=== PATIENT | female | born 1975 | race Caucasian/White ===

== ENCOUNTER 2019-04-03 19:12 | Emergency (ER) | payer OTHER, SELFPAY ==
[2019-04-03 19:24] VITALS: BP 98/83; PULSE 91; RESP 18; TEMP 37; O2SAT 96; BMI 23.0
--- NOTE | 2019-04-03 19:40 | ED_ITS ---
Entered by Danitza Becerril, acting as scribe for Lindsey Zaman HPI - Abdominal Pain General: Chief Complaint: Abdominal Pain Stated Complaint: GALLBLADDER ISSUE Time Seen by Provider: 04/03/19 19:40 Source: patient Mode of arrival: ambulatory Limitations: no limitations History of Present Illness: HPI narrative: Ramya is very nice 43 yo f came to the er for abd pain. Pt states that this has been going on for awhile. Pt states that her abd pain is upper gastric and radiates to her back. Pt states that the pain is sharp. Pt states that she has had some nausea. She is had nausea but no vomiting. She denies any pain in the lower part of her abdomen it is only located in the epigastric and occasionally the right upper quadrant. She denies any chest pain, shortness of breath, diaphoresis or exertional component to her pain. MD elicited complaint: abdominal pain Pertinent past history: other (gallbladder) Pain Consistency: constant Location: Epigastric and RUQ Severity: mild Quality: stabbing Migration to: epigastric and other (back) Exacerbating factors: nothing Relieving factors: nothing Associated Symptoms: Reports nausea; Denies chills, coffee ground emesis, constipation, GI cramping, diarrhea, dysuria, fever(s), hematochezia, hematuria, hematemesis, melena, syncope and vomiting Review of Systems General: Reports: other (negative unless marked) Const: Denies: fever, chills, body aches, fatigue, malaise or diaphoresis Eyes: Denies: change in vision or blurry vision ENMT: Denies: throat pain, painful swallowing, hoarseness, ear pain, ear discharge, Change in hearing or nasal discharge Card: Denies: chest pain, palpitations, irregular heart rhythm, syncope, pre- syncope, shortness of breath on exertion or shortness of breath when lying down Resp: Denies: shortness of breath, productive cough, non-productive cough, wheezing, coughing up blood or chest congestion GI: Reports: abdominal pain and nausea; Denies: vomiting, vomiting blood, coffee grounds in vomit, diarrhea, constipation, cramping, blood in stool or black tarry stool : Denies: flank pain, painful urination, urinary frequency, urinary urgency, decreased urine ouput, urinary incontinence or blood in urine Musc: Denies: neck pain, back pain, extremity pain, extremity swelling, joint pain, joint swelling, joint warmth or joint stiffness Skin/Breast: Denies: rash, skin tenderness or yellow skin Neuro: Denies: headache, numbness in extremities, weakness in extremities, changes in sensation, lack of coordination, difficulty walking, dizziness, vertigo or confusion Endo: Denies: excessive thirst, tired all the time, cold intolerance, excessive sweating, flushing or hot flashes Abdirahman/Lymph: Denies: easy bruising, easy bleeding, petechiae or enlarged lymph nodes All/Imm: Denies: hives, throat swelling, tongue swelling, facial swelling or acute wheezing PFSH ED PFSH: Statuses (acute, chronic, etc) shown below reflect problem list status as previously entered and may not be historically accurate Social History Smoking and tobacco status: former smoker Physical Exam Const: COMMON NORMALS: no apparent distress, oriented x3, no limitations, healthy appearing and well nourished EXAM LIMITATIONS: no altered mental status GENERAL APPEARANCE: cooperative, well kempt and well developed ORIENTATION/CONSCIOUSNESS: Yes awake HENMT: COMMON NORMALS: normocephalic, head/scalp atraumatic, hearing grossly normal bilaterally, external ears normal, EAC's normal, external nose normal and moist oral mucous membranes HEAD & SCALP: normal to inspection, normocephalic and atraumatic FACE & SINUS: normal facial exam and face symmetric NOSE: external nose normal and nares normal EXTERNAL EAR: Yes external ears normal EXTERNAL AUDITORY CANAL: EAC's normal MOUTH: oral and palatal mucosa normal and tongue normal Eye: COMMON NORMALS: PERRL, EOMs intact bilaterally, conjunctivae normal and no scleral icterus GENERAL EYE: normal appearance of both eyes and normal light reflex CONJUNCTIVA: Yes conjunctivae normal SCLERA: sclerae normal CORNEA: Yes corneas normal PUPIL: Yes PERRL DIRECT OPHTHALMOSCOPY: Yes normal light reflex Neck/C-Spine: COMMON NORMALS: full ROM, no lymphadenopathy, supple, no meningeal signs and no JVD GENERAL: Yes normal visual inspection and Yes trachea midline CERVICAL SPINE: Yes cervical ROM normal Chest: COMMONS NORMALS: inspection of chest normal and palpation of chest normal Resp: COMMON NORMALS: normal respiratory effort, no retractions, no use of accessory muscles and clear to auscultation bilaterally EFFORT & INSPECTION: Yes able to speak in complete sentences AUSCULTATION: clear to auscultation bilaterally Cardio: COMMON NORMALS: no JVD, regular rate, regular rhythm, S1 normal heart sound, S2 normal heart sound, no gallops, no clicks, no murmurs and no rub JUGULAR VENOUS DISTENTION: no JVD RATE: regular rate RHYTHM: regular rhythm HEART SOUNDS: S1 normal and S2 normal GI: COMMON NORMALS: soft to palpation, no hepatosplenomegaly and no masses INSPECTION: Yes normal to inspection PALPATION: Yes soft, Yes tender Details: RUQ and other (Epigastric) and Yes no hepatosplenomegaly : COMMON NORMALS: Yes no CVA tenderness BLADDER/KIDNEY EXAM: Yes no CVA tenderness Back/Pelvis: COMMON NORMALS: no CVA tenderness, thoracic and lumbar spine normal to inspection, no thoracic nor lumbar tenderness and thoraco-lumbar ROM normal Extremity: COMMON NORMALS: normal to inspection, full ROM, normal capillary refill, no joint enlargement, no clubbing, cyanosis or edema and no calf tenderness Neuro: COMMON NORMALS: oriented x3, CN's II-XII intact bilaterally, moves all extremities, no focal motor deficits and no sensory deficits noted MENINGEAL SIGNS: Yes no meningeal signs Psych: COMMON NORMALS: mental status grossly normal, thought process normal, cooperative, affect normal, speech normal and activity/motor behavior normal APPEARANCE: Yes well kempt SPEECH: Yes normal speech THOUGHT PROCESS: normal thought process Skin: COMMON NORMALS: no rashes or lesions noted, skin turgor normal, no jaundice, no petechiae and no mottling GENERAL SKIN EXAM: no rashes or lesions noted and turgor normal Course Vital Signs: Vital signs: Vital Signs Temperature 98.6 F 04/03/19 19:24 Pulse Rate 74 04/03/19 21:32 Respiratory Rate 17 04/03/19 21:32 Blood Pressure 104/62 04/03/19 21:32 Pulse Oximetry 99 04/03/19 21:32 MDM - Abdominal Pain MDM Narrative: Medical decision making narrative: Patient comes in with abdominal pain in the epigastric area. It is better at this time. Her ultrasound is negative. We will go ahead and discharge her to follow-up with Dr. Velazquez for an outpatient HIDA scan. She does understand to return if her symptoms change or worsen. I will place her on medications for reflux in the meantime. I informed her that an EGD may also be necessary. Based upon the patient's history and exam I see no evidence of other life-threatening cause such as acute coronary syndrome, acute appendicitis, abdominal or aneurysm or small bowel obstruction. The patient does understand though she needs to return should her symptoms change or worsen. Differential Diagnosis: Differential diagnosis abdominal pain: Likely abdominal pain, acute appendicitis, calculus of kidney, constipation, diverticulitis, endometriosis, gastroenteritis, pancreatitis and small bowel obstruction Lab Data: Attestation: I reviewed the patient's lab results. Labs: Lab Results 04/03/19 04/03/19 04/03/19 Range/Units 19:40 19:40 19:57 WBC 7.1 (4.0-10.0) 10^3/ uL RBC 4.16 (4.1-5.3) 10^6/u L Hgb 13.1 (11.5-15.3) g/dL Hct 39.0 (37.0-47.0) % MCV 93.8 (81-99) fL MCH 31.5 (28.0-34.0) pg MCHC 33.6 (30.0-36.0) g/dL RDW 11.9 L (12.1-15.1) % Plt Count 257 (130-400) 10^3/c mm MPV 11.2 H (7.4-10.4) fL Neut % (Auto) 40.4 % Lymph % (Auto) 47.4 % [place] % (Auto) 7.6 % Eos % (Auto) 3.3 % Baso % (Auto) 1.0 % Neut # (Auto) 2.9 (1.8-7.7) 10^3/u L Lymph # (Auto) 3.4 (0.8-4.8) 10^3/u L [place] # (Auto) 0.5 (0.2-0.9) 10^3/u L Eos # (Auto) 0.2 (0.0-0.8) 10^3/u L Baso # (Auto) 0.1 (0.0-0.1) 10^3/u L Nucleated RBC % (a uto) 0 % Nucleated RBCs # 0.0 /100WBC Sodium (136-145) mmol/L Potassium (3.5-5.1) mmol/L Chloride (98-107) mmol/L Carbon Dioxide (22-29) mmol/L Anion Gap (5-19) BUN (6-20) mg/dL Creatinine (0.5-0.9) mg/dL GFR Calculation (90-130) mL/min Glucose (74-109) mg/dL Calcium (8.6-10.0) mg/Dl Total Bilirubin (0.15-1.2) mg/dL AST (0-32) U/L ALT (0-33) U/L Alkaline Phosphata se (35-105) IU/L Total Protein (6.6-8.7) g/dL Albumin (3.5-5.2) g/dL Globulin (1.3-4.6) g/dL Lipase (13-60) U/L HCG, Qual Negative (Negative) Urine Color Yellow (Yellow) Urine Appearance Clear (CLEAR) Urine pH 7 (5-7) Ur Specific Gravit y 1.010 (1.005-1.030) Urine Protein Neg (Negative) Urine Glucose (UA) Norm (Normal) Urine Ketones Negative (Negative) Urine Occult Blood Neg (Negative) Urine Nitrate Negative (Negative) Urine Bilirubin Neg (NEGATIVE) Urine Urobilinogen Norm (Negative) mg/dL Ur Leukocyte Layne ase Negative (Negative) Urine RBC Rare (0-2) /hpf Urine WBC Rare (0-5) /hpf Ur Squamous Epith Cells 0-4 H (0-5) Amorphous Sediment 1+ Urine Bacteria 1+ H (NONE) 04/03/19 Range/Units 19:57 WBC (4.0-10.0) 10^3/ uL RBC (4.1-5.3) 10^6/u L Hgb (11.5-15.3) g/dL Hct (37.0-47.0) % MCV (81-99) fL MCH (28.0-34.0) pg MCHC (30.0-36.0) g/dL RDW (12.1-15.1) % Plt Count (130-400) 10^3/c mm MPV (7.4-10.4) fL Neut % (Auto) % Lymph % (Auto) % [place] % (Auto) % Eos % (Auto) % Baso % (Auto) % Neut # (Auto) (1.8-7.7) 10^3/u L Lymph # (Auto) (0.8-4.8) 10^3/u L [place] # (Auto) (0.2-0.9) 10^3/u L Eos # (Auto) (0.0-0.8) 10^3/u L Baso # (Auto) (0.0-0.1) 10^3/u L Nucleated RBC % (a uto) % Nucleated RBCs # /100WBC Sodium 138 (136-145) mmol/L Potassium 3.7 (3.5-5.1) mmol/L Chloride 99 (98-107) mmol/L Carbon Dioxide 28 (22-29) mmol/L Anion Gap 14.7 (5-19) BUN 14 (6-20) mg/dL Creatinine 1.1 H (0.5-0.9) mg/dL GFR Calculation 54.5 L (90-130) mL/min Glucose 87 (74-109) mg/dL Calcium 9.6 (8.6-10.0) mg/Dl Total Bilirubin 0.6 (0.15-1.2) mg/dL AST 21 (0-32) U/L ALT 16 (0-33) U/L Alkaline Phosphata se 64 (35-105) IU/L Total Protein 8.2 (6.6-8.7) g/dL Albumin 5.0 (3.5-5.2) g/dL Globulin 3.2 (1.3-4.6) g/dL Lipase 56 (13-60) U/L HCG, Qual (Negative) Urine Color (Yellow) Urine Appearance (CLEAR) Urine pH (5-7) Ur Specific Gravit y (1.005-1.030) Urine Protein (Negative) Urine Glucose (UA) (Normal) Urine Ketones (Negative) Urine Occult Blood (Negative) Urine Nitrate (Negative) Urine Bilirubin (NEGATIVE) Urine Urobilinogen (Negative) mg/dL Ur Leukocyte Layne ase (Negative) Urine RBC (0-2) /hpf Urine WBC (0-5) /hpf Ur Squamous Epith Cells (0-5) Amorphous Sediment Urine Bacteria (NONE) Imaging Data ^: US: Radiologist's impression: [address] [place] [address] Ultrasound Report Signed Patient: Ramya Wilburn #: [id number] : 1975Acct#:[id number] Age/Sex: 43 / FADM Date: 04/03/19 Loc: ERRoom/Bed: Attending Dr: Ordering Provider/Ordering MD: Lindsey Zaman DO Date of Service: 04/03/19 Procedure(s): US abdomen complete* [id number] Accession Number(s): [id number] Report Number: [id number] PROCEDURE INFORMATION: Exam: US Abdomen Complete Exam date and time: 04/03/2019 7:42 PM Age: 43 years old Clinical indication: Abdominal pain; Epigastric; Additional info: Abd pain TECHNIQUE: Imaging protocol: Real-time ultrasound of the abdomen with image documentation. COMPARISON: No relevant prior studies available. FINDINGS: Real-time sonography of the right upper quadrant was performed. The pancreas is unremarkable. The liver is homogeneous in echotexture. There is no liver mass. There is no intrahepatic biliary dilatation. There is hepatopedal flow within the portal vein. The common bile duct measured 2 mm. No gallstones are seen within the gallbladder. There is no thickening of the gallbladder wall. There is no pericholecystic fluid. The patient was not tender over the gallbladder. The right kidney appeared normal. No free fluid is identified. The aorta is normal in caliber. US/US abdomen complete* [id number] IMPRESSION: Normal right upper quadrant ultrasound. Dictated By:Mikhail Mccurdy MD Signed By:Mikhail Mccurdy MDSigned Date/Time:04/03/192102 DD/ 01 Discharge Plan Discharge Patient Disposition: Home, Self-Care Clinical Impression: Abdominal pain Qualifiers: Abdominal location: epigastric Qualified Code(s): R10.13 - Epigastric pain Condition: Stable Prescriptions: New Protonix 40 mg tablet,delayed release (DR/EC) 40 mg PO DAILY 56 Days RF: 0 Zofran 4 mg tablet 4 mg PO DAILY PRN (Reason: nausea and vomiting) 5 Days Qty: 20 RF: 0 No Action levothyroxine 88 mcg Tablet 88 mcg PO DAILY RF: 0 topiramate 50 mg Capsule,Extended Release 24hr 50 mg PO DAILY RF: 0 Discharge Orders: Discharge Order (Routine); Ordered 04/03/19 Ordered By: Lindsey Zaman Referrals: Vikas Velazquez MD [Physician] - Yogesh Cornelius MD [Primary Care Provider] - Discharge Diet: Clear Liquid Discharge Activity: Increase activity as tolerated Patient Instructions: Cholecystitis (ED), Abdominal Pain (ED) Activity Restrictions/Additional Instructions: Please return to the ER immediately for any of the signs or symptoms listed on your discharge instruction sheets, worsening/changing of your symptoms, you are not getting better as quickly as expected, or for ANY other cause or concerns. Follow a clear liquid diet and advance it as tolerated. Return to the ER for worsening of your symptoms or for any other cause for concern. Discharge Date/Time: 04/03/19 21:38 Coding Level of Care Code ED Intake Rn for Chg Fwd Exam Problem Focused The documentation recorded by the Jone lizama Stephanie Lyn, accurately reflects the service I personally performed and the decisions made by Junie mora Eli N Apr 03, 2019 19:12
[2019-04-03 20:01] VITALS: RESP 20
[2019-04-03] MEDS: morphine 4 mg/mL SDV 1 mL IVP (20:01)
[2019-04-03] MEDS: ondansetron 2 mg/ML SDV 2 mL 4 MG IVP (20:02)
[2019-04-03 20:04] LABS: Basophils # 0.1 10^3/uL (0.0-0.1); Eosinophils # 0.2 10^3/uL (0.0-0.8); Eosinophils % 3.3 %; Hemoglobin 13.1 g/dL (11.5-15.3); Lymphocytes # 3.4 10^3/uL (0.8-4.8); Lymphocytes % 47.4 %; Mean Corpuscular HGB Conc 33.6 g/dL (30.0-36.0); Mean Corpuscular Hemoglobin 31.5 pg (28.0-34.0); Mean Corpuscular Volume 93.8 fL (81-99); Mean Platelet Volume 11.2 fL (7.4-10.4); Monocytes # 0.5 10^3/uL (0.2-0.9); Monocytes % 7.6 %; Neutrophils # 2.9 10^3/uL (1.8-7.7); Neutrophils % 40.4 %; Nucleated Red Blood Cells % 0 %; Platelet Count 257 10^3/cmm (130-400); Red Blood Count 4.16 10^6/uL (4.1-5.3); Red Cell Distribution Width 11.9 % (12.1-15.1); White Blood Count 7.1 10^3/uL (4.0-10.0)
[2019-04-03 20:22] LABS: HCG Qualitative Urine. Negative (Negative)
[2019-04-03 20:23] LABS: Bilirubin Urine Neg (NEGATIVE); Blood Urine Neg (Negative); Glucose Urine UA Norm (Normal); Ketones Urine Negative (Negative); Leukocyte Esterase Urine Negative (Negative); Nitrate Urine Negative (Negative); Protein Urine Neg (Negative); Urine Appearance Clear (CLEAR); Urine Color Yellow (Yellow); Urobilinogen Urine Norm (Negative); pH Urine 7 (5-7)
[2019-04-03 20:24] VITALS: BP 104/66; O2SAT 96
[2019-04-03 20:27] LABS: Add Urine Culture? No; Amorphous Sediment Urine 1+; Bacteria Urine 1+; RBC Urine RARE /hpf (0-2); Squamous Epithelial Cell Urine 0-4 (0-5); WBC Urine RARE /hpf (0-5)
[2019-04-03 20:29] LABS: Alanine Aminotransferase 16 U/L (0-33); Alkaline Phosphatase 64 IU/L (35-105); Anion Gap 14.7 (5-19); Aspartate Amino Transferase 21 U/L (0-32); Blood Urea Nitrogen 14 mg/dL (6-20); Calcium 9.6 mg/Dl (8.6-10.0); Carbon Dioxide 28 mmol/L (22-29); Chloride 99 mmol/L (98-107); Globulin 3.2 g/dL (1.3-4.6); Glomerular Filtration Rate 54.5 mL/min (90-130); Glucose 87 mg/dL (74-109); Lipase 56 U/L (13-60); Potassium 3.7 mmol/L (3.5-5.1); Sodium 138 mmol/L (136-145); Total Bilirubin 0.6 mg/dL (0.15-1.2); Total Protein 8.2 g/dL (6.6-8.7)
[2019-04-03 21:32] VITALS: BP 104/62; PULSE 74; RESP 17; O2SAT 99
== END 2019-04-03 21:38 | disposition home or self-care (01) ==
PROVIDERS: Emergency Provider Emergency Medicine; Family Provider Family Medicine; PCP Family Medicine
DX: R10.13 Epigastric pain (principal); Z87.891 Personal history of nicotine dependence
CPT/HCPCS: 76700; 80053; 81001; 81025; 83690; 85025; 96374; 99282; A9270; J2270; J2405

== ENCOUNTER 2019-04-14 08:41 | Day surgery (SDC) | payer OTHER, SELFPAY ==
[2019-04-13 15:35] VITALS: BMI 23.6
--- NOTE | 2019-04-14 09:15 | ANES.PREANES ---
Pre-Anesthetic Assessment Pre-Anesthetic Assessment: Height/Weight: Height 1.6 m Weight 60.328 kg Preop Diagnosis: abdominal pain Proposed Procedure: Operation Date: 04/14/19 10:00 Proposed Procedures p EGD 44093 R49.0(Not Applicable) - Vikas Velazquez MD Familial anesthetic complications: No trouble Was Beta Ceci taken within 24 hours: N/A Last intake: NPO > 8 hrs Social: Social History: No alcohol and No tobacco Exam: Pre-Anes Outpt Exam: alert, oriented x 3, clear to auscultation bilaterally and regular rate & rhythm Airway: Cervical ROM: WNL MP: 1 Additional comments: crowns Pulmonary: Pulmonary: None reported CV/HEM: CV/HEM: None reported : : None reported Hepatic: Hepatic: None reported Metabolic: Metabolic: Thyroid Musc/skel: Musc/skel: None reported Neuropsych: Neuropsych: Anxiety and None reported Anesthetic Plan: ASA status: II Anesthesia: MAC Risk of > 500 ml blood loss (7ml/kg in children): No PFSH Anesthesia PFSH: Social History Smoking and tobacco status: former smoker Quit status (tobacco): has quit using tobacco Second hand smoke exposure: No Alcohol intake: never Desire information about substance/drug rehabilitation?: No Adopted: No Caregiver/support person: Yes Lives independently: Yes Household members: spouse and family Housing: House Marital status: Number of children: 3 Highest education level completed: High School Graduate service: No Current occupational status: employed 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
[2019-04-14 09:49] LABS: OR HCG Qualitative Urine Negative (Negative)
--- NOTE | 2019-04-14 10:15 | P.HPUD_ITS ---
H&P update H&P Update: DATE OF SURGERY/PROCEDURE: 04/14/19 DATE H&P PERFORMED: H&P UPDATE INFORMATION: H&P completed within last 30 days and No changes to prior documentation PREOP DIAGNOSIS: Nausea and heartburn associ ated with epigastric pain PLANNED PROCEDURE: Operation Date: 04/14/19 10:00 Proposed Procedures p EGD 96694 R49.0(Not Applicable) - Vikas Velazquez MD Full H&P Perinent History: Family History: Family History (Updated 04/07/19 @ 13:39 by Lula Hutchins RN) Denies family history of Anesthesia complication Bleeding disorder Social History: Social History Smoking and tobacco status: former smoker Quit status (tobacco): has quit using tobacco Second hand smoke exposure: No Alcohol intake: never Desire information about substance/drug rehabilitation?: No Adopted: No Caregiver/support person: Yes Lives independently: Yes Household members: spouse and family Housing: House Marital status: Number of children: 3 Highest education level completed: High School Graduate service: No Current occupational status: employed 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
[2019-04-14 10:55] VITALS: BP 97/61; PULSE 71; RESP 16; TEMP 36.9; O2SAT 99
[2019-04-14 11:03] VITALS: BP 100/71; PULSE 74; RESP 18; O2SAT 100
== END 2019-04-14 11:20 | disposition home or self-care (01) ==
PROVIDERS: Family Provider Family Medicine; PCP Family Medicine; Visit Provider Surgery
PROC: 0DJ08ZZ Inspection of Upper Intestinal Tract, Via Natural or Artificial Opening Endoscopic (ICD-10-PCS; CPT 43235; principal; 2019-04-14 10:00)
DX: R11.0 Nausea (principal); R12 Heartburn; K82.9 Disease of gallbladder, unspecified; Z87.891 Personal history of nicotine dependence; K21.9 Gastro-esophageal reflux disease without esophagitis; R49.0 Dysphonia
CPT/HCPCS: 12345; 43235; 84703; 96365; J2704; J7030

== ENCOUNTER 2019-04-21 07:20 | Outpatient (CLI) | payer OTHER, SELFPAY ==
--- NOTE | 2019-04-21 07:30 | NM_ITS ---
WS: [id number] NUCLEAR MEDICINE HIDA SCAN WITH GALLBLADDER EJECTION FRACTION HISTORY: ABDOMINAL PAIN COMPARISON: Gallbladder ultrasound 04/03/2019 TECHNIQUE: The patient was intravenously injected with 8.3 mCi of TC99m Mebrofenin. Immediate imaging over the right upper quadrant was followed by 5 minute image and additional images for a total of 60 minutes. Normal uptake of radiotracer throughout the liver. Activity identified in the gallbladder at 10 minutes and well distended by 60 minutes. Activity in the proximal small bowel was seen by 30 minutes. Good washout of the radiotracer from the liver by 60 minutes. The patient then drank 8 ounces of Ensure Plus. Ejection fraction at 60 minutes was 86%. Normal GB ej ection fraction is 35-75%. Post fatty meal symptoms: Mild nausea. NM/NM hepatobiliary w phar* [id number] IMPRESSION: 1. Normal HIDA scan. 2. Normal gallbladder ejection fraction.
== END 2019-04-21 07:21 | disposition home or self-care (01) ==
PROVIDERS: Family Provider Family Medicine; PCP Family Medicine; Visit Provider Surgery
DX: R10.9 Unspecified abdominal pain (principal)
CPT/HCPCS: 78227; A9537

== ENCOUNTER 2019-06-24 11:05 | Outpatient (CLI) | payer BC, OTHER, SELFPAY ==
--- NOTE | 2019-06-24 11:13 | MM_ITS ---
WS: [id number] LEFT DIGITAL MAMMOGRAPHY WITH CAD CLINICAL INFORMATION: LEFT BREAST CALCS/ 6 MO F/U HISTORY: Six-month follow-up calcifications. Breast lump. COMPARISON: 01/18/2019 and 11/18/2018 TECHNIQUE: 6 views of the left breast were obtained. FINDINGS: The left breast is composed of heterogeneous fibroglandular density tissue, which can limit the detec tion of small underlying mass lesions. Biopsy marker upper outer left breast. Multiple punctate calci fications deep to the biopsy marker similar in appearance to November 18, 2018. Palpable marker upper outer left breast with a slightly spiculated 1.3 x 0.6 cm asymmetric density de ep to the palpable marker. Ultrasound is pending. ULTRASOUND BREAST LEFT TECHNIQUE: Ultrasound left breast focused area of concern. CLINICAL INFORMATION: LEFT BREAST CALCS/ 6 MO F/U COMPARISON: Ultrasound August 06, 2018 FINDINGS: Irregular hypoechoic lesion at the 2:00 position 3 cm from the nipple measuring approximately 1.3 x 1 .2 x 0.9 cm with irregular borders. This lesion is taller than wide and suspicious. Recommend further evaluation with ultrasound-guided biopsy. Left axilla is evaluated and demonstrates an abnormal appearing enlarged lymph node measuring 1.9 x 1 .4 x 0.8 cm with loss of the normal fatty hilum. Recommend ultrasound-guided biopsy of this lesion al sawyer. MM/[place] [id number] IMPRESSION: BI-RADS: 5-Highly Suggestive of Malignancy FOLLOW UP: US Guided Biopsy Recommended
--- NOTE | 2019-06-24 11:31 | US_ITS ---
WS: [id number] LEFT DIGITAL MAMMOGRAPHY WITH CAD CLINICAL INFORMATION: LEFT BREAST CALCS/ 6 MO F/U HISTORY: Six-month follow-up calcifications. Breast lump. COMPARISON: 01/18/2019 and 11/18/2018 TECHNIQUE: 6 views of the left breast were obtained. FINDINGS: The left breast is composed of heterogeneous fibroglandular density tissue, which can limit the detec tion of small underlying mass lesions. Biopsy marker upper outer left breast. Multiple punctate calci fications deep to the biopsy marker similar in appearance to November 18, 2018. Palpable marker upper outer left breast with a slightly spiculated 1.3 x 0.6 cm asymmetric density de ep to the palpable marker. Ultrasound is pending. ULTRASOUND BREAST LEFT TECHNIQUE: Ultrasound left breast focused area of concern. CLINICAL INFORMATION: LEFT BREAST CALCS/ 6 MO F/U COMPARISON: Ultrasound August 06, 2018 FINDINGS: Irregular hypoechoic lesion at the 2:00 position 3 cm from the nipple measuring approximately 1.3 x 1 .2 x 0.9 cm with irregular borders. This lesion is taller than wide and suspicious. Recommend further evaluation with ultrasound-guided biopsy. Left axilla is evaluated and demonstrates an abnormal appearing enlarged lymph node measuring 1.9 x 1 .4 x 0.8 cm with loss of the normal fatty hilum. Recommend ultrasound-guided biopsy of this lesion al sawyer. US/US breast LT limited* [id number] IMPRESSION: BI-RADS: 5-Highly Suggestive of Malignancy FOLLOW UP: US Guided Biopsy Recommended
== END 2019-06-24 11:06 | disposition home or self-care (01) ==
LOC: RADSHAW 11:05
PROVIDERS: Family Provider Family Medicine; PCP Family Medicine; Visit Provider Family Medicine
DX: N64.89 Other specified disorders of breast (principal)
CPT/HCPCS: 76642; 77065

== ENCOUNTER 2019-07-12 12:12 | Outpatient (CLI) | payer BC, OTHER, SELFPAY ==
--- NOTE | 2019-07-12 | US_ITS ---
WS: [id number] ULTRASOUND-GUIDED LEFT BREAST BIOPSY LEFT axillary lymph node biopsy HISTORY: MASS OF LEFT BREAST ON MAMMOGRAM, abnormal lymph nodes by ultrasound. COMPARISON: 08/06/2018 and 06/24/2019 Procedure, risks and complications are explained to the patient. Medications are reviewed. Consent is obtained. The mass in the LEFT breast is localized with ultrasound. Skin is cleansed with ChloraPrep and anesth etized with 1% buffered lidocaine. Small dermatome is made. Under sterile conditions mass is biopsied with a 14-gauge Achieve needle. Multiple core biopsies are performed. Material placed in formalin an d sent to pathology for review. No complications encountered. Breast tissue marker (Qwiqq ultrasound enhanced ribbon): Single. LEFT axillary lymph node biopsy. There are several adjacent lymph nodes in the LEFT axilla which are abnormal in appearance. These lym ph nodes are very deep against the chest wall. Core biopsy has been performed. Only 2 core biopsies w ere performed with an 18-gauge needle as the lymph node became less apparent after the initial biopsy . Material was placed in formalin. Biopsy clip is inserted into the lymph node. This clip may be just external to the lymph node. Difficult to actually see the clip after expulsion from the guiding jacque ce. Patient left the radiology suite with no complications. [place] [facility] [place] [facility] with any concerns. 1. Uncomplicated core needle biopsy LEFT breast mass 2:00. US/ biopsy lymph node [id number] IMPRESSION: PATHOLOGY: Moderately differentiated invasive ductal carcinoma. RECOMMENDATION: Surgical and oncological follow-up. 2. Uncomplicated core needle biopsy LEFT axillary lymph node. PATHOLOGY: Positive for metastatic ductal carcinoma. RECOMMENDATION: Oncologic and surgical follow-up.
--- NOTE | 2019-07-12 12:19 | US_ITS ---
WS: [id number] ULTRASOUND-GUIDED LEFT BREAST BIOPSY LEFT axillary lymph node biopsy HISTORY: MASS OF LEFT BREAST ON MAMMOGRAM, abnormal lymph nodes by ultrasound. COMPARISON: 08/06/2018 and 06/24/2019 Procedure, risks and complications are explained to the patient. Medications are reviewed. Consent is obtained. The mass in the LEFT breast is localized with ultrasound. Skin is cleansed with ChloraPrep and anesth etized with 1% buffered lidocaine. Small dermatome is made. Under sterile conditions mass is biopsied with a 14-gauge Achieve needle. Multiple core biopsies are performed. Material placed in formalin an d sent to pathology for review. No complications encountered. Breast tissue marker (Number 100 ultrasound enhanced ribbon): Single. LEFT axillary lymph node biopsy. There are several adjacent lymph nodes in the LEFT axilla which are abnormal in appearance. These lym ph nodes are very deep against the chest wall. Core biopsy has been performed. Only 2 core biopsies w ere performed with an 18-gauge needle as the lymph node became less apparent after the initial biopsy . Material was placed in formalin. Biopsy clip is inserted into the lymph node. This clip may be just external to the lymph node. Difficult to actually see the clip after expulsion from the guiding jacque ce. Patient left the radiology suite with no complications. Patient is instructed to return to [facility] or [facility] with any concerns. 1. Uncomplicated core needle biopsy LEFT breast mass 2:00. US/[place] [id number] IMPRESSION: PATHOLOGY: Moderately differentiated invasive ductal carcinoma. RECOMMENDATION: Surgical and oncological follow-up. 2. Uncomplicated core needle biopsy LEFT axillary lymph node. PATHOLOGY: Positive for metastatic ductal carcinoma. RECOMMENDATION: Oncologic and surgical follow-up.
[2019-07-22 10:41] LABS: Miscellaneous Test See Scanned Lab Rpt
== END 2019-07-12 12:13 | disposition home or self-care (01) ==
LOC: RAD 12:14
PROVIDERS: Family Provider Family Medicine; PCP Family Medicine; Visit Provider Family Medicine
DX: N63.21 Unspecified lump in the left breast, upper outer quadrant (principal); C50.412 Malignant neoplasm of upper-outer quadrant of left female breast; C96.9 Malignant neoplasm of lymphoid, hematopoietic and related tissue, unspecified
CPT/HCPCS: 19082; 19083; 38505; 76942; 88305; 88361; 88374

== ENCOUNTER 2019-07-23 14:01 | Outpatient (CLI) | payer BC, OTHER, SELFPAY ==
--- NOTE | 2019-07-25 08:27 | ONC CON_ITS ---
Dr. Beverly New Patient Note Patient: Ramya Wilburn Unit #: [id number]: 1975 Dicatated By: Zia Beverly M.D.Date of Visit: July 23, 2019 Onc MED New Patient/Consult Referring Physician: Dr. Yogesh Cornelius M.D. Chief Complaint: Breast cancer. History of Present Illness: This is a 43-year-old woman with grade 2 invasive ductal carcinoma of the left breast, ER/HI positive and HER-2/bambi negative. By clinical evaluation her disease is stage at least IA (T1c, pN1a, M0). She had originally presented a year ago with bloody discharge from the left nipple. An ultrasound of the left breast on 08/06/2018 was BI-RADS Category 1. A few ductal structures were noted in the subareolar region, but there was no evidence for cystic or solid soft tissue abnormality. She apparently then had an abnormal mammogram done elsewhere and further evaluation with a diagnostic bilateral mammogram on 11/18/2018 showed multiple calcifications scattered throughout the left breast. The most concerning were in the upper outer quadrant. The breasts were noted to be extremely dense. A stereotactic biopsy of left breast calcifications on 01/18/2019 showed fibrocystic changes with no malignancy or significant atypia identified. She then had a repeat diagnostic mammogram and left breast ultrasound on 06/24/2019. The mammogram showed a slightly spiculated asymmetric density measuring 1.3 x 0.6 cm in the upper outer quadrant. Multiple punctate calcifications deep to the biopsy marker were noted to have a similar appearance compared to the study from November 2018. Ultrasound showed an irregular hypoechoic lesion at the 2 o'clock position measuring 1.3 x 1.2 x 0.9 cm. It was BI-RADS 5, highly suggestive of malignancy. Ultrasound also showed an abnormal appearing enlarged lymph node in the left axilla measuring 1.9 x 1.4 x 0.8 cm. On 07/12/2019 she underwent ultrasound-guided biopsy of the left breast mass and the left axillary lymph node. Pathology on the breast mass showed moderately differentiated invasive ductal carcinoma, nuclear grade 2. The maximum tumor size is 1.0 cm. The left axillary lymph node biopsy was positive for metastatic ductal carcinoma with tumor size measuring 3.5 mm. The breast prognostic profile showed ER positive at 90% and HI positive at 90%. HER-2/bambi was 2+ by IHC, but negative by FISH with amplification ratio 1.4 and 2.8 HER-2 copies/cell. The KI-67 was elevated at 30%. She complains that she is been feeling exhausted she has had some decrease in her activity. She is still working full-time, though. She says she does not have much appetite. Her weight fluctuates up and down. She has not had fever, night sweats, or hot flashes. She is still having regular menstrual periods. She is 2/para 3, having delivered one set of twins. Her history includes 14 years of oral contraceptive use. She has some GERD symptoms, and she has migraine headaches. She also has a history of anxiety/depression, and she complains that her nerves are shot. Past Medical History: Her medical history includes anxiety, depression, history of thyroid nodule/hyperthyroidism, migraine headeaches, and surgical hypothyroidism. Past Surgical History: She underwent stereotactic needle biopsy of the left breast in January of 2019, and she underwent ultrasound-guided biopsy of left breast mass and left axillary lymph node on 07/12/2019. Her other surgical/procedural history includes FNA biopsy of thyroid nodule in 2014, total thyroidectomy in 2014, tubal ligation in 2013, and a section. Medications: clonazePAM 1 Tablet (of 0.5 mg) Oral b.i.d., FLUoxetine HCl 1 Tablet (of 60 mg) Oral daily, Ibuprofen 1 Tablet (of 800 mg) Oral t.i.d. PRN, Levothyroxine Sodium 1 Tablet (of 88 mcg) Oral daily, Multivitamin Adult 1 Tablet Oral daily, Rizatriptan Benzoate 1 Tablet (of 10 mg) Oral q 2 hours PRN, Topiramate 1 Tablet (of 50 mg) Oral daily Allergies: No Known Allergies. Social History: Ms. 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 She smoked a little bit over a period of 2 years. She quit in 2007. She has had social alcohol use. Family History: Father has diabetes and coronary artery disease and is still living at age 73. Mother is in good health age 68. Two brothers and a fraternal twin sister are in good health. Review Of Symptoms: Constitutional - She has generally been exhausted. Her energy level has continued to decrease. 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 Her appetite is unchanged and weight is stable. No fever, chills, hot flashes, or night sweats. ECOG score is 0, Eyes - No change in vision, ENMT - No hearing loss or tinnitus. No sinus congestion/drainage. No mouth sores. No sore throat or difficulty swallowing, Hematologic/Lymphatic - She bruises easily, Respiratory - No shortness of breath. No cough. No pleuritic pain or hemoptysis, Cardiovascular - No angina pain. No palpitations, Gastrointestinal - No nausea or vomiting. No heartburn or acid reflux. No diarrhea or constipation. No blood in the stool or black stools, Genitourinary (F) - No dysuria or hematuria. No urinary frequency. No urgency or incontinence, Musculoskeletal - No joint or bone pain, Integumentary - No skin complications, Neurologic - She has migraine headaches. No dizziness. No numbness/paresthesias or other focal neurologic symptoms, Psychiatric - She has anxiety/depression and she complains that her nerves are shot. No insomnia. Vital Signs: Performed on July 23, 2019 14:29: 2, 24.45, 1.65 sq.m, 63.00 in, 100 %, 76 /min, 18 /min, 119/82 mm(hg), 98.8 F, and 138.0 lbs (HIGH). Physical Examination: Constitutional - She appears to be in good general health, Eyes - Sclerae nonicteric. Conjunctivae clear, ENMT - No lesions noted in the oral cavity, Neck - No mass or thyromegaly, Hematologic/Lymphatic - No cervicalor clavicular adenopathy, Respiratory - Lungs are clear with good air movement bilaterally, Cardiovascular - Heart rhythm is regular. There is no murmur, gallop, or rub noted, Breasts - Both breasts are diffusely nodular in consistency. There is no suspicious mass in the right breast. There is a fairly large area of firmness in the lateral aspect of the left breast. I am not able to delineate a discrete mass. There is a palpable nodule in the left axilla. There is no axillary adenopathy, Abdomen - Soft and non-tender. Liver and spleen are not enlarged. There is no abdominal mass or ascites noted and there is no inguinal adenopathy, Back/Spine - No spine or CVA tenderness noted, Extremities - No edema. Pedal pulses are palpable bilaterally, Integumentary - No rashes. No suspicious skin lesions noted, Neurologic - No focal neurologic deficits noted. Impression: 1. Patient with grade 2 infiltrating ductal carcinoma of the left breast, by clinical evaluation stage at least 1A (T1c, pN1a, M0), ER/HI positive and HER-2/bambi negative. 2. She underwent ultrasound-guided biopsies of left breast mass and left axillary lymph node on 07/12/2019. Her other medical illnesses include: 3. GERD. 4. Migraine headaches. 5. Anxiety/depression. 6. She has a history of thyroid nodules/hyperthyroidism for which she underwent total thyroidectomy in 2014. Plan: I reviewed the mammogram findings and the pathology results. She has a grade 2 infiltrating ductal carcinoma of the left breast which is ER/HI positive and HER-2/bambi negative. There is biopsy proven involvement in the left axillary lymph node. She is premenopausal. I will want to review all of this with Dr. Schmitt and with the radiation oncologist, but my initial inclination is to proceed with neoadjuvant chemotherapy with Adriamycin/cyclophosphamide followed by paclitaxel, and then reassess for breast conservation management versus mastectomy. She would also then be eligible for adjuvant hormonal therapy. Although she is stage IA by the new staging classification, she is at significant risk for recurrence, and I also would like to get a baseline PET/CT to make sure there is no evidence of metastatic disease. I did address all of her questions. Signed By: Zia Beverly M.D. <<Signature on File>>
== END 2019-07-23 14:02 | disposition home or self-care (01) ==
PROVIDERS: PCP Family Medicine; Referring Provider Family Medicine; Visit Provider Internal Medicine Medical Oncology
DX: C50.412 Malignant neoplasm of upper-outer quadrant of left female breast (principal); Z17.0 Estrogen receptor positive status [ER+]; C77.3 Secondary and unspecified malignant neoplasm of axilla and upper limb lymph nodes; F41.8 Other specified anxiety disorders; E05.90 Thyrotoxicosis, unspecified without thyrotoxic crisis or storm; G43.909 Migraine, unspecified, not intractable, without status migrainosus; E03.9 Hypothyroidism, unspecified; K21.9 Gastro-esophageal reflux disease without esophagitis; Z79.899 Other long term (current) drug therapy
CPT/HCPCS: 99205

== ENCOUNTER 2019-07-28 10:02 | Outpatient (CLI) | payer BC, OTHER, SELFPAY ==
--- NOTE | 2019-07-28 14:31 | N.ONRAD NP_ITS ---
Radiation Oncology New Patient Visit Patient: Ramya Wilburn MR#: [id number] : 1975> Age: 43> Sex: Female> Dictated by: Dr. Alvino Castillo Date of Service: 07/28/2019 Referring Physician(s) : Dr. Yogesh Cornelius Diagnosis: C50.412 - malignant neoplasm of upper-outer quadrant of left female breast, Diagnosed 07/23/2019 (active), ST IIA(T1 N1 M0) ER+ NC+ [id number]- G2 IDC Radiotherapy to date: Summary > No prior radiation therapy. Chief Complaint / History of Present Illness: Stage II (T1b N1 M0) ER positive NC positive HER-2 negative grade 2 infiltrating ductal carcinoma of the upper outer quadrant of the left breast. She underwent confirmatory biopsy of the primary and involved lymph node here on July 12, 2019. She will likely receive neoadjuvant chemotherapy followed by breast conservation surgery. We were asked to see her regarding the role of adjuvant breast radiation therapy following breast conserving surgery. Ms. Ramya Wilburn is a 43-year-old woman who initially had bilateral nipple discharge including some blood a year ago. She was evaluated in [place] at which time follow-up was recommended. In January 2019 she underwent biopsy of the left breast which revealed fibrocystic change with no malignancy or atypia. She underwent follow-up 6-month mammography of the left breast on June 24, 2019 this revealed a palpable marker in the upper outer left breast with a slightly spiculated 1.3 x 0.6 cm asymmetric density deep to the palpable marker. Follow-up ultrasonography revealed an irregular hypoechoic lesion at the 2 o'clock position 3 cm from the nipple measuring 1.3 x 1.2 x 0.9 cm with irregular borders left axilla demonstrated an abnormal appearing enlarged lymph node measuring 1.9 x 1.4 x 0.8 cm with loss of the normal fatty hilum. Findings were highly suspicious and biopsy was recommended. Follow-up ultrasonography and biopsy on July 12, 2019 was performed this revealed a 1 cm breast tumor revealing grade 2 moderately differentiated invasive ductal carcinoma ER positive at 90% NC positive at 90% HER-2/bambi was negative by IHC and FISH. Ki-67 was elevated at 30%. Axillary lymph node was positive for metastatic ductal carcinoma measuring 3.5 mm in size. Following biopsy she did note some bruising in her left breast with a new post-biopsy assymptomatic mass noted. Current Medications: ClonazePAM, fLUoxetine HCl, ibuprofen, levothyroxine Sodium, multivitamin Adult, rizatriptan Benzoate, topiramate. Allergies: No Known Allergies Medical History: - Anxiety, - depression, - history of thyroid nodule/hyperthyroidism, - migraine headeaches, - surgical hypothyroidism. No history of collagen vascular disease. No previous radiation therapy. Surgical History: Caesarean section, fNA biopsy of thyroid nodule on 08/26/2014, stereotactic needle biopsy of the left breast on 01/18/2019, total thyroidectomy in 10/2014, tubal ligation in 2013 and ultrasound-guided biopsy of left breast mass and left axillary lymph node on 07/14/2019. Family History: Father is alive. Mother is alive. Maternal Aunt is having experienced uterine cancer. Father has diabetes and coronary artery disease and is still living at age 73. Mother is in good health age 68. Two brothers and a fraternal twin sister are in good health. Social History: Last screened on 07/23/2019 - Yes - but has quit for 12 years. Smoked for 2 years. Last screened on 07/23/2019 - Never drank. Patient indicated access to the following support systems: lives with spouse, significant other, family, or friends, lives in own house, supportive family/friends willing to assist with needs, and adequate transportation available for expected visits. Patient indicated the following nutritional habits: regular meals. Patient indicated participation in the following forms of activity: regular exercise. 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 She has been over the last year. She has 5-year-old twin boys and a 10-year-old daughter at home. She is a non-smoker and social drinker. Current Complaints / Review of Systems: Constitutional - Complains of fatigue intermittently. Denies fever and night sweats. Integumentary - Denies rash. Breasts - Denies pain. Cardiovascular - Denies chest pain, orthopnea and palpitations. Respiratory - Denies cough and dyspnea. Gastrointestinal - Complains of nausea every now and then, which she says is normal for her. Denies change in bowel habits has had issues with constipation in the past and heartburn / dyspepsia. Genitourinary (F) - Denies dysuria and hematuria. Musculoskeletal - Denies bone pain and joint pain. Neurologic - Complains of headaches , which she states she takes medications for migraines and insomnia. Psychiatric - Complains of depression and anxiety. Hematologic/Lymphatic - Denies easy bruising.. Vital Signs: Performed on 07/28/2019 10:16 AM Weight - 138 lbs, Temperature - 97.2 f, Pulse - 68, Respiration - 16, O2 Sat - 99 %, Pain - 0 and BP - 116/ 81 mm(hg). Physical Exam: Pleasant woman in no acute distress. H EENT examination revealed good dentition. Lymph nodes revealed no palpable adenopathy in the supraclavicular or axillary regions. Arms had full range of motion with no arm edema. Breast revealed fullness or vague mass in the lateral aspect of the left breast. Ecchymosis seen in the lateral aspect of the left breast. No other skin findings noted. Lungs clear to auscultation. Heart regular without murmur gallop. Neurologic examination revealed no deficits. Performance Status: Pathology: Primary, c50.412 - malignant neoplasm of upper-outer quadrant of left female breast, Diagnosed 07/23/2019 (active) STII(T1 N1 M0) ER+ NC+ [id number] IDC Lab: Not yet available. Imaging: See HPI Impression: Stage IIa (T1 N1 M0) grade 2 ER positive NC positive HER-2/bambi negative infiltrating ductal carcinoma of the left breast. She is a satisfactory candidate for breast preservation. She will now proceed with central line placement with Port-A-Cath scheduled for July 28. She will then undergo neoadjuvant chemotherapy with Adriamycin and Cytoxan followed by Taxol. Following this she would be a candidate for breast preservation with lumpectomy with clear margin and sentinel lymph node sampling. Following this she would then undergo adjuvant breast radiation therapy Depending on the chadd involvement we would also include axillary apex and supraclavicular hernandez in her treatment as well . And a thorough discussion regarding the role of adjuvant breast radiation therapy in her treatment. I also discussed acute and chronic toxicities. plan: Signed by: 07/28/2019 2:29:19 PM <<Signature on File>> Time spent with patient: 60 min CPT Code: CPT Code:
== END 2019-07-28 10:03 | disposition home or self-care (01) ==
LOC: ONCMED 10:03
PROVIDERS: PCP Family Medicine; Visit Provider Radiology Radiation Oncology
DX: C50.412 Malignant neoplasm of upper-outer quadrant of left female breast (principal); Z17.0 Estrogen receptor positive status [ER+]; C77.3 Secondary and unspecified malignant neoplasm of axilla and upper limb lymph nodes; F41.8 Other specified anxiety disorders; E05.90 Thyrotoxicosis, unspecified without thyrotoxic crisis or storm; E03.9 Hypothyroidism, unspecified; G43.909 Migraine, unspecified, not intractable, without status migrainosus; Z79.899 Other long term (current) drug therapy
CPT/HCPCS: 99204

== ENCOUNTER 2019-07-29 11:20 | Day surgery (SDC) | payer BC, OTHER, SELFPAY ==
[2019-07-28 09:54] VITALS: BMI 23.9
--- NOTE | 2019-07-29 | SCC_ITS ---
Procedure Done: Port-A-Cath placement into the right subclavian vein with intraoperative fluoroscopy interpretation. 1.7 seconds of fluoroscopic guidance, for a cumulative dose of 0.20 mGy, was provided to Dr. Schmitt by the radiology department. C-arm images of the chest were saved for the patient's permanent record. DEBBIE
--- NOTE | 2019-07-29 11:49 | W.PM.OPSUD ---
Surgery/Procedure H&P Update DATE OF PROCEDURE: July 29, 2019 DATE H&P PERFORMED: 06/23/19 H&P UPDATE INFORMATION: No changes to prior documentation PREOP DIAGNOSIS: Biliary colic PLANNED PROCEDURE: Operation Date: 07/29/19 12:25 Proposed Procedures p Portacath Placement(Not Applicable) - Cornel Schmitt MD
[2019-07-29 11:56] VITALS: BP 114/78; PULSE 76; RESP 18; TEMP 36.3; O2SAT 100
--- NOTE | 2019-07-29 11:58 | P.ANESASSM_ITS ---
Pre-Anesthetic Assessment Pre-Anesthetic Assessment: Height/Weight: Height 1.6 m Weight 61.235 kg Preop Diagnosis: Biliary colic Proposed Procedure: Operation Date: 07/29/19 12:25 Proposed Procedures p Portacath Placement(Not Applicable) - Cornel Schmitt MD Social: Social History: Tobacco (quit) and No alcohol Exam: Pre-Anes Outpt Exam: alert, oriented x 3, clear to auscultation bilaterally and regular rate & rhythm Airway: Submandibular: WNL Cervical ROM: WNL MP: 1 Dentition: Other (teeth ok) History/ROS: No significant history except as noted Pulmonary: Pulmonary: None reported CV/HEM: CV/HEM: None reported : : None reported Hepatic: Hepatic: None reported GI: GI: GERD (occ) Metabolic: Metabolic: Thyroid Musc/skel: Comments: left breast ca Neuropsych: Neuropsych: Anxiety and Depression Anesthetic Plan: ASA status: 3 Anesthesia: Anesthesia Evaluation and MAC Risk of > 500 ml blood loss (7ml/kg in children): No PFSH Anesthesia PFSH: Medical History Anxiety reaction Biliary colic Hoarseness of voice Thyroid disease Surgical History History of esophagogastroduodenoscopy (EGD) (~04/2019) History of thyroidectomy (~10/2014) Family History Denies family history of Anesthesia complication Bleeding disorder Social History Smoking and tobacco status: former smoker Quit status (tobacco): has quit using tobacco Second hand smoke exposure: No Alcohol intake: never Desire information about substance/drug rehabilitation?: No Adopted: No Caregiver/support person: Yes Lives independently: Yes Household members: spouse and family Housing: House Marital status: Number of children: 3 Highest education level completed: High School Graduate service: No Current occupational status: employed 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
[2019-07-29] MEDS: sodium chloride 0.9% 1,000 ML 30 ML IV (12:04)
[2019-07-29 12:05] LABS: OR HCG Qualitative Urine Negative (Negative)
--- NOTE | 2019-07-29 12:27 | SC_ITS ---
WS: [id number] C-ARM RADIOGRAPHS CHEST; 2 IMAGES HISTORY: port a cath COMPARISON: None available. Intraoperative imaging during Port-A-Cath placement. SC/C-arm [place] CVA [id number] IMPRESSION: Intraoperative imaging during Port-A-Cath placement.
[2019-07-29] MEDS: heparin,porcine 1,000 unit/mL INJ 1 mL 2000 UNIT INJECTION (12:37)
--- NOTE | 2019-07-29 12:41 | PM.OP ---
Operative Report Date of procedure: July 29, 2019 Pre-op Diagnosis: Left breast cancer. Post-op diagnosis: same Procedure Done: Port-A-Cath placement into the right subclavian vein with intraoperative fluoroscopy interpretation. Pathology: none sent Surgeon: Cornel Schmitt Anesthesia: MAC Estimated blood loss (mL): 10 Complications: None. Condition: stable Disposition: same day Procedure: The patient was brought to the Operating Room and was placed in a supine position on the operating room table. A monitored anesthetic was induced. The shoulders were extended by means of a posterior shoulder roll. The anterior surface of the chest and neck were prepped and draped in a sterile fashion. 1% lidocaine was used to anesthetize a small area underneath the right clavicle. The subclavian vein was accessed on the first pass with a needle and syringe as evidenced by the return of dark nonpulsatile blood. The J-wire was passed down the needle and the needle was removed. The C-arm was positioned and showed the wire extending down the vena cava. A site just inferiorly on the chest wall was anesthetized using a combination of 1% lidocaine and 0.5% bupivacaine with 1:200,000 parts of epinephrine. A transverse incision was made and an inferior pocket was created in the subcutaneous layer using cautery in preparation for port placement. The Port-A-Cath tubing was passed from the incision through the subcutaneous layer to the exit point of the J-wire. The tubing was attached to the port and was cut to an appropriate length. The introducer and sheath were passed over the J-wire, and the introducer and J-wire were removed. The Port-A-Cath tubing was passed down the sheath, which was torn away. The C-arm was positioned and showed good placement of the Port-A-Cath tubing tip in the superior vena cava. The port aspirated easily and flushed well with hep flush solution. The port was sewn in place with some interrupted sutures of 3-0 PDS. The transverse incision was closed at the dermis using a single inverted suture of 3-0 Vicryl and the skin was approximated using a running subcuticular suture of 4-0 Vicryl. The small incision under the clavicle at the previous insertion site of the J wire was closed using a single inverted suture of 4-0 Vicryl. Benzoin and Steri-Strips were placed over the incisions and a sterile bandage followed. The patient was taken to the recovery area in stable condition postoperatively. INTRAOPERATIVE FLUOROSCOPY FINDINGS: Intraoperative fluoroscopic images of a Port-A-Cath placement were reviewed. An initial image reveals a J-wire entering the right subclavian vein and extending down the vena cava. Subsequent images reveal a Port-A-Cath on that side of the chest with its tubing tip in good location in the superior vena cava. No obvious pneumothorax is identified.
[2019-07-29 12:48] VITALS: BP 105/69; PULSE 81; RESP 16; TEMP 36.3; O2SAT 100
[2019-07-29 13:03] VITALS: BP 105/69; PULSE 70; RESP 16; O2SAT 99
== END 2019-07-29 13:09 | disposition home or self-care (01) ==
PROVIDERS: PCP Family Medicine; Visit Provider Surgery
PROC: (CPT 36561; principal; 2019-07-29 12:25)
DX: C50.912 Malignant neoplasm of unspecified site of left female breast (principal); Z87.891 Personal history of nicotine dependence; K80.50 Calculus of bile duct without cholangitis or cholecystitis without obstruction
CPT/HCPCS: 36561; 12345; 76000; 77001; 81025; 84703; C1788; J0690; J1644; J2001; J2704; J3010; J3490; J7030

== ENCOUNTER 2019-08-18 10:57 | Outpatient (CLI) | payer BC, OTHER, SELFPAY ==
--- NOTE | 2019-08-18 11:12 | USCV_ITS ---
Ramya Wilburn Age: 43 Gender: F : 1975 Exam Date: 08/18/2019 11:39 Ordering Phys: Zia Beverly MD Technologist: Lety Palm [place] [facility] [place]: Chemo treatment BP: / HR: 72 Rhythm: Sinus Technical Quality: Adequate MEASUREMENTS (Male / Female) Normal Values 2D ECHO LV Diastolic Diameter PLAX 3.8 cm 4.2 - 5.9 / 3.9 - 5.3 cm LV Systolic Diameter PLAX 2.4 cm LV Chamber Size 3.6 cm IVS Diastolic Thickness 1.0 cm 0.6 - 1.0 / 0.6 - 0.9 cm IVS Systolic Thickness 1.2 cm LVPW Diastolic Thickness 1.2 cm 0.6 - 1.0 / 0.6 - 0.9 cm LVPW Systolic Thickness 1.3 cm RV Chamber Size 2.5 cm LVOT Diameter 2.0 cm LV Ejection Fraction 2D Teich 65.3 % LV Ejection Fraction MOD 2C 61.6 % LV Ejection Fraction 2C AL 62.3 % LA Diameter 3.0 cm LA Width 2.4 cm LA Height 2.9 cm RA Width 2.8 cm RA Height 2.9 cm Aorta at Sinotubular Diameter 2.9 cm M-MODE LV Diastolic Diameter MM 3.7 cm 4.2 - 5.9 / 3.9 - 5.3 cm LV Systolic Diameter MM 2.0 cm LV Ejection Fraction MM Teich 77.1 % IVS Diastolic Thickness MM 0.9 cm 0.6 - 1.0 / 0.6 - 0.9 cm IVS Systolic Thickness MM 1.1 cm LVPW Diastolic Thickness MM 0.9 cm 0.6 - 1.0 / 0.6 - 0.9 cm LVPW Systolic Thickness MM 1.2 cm RV Diastolic Diameter MM 1.5 cm Aortic Annulus Diameter 2.6 cm LA Ao Ratio MM 1.2 MV E Point Septal Separation 0.4 cm FINDINGS Left Ventricle The examination is two-dimensional only. No M-mode or Doppler exam. Normal left ventricular size, systolic function and wall thickness, with no regional wall motion abnormalities. Left ventricular ejection fraction is estimated at 65 %. Right Ventricle Normal right ventricular size and systolic function. Right Atrium The right atrium is normal in size. Left Atrium The left atrium is normal in size. Mitral Valve Structurally normal mitral valve. Aortic Valve Structurally normal trileaflet aortic valve. Tricuspid Valve Tricuspid valve not well visualized. Pulmonic Valve Pulmonic valve not well visualized. Pericardium Normal pericardium without effusion. Aorta Normal ascending aorta dimension. CONCLUSIONS The examination is two-dimensional only. No M-mode or Doppler exam. Normal left ventricular size, systolic function and wall thickness, with no regional wall motion abnormalities. Left ventricular ejection fraction is estimated at 65 %. There are no prior echocardiogram studies to compare. Dr. Leland Mehta MD (Electronically Signed) Final Date: 18 August 2019 16:23 S
[2019-08-18 12:06] LABS: Basophils # 0.1 10^3/uL (0.0-0.1); Basophils % 1.5 %; Eosinophils # 0.2 10^3/uL (0.0-0.8); Eosinophils % 3.7 %; Hematocrit 38.6 % (37.0-47.0); Hemoglobin 12.7 g/dL (11.5-15.3); Lymphocytes # 2.5 10^3/uL (0.8-4.8); Lymphocytes % 40.6 %; Mean Corpuscular HGB Conc 32.9 g/dL (30.0-36.0); Mean Corpuscular Hemoglobin 32.1 pg (28.0-34.0); Mean Corpuscular Volume 97.5 fL (81-99); Mean Platelet Volume 11.5 fL (7.4-10.4); Monocytes # 0.6 10^3/uL (0.2-0.9); Monocytes % 9.1 %; Neutrophils # 2.7 10^3/uL (1.8-7.7); Neutrophils % 44.3 %; Nucleated Red Blood Cells % 0 %; Platelet Count 221 10^3/cmm (130-400); Red Blood Count 3.96 10^6/uL (4.1-5.3); Red Cell Distribution Width 12.1 % (12.1-15.1); White Blood Count 6.2 10^3/uL (4.0-10.0)
[2019-08-18 12:49] LABS: Alanine Aminotransferase 17 U/L (0-33); Albumin Level 4.7 g/dL (3.5-5.2); Alkaline Phosphatase 73 IU/L (35-105); Anion Gap 15.9 (5-19); Aspartate Amino Transferase 22 U/L (0-32); Blood Urea Nitrogen 14 mg/dL (6-20); Calcium 9.2 mg/dL (8.5-10.5); Carbon Dioxide 26 mmol/L (22-29); Chloride 103 mmol/L (98-107); Globulin 2.4 g/dL (1.3-4.6); Glomerular Filtration Rate 68.7 mL/min (90-130); Glucose 65 mg/dL (65-115); Osmolality Calculated 286 mOsm/kg (285-295); Potassium 3.9 mmol/L (3.5-5.1); Sodium 141 mmol/L (136-145); Total Bilirubin 0.3 mg/dL (0.15-1.2); Total Protein 7.1 g/dL (6.6-8.7)
== END 2019-08-18 10:58 | disposition home or self-care (01) ==
LOC: RAD 11:03
PROVIDERS: PCP Family Medicine; Visit Provider Internal Medicine Medical Oncology
DX: Z51.11 Encounter for antineoplastic chemotherapy (principal)
CPT/HCPCS: 80053; 85025; 93308

== ENCOUNTER 2019-08-19 12:36 | Outpatient (CLI) | payer BC, OTHER, SELFPAY ==
[2019-08-19] MEDS: sodium chloride 0.9% 250 ML 999 ML IV (13:00)
[2019-08-19] MEDS: pegfilgrastim 6 mg/0.6 mL Kit (onpro) SUBCUT (15:45)
[2019-08-26 08:44] LABS: Basophils # 0.1 10^3/uL (0.0-0.1); Basophils % 2.8 %; Eosinophils # 0.2 10^3/uL (0.0-0.8); Eosinophils % 12.7 %; Hematocrit 34.3 % (37.0-47.0); Hemoglobin 11.2 g/dL (11.5-15.3); Lymphocytes # 0.9 10^3/uL (0.8-4.8); Lymphocytes % 51.9 %; Mean Corpuscular HGB Conc 32.7 g/dL (30.0-36.0); Mean Corpuscular Hemoglobin 31.9 pg (28.0-34.0); Mean Corpuscular Volume 97.7 fL (81-99); Mean Platelet Volume 11.3 fL (7.4-10.4); Monocytes # 0.1 10^3/uL (0.2-0.9); Monocytes % 7.2 %; Neutrophils % 22.1 %; Nucleated Red Blood Cells % 0 %; Platelet Count 148 10^3/cmm (130-400); Red Blood Count 3.51 10^6/uL (4.1-5.3); Red Cell Distribution Width 11.7 % (12.1-15.1); White Blood Count 1.8 10^3/uL (4.0-10.0)
[2019-08-26 09:40] LABS: Slide Review Slide Review Perform
[2019-08-26 09:41] LABS: Neutrophils # 0.4 10^3/uL (1.8-7.7)
== END 2019-08-19 12:37 | disposition home or self-care (01) ==
LOC: ONCMED 12:38
PROVIDERS: PCP Family Medicine; Visit Provider Internal Medicine Medical Oncology
DX: Z51.12 Encounter for antineoplastic immunotherapy (principal); Z51.11 Encounter for antineoplastic chemotherapy; C50.412 Malignant neoplasm of upper-outer quadrant of left female breast; Z17.0 Estrogen receptor positive status [ER+]; F41.9 Anxiety disorder, unspecified; F32.9 Major depressive disorder, single episode, unspecified; G43.909 Migraine, unspecified, not intractable, without status migrainosus; E03.9 Hypothyroidism, unspecified
CPT/HCPCS: 96367; 96372; 96413; 96417; J1100; J1200; J1453; J2469; J2505; J7040; J7050; J9000; J9070

== ENCOUNTER 2019-08-26 09:22 | Outpatient (CLI) | payer BC, OTHER, SELFPAY ==
--- NOTE | 2019-08-30 14:14 | ONC FU_ITS ---
[facility] Patient Note Patient: Ramya Wilburn Unit #: [id number]: [id number] Dictated By: Beth DossDate of Visit: Aug 26, 2019 Onc MED Follow-Up/Prog Note Chief Complaint: Breast cancer. History of Present Illness: Ms Wilburn is a 43-year-old woman with grade 2 invasive ductal carcinoma of the left breast, ER/IL positive and HER-2/bambi negative. By clinical evaluation her disease is stage at least IA (T1c, pN1a, M0). She had originally presented a year ago with bloody discharge from the left nipple. An ultrasound of the left breast on 08/06/2018 was BI-RADS Category 1. A few ductal structures were noted in the subareolar region, but there was no evidence for cystic or solid soft tissue abnormality. She apparently then had an abnormal mammogram done elsewhere and further evaluation with a diagnostic bilateral mammogram on 11/18/2018 showed multiple calcifications scattered throughout the left breast. The most concerning were in the upper outer quadrant. The breasts were noted to be extremely dense. A stereotactic biopsy of left breast calcifications on 01/18/2019 showed fibrocystic changes with no malignancy or significant atypia identified. She then had a repeat diagnostic mammogram and left breast ultrasound on 06/24/2019. The mammogram showed a slightly spiculated asymmetric density measuring 1.3 x 0.6 cm in the upper outer quadrant. Multiple punctate calcifications deep to the biopsy marker were noted to have a similar appearance compared to the study from November 2018. Ultrasound showed an irregular hypoechoic lesion at the 2 o'clock position measuring 1.3 x 1.2 x 0.9 cm. It was BI-RADS 5, highly suggestive of malignancy. Ultrasound also showed an abnormal appearing enlarged lymph node in the left axilla measuring 1.9 x 1.4 x 0.8 cm. On 07/12/2019 she underwent ultrasound-guided biopsy of the left breast mass and the left axillary lymph node. Pathology on the breast mass showed moderately differentiated invasive ductal carcinoma, nuclear grade 2. The maximum tumor size is 1.0 cm. The left axillary lymph node biopsy was positive for metastatic ductal carcinoma with tumor size measuring 3.5 mm. The breast prognostic profile showed ER positive at 90% and IL positive at 90%. HER-2/bambi was 2+ by IHC, but negative by FISH with amplification ratio 1.4 and 2.8 HER-2 copies/cell. The KI-67 was elevated at 30%. She is still having regular menstrual periods. She is 2/para 3, having delivered one set of twins. Her history includes 14 years of oral contraceptive use. She has grade 2 infiltrating ductal carcinoma of the left breast which is ER IL positive and HER-2 negative. There is biopsy-proven involvement in the left axillary node. She is premenopausal. She is advised to undergo neoadjuvant chemotherapy with Adriamycin Cytoxan followed by paclitaxel then reassess for breast conservation management versus mastectomy. She would then be eligible for adjuvant hormonal therapy. CT was denied insurance. It was requested as she is stage I a bit by new staging classification she was felt to be at significant risk for recurrence. She had an MRI of the breast on 07/26/2019. It reported that the breast tissue was extremely dense and the BI-RADS was 4. Ms. Wilburn began her first cycle of mitomycin Cytoxan on August 19, 2019. She is here today for day 8 follow-up. She has had intermittent nausea. She states it responds well to the antiemetic she has at home. However she has had a headache and constipation after treatment last week. This could possibly do the Aloxi. She states she is still just extremely tired. She states she is sleeping good for her and she is eating okay. She has had quite a bit of bone pain/discomfort with the Neulasta. Taking the Claritin as she states she normally does for seasonal allergies anyway. She still having pain despite the Claritin. She has had no fever or chills. She denies any alopecia but has had some shedding. She states her's scalp is somewhat tender as well. She denies any mouth sores, sore throat or difficulty swallowing. She denies any increase in shortness of breath orthopnea. She is had no chest pain or palpitations. She has had intermittent diarrhea and constipation but states that is well controlled currently. She denies any urinary symptoms. She denies any lower extremity edema. She denies any hematuria. 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 Her ECOG is 1. Past Medical History: Anxiety Depression History of thyroid nodule/hyperthyroidism Migraine headeaches Surgical hypothyroidism Past Surgical History: Caesarean section Right Subclavian venous access device-Dr Schmitt in 2019 Ultrasound-guided biopsy of left breast mass and left axillary lymph node in 2019 Stereotactic needle biopsy of the left breast in 2018 Total thyroidectomy in 2014 FNA biopsy of thyroid nodule in 2014 Tubal ligation in 2013 Allergies: No Known Allergies. Medications: clonazePAM 1 Tablet (of 0.5 mg) Oral b.i.d. PRN FLUoxetine HCl 1 Tablet (of 60 mg) Oral daily Ibuprofen 1 Tablet (of 800 mg) Oral t.i.d. PRN Levothyroxine Sodium 1 Tablet (of 125 mcg) Oral daily Multivitamin Adult 1 Tablet Oral daily Rizatriptan Benzoate 1 Tablet (of 10 mg) Oral q 2 hours PRN Topiramate 1 Tablet (of 50 mg) Oral daily Family History: Ms. Wilburn's mother is alive. Ms. Wilburn's father is alive. Ms. Wilburn has 1 maternal aunt who is : uterine cancer. Father has diabetes and coronary artery disease and is still living at age 73. Mother is in good health age 68. Two brothers and a fraternal twin sister are in good health. Social History: Ms. 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 Ms. Wilburn quit smoking 12 years ago but had smoked for 2 years. She has no history of drinking. Ms. Wilburn reports the following support systems: lives with spouse, significant other, family, or friends, lives in own house, supportive family/friends willing to assist with needs, and adequate transportation available for expected visits. Her diet consists of regular meals. She indicates her activity level as: regular exercise. She smoked a little bit over a period of 2 years. She quit in 2007. She has had social alcohol use. Review Of Symptoms: Constitutional Denies fevers, chills, night sweats, or weight loss. She is having fatigue. She is still working full-time as much as possible. Allergic/Immunologic No reactions. Eyes Denies significant visual changes. No diplopia. No amaurosis. ENMT Denies changes in hearing, sore throat, mouth sores, difficulty or changes in swallowing ability, and/or sinus drainage. Hematologic/Lymphatic Denies easy bruising or bleeding. The patient denies any tender or palpable lymph nodes. Breasts no new concerns. Respiratory Denies dyspnea on exertion, chest pain, cough or hemoptysis. Denies orthopnea. Cardiovascular Denies anginal chest pain, palpitations or orthopnea. Gastrointestinal Denies nausea, vomiting, diarrhea, GI bleeding, or constipation. Denies change in bowel habits and/or stool color, no heartburn or early satiety. Genitourinary (F) No hematuria, hesitancy, incontinence, vaginal bleeding, discharge or other problems with urination. Musculoskeletal Denies joint swelling or redness. No decreased range of motion. She has had bone pain related to the Neulasta. Claritin is not controlling that. Integumentary Denies chronic rashes, inflammation, ulcerations or skin changes. Neurologic Denies headache, blurred vision, and no areas of focal weakness or numbness. Normal gait. No sensory problems. Psychiatric Denies insomnia, depression, ro or mood swings. Vital Signs: Performed on Aug 26, 2019 09:32 Height - 63.00 in Weight - 140.2 lbs (HIGH) BSA - 1.66 sq.m BMI - 24.84 Temperature - 97.6 F (LOW) Pulse - 89 /min Respiration - 19 /min BP - 114/8 mm(hg) O2 Sat - 98 % Pain - 5,1 - No physically strenuous activity, but ambulatory and able to carry out light or sedentary work (e.g. office work, light house work). (ECOG) Physical Examination: Chest RIGHT subclavian venous access device insertion site has healed well. It is unremarkable. Constitutional Alert, oriented, no acute distress. Skin pink, warm and dry. Obviously feels tired. Head Normocephalic; atraumatic. Eyes Conjunctivae and sclerae are clear and without icterus. Pupils are reactive and equal. Neck Supple without masses or thyromegaly. No jugular venous distension. Hematologic/Lymphatic No petechiae or purpura. No tender or palpable lymph nodes in the cervical or supraclavicular areas. Respiratory Lungs are clear to auscultation without rhonchi or wheezing. Cardiovascular Regular rate and rhythm of heart without murmurs,clicks, gallops or rubs. Abdomen Non-tender, non-distended, no masses or ascites. Good bowel sounds noted in all quads. No guarding or rebound tenderness. No pulsatile masses. Back/Spine Non-tender to palpation. Extremities No visible deformities, no cyanosis, clubbing or edema. Musculoskeletal No tenderness or swelling, normal range of motion without obvious weakness. Integumentary No rashes or lesions. Neurologic No sensory or motor deficits, normal cerebellar function, normal gait. Psychiatric Alert and oriented times three. Coherent speech. Verbalizes understanding of our discussions today. Laboratory:Test performed on Aug 26, 2019 08:25 WBC 1.8 10 3/uL RBC 3.51 10 6/uL HGB 11.2 g/dL HCT 34.3 % MCV 97.7 fL MCH 31.9 pg MCHC 32.7 g/dL RDW 11.7 % Platelet Count 148 10 3/cmm MPV 11.3 fL Neutrophils 0.4 10 3/uL Lymphocytes 0.9 10 3/uL Monocytes 0.1 10 3/uL Eosinophils 0.2 10 3/uL Basophils 0.1 10 3/uL Neutrophil % 22.1 % Lymphocyte % 51.9 % Monocyte % 7.2 % Eosinophil % 12.7 % Basophils % 2.8 % NRBC % 0 % CBC Slide Review Slide Review Perform SLIDE REVIEW AGREES WITH AUTOMATED RESULTS ST Test performed on Aug 18, 2019 11:55 Sodium 141 mmol/L Potassium 3.9 mmol/L Chloride 103 mmol/L CO2 26 mmol/L Anion Gap 15.9 BUN 14 mg/dL Creatinine 0.9 mg/dL Cr Clearance (Est) 80.4700 mL/min eGFR 68.7 mL/min Glucose 65 mg/dL Calcium 9.2 mg/dL Protein, Total 7.1 g/dL Albumin 4.7 g/dL Globulin 2.4 g/dL Bilirubin, Total 0.3 mg/dL ALT (SGPT) 17 U/L AST (SGOT) 22 U/L Alkaline Phosphatase 73 IU/L Impression: 1. Patient with grade 2 infiltrating ductal carcinoma of the left breast, by clinical evaluation stage at least 1A (T1c, pN1a, M0), ER/IL positive and HER-2/bambi negative. 2. She underwent ultrasound-guided biopsies of left breast mass and left axillary lymph node on 07/12/2019. Her other medical illnesses include: 3. GERD. 4. Migraine headaches. 5. Anxiety/depression. 6. She has a history of thyroid nodules/hyperthyroidism for which she underwent total thyroidectomy in 2015. Dr Beverly reviewed the mammogram findings and the pathology results with Ms Wilburn. She has a grade 2 infiltrating ductal carcinoma of the left breast which is ER/IL positive and HER-2/bambi negative. There is biopsy proven involvement in the left axillary lymph node. She is premenopausal. She has been recommended to pursue neoadjuvant chemotherapy with Adriamycin/cyclophosphamide followed by paclitaxel, and then reassess for breast conservation management versus mastectomy. She would also then be eligible for adjuvant hormonal therapy. Although she is stage IA by the new staging classification, she is at significant risk for recurrence. A PET/CT was requested to assess for metastatic disease, but was denied by her insurance. Ms Wilburn had a Port-A-Cath placement into the right subclavian vein per Dr. Schmitt on July 29, 2019.She began her first cycle of Adriamycin/Cytoxan on 08/19/2019. She is receiving growth factor support with Neulasta. Plan: 1. Proceed with cycle 1/4 Adriamycin/Cytoxan. This is day 8. 2. We will ask for a prior physician for Emend due to having to change the Aloxi to Zofran due to headaches and constipation. She did have nausea after her first cycle of Adriamycin Cytoxan. She did get some relief with her antiemetics at home but still had quite a bit of nausea to the point where she did not eat in just laid in bed for a few days . 3. Labs from August 26, 2019 were reviewed in detail discussed with Ms. Wilburn and a copy was given to her. WBC 1.8, hemoglobin 11.2, platelets 1 40,000, ANC is 400. 4. She was informed that she is neutropenic with an ANC on day 8 of 400. She has had Neulasta support. We will give her broad-spectrum antibiotic coverage with Levaquin 1 daily. 5. She was instructed to call us if she has fever or chills. The fever cough we discussed was 100.4; anything 100.4 or greater she needs to call us and report. She was instructed to go and start the Levaquin now. 6. Neutropenic precautions were discussed in detail and a copy of our neutropenic instructions she was given to her. 7. For her pain management we will have her try hydrocodone/APAP 5/325 1 or 2 every 4 hours as needed pain. A prescription for #60 with no refills was given to her. She was instructed to let us know if this is not controlling her pain. 8. We will plan to see her back in 1 week with CBC CMP. She will be due for cycle 2 of 4 Adriamycin Cytoxan at that time. She will continue to be supported with Neulasta. We discussed changing her Aloxi to Zofran and possibly adding Emend if the prior authorization is obtained by that point. 9. Ms. Wilburn was advised that she is having expected side effects from the chemotherapy and overall I feel she is doing relatively well. 10. We did discuss her working with her neutrophil count being down. She is currently having to wear a mask continuously and sits behind a plastic barrier at our office. She states that her employers have restricted her to her own area and will not allow her to be around patients or other staff at this time due to the COVID concerns. Of advised her to make sure and stay away from people that are sick or appear to be sick and to make sure and wash her hands and use hand bag adjuster frequently. She is aware that she is neutropenic and is more susceptible to infection at this time. 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 11. We discussed activity and diet. At this point there is no restrictions we have encouraged her to try to increase her activity but not to the point where it wears her out. 12. Ms. Wilburn was instructed to contact us in the interim should questions or problems arise. She was again instructed on how to reach a provider over the weekend if she has questions or problems. 13. Her baseline echocardiogram from August 18, [address] Mehta. Left ventricular size is normal, systolic function and wall thickness are normal. There were no regional wall motion maladies. The LVEF is estimated at 65%. Signed By: Beth Doss-TRACY, AOTHANIAP Zia Beverly MD <<Signature on File>>
== END 2019-08-26 09:23 | disposition home or self-care (01) ==
LOC: ONCMED 09:27
PROVIDERS: PCP Family Medicine; Visit Provider Nurse Practitioner
DX: C50.412 Malignant neoplasm of upper-outer quadrant of left female breast (principal); Z17.0 Estrogen receptor positive status [ER+]; D70.1 Agranulocytosis secondary to cancer chemotherapy; F41.9 Anxiety disorder, unspecified; F32.9 Major depressive disorder, single episode, unspecified; G43.909 Migraine, unspecified, not intractable, without status migrainosus; Z79.899 Other long term (current) drug therapy
CPT/HCPCS: 36591; 85025; 99214

== ENCOUNTER 2019-09-09 06:45 | Outpatient (RCR) | payer BC, OTHER, SELFPAY ==
[2019-09-02 10:26] LABS: Hematocrit 38.2 % (37.0-47.0); Hemoglobin 12.8 g/dL (11.5-15.3); Mean Corpuscular HGB Conc 33.5 g/dL (30.0-36.0); Mean Corpuscular Hemoglobin 32.8 pg (28.0-34.0); Mean Corpuscular Volume 97.9 fL (81-99); Mean Platelet Volume 10.9 fL (7.4-10.4); Nucleated Red Blood Cells % 0 %; Platelet Count 274 10^3/cmm (130-400); Red Cell Distribution Width 12.8 % (12.1-15.1)
[2019-09-02 10:33] LABS: Alanine Aminotransferase 53 U/L (0-33); Albumin Level 4.5 g/dL (3.5-5.2); Alkaline Phosphatase 105 IU/L (35-105); Anion Gap 15.1 (5-19); Aspartate Amino Transferase 32 U/L (0-32); Blood Urea Nitrogen 11 mg/dL (6-20); Calcium 8.9 mg/dL (8.5-10.5); Carbon Dioxide 26 mmol/L (22-29); Chloride 103 mmol/L (98-107); Globulin 3.2 g/dL (1.3-4.6); Glomerular Filtration Rate 68.7 mL/min (90-130); Glucose 79 mg/dL (65-115); Osmolality Calculated 285 mOsm/kg (285-295); Potassium 4.1 mmol/L (3.5-5.1); Sodium 140 mmol/L (136-145); Total Bilirubin 0.2 mg/dL (0.15-1.2); Total Protein 7.7 g/dL (6.6-8.7)
[2019-09-02 10:48] LABS: Slide Review Slide Review Perform
[2019-09-02 10:54] LABS: Absolute Eosinophils 0.1 10^3/cmm (0.0-0.7); Absolute Segmented Neutrophil 5.6 10/cmm (1.6-7.1); Eosinophils 1 %; Lymphocytes 23 %; Lymphocytes Absolute 7.3 10^3/cmm (1.2-3.4); Segmented Neutrophils 40 %; Total Cells Counted 100 (0-100)
[2019-09-02 10:56] LABS: Absolute Neutrophil 5.6 10^3/cmm (1.4-6.5); Giant Platelets Trace; Platelet Estimate Normal (Normal); Poikilocytosis 1+
[2019-09-02] MEDS: sodium chloride 0.9% 250 ML 75 ML IV (11:35)
[2019-09-02] MEDS: pegfilgrastim 6 mg/0.6 mL Kit (onpro) SUBCUT (12:00)
--- NOTE | 2019-09-05 20:50 | ONC FU_ITS ---
[facility] Patient Note Patient: Ramya Wilburn Unit #: [id number]: 1975 Dictated By: Beth DossDate of Visit: Sep 02, 2019 Onc MED Follow-Up/Prog Note Chief Complaint: Breast cancer. History of Present Illness: Ms Wilburn is a 43-year-old woman with grade 2 invasive ductal carcinoma of the left breast, ER/UT positive and HER-2/bambi negative. By clinical evaluation her disease is stage at least IA (T1c, pN1a, M0). She had originally presented a year ago with bloody discharge from the left nipple. An ultrasound of the left breast on 08/06/2018 was BI-RADS Category 1. A few ductal structures were noted in the subareolar region, but there was no evidence for cystic or solid soft tissue abnormality. She apparently then had an abnormal mammogram done elsewhere and further evaluation with a diagnostic bilateral mammogram on 11/18/2018 showed multiple calcifications scattered throughout the left breast. The most concerning were in the upper outer quadrant. The breasts were noted to be extremely dense. A stereotactic biopsy of left breast calcifications on 01/18/2019 showed fibrocystic changes with no malignancy or significant atypia identified. She then had a repeat diagnostic mammogram and left breast ultrasound on 06/24/2019. The mammogram showed a slightly spiculated asymmetric density measuring 1.3 x 0.6 cm in the upper outer quadrant. Multiple punctate calcifications deep to the biopsy marker were noted to have a similar appearance compared to the study from November 2018. Ultrasound showed an irregular hypoechoic lesion at the 2 o'clock position measuring 1.3 x 1.2 x 0.9 cm. It was BI-RADS 5, highly suggestive of malignancy. Ultrasound also showed an abnormal appearing enlarged lymph node in the left axilla measuring 1.9 x 1.4 x 0.8 cm. On 07/12/2019 she underwent ultrasound-guided biopsy of the left breast mass and the left axillary lymph node. Pathology on the breast mass showed moderately differentiated invasive ductal carcinoma, nuclear grade 2. The maximum tumor size is 1.0 cm. The left axillary lymph node biopsy was positive for metastatic ductal carcinoma with tumor size measuring 3.5 mm. The breast prognostic profile showed ER positive at 90% and UT positive at 90%. HER-2/bambi was 2+ by IHC, but negative by FISH with amplification ratio 1.4 and 2.8 HER-2 copies/cell. The KI-67 was elevated at 30%. She is still having regular menstrual periods. She is 2/para 3, having delivered one set of twins. Her history includes 14 years of oral contraceptive use. She has grade 2 infiltrating ductal carcinoma of the left breast which is ER UT positive and HER-2 negative. There is biopsy-proven involvement in the left axillary node. She is premenopausal. She is advised to undergo neoadjuvant chemotherapy with Adriamycin Cytoxan followed by paclitaxel then reassess for breast conservation management versus mastectomy. She would then be eligible for adjuvant hormonal therapy. PEt/CT was denied insurance. It was requested as she is stage IA by new staging classification she was felt to be at significant risk for recurrence. She had an MRI of the breast on 07/26/2019. It reported that the breast tissue was extremely dense and the BI-RADS was 4. Ms. Wilburn began her first cycle of mitomycin Cytoxan on August 19, 2019. She is here today for follow-up. She is due for cycle 2 adriamycin/Cytoxan. She states overall she feels much better this week. She states she feels like she is back to normal. She denies any fever or chills. She denies any mouth sores or sore throat or difficulty swallowing. She states she is eating good. Her energy is good. Her headaches have pretty well subsided. She is had no nausea or vomiting. Her bone pain has resolved as well. She states her bowels have been normal. She is had no UTI type symptoms. She is eating good. She remains active and is working full-time. Her ECOG is 0. Past Medical History: Anxiety Depression History of thyroid nodule/hyperthyroidism Migraine headeaches Surgical hypothyroidism Past Surgical History: Caesarean section Right Subclavian venous access device-Dr Schmitt in 2019 Ultrasound-guided biopsy of left breast mass and left axillary lymph node in 2019 Stereotactic needle biopsy of the left breast in 2019 Total thyroidectomy in 2014 FNA biopsy of thyroid nodule in 2014 Tubal ligation in 2013 Allergies: No Known Allergies. Medications: clonazePAM 1 Tablet (of 0.5 mg) Oral b.i.d. PRN FLUoxetine HCl 1 Tablet (of 60 mg) Oral daily Ibuprofen 1 Tablet (of 800 mg) Oral t.i.d. PRN Levothyroxine Sodium 1 Tablet (of 125 mcg) Oral daily Multivitamin Adult 1 Tablet Oral daily Rizatriptan Benzoate 1 Tablet (of 10 mg) Oral q 2 hours PRN Topiramate 1 Tablet (of 50 mg) Oral daily Family History: Ms. Wilburn's mother is alive. Ms. Wilburn's father is alive. Ms. Wilburn has 1 maternal aunt who is : uterine cancer. Father has diabetes and coronary artery disease and is still living at age 73. Mother is in good health age 68. Two brothers and a fraternal twin sister are in good health. 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 Ms. Wilburn quit smoking 12 years ago but had smoked for 2 years. She has no history of drinking. Ms. Wilburn reports the following support systems: lives with spouse, significant other, family, or friends, lives in own house, supportive family/friends willing to assist with needs, and adequate transportation available for expected visits. Her diet consists of regular meals. She indicates her activity level as: regular exercise. Review Of Symptoms: Constitutional Denies fevers, chills, night sweats, or weight loss. She states her fatigue is better this week. She is still working full-time as much as possible. Allergic/Immunologic No reactions. Eyes Denies significant visual changes. No diplopia. No amaurosis. ENMT Denies changes in hearing, sore throat, mouth sores, difficulty or changes in swallowing ability, and/or sinus drainage. Hematologic/Lymphatic Denies easy bruising or bleeding. The patient denies any tender or palpable lymph nodes. Breasts no new concerns. Respiratory Denies dyspnea on exertion, chest pain, cough or hemoptysis. Denies orthopnea. Cardiovascular Denies anginal chest pain, palpitations or orthopnea. Gastrointestinal Denies nausea, vomiting, diarrhea, GI bleeding, or constipation. Denies change in bowel habits and/or stool color, no heartburn or early satiety. Genitourinary (F) No hematuria, hesitancy, incontinence, vaginal bleeding, discharge or other problems with urination. Musculoskeletal Denies joint swelling or redness. No decreased range of motion. Bone pain from Neulasta has resolved. Integumentary Denies chronic rashes, inflammation, ulcerations or skin changes. Neurologic Denies headache, blurred vision, and no areas of focal weakness or numbness. Normal gait. No sensory problems. Psychiatric Denies insomnia, depression, ro or mood swings. Vital Signs: Performed on Sep 02, 2019 14:15 Height - 63.00 in Temperature - 97.6 F (LOW) Pulse - 88 /min Respiration - 18 /min BP - 108/70 mm(hg) O2 Sat - 99 % Pain - 0 Fatigue - 0 Performed on Sep 02, 2019 11:04 Height - 63.00 in Weight - 141.8 lbs (HIGH) BSA - 1.67 sq.m BMI - 25.12 Temperature - 97.7 F (LOW) Pulse - 80 /min Respiration - 16 /min BP - 125/80 mm(hg) O2 Sat - 100 % Pain - 0,0 - Fully active, able to carry on all predisease activities without restrictions. (ECOG) Physical Examination: Constitutional Alert, oriented, no acute distress. Skin pink, warm and dry. She feels much better than last visit. She is very jovial. Head Normocephalic; atraumatic. Eyes Conjunctivae and sclerae are clear and without icterus. Pupils are reactive and equal. Neck Supple without masses or thyromegaly. No jugular venous distension. Hematologic/Lymphatic No petechiae or purpura. No tender or palpable lymph nodes in the cervical or supraclavicular areas. Respiratory Lungs are clear to auscultation without rhonchi or wheezing. Cardiovascular Regular rate and rhythm of heart without murmurs,clicks, gallops or rubs. Chest RIGHT subclavian venous access device insertion site has healed well. It is unremarkable. Abdomen Non-tender, non-distended, no masses or ascites. Good bowel sounds noted in all quads. No guarding or rebound tenderness. No pulsatile masses. Back/Spine Non-tender to palpation. Extremities No visible deformities, no cyanosis, clubbing or edema. Musculoskeletal No tenderness or swelling, normal range of motion without obvious weakness. Integumentary No rashes or lesions. Neurologic No sensory or motor deficits, normal cerebellar function, normal gait. Psychiatric Alert and oriented times three. Coherent speech. Verbalizes understanding of our discussions today. Laboratory:Test performed on Sep 02, 2019 09:12 Sodium 140 mmol/L Potassium 4.1 mmol/L Chloride 103 mmol/L CO2 26 mmol/L Anion Gap 15.1 BUN 11 mg/dL Creatinine 0.9 mg/dL Cr Clearance (Est) 80.4700 mL/min eGFR 68.7 mL/min Glucose 79 mg/dL Calcium 8.9 mg/dL Protein, Total 7.7 g/dL Albumin 4.5 g/dL Globulin 3.2 g/dL Bilirubin, Total 0.2 mg/dL ALT (SGPT) 53 U/L AST (SGOT) 32 U/L Alkaline Phosphatase 105 IU/L WBC 14.0 10 3/uL Manual Bands % 0.0 % RBC 3.90 10 6/uL HGB 12.8 g/dL Manual Lymphs % 23 % Atypical Lymphs % 29.0 % HCT 38.2 % Manual Monos % 7.0 % MCV 97.9 fL MCH 32.8 pg MCHC 33.5 g/dL RDW 12.8 % Platelet Count 274 10 3/cmm MPV 10.9 fL NRBC % 0 % CBC Slide Review Slide Review Perform Poikilocytosis 1+ Manual Bands Abs 0.0 10 3/cmm Manual Neutrophils Abs 5.6 10 3/cmm Manual Lymphocytes Abs 7.3 10 3/cmm Manual Monocytes Abs 1.0 10 3/cmm Manual Eosinophils Abs 0.1 10 3/cmm Test performed on Aug 26, 2019 08:25 Neutrophils 0.4 10 3/uL Lymphocytes 0.9 10 3/uL Monocytes 0.1 10 3/uL Eosinophils 0.2 10 3/uL Basophils 0.1 10 3/uL Neutrophil % 22.1 % Lymphocyte % 51.9 % Monocyte % 7.2 % Eosinophil % 12.7 % Basophils % 2.8 % Impression: 1. Patient with grade 2 infiltrating ductal carcinoma of the left breast, by clinical evaluation stage at least 1A (T1c, pN1a, M0), ER/UT positive and HER-2/bambi negative. 2. She underwent ultrasound-guided biopsies of left breast mass and left axillary lymph node on 07/12/2019. Her other medical illnesses include: 3. GERD. 4. Migraine headaches. 5. Anxiety/depression. 6. She has a history of thyroid nodules/hyperthyroidism for which she underwent total thyroidectomy in 2014. Dr Beverly reviewed the mammogram findings and the pathology results with Ms Wilburn. She has a grade 2 infiltrating ductal carcinoma of the left breast which is ER/UT positive and HER-2/bambi negative. There is biopsy proven involvement in the left axillary lymph node. She is premenopausal. She has been recommended to pursue neoadjuvant chemotherapy with Adriamycin/cyclophosphamide followed by paclitaxel, and then reassess for breast conservation management versus mastectomy. She would also then be eligible for adjuvant hormonal therapy. Although she is stage IA by the new staging classification, she is at significant risk for recurrence. A PET/CT was requested to assess for metastatic disease, but was denied by her insurance. Ms Wilburn had a Port-A-Cath placement into the right subclavian vein per Dr. Schmitt on July 29, 2019. She began her first cycle of Adriamycin/Cytoxan on 08/19/2019. She is receiving growth factor support with Neulasta. She has experienced expected side effects, with the exception of headaches but overall is tolerating treatment well. I suspect the headaches are caused from the Aloxi. We will try changing to Zofran today to see if this resolves the migraine type headaches she had after cycle 1. Plan: 1. Proceed with cycle 2/4 Adriamycin/Cytoxan. This is day 1. 2. I did request to change her Aloxi to Zofran 8 mg because she had significant headaches and constipation with cycle 1. She does have a history of migraines. She does have Emend as part of her anti-medic regimen. If she has any problems we will can add olanzapine. She has been advised to take her antiemetics at home if she has any nausea. 3. Labs from September 02, 2019 were reviewed in detail discussed with Ms. Wilburn and a copy was given to her. WBC 14.0, hemoglobin 12.8, platelets 274,000, ANC is 5600. Her creatinine is normal at 0.9 LFTs are slightly elevated ALT is 53 and AST was 32. Alk phos is normal at 105. It is possible this could be medication related. We will check her next week with her CBC. She has no signs of jaundice or any abdominal pain or discomfort. 4. She will continue Neulasta support given that her ANC on day of cycle 1 was 400. She did not have febrile neutropenic but was given prophylactic antibiotics as well. I did encourage her to go ahead and refill this and have them on hand as she will likely again while on Adriamycin Cytoxan. 5. She was again instructed to call us if she has fever or chills. She was cautioned that she will most likely have chemo induced neutropenia after this cycle too. The fever cough we discussed was 100.4; anything 100.4 or greater she needs to call us and report. 6. For her pain management we may continuye hydrocodone/APAP 5/325 1 or 2 every 4 hours as needed pain. 7. We will plan to see her back in 2 weeks with CBC CMP. She will be due for cycle 3 of 4 Adriamycin Cytoxan at that time. She will continue to be supported with Neulasta. She will have interim CBC CMP and port flush next week. 8. Ms. Wilburn was instructed to contact us in interim should questions or problems arise. 9. Her baseline echocardiogram from August 18, [address] Mehta. Left ventricular size is normal, systolic function and wall thickness are normal. There were no regional wall motion abnormalities. The LVEF is estimated at 65%. Signed By: Beth Doss-, AOCNP Zia Beverly MD <<Signature on File>>
[2019-09-09 09:19] LABS: Basophils # 0.1 10^3/uL (0.0-0.1); Basophils % 5.6 %; Eosinophils % 1.2 %; Hematocrit 33.8 % (37.0-47.0); Hemoglobin 10.9 g/dL (11.5-15.3); Lymphocytes # 0.8 10^3/uL (0.8-4.8); Lymphocytes % 49.1 %; Mean Corpuscular HGB Conc 32.2 g/dL (30.0-36.0); Mean Corpuscular Hemoglobin 31.4 pg (28.0-34.0); Mean Corpuscular Volume 97.4 fL (81-99); Mean Platelet Volume 10.7 fL (7.4-10.4); Monocytes # 0.2 10^3/uL (0.2-0.9); Neutrophils % 29.9 %; Nucleated Red Blood Cells % 0 %; Platelet Count 174 10^3/cmm (130-400); Red Blood Count 3.47 10^6/uL (4.1-5.3); Red Cell Distribution Width 12.4 % (12.1-15.1); White Blood Count 1.6 10^3/uL (4.0-10.0)
[2019-09-09 09:28] LABS: Alanine Aminotransferase 30 U/L (0-33); Albumin Level 4.3 g/dL (3.5-5.2); Alkaline Phosphatase 120 IU/L (35-105); Anion Gap 15.2 (5-19); Aspartate Amino Transferase 24 U/L (0-32); Blood Urea Nitrogen 16 mg/dL (6-20); Calcium 8.5 mg/dL (8.5-10.5); Carbon Dioxide 25 mmol/L (22-29); Chloride 101 mmol/L (98-107); Globulin 2.8 g/dL (1.3-4.6); Glomerular Filtration Rate 109.6 mL/min (90-130); Glucose 91 mg/dL (65-115); Osmolality Calculated 280 mOsm/kg (285-295); Potassium 4.2 mmol/L (3.5-5.1); Sodium 137 mmol/L (136-145); Total Bilirubin 0.4 mg/dL (0.15-1.2); Total Protein 7.1 g/dL (6.6-8.7)
[2019-09-09 09:51] LABS: Neutrophils # 0.5 10^3/uL (1.8-7.7)
[2019-09-09 09:52] LABS: Slide Review Slide Review Perform
== END 2019-09-14 23:59 | disposition home or self-care (01) ==
LOC: ONCMED 06:45
PROVIDERS: PCP Family Medicine; Visit Provider Nurse Practitioner
DX: Z51.11 Encounter for antineoplastic chemotherapy (principal); C50.412 Malignant neoplasm of upper-outer quadrant of left female breast; Z17.0 Estrogen receptor positive status [ER+]; D70.1 Agranulocytosis secondary to cancer chemotherapy; T45.1X5A Adverse effect of antineoplastic and immunosuppressive drugs, initial encounter; F41.9 Anxiety disorder, unspecified; F32.9 Major depressive disorder, single episode, unspecified; G43.909 Migraine, unspecified, not intractable, without status migrainosus; E89.0 Postprocedural hypothyroidism
CPT/HCPCS: 36591; 80053; 85007; 85025; 96367; 96372; 96413; 96417; 99214; J1100; J1200; J1453; J2405; J2505; J7040; J7050; J9000; J9070

== ENCOUNTER 2019-10-14 06:02 | Outpatient (RCR) | payer BC, OTHER, SELFPAY ==
[2019-09-16 09:45] LABS: Hematocrit 34.5 % (37.0-47.0); Hemoglobin 11.2 g/dL (11.5-15.3); Mean Corpuscular HGB Conc 32.5 g/dL (30.0-36.0); Mean Corpuscular Hemoglobin 32.2 pg (28.0-34.0); Mean Corpuscular Volume 99.1 fL (81-99); Mean Platelet Volume 11.1 fL (7.4-10.4); Nucleated Red Blood Cells % 0 %; Platelet Count 211 10^3/cmm (130-400); Red Blood Count 3.48 10^6/uL (4.1-5.3); Red Cell Distribution Width 13.6 % (12.1-15.1)
[2019-09-16 10:24] LABS: Alanine Aminotransferase 26 U/L (0-33); Albumin Level 4.5 g/dL (3.5-5.2); Alkaline Phosphatase 93 IU/L (35-105); Anion Gap 14.1 (5-19); Aspartate Amino Transferase 25 U/L (0-32); Blood Urea Nitrogen 15 mg/dL (6-20); Calcium 8.7 mg/dL (8.5-10.5); Carbon Dioxide 23 mmol/L (22-29); Chloride 103 mmol/L (98-107); Globulin 2.4 g/dL (1.3-4.6); Glomerular Filtration Rate 91.8 mL/min (90-130); Glucose 84 mg/dL (65-115); Osmolality Calculated 277 mOsm/kg (285-295); Potassium 4.1 mmol/L (3.5-5.1); Sodium 136 mmol/L (136-145); Total Bilirubin 0.2 mg/dL (0.15-1.2); Total Protein 6.9 g/dL (6.6-8.7)
[2019-09-16 10:29] LABS: Slide Review Slide Review Perform
[2019-09-16 10:48] LABS: Absolute Segmented Neutrophil 6.8 10/cmm (1.6-7.1); Band Neutrophils Absolute 2.9 10^3/cmm (0.0-1.2); Lymphocytes 21 %; Monocytes Absolute 0.9 10^3/cmm (0.1-0.6); Segmented Neutrophils 40 %; Total Cells Counted 100 (0-100)
[2019-09-16 10:49] LABS: Absolute Neutrophil 9.7 10^3/cmm (1.4-6.5); Platelet Estimate Normal (Normal)
[2019-09-16] MEDS: sodium chloride 0.9% 250 ML 999 ML IV (11:50)
--- NOTE | 2019-09-18 14:19 | ONC FU_ITS ---
Dr. Beverly Patient Follow-Up Note Patient: Ramya Wilburn Unit #: [id number]: [id number] Dicatated By: Zia Beverly M.D.Date of Visit:Sep 16, 2019 Onc Med Follow-up/Prog Note Chief Complaint: Breast cancer. History of Present Illness: This is a 43 year-old woman with grade 2 invasive ductal carcinoma of the left breast, ER/LA positive and HER-2/bambi negative. By clinical evaluation her disease was stage at least IA (T1c, pN1a, M0) at initial diagnosis. She had originally presented a year ago with bloody discharge from the left nipple. An ultrasound of the left breast on 08/06/2018 was BI-RADS Category 1. A few ductal structures were noted in the subareolar region, but there was no evidence for cystic or solid soft tissue abnormality. She apparently then had an abnormal mammogram done elsewhere and further evaluation with a diagnostic bilateral mammogram on 11/18/2018 showed multiple calcifications scattered throughout the left breast. The most concerning were in the upper outer quadrant. The breasts were noted to be extremely dense. A stereotactic biopsy of left breast calcifications on 01/18/2019 showed fibrocystic changes with no malignancy or significant atypia identified. She then had a repeat diagnostic mammogram and left breast ultrasound on 06/24/2019. The mammogram showed a slightly spiculated asymmetric density measuring 1.3 x 0.6 cm in the upper outer quadrant. Multiple punctate calcifications deep to the biopsy marker were noted to have a similar appearance compared to the study from November 2018. Ultrasound showed an irregular hypoechoic lesion at the 2 o'clock position measuring 1.3 x 1.2 x 0.9 cm. It was BI-RADS 5, highly suggestive of malignancy. Ultrasound also showed an abnormal appearing enlarged lymph node in the left axilla measuring 1.9 x 1.4 x 0.8 cm. On 07/12/2019 she underwent ultrasound-guided biopsy of the left breast mass and the left axillary lymph node. Pathology on the breast mass showed moderately differentiated invasive ductal carcinoma, nuclear grade 2. The maximum tumor size is 1.0 cm. The left axillary lymph node biopsy was positive for metastatic ductal carcinoma with tumor size measuring 3.5 mm. The breast prognostic profile showed ER positive at 90% and LA positive at 90%. HER-2/bambi was 2+ by IHC, but negative by FISH with amplification ratio 1.4 and 2.8 HER-2 copies/cell. The KI-67 was elevated at 30%. I had seen her initially on 07/23/2019. With clinically evident axillary lymph node involvement, she was advised to undergo neoadjuvant chemotherapy with Adriamycin/cyclophosphamide followed by paclitaxel. Her other medical illnesses include GERD, migraine headaches, and anxiety/depression. She also has a history of thyroid nodules with hyperthyroidism, for which she underwent total thyroidectomy in 2014. She has only minimal prior smoking history, and she quit smoking in 2007. INTERIM HISTORY: She began cycle 1 of Adriamycin/cyclophosphamide on 08/19/2019. She was given first cycle prophylaxis with Neulasta. She tolerated the treatment well, and she continued with cycle 2 on 09/02/2019. She is seen for a follow-up visit. She has been feeling pretty good generally. She does complain that she is tired, but she still has normal activity. ECOG score is 0. Appetite is variable. She has not had fever or night sweats. She says she is always freezing. She has had a little burning in her throat, but she has not had mouth sores. She does not complain of shortness of breath or cough. She has intermittently had pain in her left chest wall area. She otherwise has not had chest pain. She has had some nausea, but no vomiting. She has been having a lot of acid reflux. She was having constipation, that has improved. Bladder function has been okay. She has had some joint pain with the Neulasta, but it has been managed adequately with naproxen. She does not complain of headache, and she has no focal neurologic symptoms. Medications: clonazePAM 1 Tablet (of 0.5 mg) Oral b.i.d. PRN, FLUoxetine HCl 1 Tablet (of 80 mg) Oral daily, Ibuprofen 1 Tablet (of 800 mg) Oral t.i.d. PRN, Levothyroxine Sodium 1 Tablet (of 125 mcg) Oral daily, Multivitamin Adult 1 Tablet Oral daily, Rizatriptan Benzoate 1 Tablet (of 10 mg) Oral q 2 hours PRN, Topiramate 1 Tablet (of 50 mg) Oral daily Allergies: No Known Allergies. Review of Systems: Constitutional - She has been feeling tired, but she has normal activity. Appetite is variable. She has not had fever, night sweats, or hot flashes. She says she is always freezing. ECOG score is 0, ENMT - No sinus congestion/drainage. No mouth sores. She has had a little burning in her throat. No difficulty swallowing, Hematologic/Lymphatic - No abnormal bruising or bleeding, Respiratory - No shortness of breath. No cough. No pleuritic pain or hemoptysis, Cardiovascular - No angina pain. No palpitations, Gastrointestinal - She has had some nausea, but no vomiting. No heartburn or acid reflux. No diarrhea or constipation. No blood in the stool or black stools, Genitourinary (F) - No dysuria or hematuria. No urinary frequency. No urgency or incontinence, Musculoskeletal - She has had joint pain with the Neulasta, but is being managed with naproxen, Integumentary - No skin rash, Neurologic - No headache or dizziness. No numbness or tingling. No other focal neurologic symptoms, Psychiatric - Her anxiety/depression is adequately managed. No insomnia. Vital Signs: Performed on Sep 16, 2019 11:16 Height - 63.00 in Weight - 143.4 lbs (HIGH) BSA - 1.68 sq.m BMI - 25.40 Temperature - 98.3 F (LOW) Pulse - 84 /min Respiration - 18 /min BP - 109/73 mm(hg) O2 Sat - 99 % Pain - 0 Physical Examination: Constitutional - She looks good generally, Eyes - Sclerae nonicteric. Conjunctivae clear, ENMT - No lesions noted in the oral cavity, Hematologic/Lymphatic - No cervical or clavicular adenopathy, Respiratory - Lungs are clear with good air movement bilaterally, Cardiovascular - Heart rhythm is regular. There is no murmur, gallop, or rub noted, Breasts - There are no lesions noted in the left chest wall. There is no axillary adenopathy, Abdomen - Soft and non-tender. Liver and spleen are not enlarged. There is no abdominal mass or ascites noted and there is no inguinal adenopathy, Extremities - No edema, Neurologic - No focal neurologic deficits noted. Lab/Imaging: Test performed on Sep 16, 2019 09:15 Sodium 136 mmol/L Potassium 4.1 mmol/L Chloride 103 mmol/L CO2 23 mmol/L Anion Gap 14.1 BUN 15 mg/dL Creatinine 0.7 mg/dL Cr Clearance (Est) 103.4600 mL/min eGFR 91.8 mL/min Glucose 84 mg/dL Calcium 8.7 mg/dL Protein, Total 6.9 g/dL Albumin 4.5 g/dL Globulin 2.4 g/dL Bilirubin, Total 0.2 mg/dL ALT (SGPT) 26 U/L AST (SGOT) 25 U/L Alkaline Phosphatase 93 IU/L WBC 17.0 10 3/uL Manual Bands % 17.0 % RBC 3.48 10 6/uL HGB 11.2 g/dL Manual Lymphs % 21 % HCT 34.5 % Manual Monos % 5.0 % MCV 99.1 fL MCH 32.2 pg MCHC 32.5 g/dL Metamyelocytes % 14.0 % RDW 13.6 % Myelocytes % 3.0 % Platelet Count 211 10 3/cmm MPV 11.1 fL NRBC % 0 % CBC Slide Review Slide Review Perform Manual Bands Abs 2.9 10 3/cmm Manual Neutrophils Abs 9.7 10 3/cmm Manual Monocytes Abs 0.9 10 3/cmm Impression: 1. Patient with grade 2 infiltrating ductal carcinoma of the left breast, by clinical evaluation stage at least 1A (T1c, pN1a, M0), ER/LA positive and HER-2/bambi negative. 2. She underwent ultrasound-guided biopsies of left breast mass and left axillary lymph node on 07/12/2019. Her other medical illnesses include: 3. GERD. 4. Migraine headaches. 5. Anxiety/depression. 6. She has a history of thyroid nodules/hyperthyroidism for which she underwent total thyroidectomy in 2014. With clinically evident axillary lymph node involvement, she was advised to undergo neoadjuvant chemotherapy with Adriamycin/cyclophosphamide followed by paclitaxel. She has now completed 2 cycles of Adriamycin/cyclophosphamide. She was given Neulasta prophylaxis with both cycles. She has had denise granulocyte counts of 400 and 500, with no associated fever. Other side effects have been limited to fatigue, mild nausea, and some joint pain with the Neulasta. Overall, she has been tolerating the treatment well. Plan: She will proceed with cycle 3 of Adriamycin/cyclophosphamide. Dosages will remain the same, but I will try omitting the Neulasta with this cycle. She will be given a prescription for pantoprazole for the acid reflux. She returns in 2 weeks. Signed By: Zia Beverly M.D. <<Signature on File>>
[2019-09-23 10:05] LABS: Basophils # 0.1 10^3/uL (0.0-0.1); Basophils % 3.9 %; Hematocrit 29.7 % (37.0-47.0); Lymphocytes # 0.8 10^3/uL (0.8-4.8); Mean Corpuscular HGB Conc 33.7 g/dL (30.0-36.0); Mean Corpuscular Hemoglobin 32.4 pg (28.0-34.0); Mean Corpuscular Volume 96.1 fL (81-99); Mean Platelet Volume 10.7 fL (7.4-10.4); Monocytes # 0.1 10^3/uL (0.2-0.9); Monocytes % 4.4 %; Neutrophils # 1.03 10^3/uL (1.8-7.7); Neutrophils % 50.2 %; Nucleated Red Blood Cells % 0 %; Platelet Count 212 10^3/cmm (130-400); Red Blood Count 3.09 10^6/uL (4.1-5.3); Red Cell Distribution Width 13.1 % (12.1-15.1); White Blood Count 2.1 10^3/uL (4.0-10.0)
[2019-09-23 10:57] LABS: Slide Review Slide Review Perform
[2019-09-30 09:29] LABS: Basophils # 0.1 10^3/uL (0.0-0.1); Basophils % 2.9 %; Eosinophils % 1.7 %; Hematocrit 30.4 % (37.0-47.0); Hemoglobin 10.1 g/dL (11.5-15.3); Lymphocytes # 0.8 10^3/uL (0.8-4.8); Lymphocytes % 45.7 %; Mean Corpuscular HGB Conc 33.2 g/dL (30.0-36.0); Mean Corpuscular Hemoglobin 32.8 pg (28.0-34.0); Mean Corpuscular Volume 98.7 fL (81-99); Mean Platelet Volume 9.9 fL (7.4-10.4); Monocytes # 0.4 10^3/uL (0.2-0.9); Monocytes % 21.4 %; Neutrophils % 28.3 %; Nucleated Red Blood Cells % 0 %; Platelet Count 201 10^3/cmm (130-400); Red Blood Count 3.08 10^6/uL (4.1-5.3); White Blood Count 1.7 10^3/uL (4.0-10.0)
[2019-09-30 09:52] LABS: Neutrophils # 0.49 10^3/uL (1.8-7.7)
[2019-09-30 11:09] LABS: Alanine Aminotransferase 16 U/L (0-33); Albumin Level 4.1 g/dL (3.5-5.2); Alkaline Phosphatase 64 IU/L (35-105); Anion Gap 12.4 (5-19); Aspartate Amino Transferase 15 U/L (0-32); Blood Urea Nitrogen 8 mg/dL (6-20); Calcium 7.9 mg/dL (8.5-10.5); Carbon Dioxide 24 mmol/L (22-29); Chloride 104 mmol/L (98-107); Globulin 2.6 g/dL (1.3-4.6); Glomerular Filtration Rate 109.6 mL/min (90-130); Glucose 94 mg/dL (65-115); Osmolality Calculated 278 mOsm/kg (285-295); Potassium 4.4 mmol/L (3.5-5.1); Sodium 136 mmol/L (136-145); Total Bilirubin 0.2 mg/dL (0.15-1.2); Total Protein 6.7 g/dL (6.6-8.7)
[2019-09-30] MEDS: sodium chloride 0.9% 250 ML 30 ML IV (11:30)
[2019-09-30] MEDS: pegfilgrastim 6 mg/0.6 mL Kit (onpro) SUBCUT (14:30)
--- NOTE | 2019-10-04 12:54 | ONC FU_ITS ---
[facility] Patient Note Patient: Ramya Wilburn Unit #: [id number]: 1975 Dictated By: Beth DossDate of Visit: Sep 30, 2019 Onc MED Follow-Up/Prog Note Chief Complaint: Breast cancer. History of Present Illness: Ms Wilburn is a 43 year-old woman with grade 2 invasive ductal carcinoma of the left breast, ER/TN positive and HER-2/bambi negative. By clinical evaluation her disease was stage at least IA (T1c, pN1a, M0) at initial diagnosis. She had originally presented a year ago with bloody discharge from the left nipple. An ultrasound of the left breast on 08/06/2018 was BI-RADS Category 1. A few ductal structures were noted in the subareolar region, but there was no evidence for cystic or solid soft tissue abnormality. She apparently then had an abnormal mammogram done elsewhere and further evaluation with a diagnostic bilateral mammogram on 11/18/2018 showed multiple calcifications scattered throughout the left breast. The most concerning were in the upper outer quadrant. The breasts were noted to be extremely dense. A stereotactic biopsy of left breast calcifications on 01/18/2019 showed fibrocystic changes with no malignancy or significant atypia identified. She then had a repeat diagnostic mammogram and left breast ultrasound on 06/24/2019. The mammogram showed a slightly spiculated asymmetric density measuring 1.3 x 0.6 cm in the upper outer quadrant. Multiple punctate calcifications deep to the biopsy marker were noted to have a similar appearance compared to the study from November 2018. Ultrasound showed an irregular hypoechoic lesion at the 2 o'clock position measuring 1.3 x 1.2 x 0.9 cm. It was BI-RADS 5, highly suggestive of malignancy. Ultrasound also showed an abnormal appearing enlarged lymph node in the left axilla measuring 1.9 x 1.4 x 0.8 cm. On 07/12/2019 she underwent ultrasound-guided biopsy of the left breast mass and the left axillary lymph node. Pathology on the breast mass showed moderately differentiated invasive ductal carcinoma, nuclear grade 2. The maximum tumor size is 1.0 cm. The left axillary lymph node biopsy was positive for metastatic ductal carcinoma with tumor size measuring 3.5 mm. The breast prognostic profile showed ER positive at 90% and TN positive at 90%. HER-2/bambi was 2+ by IHC, but negative by FISH with amplification ratio 1.4 and 2.8 HER-2 copies/cell. The KI-67 was elevated at 30%. Dr Beverly had seen her initially on 07/23/2019. With clinically evident axillary lymph node involvement, she was advised to undergo neoadjuvant chemotherapy with Adriamycin/cyclophosphamide followed by paclitaxel. Her other medical illnesses include GERD, migraine headaches, and anxiety/depression. She also has a history of thyroid nodules with hyperthyroidism, for which she underwent total thyroidectomy in 2014. She has only minimal prior smoking history, and she quit smoking in 2007. INTERIM HISTORY: She began cycle 1 of Adriamycin/cyclophosphamide on 08/19/2019. She was given first cycle prophylaxis with Neulasta. She tolerated the treatment well, and she continued with cycle 2 on 09/02/2019. The Neulasta was held for cycle 3 due to bone pain and a white count of 17,000. Ms. Wilburn is here today for follow-up. She states overall she is doing well. She continues to work full-time. She states her energy is better and her appetite is good. She denies any fever or chills. She states she is actually felt good this week. She is had no nausea or vomiting. She denies any further headaches. She denies any diarrhea or constipation. Her bone pain was better without the Neulasta, however she is neutropenic today. We did discuss her labs in detail and neutropenic precautions. We will proceed with cycle 4 Adriamycin as she is curative angle and support her with Neulasta this cycle. She does have antibiotics on hand and will start those tonight for prophylaxis. She has no new concerns today. Her ECOG is 0. Past Medical History: Anxiety Depression History of thyroid nodule/hyperthyroidism Migraine headeaches Surgical hypothyroidism Past Surgical History: Caesarean section Right Subclavian venous access device-Dr Schmitt in 2019 Ultrasound-guided biopsy of left breast mass and left axillary lymph node in 2019 Stereotactic needle biopsy of the left breast in 2019 Total thyroidectomy in 2015 FNA biopsy of thyroid nodule in 2015 Tubal ligation in 2013 Allergies: No Known Allergies. Medications: clonazePAM 1 Tablet (of 0.5 mg) Oral b.i.d. PRN FLUoxetine HCl 1 Tablet (of 80 mg) Oral daily Ibuprofen 1 Tablet (of 800 mg) Oral t.i.d. PRN Levothyroxine Sodium 1 Tablet (of 125 mcg) Oral daily Multivitamin Adult 1 Tablet Oral daily Rizatriptan Benzoate 1 Tablet (of 10 mg) Oral q 2 hours PRN Topiramate 1 Tablet (of 50 mg) Oral daily Family History: Ms. Wilburn's mother is alive. Ms. Wilburn's father is alive. Ms. Wilburn has 1 maternal aunt who is : uterine cancer. Father has diabetes and coronary artery disease and is still living at age 73. Mother is in good health age 68. Two brothers and a fraternal twin sister are in good health. 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 Ms. Wilburn quit smoking 12 years ago but had smoked for 2 years. She has no history of drinking. Ms. Wilburn reports the following support systems: lives with spouse, significant other, family, or friends, lives in own house, supportive family/friends willing to assist with needs, and adequate transportation available for expected visits. Her diet consists of regular meals. She indicates her activity level as: regular exercise. Review Of Symptoms: Constitutional Denies fevers, chills, night sweats, or weight loss. She states she feels good. She is still working full-time as much as possible. Allergic/Immunologic No reactions. Eyes Denies significant visual changes. No diplopia. No amaurosis. ENMT Denies changes in hearing, sore throat, mouth sores, difficulty or changes in swallowing ability, and/or sinus drainage. Hematologic/Lymphatic Denies easy bruising or bleeding. The patient denies any tender or palpable lymph nodes. Breasts no new concerns. Respiratory Denies dyspnea on exertion, chest pain, cough or hemoptysis. Denies orthopnea. Cardiovascular Denies anginal chest pain, palpitations or orthopnea. Gastrointestinal Denies nausea, vomiting, diarrhea, GI bleeding, or constipation. Denies change in bowel habits and/or stool color, no heartburn or early satiety. Genitourinary (F) No hematuria, hesitancy, incontinence, vaginal bleeding, discharge or other problems with urination. Musculoskeletal Denies joint swelling or redness. No decreased range of motion. Bone pain from Neulasta has resolved. Integumentary Denies chronic rashes, inflammation, ulcerations or skin changes. Neurologic Denies headache, blurred vision, and no areas of focal weakness or numbness. Normal gait. No sensory problems. Psychiatric Denies insomnia, depression, ro or mood swings. Vital Signs: Performed on Sep 30, 2019 11:11 Height - 63.00 in Weight - 145.2 lbs (HIGH) BSA - 1.69 sq.m BMI - 25.72 Temperature - 97.9 F (LOW) Pulse - 83 /min Respiration - 17 /min BP - 113/70 mm(hg) O2 Sat - 100 % Pain - 0,0 - Fully active, able to carry on all predisease activities without restrictions. (ECOG) Physical Examination: Constitutional Alert, oriented, no acute distress. Skin pink, warm and dry. She is very jovial. Alopecia. Head Normocephalic; atraumatic. Eyes Conjunctivae and sclerae are clear and without icterus. Pupils are reactive and equal. Neck Supple without masses or thyromegaly. No jugular venous distension. Hematologic/Lymphatic No petechiae or purpura. No tender or palpable lymph nodes in the cervical or supraclavicular areas. Respiratory Lungs are clear to auscultation without rhonchi or wheezing. Cardiovascular Regular rate and rhythm of heart without murmurs,clicks, gallops or rubs. Chest RIGHT subclavian venous access device insertion site has healed well. It is unremarkable. Abdomen Non-tender, non-distended, no masses or ascites. Good bowel sounds noted in all quads. No guarding or rebound tenderness. No pulsatile masses. Back/Spine Non-tender to palpation. Extremities No visible deformities, no cyanosis, clubbing or edema. Musculoskeletal No tenderness or swelling, normal range of motion without obvious weakness. Integumentary No rashes or lesions. Neurologic No sensory or motor deficits, normal cerebellar function, normal gait. Psychiatric Alert and oriented times three. Coherent speech. Verbalizes understanding of our discussions today. Laboratory:Test performed on Sep 30, 2019 09:10 Sodium 136 mmol/L Potassium 4.4 mmol/L Chloride 104 mmol/L CO2 24 mmol/L Anion Gap 12.4 BUN 8 mg/dL Creatinine 0.6 mg/dL Cr Clearance (Est) 120.7000 mL/min eGFR 109.6 mL/min Glucose 94 mg/dL Calcium 7.9 mg/dL Protein, Total 6.7 g/dL Albumin 4.1 g/dL Globulin 2.6 g/dL Bilirubin, Total 0.2 mg/dL ALT (SGPT) 16 U/L AST (SGOT) 15 U/L Alkaline Phosphatase 64 IU/L WBC 1.7 10 3/uL RBC 3.08 10 6/uL HGB 10.1 g/dL HCT 30.4 % MCV 98.7 fL MCH 32.8 pg MCHC 33.2 g/dL RDW 15.0 % Platelet Count 201 10 3/cmm MPV 9.9 fL Neutrophils 0.49 10 3/uL Lymphocytes 0.8 10 3/uL Monocytes 0.4 10 3/uL Eosinophils 0.0 10 3/uL Basophils 0.1 10 3/uL Neutrophil % 28.3 % Lymphocyte % 45.7 % Monocyte % 21.4 % Eosinophil % 1.7 % Basophils % 2.9 % NRBC % 0 % Test performed on Sep 23, 2019 09:50 CBC Slide Review Slide Review Perform SLIDE REVIEW AGREES WITH AUTOMATED RESULTS ST Test performed on Sep 16, 2019 09:15 Manual Bands % 17.0 % Manual Lymphs % 21 % Manual Monos % 5.0 % Metamyelocytes % 14.0 % Myelocytes % 3.0 % Manual Bands Abs 2.9 10 3/cmm Manual Neutrophils Abs 9.7 10 3/cmm Manual Monocytes Abs 0.9 10 3/cmm Test performed on Sep 02, 2019 09:12 Atypical Lymphs % 29.0 % Poikilocytosis 1+ Manual Lymphocytes Abs 7.3 10 3/cmm Manual Eosinophils Abs 0.1 10 3/cmm Impression: 1. Patient with grade 2 infiltrating ductal carcinoma of the left breast, by clinical evaluation stage at least 1A (T1c, pN1a, M0), ER/TN positive and HER-2/bambi negative. 2. She underwent ultrasound-guided biopsies of left breast mass and left axillary lymph node on 07/12/2019. Her other medical illnesses include: 3. GERD. 4. Migraine headaches. 5. Anxiety/depression. 6. She has a history of thyroid nodules/hyperthyroidism for which she underwent total thyroidectomy in 2014. With clinically evident axillary lymph node involvement, she was advised to undergo neoadjuvant chemotherapy with Adriamycin/cyclophosphamide followed by paclitaxel. She has now completed 2 cycles of Adriamycin/cyclophosphamide. She was given Neulasta prophylaxis with both cycles. She has had denise granulocyte counts of 400 and 500, with no associated fever. Other side effects have been limited to fatigue, mild nausea, and some joint pain with the Neulasta. Overall, she has been tolerating the treatment well. Her Neulasta was omitted with cycle 3 due to a WBC of 17,000 and bone pain. Her ANC is 400 today. She will proceed with cycle 4 adriamycin/Cytoxan and resume Neulast support. Plan: 1. Proceed with cycle 4/4 Adriamycin/Cytoxan. 2. I did change her Aloxi to Zofran 8 mg because she had significant headaches and constipation with cycle 1. She does have a history of migraines. She does have Emend as part of her anti-medic regimen. If she has any problems we will can add olanzapine. She has been advised to take her antiemetics at home if she has any nausea. 3. Labs from September 30, 2019 were reviewed in detail discussed with Ms. Wilburn and a copy was given to her. WBC 1.7, hemoglobin 10.1, platelets 201,000, ANC is 490. Her creatinine is normal at 0.6 LFTs are normal. 4. She will continue Neulasta support given that her ANC on day 1 of cycle 4 is 490. She did not have febrile neutropenic but was given prophylactic antibiotics as well. I did encourage her to go ahead and start the antibiotic as a precaution. 5. She was again instructed to call us if she has fever or chills. The fever cut off we discussed was 100.4; anything 100.4 or greater she needs to call us and report. 6. For her pain management we may continuye hydrocodone/APAP 5/325 1 or 2 every 4 hours as needed pain. 7. We will plan to see her back in 2 weeks with CBC CMP. She will be due for cycle 1 of 12 of paxlitaxel at that time. She was reminded of the need for steroid premed and instructions reivewed. 8. Ms. Wilburn was instructed to contact us in interim should questions or problems arise. 9. Her baseline echocardiogram from August 18, [address] Mehta. Left ventricular size is normal, systolic function and wall thickness are normal. There were no regional wall motion abnormalities. The LVEF is estimated at 65%. Signed By: Beth Doss-, [facility] Zia Beverly MD <<Signature on File>>
[2019-10-07 09:40] LABS: Basophils % 2.6 %; Eosinophils # 0.1 10^3/uL (0.0-0.8); Eosinophils % 4.3 %; Hematocrit 26.7 % (37.0-47.0); Hemoglobin 9.1 g/dL (11.5-15.3); Lymphocytes # 0.7 10^3/uL (0.8-4.8); Lymphocytes % 62.6 %; Mean Corpuscular HGB Conc 34.1 g/dL (30.0-36.0); Mean Corpuscular Hemoglobin 32.9 pg (28.0-34.0); Mean Corpuscular Volume 96.4 fL (81-99); Mean Platelet Volume 10.1 fL (7.4-10.4); Monocytes # 0.2 10^3/uL (0.2-0.9); Monocytes % 13.9 %; Neutrophils % 14.9 %; Nucleated Red Blood Cells % 0 %; Platelet Count 176 10^3/cmm (130-400); Red Blood Count 2.77 10^6/uL (4.1-5.3); Red Cell Distribution Width 14.6 % (12.1-15.1); White Blood Count 1.2 10^3/uL (4.0-10.0)
[2019-10-07 10:22] LABS: Neutrophils # 0.17 10^3/uL (1.8-7.7); Slide Review Slide Review Perform
[2019-10-14 10:01] LABS: Basophils # 0.1 10^3/uL (0.0-0.1); Hemoglobin 11.4 g/dL (11.5-15.3); Lymphocytes # 0.6 10^3/uL (0.8-4.8); Lymphocytes % 6.4 %; Mean Corpuscular HGB Conc 33.5 g/dL (30.0-36.0); Mean Corpuscular Hemoglobin 33.4 pg (28.0-34.0); Mean Corpuscular Volume 99.7 fL (81-99); Mean Platelet Volume 10.3 fL (7.4-10.4); Monocytes # 0.1 10^3/uL (0.2-0.9); Neutrophils # 6.31 10^3/uL (1.8-7.7); Nucleated Red Blood Cells % 0 %; Platelet Count 242 10^3/cmm (130-400); Red Blood Count 3.41 10^6/uL (4.1-5.3); Red Cell Distribution Width 16.5 % (12.1-15.1); White Blood Count 9.2 10^3/uL (4.0-10.0)
[2019-10-14 10:20] LABS: Alanine Aminotransferase 27 U/L (0-33); Albumin Level 4.8 g/dL (3.5-5.2); Alkaline Phosphatase 86 IU/L (35-105); Anion Gap 16.2 (5-19); Aspartate Amino Transferase 26 U/L (0-32); Blood Urea Nitrogen 15 mg/dL (6-20); Calcium 8.8 mg/dL (8.5-10.5); Carbon Dioxide 21 mmol/L (22-29); Chloride 102 mmol/L (98-107); Globulin 3.1 g/dL (1.3-4.6); Glomerular Filtration Rate 91.8 mL/min (90-130); Glucose 137 mg/dL (65-115); Osmolality Calculated 278 mOsm/kg (285-295); Potassium 4.2 mmol/L (3.5-5.1); Sodium 135 mmol/L (136-145); Total Bilirubin 0.2 mg/dL (0.15-1.2); Total Protein 7.9 g/dL (6.6-8.7)
[2019-10-14 10:44] LABS: Slide Review Slide Review Perform
[2019-10-14] MEDS: sodium chloride 0.9% 250 ML 75 ML IV (12:35)
[2019-10-14] MEDS: acetaminophen 325 mg Tablet 650 MG PO (12:35)
--- NOTE | 2019-10-19 00:01 | ONC FU_ITS ---
[facility] Patient Note Patient: Ramya Wilburn Unit #: [id number]: [id number] Dictated By: Beth DossDate of Visit: Oct 14, 2019 Onc MED Follow-Up/Prog Note Chief Complaint: Breast cancer. History of Present Illness: Ms Wilburn is a 43 year-old woman with grade 2 invasive ductal carcinoma of the left breast, ER/DE positive and HER-2/bambi negative. By clinical evaluation her disease was stage at least IA (T1c, pN1a, M0) at initial diagnosis. She had originally presented a year ago with bloody discharge from the left nipple. An ultrasound of the left breast on 08/06/2018 was BI-RADS Category 1. A few ductal structures were noted in the subareolar region, but there was no evidence for cystic or solid soft tissue abnormality. She apparently then had an abnormal mammogram done elsewhere and further evaluation with a diagnostic bilateral mammogram on 11/18/2018 showed multiple calcifications scattered throughout the left breast. The most concerning were in the upper outer quadrant. The breasts were noted to be extremely dense. A stereotactic biopsy of left breast calcifications on 01/18/2019 showed fibrocystic changes with no malignancy or significant atypia identified. She then had a repeat diagnostic mammogram and left breast ultrasound on 06/24/2019. The mammogram showed a slightly spiculated asymmetric density measuring 1.3 x 0.6 cm in the upper outer quadrant. Multiple punctate calcifications deep to the biopsy marker were noted to have a similar appearance compared to the study from November 2018. Ultrasound showed an irregular hypoechoic lesion at the 2 o'clock position measuring 1.3 x 1.2 x 0.9 cm. It was BI-RADS 5, highly suggestive of malignancy. Ultrasound also showed an abnormal appearing enlarged lymph node in the left axilla measuring 1.9 x 1.4 x 0.8 cm. On 07/12/2019 she underwent ultrasound-guided biopsy of the left breast mass and the left axillary lymph node. Pathology on the breast mass showed moderately differentiated invasive ductal carcinoma, nuclear grade 2. The maximum tumor size is 1.0 cm. The left axillary lymph node biopsy was positive for metastatic ductal carcinoma with tumor size measuring 3.5 mm. The breast prognostic profile showed ER positive at 90% and DE positive at 90%. HER-2/bambi was 2+ by IHC, but negative by FISH with amplification ratio 1.4 and 2.8 HER-2 copies/cell. The KI-67 was elevated at 30%. Dr Beverly had seen her initially on 07/23/2019. With clinically evident axillary lymph node involvement, she was advised to undergo neoadjuvant chemotherapy with Adriamycin/cyclophosphamide followed by paclitaxel. Her other medical illnesses include GERD, migraine headaches, and anxiety/depression. She also has a history of thyroid nodules with hyperthyroidism, for which she underwent total thyroidectomy in 2014. She has only minimal prior smoking history, and she quit smoking in 2007. INTERIM HISTORY: She began cycle 1 of Adriamycin/cyclophosphamide on 08/19/2019. She was given first cycle prophylaxis with Neulasta. She tolerated the treatment well, and she continued with cycle 2 on 09/02/2019. The Neulasta was held for cycle 3 due to bone pain and a white count of 17,000. She completed 4 cycles of adriamycin/Cytoxan on 09/30/2019. Ms. Wilburn is here today for follow-up. She is scheduled to begin her first week of 12 weeks of paclitaxel. She states overall she is doing well. She continues to work full-time. She states her energy is better and her appetite is good. She denies any fever or chills. She is had no nausea or vomiting. She denies any further headaches. She denies any diarrhea or constipation. She denies any pain. Her only concern today is dry skin and itching. She states her skin seemed to be cloth drier after her last cycle of chemotherapy. She has tried multiple lotions without good results. She denies any rash or skin lesions. Her ECOG is 0. Past Medical History: Anxiety Depression History of thyroid nodule/hyperthyroidism Migraine headeaches Surgical hypothyroidism Past Surgical History: Caesarean section Right Subclavian venous access device-Dr Schmitt in 2019 Ultrasound-guided biopsy of left breast mass and left axillary lymph node in 2019 Stereotactic needle biopsy of the left breast in 2019 Total thyroidectomy in 2014 FNA biopsy of thyroid nodule in 2014 Tubal ligation in 2013 Allergies: No Known Allergies. Medications: clonazePAM 1 Tablet (of 0.5 mg) Oral b.i.d. PRN FLUoxetine HCl 1 Tablet (of 80 mg) Oral daily Ibuprofen 1 Tablet (of 800 mg) Oral t.i.d. PRN Levothyroxine Sodium 1 Tablet (of 125 mcg) Oral daily Multivitamin Adult 1 Tablet Oral daily Rizatriptan Benzoate 1 Tablet (of 10 mg) Oral q 2 hours PRN Topiramate 1 Tablet (of 50 mg) Oral daily Family History: Ms. Wilburn's mother is alive. Ms. Wilburn's father is alive. Ms. Wilburn has 1 maternal aunt who is : uterine cancer. Father has diabetes and coronary artery disease and is still living at age 73. Mother is in good health age 68. Two brothers and a fraternal twin sister are in good health. Social History: Ms. 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 Ms. Wilburn quit smoking 12 years ago but had smoked for 2 years. She has no history of drinking. Ms. Wilburn reports the following support systems: lives with spouse, significant other, family, or friends, lives in own house, supportive family/friends willing to assist with needs, and adequate transportation available for expected visits. Her diet consists of regular meals. She indicates her activity level as: regular exercise. Review Of Symptoms: Constitutional Denies fevers, chills, night sweats, or weight loss. She states she feels good. She is still working full-time as much as possible. Allergic/Immunologic No reactions. Eyes Denies significant visual changes. No diplopia. No amaurosis. ENMT Denies changes in hearing, sore throat, mouth sores, difficulty or changes in swallowing ability, and/or sinus drainage. Hematologic/Lymphatic Denies easy bruising or bleeding. The patient denies any tender or palpable lymph nodes. Breasts no new concerns. Respiratory Denies dyspnea on exertion, chest pain, cough or hemoptysis. Denies orthopnea. Cardiovascular Denies anginal chest pain, palpitations or orthopnea. Gastrointestinal Denies nausea, vomiting, diarrhea, GI bleeding, or constipation. Denies change in bowel habits and/or stool color, no heartburn or early satiety. Genitourinary (F) No hematuria, hesitancy, incontinence, vaginal bleeding, discharge or other problems with urination. Musculoskeletal Denies joint swelling or redness. No decreased range of motion. Bone pain from Neulasta has resolved. Integumentary Denies chronic rashes, inflammation, ulcerations or skin changes. Skin dryness and itching-no rash or lesions. Neurologic Denies headache, blurred vision, and no areas of focal weakness or numbness. Normal gait. No sensory problems. Psychiatric Denies insomnia, depression, ro or mood swings. Vital Signs: Performed on Oct 14, 2019 11:55 Height - 63.00 in Weight - 141.6 lbs (LOW) BSA - 1.67 sq.m BMI - 25.08 Temperature - 96.5 F (LOW) Pulse - 86 /min Respiration - 19 /min BP - 110/64 mm(hg) O2 Sat - 92 % (LOW) Pain - 0,0 - Fully active, able to carry on all predisease activities without restrictions. (ECOG) Physical Examination: Constitutional Alert, oriented, no acute distress. Skin pink, warm and dry. She is very jovial. Alopecia. Head Normocephalic; atraumatic. Eyes Conjunctivae and sclerae are clear and without icterus. Pupils are reactive and equal. Neck Supple without masses or thyromegaly. No jugular venous distension. Hematologic/Lymphatic No petechiae or purpura. No tender or palpable lymph nodes in the cervical or supraclavicular areas. Respiratory Lungs are clear to auscultation without rhonchi or wheezing. Cardiovascular Regular rate and rhythm of heart without murmurs,clicks, gallops or rubs. Chest RIGHT subclavian venous access device insertion site has healed well. It is unremarkable. Abdomen Non-tender, non-distended, no masses or ascites. Good bowel sounds noted in all quads. No guarding or rebound tenderness. No pulsatile masses. Back/Spine Non-tender to palpation. Extremities No visible deformities, no cyanosis, clubbing or edema. Musculoskeletal No tenderness or swelling, normal range of motion without obvious weakness. Integumentary No rashes or lesions. Neurologic No sensory or motor deficits, normal cerebellar function, normal gait. Psychiatric Alert and oriented times three. Coherent speech. Verbalizes understanding of our discussions today. Laboratory:Test performed on Oct 14, 2019 09:20 Sodium 135 mmol/L Potassium 4.2 mmol/L Chloride 102 mmol/L CO2 21 mmol/L Anion Gap 16.2 BUN 15 mg/dL Creatinine 0.7 mg/dL Cr Clearance (Est) 103.4600 mL/min eGFR 91.8 mL/min Glucose 137 mg/dL Calcium 8.8 mg/dL Protein, Total 7.9 g/dL Albumin 4.8 g/dL Globulin 3.1 g/dL Bilirubin, Total 0.2 mg/dL ALT (SGPT) 27 U/L AST (SGOT) 26 U/L Alkaline Phosphatase 86 IU/L WBC 9.2 10 3/uL RBC 3.41 10 6/uL HGB 11.4 g/dL HCT 34.0 % MCV 99.7 fL MCH 33.4 pg MCHC 33.5 g/dL RDW 16.5 % Platelet Count 242 10 3/cmm MPV 10.3 fL Neutrophils 6.31 10 3/uL Lymphocytes 0.6 10 3/uL Monocytes 0.1 10 3/uL Eosinophils 0.0 10 3/uL Basophils 0.1 10 3/uL Neutrophil % 69.0 % Lymphocyte % 6.4 % Monocyte % 1.0 % Eosinophil % 0.0 % Basophils % 1.0 % NRBC % 0 % CBC Slide Review Slide Review Perform Test performed on Sep 16, 2019 09:15 Manual Bands % 17.0 % Manual Lymphs % 21 % Manual Monos % 5.0 % Metamyelocytes % 14.0 % Myelocytes % 3.0 % Manual Bands Abs 2.9 10 3/cmm Manual Neutrophils Abs 9.7 10 3/cmm Manual Monocytes Abs 0.9 10 3/cmm Test performed on Sep 02, 2019 09:12 Atypical Lymphs % 29.0 % Poikilocytosis 1+ Manual Lymphocytes Abs 7.3 10 3/cmm Manual Eosinophils Abs 0.1 10 3/cmm Impression: 1. Patient with grade 2 infiltrating ductal carcinoma of the left breast, by clinical evaluation stage at least 1A (T1c, pN1a, M0), ER/DE positive and HER-2/bambi negative. 2. She underwent ultrasound-guided biopsies of left breast mass and left axillary lymph node on 07/12/2019. Her other medical illnesses include: 3. GERD. 4. Migraine headaches. 5. Anxiety/depression. 6. She has a history of thyroid nodules/hyperthyroidism for which she underwent total thyroidectomy in 2014. With clinically evident axillary lymph node involvement, she was advised to undergo neoadjuvant chemotherapy with Adriamycin/cyclophosphamide followed by paclitaxel. She has now completed 2 cycles of Adriamycin/cyclophosphamide. She was given Neulasta prophylaxis with both cycles. She has had denise granulocyte counts of 400 and 500, with no associated fever. Other side effects have been limited to fatigue, mild nausea, and some joint pain with the Neulasta. Overall, she has been tolerating the treatment well. Her Neulasta was omitted with cycle 3 due to a WBC of 17,000 and bone pain. Her ANC on day 1 of cycle 4 was 400. Neulasta support was resumed. She will proceed with the paclitaxel plan of her treatment plan. She has completed 4 cycles of dose dense adriamycin/Cytoxan on 09/30/2019. She did require Neulasta support for chemotherapy induced neutropenia. Her blood counts have recovered well. Plan: 1. Proceed with week1/12 paclitaxel. Steroid compliance confirmed. 2. I did change her Aloxi to Zofran 8 mg because she had significant headaches and constipation with cycle 1. She does have a history of migraines. She does have Emend as part of her anti-medic regimen. If she has any problems we will can add olanzapine. She has been advised to take her antiemetics at home if she has any nausea. 3. Labs from October 14, 2019 were reviewed in detail discussed with Ms. Wilburn and a copy was given to her. WBC 9.2, hemoglobin 11.4, platelets 242,000, ANC is 6300. Her creatinine is normal at 0.7 LFTs are normal. Random glucose 137-nonfasting and she took steroid premeds this am. 4. I have requested a PA for Neupogen for her weekly paclitaxel given that her ANC on day 1 of cycle 4 adriamycin/Cytoxan was 490. She did not have febrile neutropenic but was given prophylactic antibiotics as well. Her blood counts have recovered well currently, but she has had significant bone marrow suppression with her last chemo regimen. 5. She was again instructed to call us if she has fever or chills. The fever cut off we discussed was 100.4; anything 100.4 or greater she needs to call us and report. 6. For her pain management we may continue hydrocodone/APAP 5/325 1 or 2 every 4 hours as needed pain. 7. We will plan to see her back in 1 week with CBC CMP. She will be due for cycle 2 of 12 of paxlitaxel at that time. She was reminded of the need for steroid premed and instructions reviewed. 8. Ms. Wilburn was instructed to contact us in interim should questions or problems arise. 9. Her baseline echocardiogram from August 18, [address] Mehta. Left ventricular size is normal, systolic function and wall thickness are normal. There were no regional wall motion abnormalities. The LVEF is estimated at 65%. 10. We discussed using thick emollient lotions, creamy baby oil and even adding oral Fish Oil supplements for the dry skin. She was encouraged to call before her followup in 1 week if the dryness is not improving. She is currently taking daily antihistamine for seasonal allergies. She was advised that she may try switching to another daily antihistamine to see if any improvement on itching Signed By: Beth Doss-, AOCNP Zia Beverly MD <<Signature on File>>
== END 2019-10-15 23:59 | disposition home or self-care (01) ==
LOC: ONCMED 06:02
PROVIDERS: Internal Medicine Medical Oncology; PCP Family Medicine; Visit Provider Nurse Practitioner
DX: Z51.11 Encounter for antineoplastic chemotherapy (principal); C50.412 Malignant neoplasm of upper-outer quadrant of left female breast; C77.3 Secondary and unspecified malignant neoplasm of axilla and upper limb lymph nodes; D70.1 Agranulocytosis secondary to cancer chemotherapy; T45.1X5A Adverse effect of antineoplastic and immunosuppressive drugs, initial encounter; Z17.0 Estrogen receptor positive status [ER+]; K21.9 Gastro-esophageal reflux disease without esophagitis; F41.8 Other specified anxiety disorders; E89.0 Postprocedural hypothyroidism; Z79.899 Other long term (current) drug therapy
CPT/HCPCS: 36591; 80053; 85007; 85025; 96367; 96372; 96375; 96413; 96417; 99214; J1100; J1200; J1453; J2405; J2505; J3490; J7040; J7050; J9000; J9070; J9267

== ENCOUNTER 2019-11-15 05:34 | Outpatient (RCR) | payer BC, OTHER, SELFPAY ==
[2019-10-21 09:33] LABS: Basophils % 0.6 %; Hematocrit 33.1 % (37.0-47.0); Hemoglobin 11.1 g/dL (11.5-15.3); Lymphocytes # 0.4 10^3/uL (0.8-4.8); Lymphocytes % 11.7 %; Mean Corpuscular HGB Conc 33.5 g/dL (30.0-36.0); Mean Corpuscular Hemoglobin 32.5 pg (28.0-34.0); Mean Corpuscular Volume 96.8 fL (81-99); Mean Platelet Volume 10.2 fL (7.4-10.4); Monocytes % 0.9 %; Neutrophils # 2.89 10^3/uL (1.8-7.7); Neutrophils % 84.7 %; Nucleated Red Blood Cells % 0 %; Platelet Count 296 10^3/cmm (130-400); Red Blood Count 3.42 10^6/uL (4.1-5.3); Red Cell Distribution Width 15.7 % (12.1-15.1); White Blood Count 3.4 10^3/uL (4.0-10.0)
[2019-10-21 09:51] LABS: Alanine Aminotransferase 30 U/L (0-33); Albumin Level 4.9 g/dL (3.5-5.2); Alkaline Phosphatase 79 IU/L (35-105); Aspartate Amino Transferase 28 U/L (0-32); Blood Urea Nitrogen 12 mg/dL (6-20); Calcium 9.1 mg/dL (8.5-10.5); Carbon Dioxide 23 mmol/L (22-29); Chloride 103 mmol/L (98-107); Globulin 2.4 g/dL (1.3-4.6); Glomerular Filtration Rate 91.8 mL/min (90-130); Glucose 141 mg/dL (65-115); Osmolality Calculated 278 mOsm/kg (285-295); Sodium 135 mmol/L (136-145); Total Bilirubin 0.4 mg/dL (0.15-1.2); Total Protein 7.3 g/dL (6.6-8.7)
[2019-10-21] MEDS: acetaminophen 325 mg Tablet 650 MG PO (11:55)
[2019-10-21] MEDS: sodium chloride 0.9% 250 ML IV (11:56)
--- NOTE | 2019-10-21 16:25 | ONC FU_ITS ---
[facility] Patient Note Patient: Ramya Wilburn Unit #: [id number]: 1975 Dictated By: Beth DossDate of Visit: Oct 21, 2019 Onc MED Follow-Up/Prog Note Chief Complaint: Breast cancer. History of Present Illness: Ms Wilburn is a 43 year-old woman with grade 2 invasive ductal carcinoma of the left breast, ER/CT positive and HER-2/bambi negative. By clinical evaluation her disease was stage at least IA (T1c, pN1a, M0) at initial diagnosis. She had originally presented a year ago with bloody discharge from the left nipple. An ultrasound of the left breast on 08/06/2018 was BI-RADS Category 1. A few ductal structures were noted in the subareolar region, but there was no evidence for cystic or solid soft tissue abnormality. She apparently then had an abnormal mammogram done elsewhere and further evaluation with a diagnostic bilateral mammogram on 11/18/2018 showed multiple calcifications scattered throughout the left breast. The most concerning were in the upper outer quadrant. The breasts were noted to be extremely dense. A stereotactic biopsy of left breast calcifications on 01/18/2019 showed fibrocystic changes with no malignancy or significant atypia identified. She then had a repeat diagnostic mammogram and left breast ultrasound on 06/24/2019. The mammogram showed a slightly spiculated asymmetric density measuring 1.3 x 0.6 cm in the upper outer quadrant. Multiple punctate calcifications deep to the biopsy marker were noted to have a similar appearance compared to the study from November 2018. Ultrasound showed an irregular hypoechoic lesion at the 2 o'clock position measuring 1.3 x 1.2 x 0.9 cm. It was BI-RADS 5, highly suggestive of malignancy. Ultrasound also showed an abnormal appearing enlarged lymph node in the left axilla measuring 1.9 x 1.4 x 0.8 cm. On 07/12/2019 she underwent ultrasound-guided biopsy of the left breast mass and the left axillary lymph node. Pathology on the breast mass showed moderately differentiated invasive ductal carcinoma, nuclear grade 2. The maximum tumor size is 1.0 cm. The left axillary lymph node biopsy was positive for metastatic ductal carcinoma with tumor size measuring 3.5 mm. The breast prognostic profile showed ER positive at 90% and CT positive at 90%. HER-2/bambi was 2+ by IHC, but negative by FISH with amplification ratio 1.4 and 2.8 HER-2 copies/cell. The KI-67 was elevated at 30%. Dr Beverly had seen her initially on 07/23/2019. With clinically evident axillary lymph node involvement, she was advised to undergo neoadjuvant chemotherapy with Adriamycin/cyclophosphamide followed by paclitaxel. Her other medical illnesses include GERD, migraine headaches, and anxiety/depression. She also has a history of thyroid nodules with hyperthyroidism, for which she underwent total thyroidectomy in 2014. She has only minimal prior smoking history, and she quit smoking in 2007. INTERIM HISTORY: She began cycle 1 of Adriamycin/cyclophosphamide on 08/19/2019. She was given first cycle prophylaxis with Neulasta. She tolerated the treatment well, and she continued with cycle 2 on 09/02/2019. The Neulasta was held for cycle 3 due to bone pain and a white count of 17,000. She completed 4 cycles of adriamycin/Cytoxan on 09/30/2019. Ms. Wilburn is here today for follow-up. She began her first week of 12 weeks of paclitaxel on 10/14/2019. She has tolerated it well thus far. She states overall she is doing well. She continues to work full-time. She states her energy is better and her appetite is good. She denies any fever or chills. She is had no nausea or vomiting. She denies any further headaches. She denies any diarrhea or constipation. She denies any pain. Her dry skin and itching from last week has resolved. She denies any rash or skin lesions. She denies any neuropathy symptoms. She states she has had a really good week. Her ECOG is 0. Past Medical History: Anxiety Depression History of thyroid nodule/hyperthyroidism Migraine headeaches Surgical hypothyroidism Past Surgical History: Caesarean section Right Subclavian venous access device-Dr Schmitt in 2019 Ultrasound-guided biopsy of left breast mass and left axillary lymph node in 2019 Stereotactic needle biopsy of the left breast in 2019 Total thyroidectomy in 2014 FNA biopsy of thyroid nodule in 2014 Tubal ligation in 2013 Allergies: No Known Allergies. Medications: clonazePAM 1 Tablet (of 0.5 mg) Oral b.i.d. PRN FLUoxetine HCl 1 Tablet (of 80 mg) Oral daily Ibuprofen 1 Tablet (of 800 mg) Oral t.i.d. PRN Levothyroxine Sodium 1 Tablet (of 125 mcg) Oral daily Multivitamin Adult 1 Tablet Oral daily Rizatriptan Benzoate 1 Tablet (of 10 mg) Oral q 2 hours PRN Topiramate 1 Tablet (of 50 mg) Oral daily Family History: Ms. Wilburn's mother is alive. Ms. Wilburn's father is alive. Ms. Wilburn has 1 maternal aunt who is : uterine cancer. Father has diabetes and coronary artery disease and is still living at age 73. Mother is in good health age 68. Two brothers and a fraternal twin sister are in good health. 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 Ms. Wilburn quit smoking 12 years ago but had smoked for 2 years. She has no history of drinking. Ms. Wilburn reports the following support systems: lives with spouse, significant other, family, or friends, lives in own house, supportive family/friends willing to assist with needs, and adequate transportation available for expected visits. Her diet consists of regular meals. She indicates her activity level as: regular exercise. Review Of Symptoms: Constitutional Denies fevers, chills, night sweats, or weight loss. She states she feels good. She is still working full-time as much as possible. Allergic/Immunologic No reactions. Eyes Denies significant visual changes. No diplopia. No amaurosis. ENMT Denies changes in hearing, sore throat, mouth sores, difficulty or changes in swallowing ability, and/or sinus drainage. Hematologic/Lymphatic Denies easy bruising or bleeding. The patient denies any tender or palpable lymph nodes. Breasts no new concerns. Respiratory Denies dyspnea on exertion, chest pain, cough or hemoptysis. Denies orthopnea. Cardiovascular Denies anginal chest pain, palpitations or orthopnea. Gastrointestinal Denies nausea, vomiting, diarrhea, GI bleeding, or constipation. Denies change in bowel habits and/or stool color, no heartburn or early satiety. Genitourinary (F) No hematuria, hesitancy, incontinence, vaginal bleeding, discharge or other problems with urination. Musculoskeletal Denies joint swelling or redness. No decreased range of motion. Bone pain from Neulasta has resolved. Integumentary Denies chronic rashes, inflammation, ulcerations or skin changes. Skin dryness and itching-no rash or lesions. Neurologic Denies headache, blurred vision, and no areas of focal weakness or numbness. Normal gait. No sensory problems. Psychiatric Denies insomnia, depression, ro or mood swings. Vital Signs: Performed on Oct 21, 2019 11:19 Height - 63.00 in Weight - 141.2 lbs (LOW) BSA - 1.67 sq.m BMI - 25.01 Temperature - 97.4 F (LOW) Pulse - 69 /min Respiration - 17 /min BP - 101/69 mm(hg) O2 Sat - 98 % Pain - 0,0 - Fully active, able to carry on all predisease activities without restrictions. (ECOG) Physical Examination: Constitutional Alert, oriented, no acute distress. Skin pink, warm and dry. She is very jovial. Alopecia. Head Normocephalic; atraumatic. Eyes Conjunctivae and sclerae are clear and without icterus. Pupils are reactive and equal. Neck Supple without masses or thyromegaly. No jugular venous distension. Hematologic/Lymphatic No petechiae or purpura. Respiratory Lungs are clear to auscultation without rhonchi or wheezing. Cardiovascular Regular rate and rhythm of heart without murmurs,clicks, gallops or rubs. Abdomen Non-tender, non-distended, no masses or ascites. Back/Spine Non-tender to palpation. Extremities No visible deformities, no cyanosis, clubbing or edema. Musculoskeletal No tenderness or swelling, normal range of motion without obvious weakness. Integumentary No rashes or lesions. Neurologic No sensory or motor deficits, normal cerebellar function, normal gait. Psychiatric Alert and oriented times three. Coherent speech. Verbalizes understanding of our discussions today. Laboratory:Test performed on Oct 21, 2019 09:15 Sodium 135 mmol/L Potassium 4.0 mmol/L Chloride 103 mmol/L CO2 23 mmol/L Anion Gap 13.0 BUN 12 mg/dL Creatinine 0.7 mg/dL Cr Clearance (Est) 106.1600 mL/min eGFR 91.8 mL/min Glucose 141 mg/dL Calcium 9.1 mg/dL Protein, Total 7.3 g/dL Albumin 4.9 g/dL Globulin 2.4 g/dL Bilirubin, Total 0.4 mg/dL ALT (SGPT) 30 U/L AST (SGOT) 28 U/L Alkaline Phosphatase 79 IU/L WBC 3.4 10 3/uL RBC 3.42 10 6/uL HGB 11.1 g/dL HCT 33.1 % MCV 96.8 fL MCH 32.5 pg MCHC 33.5 g/dL RDW 15.7 % Platelet Count 296 10 3/cmm MPV 10.2 fL Neutrophils 2.89 10 3/uL Lymphocytes 0.4 10 3/uL Monocytes 0.0 10 3/uL Eosinophils 0.0 10 3/uL Basophils 0.0 10 3/uL Neutrophil % 84.7 % Lymphocyte % 11.7 % Monocyte % 0.9 % Eosinophil % 0.0 % Basophils % 0.6 % NRBC % 0 % Impression: 1. Patient with grade 2 infiltrating ductal carcinoma of the left breast, by clinical evaluation stage at least 1A (T1c, pN1a, M0), ER/CT positive and HER-2/bambi negative. 2. She underwent ultrasound-guided biopsies of left breast mass and left axillary lymph node on 07/12/2019. Her other medical illnesses include: 3. GERD. 4. Migraine headaches. 5. Anxiety/depression. 6. She has a history of thyroid nodules/hyperthyroidism for which she underwent total thyroidectomy in 2014. With clinically evident axillary lymph node involvement, she was advised to undergo neoadjuvant chemotherapy with Adriamycin/cyclophosphamide followed by paclitaxel. She has now completed 2 cycles of Adriamycin/cyclophosphamide. She was given Neulasta prophylaxis with both cycles. She has had denise granulocyte counts of 400 and 500, with no associated fever. Other side effects have been limited to fatigue, mild nausea, and some joint pain with the Neulasta. Overall, she has been tolerating the treatment well. Her Neulasta was omitted with cycle 3 due to a WBC of 17,000 and bone pain. Her ANC on day 1 of cycle 4 was 400. Neulasta support was resumed. She will proceed with the paclitaxel plan of her treatment plan. She has completed 4 cycles of dose dense adriamycin/Cytoxan on 09/30/2019. She did require Neulasta support for chemotherapy induced neutropenia. Her blood counts have recovered well. She began weekly paclitaxel on 10/14/2019. Plan: 1. Proceed with week2/12 paclitaxel. Steroid compliance confirmed. 2. I did change her Aloxi to Zofran 8 mg because she had significant headaches and constipation with cycle 1 A/C. She does have a history of migraines. She does have Emend as part of her anti-medic regimen. If she has any problems we will can add olanzapine. She has been advised to take her antiemetics at home if she has any nausea. 3. Labs from 10/21/2019 were reviewed in detail discussed with Ms. Wilburn and a copy was given to her. WBC 3.4, hemoglobin 11.1, platelets 296,000, ANC is 2900. Her creatinine is normal at 0.7 LFTs are normal. Random glucose 141-nonfasting and she took steroid premeds this am. 4. I have requested a PA for Neupogen for her weekly paclitaxel given that her ANC on day 1 of cycle 4 adriamycin/Cytoxan was 490. She did not have febrile neutropenic but was given prophylactic antibiotics as well. Her blood counts have recovered well currently, but she has had significant bone marrow suppression with her last chemo regimen. 5. She has had recurrent vaginal yeast infections symptoms and started on Diflucan 200 mg daily today after being off 100 mg Diflucan for only a few days. If this is not resolving her symptoms, we may need to consider bacterial vaginosis treatment. 6. For her pain management she may continue hydrocodone/APAP 5/325 1 or 2 every 4 hours as needed pain. 7. We will plan to see her back in 1 week with CBC CMP. She will be due for cycle 3 of 12 of paxlitaxel at that time. She was reminded of the need for steroid premed and instructions reviewed. 8. Ms. Wilburn was instructed to contact us in interim should questions or problems arise. 9. Her baseline echocardiogram from August 18, [address] Mehta. Left ventricular size is normal, systolic function and wall thickness are normal. There were no regional wall motion abnormalities. The LVEF is estimated at 65%. 10. She reports she has talked to Dr. Cornelius about prophylactic hysterectomy. He is making referral for her to Dr. Godinez. It is anticipated that given her ER positive status that she will need tamoxifen when she is done with her chemotherapy. She would need to be on the tamixoifen for minimum of 5 years. Tamoxifen does carry an increased risk for uterine malignancies. Signed By: Beth Doss-, AOCNP Zia Beverly MD <<Signature on File>>
[2019-10-28 09:38] LABS: Basophils % 0.4 %; Hematocrit 33.9 % (37.0-47.0); Hemoglobin 11.7 g/dL (11.5-15.3); Lymphocytes # 0.4 10^3/uL (0.8-4.8); Lymphocytes % 14.8 %; Mean Corpuscular HGB Conc 34.5 g/dL (30.0-36.0); Mean Corpuscular Hemoglobin 33.7 pg (28.0-34.0); Mean Corpuscular Volume 97.7 fL (81-99); Monocytes % 1.1 %; Neutrophils # 2.28 10^3/uL (1.8-7.7); Neutrophils % 82.3 %; Nucleated Red Blood Cells % 0 %; Platelet Count 300 10^3/cmm (130-400); Red Blood Count 3.47 10^6/uL (4.1-5.3); Red Cell Distribution Width 15.8 % (12.1-15.1); White Blood Count 2.8 10^3/uL (4.0-10.0)
[2019-10-28 10:00] LABS: Alanine Aminotransferase 31 U/L (0-33); Albumin Level 4.8 g/dL (3.5-5.2); Alkaline Phosphatase 73 IU/L (35-105); Aspartate Amino Transferase 31 U/L (0-32); Blood Urea Nitrogen 18 mg/dL (6-20); Calcium 9.1 mg/dL (8.5-10.5); Carbon Dioxide 21 mmol/L (22-29); Chloride 102 mmol/L (98-107); Globulin 3.1 g/dL (1.3-4.6); Glomerular Filtration Rate 91.8 mL/min (90-130); Glucose 167 mg/dL (65-115); Osmolality Calculated 280 mOsm/kg (285-295); Sodium 135 mmol/L (136-145); Total Bilirubin 0.5 mg/dL (0.15-1.2); Total Protein 7.9 g/dL (6.6-8.7)
[2019-10-28] MEDS: sodium chloride 0.9% 250 ML 75 ML IV (11:58)
[2019-10-28] MEDS: acetaminophen 325 mg Tablet 650 MG PO (11:58)
--- NOTE | 2019-10-31 13:33 | ONC FU_ITS ---
Dr. Beverly Patient Follow-Up Note Patient: Ramya Wilburn Unit #: [id number]: 1975 Dicatated By: Zia Beverly M.D.Date of Visit:Oct 28, 2019 Onc Med Follow-up/Prog Note Chief Complaint: Breast cancer. History of Present Illness: This is a 43 year-old woman with grade 2 invasive ductal carcinoma of the left breast, ER/KS positive and HER-2/bambi negative. By clinical evaluation her disease was stage at least IA (T1c, pN1a, M0) at initial diagnosis. She had originally presented a year ago with bloody discharge from the left nipple. An ultrasound of the left breast on 08/06/2018 was BI-RADS Category 1. A few ductal structures were noted in the subareolar region, but there was no evidence for cystic or solid soft tissue abnormality. She apparently then had an abnormal mammogram done elsewhere and further evaluation with a diagnostic bilateral mammogram on 11/18/2018 showed multiple calcifications scattered throughout the left breast. The most concerning were in the upper outer quadrant. The breasts were noted to be extremely dense. A stereotactic biopsy of left breast calcifications on 01/18/2019 showed fibrocystic changes with no malignancy or significant atypia identified. She then had a repeat diagnostic mammogram and left breast ultrasound on 06/24/2019. The mammogram showed a slightly spiculated asymmetric density measuring 1.3 x 0.6 cm in the upper outer quadrant. Multiple punctate calcifications deep to the biopsy marker were noted to have a similar appearance compared to the study from November 2018. Ultrasound showed an irregular hypoechoic lesion at the 2 o'clock position measuring 1.3 x 1.2 x 0.9 cm. It was BI-RADS 5, highly suggestive of malignancy. Ultrasound also showed an abnormal appearing enlarged lymph node in the left axilla measuring 1.9 x 1.4 x 0.8 cm. On 07/12/2019 she underwent ultrasound-guided biopsy of the left breast mass and the left axillary lymph node. Pathology on the breast mass showed moderately differentiated invasive ductal carcinoma, nuclear grade 2. The maximum tumor size is 1.0 cm. The left axillary lymph node biopsy was positive for metastatic ductal carcinoma with tumor size measuring 3.5 mm. The breast prognostic profile showed ER positive at 90% and KS positive at 90%. HER-2/bambi was 2+ by IHC, but negative by FISH with amplification ratio 1.4 and 2.8 HER-2 copies/cell. The KI-67 was elevated at 30%. I had seen her initially on 07/23/2019. With clinically evident axillary lymph node involvement, she was advised to undergo neoadjuvant chemotherapy with Adriamycin/cyclophosphamide followed by paclitaxel. Her other medical illnesses include GERD, migraine headaches, and anxiety/depression. She also has a history of thyroid nodules with hyperthyroidism, for which she underwent total thyroidectomy in 2014. She has only minimal prior smoking history, and she quit smoking in 2007. INTERIM HISTORY: She began cycle 1 of Adriamycin/cyclophosphamide on 08/19/2019. She was given first cycle prophylaxis with Neulasta. She tolerated the treatment well, and she continued with cycle 2 on 09/02/2019, with cycle 3 on 09/16/2019, and with cycle 4 on 09/30/2019. She then began her 1st of 12 planned cycles of weekly paclitaxel on 10/14/2019. She is seen for a follow-up visit. She has now completed 2 weekly infusions of paclitaxel. Thus far she has tolerated it well. She is having some tiredness and some general body aches. She is still working, and she has normal activity. ECOG score is 0. She has had some decrease in her appetite, she complains that everything tastes bland. She has not had fever. She is having hot flashes and sweating at night. She has had some mouth sores, but she has managed adequately with Magic Mouthwash. She has no shortness of breath, cough, or chest pain. She has just a little bit of nausea. She says her bowels are wishy-washy. She has no complaints. Her most significant pain is in her legs. She also sometimes has pain in her lower back. She has had just occasional headache. She has no numbness/tingling or other neuropathy symptoms. Medications: clonazePAM 1 Tablet (of 0.5 mg) Oral b.i.d. PRN, FLUoxetine HCl 1 Tablet (of 80 mg) Oral daily, Ibuprofen 1 Tablet (of 800 mg) Oral t.i.d. PRN, Levothyroxine Sodium 1 Tablet (of 125 mcg) Oral daily, Multivitamin Adult 1 Tablet Oral daily, Pantoprazole Sodium 1 Tablet (of 40 mg) Tablet, enteric coated Oral daily, Rizatriptan Benzoate 1 Tablet (of 10 mg) Oral q 2 hours PRN, Topiramate 1 Tablet (of 50 mg) Oral daily Allergies: No Known Allergies. Review of Systems: Constitutional - She does complain of tiredness, but she is still working, and she has normal activity. Appetite has declined somewhat. She says that everything tastes bland. She has not had fever. She has been having hot flashes/sweating at night. ECOG score is 0, ENMT - No sinus congestion/drainage. She has had mouth sores, but she is managing it with Magic Mouthwash. No sore throat or difficulty swallowing, Hematologic/Lymphatic - No abnormal bruising or bleeding, Respiratory - No shortness of breath. No cough. No pleuritic pain or hemoptysis, Cardiovascular - No angina pain. No palpitations, Gastrointestinal - She has just a little bit of nausea. Her acid reflux is adequately managed with medication. Her bowels are somewhat wishy-washy. No blood in the stool or black stools, Genitourinary (F) - No dysuria or hematuria. No urinary frequency. No urgency or incontinence, Musculoskeletal - She has generalized body aches, but not severe. The most significant pain is in her legs. She also sometimes has pain in her lower back, Integumentary - No skin rash, Neurologic - She has just occasional headache. No dizziness. No numbness or tingling. No other focal neurologic symptoms, Psychiatric - She has anxiety/depression, adequately managed. No insomnia. Vital Signs: Performed on Oct 28, 2019 11:22 Height - 63.00 in Weight - 139.4 lbs (LOW) BSA - 1.66 sq.m BMI - 24.69 Temperature - 97.9 F (LOW) Pulse - 84 /min Respiration - 18 /min BP - 109/67 mm(hg) O2 Sat - 99 % Pain - 0 Physical Examination: Constitutional - She looks good generally, Eyes - Sclerae nonicteric. Conjunctivae clear, ENMT - No lesions noted in the oral cavity, Hematologic/Lymphatic - No cervical or clavicular adenopathy, Respiratory - Lungs are clear with good air movement bilaterally, Cardiovascular - Heart rhythm is regular. There is no murmur, gallop, or rub noted, Abdomen - Soft. Liver and spleen are not enlarged. There is no abdominal mass or ascites noted and there is no inguinal adenopathy, Extremities - No edema, Neurologic - No focal neurologic deficits noted. Lab/Imaging: Test performed on Oct 28, 2019 09:17 Sodium 135 mmol/L Potassium 4.0 mmol/L Chloride 102 mmol/L CO2 21 mmol/L Anion Gap 16.0 BUN 18 mg/dL Creatinine 0.7 mg/dL Cr Clearance (Est) 106.1600 mL/min eGFR 91.8 mL/min Glucose 167 mg/dL Calcium 9.1 mg/dL Protein, Total 7.9 g/dL Albumin 4.8 g/dL Globulin 3.1 g/dL Bilirubin, Total 0.5 mg/dL ALT (SGPT) 31 U/L AST (SGOT) 31 U/L Alkaline Phosphatase 73 IU/L WBC 2.8 10 3/uL RBC 3.47 10 6/uL HGB 11.7 g/dL HCT 33.9 % MCV 97.7 fL MCH 33.7 pg MCHC 34.5 g/dL RDW 15.8 % Platelet Count 300 10 3/cmm MPV 10.0 fL Neutrophils 2.28 10 3/uL Lymphocytes 0.4 10 3/uL Monocytes 0.0 10 3/uL Eosinophils 0.0 10 3/uL Basophils 0.0 10 3/uL Neutrophil % 82.3 % Lymphocyte % 14.8 % Monocyte % 1.1 % Eosinophil % 0.0 % Basophils % 0.4 % NRBC % 0 % Impression: 1. Patient with grade 2 infiltrating ductal carcinoma of the left breast, by clinical evaluation stage at least 1A (T1c, pN1a, M0), ER/KS positive and HER-2/bambi negative. 2. She underwent ultrasound-guided biopsies of left breast mass and left axillary lymph node on 07/12/2019. Her other medical illnesses include: 3. GERD. 4. Migraine headaches. 5. Anxiety/depression. 6. She has a history of thyroid nodules/hyperthyroidism for which she underwent total thyroidectomy in 2014. With clinically evident axillary lymph node involvement, she was advised to undergo neoadjuvant chemotherapy with Adriamycin/cyclophosphamide followed by paclitaxel. She has now completed 2 cycles of Adriamycin/cyclophosphamide. She was given Neulasta prophylaxis with both cycles. She has had denise granulocyte counts of 400 and 500, with no associated fever. Other side effects were limited to fatigue, mild nausea, and some joint pain with the Neulasta. Overall, she tolerated the treatment well. She continued with cycle 2 of Adriamycin/cyclophosphamide on 09/02/2019, with cycle 3 on 09/16/2019, and with cycle 4 on 09/30/2019. On 10/14/2019 she began her 1st of 12 planned weekly cycles of paclitaxel. She also tolerated it with acceptable toxicity, and she received her week 2 paclitaxel infusion on 10/21/2019. She continues to have some fatigue, and she also has had some decrease in her appetite. She has had some general body aches with the paclitaxel, and there has now been a significant decline in her granulocyte count. However, thus far she is experienced no neuropathy symptoms, and overall she continues to tolerate treatment well. Plan: She will proceed with her 3rd weekly cycle of paclitaxel. It will be given at full dosage. However, with the decline in her granulocyte count, I will recheck her CBC on Friday, and if it continues to decrease, she will be treated with G-CSF. She will have a follow-up visit in 1 week. Signed By: Zia Beverly M.D. <<Signature on File>>
[2019-11-01 10:04] LABS: Basophils % 0.5 %; Eosinophils # 0.1 10^3/uL (0.0-0.8); Eosinophils % 2.3 %; Hematocrit 31.6 % (37.0-47.0); Hemoglobin 10.7 g/dL (11.5-15.3); Lymphocytes # 0.9 10^3/uL (0.8-4.8); Lymphocytes % 38.7 %; Mean Corpuscular HGB Conc 33.9 g/dL (30.0-36.0); Mean Corpuscular Volume 100.3 fL (81-99); Mean Platelet Volume 10.5 fL (7.4-10.4); Monocytes # 0.2 10^3/uL (0.2-0.9); Neutrophils # 1.09 10^3/uL (1.8-7.7); Nucleated Red Blood Cells % 0 %; Platelet Count 245 10^3/cmm (130-400); Red Blood Count 3.15 10^6/uL (4.1-5.3); Red Cell Distribution Width 15.4 % (12.1-15.1); White Blood Count 2.2 10^3/uL (4.0-10.0)
[2019-11-02] MEDS: sodium chloride 0.9% 1,000 ML 999 ML IV (09:16)
[2019-11-04 09:37] LABS: Basophils % 0.3 %; Eosinophils % 0.1 %; Hematocrit 34.3 % (37.0-47.0); Hemoglobin 11.5 g/dL (11.5-15.3); Lymphocytes # 0.9 10^3/uL (0.8-4.8); Lymphocytes % 6.6 %; Mean Corpuscular HGB Conc 33.5 g/dL (30.0-36.0); Mean Corpuscular Hemoglobin 33.6 pg (28.0-34.0); Mean Corpuscular Volume 100.3 fL (81-99); Mean Platelet Volume 10.5 fL (7.4-10.4); Monocytes # 0.7 10^3/uL (0.2-0.9); Neutrophils # 10.52 10^3/uL (1.8-7.7); Neutrophils % 73.9 %; Nucleated Red Blood Cells % 0.2 %; Platelet Count 271 10^3/cmm (130-400); Red Blood Count 3.42 10^6/uL (4.1-5.3); Red Cell Distribution Width 15.6 % (12.1-15.1); White Blood Count 14.2 10^3/uL (4.0-10.0)
[2019-11-04 09:51] LABS: Alanine Aminotransferase 27 U/L (0-33); Albumin Level 4.7 g/dL (3.5-5.2); Alkaline Phosphatase 85 IU/L (35-105); Anion Gap 15.1 (5-19); Aspartate Amino Transferase 21 U/L (0-32); Blood Urea Nitrogen 13 mg/dL (6-20); Carbon Dioxide 23 mmol/L (22-29); Chloride 102 mmol/L (98-107); Globulin 2.9 g/dL (1.3-4.6); Glomerular Filtration Rate 91.8 mL/min (90-130); Glucose 160 mg/dL (65-115); Osmolality Calculated 282 mOsm/kg (285-295); Potassium 4.1 mmol/L (3.5-5.1); Sodium 136 mmol/L (136-145); Total Bilirubin 0.2 mg/dL (0.15-1.2); Total Protein 7.6 g/dL (6.6-8.7)
[2019-11-04 10:18] LABS: Slide Review Slide Review Perform
[2019-11-04] MEDS: acetaminophen 325 mg Tablet 650 MG PO (11:55)
[2019-11-04] MEDS: sodium chloride 0.9% 250 ML 75 ML IV (13:05)
--- NOTE | 2019-11-04 20:21 | ONC FU_ITS ---
Dr. Beverly Patient Follow-Up Note Patient: Ramya Wilburn Unit #: [id number]: 1975 Dicatated By: Zia Beverly M.D.Date of Visit:Nov 04, 2019 Onc Med Follow-up/Prog Note Chief Complaint: Breast cancer. History of Present Illness: This is a 43 year-old woman with grade 2 invasive ductal carcinoma of the left breast, ER/MD positive and HER-2/bambi negative. By clinical evaluation her disease was stage at least IA (T1c, pN1a, M0) at initial diagnosis. She had originally presented a year ago with bloody discharge from the left nipple. An ultrasound of the left breast on 08/06/2018 was BI-RADS Category 1. A few ductal structures were noted in the subareolar region, but there was no evidence for cystic or solid soft tissue abnormality. She apparently then had an abnormal mammogram done elsewhere and further evaluation with a diagnostic bilateral mammogram on 11/18/2018 showed multiple calcifications scattered throughout the left breast. The most concerning were in the upper outer quadrant. The breasts were noted to be extremely dense. A stereotactic biopsy of left breast calcifications on 01/18/2019 showed fibrocystic changes with no malignancy or significant atypia identified. She then had a repeat diagnostic mammogram and left breast ultrasound on 06/24/2019. The mammogram showed a slightly spiculated asymmetric density measuring 1.3 x 0.6 cm in the upper outer quadrant. Multiple punctate calcifications deep to the biopsy marker were noted to have a similar appearance compared to the study from November 2018. Ultrasound showed an irregular hypoechoic lesion at the 2 o'clock position measuring 1.3 x 1.2 x 0.9 cm. It was BI-RADS 5, highly suggestive of malignancy. Ultrasound also showed an abnormal appearing enlarged lymph node in the left axilla measuring 1.9 x 1.4 x 0.8 cm. On 07/12/2019 she underwent ultrasound-guided biopsy of the left breast mass and the left axillary lymph node. Pathology on the breast mass showed moderately differentiated invasive ductal carcinoma, nuclear grade 2. The maximum tumor size is 1.0 cm. The left axillary lymph node biopsy was positive for metastatic ductal carcinoma with tumor size measuring 3.5 mm. The breast prognostic profile showed ER positive at 90% and MD positive at 90%. HER-2/bambi was 2+ by IHC, but negative by FISH with amplification ratio 1.4 and 2.8 HER-2 copies/cell. The KI-67 was elevated at 30%. I had seen her initially on 07/23/2019. With clinically evident axillary lymph node involvement, she was advised to undergo neoadjuvant chemotherapy with Adriamycin/cyclophosphamide followed by paclitaxel. Her other medical illnesses include GERD, migraine headaches, and anxiety/depression. She also has a history of thyroid nodules with hyperthyroidism, for which she underwent total thyroidectomy in 2014. She has only minimal prior smoking history, and she quit smoking in 2007. INTERIM HISTORY: She began cycle 1 of Adriamycin/cyclophosphamide on 08/19/2019. She was given first cycle prophylaxis with Neulasta. She tolerated the treatment well, and she continued with cycle 2 on 09/02/2019, with cycle 3 on 09/16/2019, and with cycle 4 on 09/30/2019. She then began her 1st of 12 planned cycles of weekly paclitaxel on 10/14/2019. She is seen for a follow-up visit. She has now completed 3 weekly infusions of paclitaxel. At that point she had become moderately neutropenic, and she was given scheduled G-CSF on Friday and Friday of this week. She says the third treatment has kicked her butt. She says she felt too tired to get out of bed. The fatigue was worse following the G-CSF injections, I also caused some pain in her lower back and upper legs. She did feel better after IV hydration, and she has still been going to work every day. Her appetite is still okay. She does not have fever. She does have some hot flashes and sweating at night. She has had no mouth sores. She has no shortness of breath, cough, or chest pain. She has had only mild nausea. She has a little bit of acid reflux. She is having constipation, and she is now starting senna. Bladder function has been okay. She had headache for 2 days, but that is better now. She had one episode of pretty significant dizziness. Her fingertips felt weird to touch, but that resolved. She is a little more shaky. Medications: clonazePAM 1 Tablet (of 0.5 mg) Oral b.i.d. PRN, FLUoxetine HCl 1 Tablet (of 80 mg) Oral daily, Ibuprofen 1 Tablet (of 800 mg) Oral t.i.d. PRN, Levothyroxine Sodium 1 Tablet (of 125 mcg) Oral daily, Multivitamin Adult 1 Tablet Oral daily, Pantoprazole Sodium 1 Tablet (of 40 mg) Tablet, enteric coated Oral daily, Rizatriptan Benzoate 1 Tablet (of 10 mg) Oral q 2 hours PRN, Topiramate 1 Tablet (of 50 mg) Oral daily Allergies: No Known Allergies. Review of Systems: Constitutional - She is significantly more fatigued. She says the last treatment kicked her butt. She is still working, though. Appetite is okay. She has not had fever. She has having hot flashes/sweating at night. ECOG score is 1, ENMT - No sinus congestion/drainage. No mouth sores. No sore throat or difficulty swallowing, Hematologic/Lymphatic - No abnormal bruising or bleeding, Respiratory - No shortness of breath. No cough. No pleuritic pain or hemoptysis, Cardiovascular - No angina pain. No palpitations, Gastrointestinal - She has had only mild nausea and mild acid reflux. She has constipation. No blood in the stool or black stools, Genitourinary (F) - No dysuria or hematuria. No urinary frequency. No urgency or incontinence, Musculoskeletal - She has been having pain in her lower back and upper legs, Integumentary - No skin rash, Neurologic - She had headache for 2 days, now resolved. She had 1 episode of significant dizziness. Her fingertips felt weird to touch, but that also resolved. She has felt a little more shaky, Psychiatric - No anxiety or depression. No insomnia. Vital Signs: Performed on Nov 04, 2019 11:10 Height - 63.00 in Weight - 143.0 lbs (HIGH) BSA - 1.68 sq.m BMI - 25.33 Temperature - 97.3 F (LOW) Pulse - 81 /min Respiration - 17 /min BP - 122/74 mm(hg) O2 Sat - 98 % Pain - 0 Fatigue - 7 Physical Examination: Constitutional - She still looks good generally, Eyes - Sclerae nonicteric. Conjunctivae clear, ENMT - No lesions noted in the oral cavity, Hematologic/Lymphatic - No cervical, clavicular, or axillary adenopathy, Respiratory - Lungs are clear with good air movement bilaterally, Cardiovascular - Heart rhythm is regular. There is no murmur, gallop, or rub noted, Abdomen - Soft. Liver and spleen are not enlarged. There is no abdominal mass or ascites noted and there is no inguinal adenopathy, Extremities - No edema, Neurologic - No focal neurologic deficits noted. Lab/Imaging: Test performed on Nov 04, 2019 09:19 Sodium 136 mmol/L Potassium 4.1 mmol/L Chloride 102 mmol/L CO2 23 mmol/L Anion Gap 15.1 BUN 13 mg/dL Creatinine 0.7 mg/dL Cr Clearance (Est) 106.1600 mL/min eGFR 91.8 mL/min Glucose 160 mg/dL Calcium 9.0 mg/dL Protein, Total 7.6 g/dL Albumin 4.7 g/dL Globulin 2.9 g/dL Bilirubin, Total 0.2 mg/dL ALT (SGPT) 27 U/L AST (SGOT) 21 U/L Alkaline Phosphatase 85 IU/L WBC 14.2 10 3/uL RBC 3.42 10 6/uL HGB 11.5 g/dL HCT 34.3 % MCV 100.3 fL MCH 33.6 pg MCHC 33.5 g/dL RDW 15.6 % Platelet Count 271 10 3/cmm MPV 10.5 fL Neutrophils 10.52 10 3/uL Lymphocytes 0.9 10 3/uL Monocytes 0.7 10 3/uL Eosinophils 0.0 10 3/uL Basophils 0.0 10 3/uL Neutrophil % 73.9 % Lymphocyte % 6.6 % Monocyte % 5.0 % Eosinophil % 0.1 % Basophils % 0.3 % NRBC % 0.2 % CBC Slide Review Slide Review Perform SLIDE REVIEW AGREES WITH AUTOMATED RESULTS ST Impression: 1. Patient with grade 2 infiltrating ductal carcinoma of the left breast, by clinical evaluation stage at least 1A (T1c, pN1a, M0), ER/MD positive and HER-2/bambi negative. 2. She underwent ultrasound-guided biopsies of left breast mass and left axillary lymph node on 07/12/2019. Her other medical illnesses include: 3. GERD. 4. Migraine headaches. 5. Anxiety/depression. 6. She has a history of thyroid nodules/hyperthyroidism for which she underwent total thyroidectomy in 2014. With clinically evident axillary lymph node involvement, she was advised to undergo neoadjuvant chemotherapy with Adriamycin/cyclophosphamide followed by paclitaxel. She has now completed 2 cycles of Adriamycin/cyclophosphamide. She was given Neulasta prophylaxis with both cycles. She has had denise granulocyte counts of 400 and 500, with no associated fever. Other side effects were limited to fatigue, mild nausea, and some joint pain with the Neulasta. Overall, she tolerated the treatment well. She continued with cycle 2 of Adriamycin/cyclophosphamide on 09/02/2019, with cycle 3 on 09/16/2019, and with cycle 4 on 09/30/2019. On 10/14/2019 she began her 1st of 12 planned weekly cycles of paclitaxel. She tolerated the first 2 paclitaxel infusions with pretty minimal toxicity. With the 3rd infusion she was given planned G-CSF for 2 days due to moderate neutropenia. With that cycle she experienced pretty severe fatigue and she also had some musculoskeletal pain and mild neuropathy symptoms. I think the symptoms were more related to the G-CSF then to the paclitaxel, but that is difficult to know for sure. Her white blood cell count now is mildly elevated. Plan: She will proceed with her 4th weekly infusion of paclitaxel. It will be given at full dosage. I will try and avoid giving further G-CSF, but if it becomes necessary I will just limited it to a single injection. She will be given the option to return for additional IV hydration as needed. I will see her again in 1 week. Signed By: Zia Beverly M.D. <<Signature on File>>
[2019-11-08] MEDS: sodium chloride 0.9% 1,000 ML 999 ML IV (09:28)
[2019-11-08 09:39] LABS: Basophils % 1.2 %; Eosinophils # 0.1 10^3/uL (0.0-0.8); Eosinophils % 2.7 %; Hematocrit 31.3 % (37.0-47.0); Hemoglobin 10.3 g/dL (11.5-15.3); Lymphocytes % 30.4 %; Mean Corpuscular HGB Conc 32.9 g/dL (30.0-36.0); Mean Corpuscular Hemoglobin 33.2 pg (28.0-34.0); Mean Platelet Volume 10.4 fL (7.4-10.4); Monocytes # 0.2 10^3/uL (0.2-0.9); Monocytes % 7.2 %; Neutrophils % 53.7 %; Nucleated Red Blood Cells % 0 %; Platelet Count 193 10^3/cmm (130-400); Red Cell Distribution Width 14.6 % (12.1-15.1); White Blood Count 3.4 10^3/uL (4.0-10.0)
[2019-11-08 09:59] LABS: Alanine Aminotransferase 38 U/L (0-33); Albumin Level 4.1 g/dL (3.5-5.2); Alkaline Phosphatase 72 IU/L (35-105); Anion Gap 12.7 (5-19); Aspartate Amino Transferase 18 U/L (0-32); Blood Urea Nitrogen 15 mg/dL (6-20); Calcium 7.9 mg/dL (8.5-10.5); Carbon Dioxide 23 mmol/L (22-29); Chloride 108 mmol/L (98-107); Globulin 2.5 g/dL (1.3-4.6); Glomerular Filtration Rate 91.8 mL/min (90-130); Glucose 126 mg/dL (65-115); Osmolality Calculated 288 mOsm/kg (285-295); Potassium 3.7 mmol/L (3.5-5.1); Sodium 140 mmol/L (136-145); Total Bilirubin 0.5 mg/dL (0.15-1.2); Total Protein 6.6 g/dL (6.6-8.7)
[2019-11-11 09:42] LABS: Hematocrit 32.7 % (37.0-47.0); Hemoglobin 10.8 g/dL (11.5-15.3); Mean Corpuscular Hemoglobin 34.1 pg (28.0-34.0); Mean Corpuscular Volume 103.2 fL (81-99); Mean Platelet Volume 10.6 fL (7.4-10.4); Platelet Count 231 10^3/cmm (130-400); Red Blood Count 3.17 10^6/uL (4.1-5.3); Red Cell Distribution Width 14.5 % (12.1-15.1); White Blood Count 8.3 10^3/uL (4.0-10.0)
[2019-11-11 10:01] LABS: Alanine Aminotransferase 75 U/L (0-33); Albumin Level 4.6 g/dL (3.5-5.2); Alkaline Phosphatase 88 IU/L (35-105); Anion Gap 14.2 (5-19); Aspartate Amino Transferase 54 U/L (0-32); Blood Urea Nitrogen 17 mg/dL (6-20); Calcium 8.5 mg/dL (8.5-10.5); Carbon Dioxide 23 mmol/L (22-29); Chloride 104 mmol/L (98-107); Globulin 2.6 g/dL (1.3-4.6); Glomerular Filtration Rate 109.6 mL/min (90-130); Glucose 153 mg/dL (65-115); Osmolality Calculated 283 mOsm/kg (285-295); Potassium 4.2 mmol/L (3.5-5.1); Sodium 137 mmol/L (136-145); Total Bilirubin 0.2 mg/dL (0.15-1.2); Total Protein 7.2 g/dL (6.6-8.7)
[2019-11-11 10:18] LABS: Slide Review Slide Review Perform
[2019-11-11 10:22] LABS: Absolute Neutrophil 6.9 10^3/cmm (1.4-6.5); Absolute Segmented Neutrophil 6.6 10/cmm (1.6-7.1); Anisocytosis 2+; Band Neutrophils Absolute 0.3 10^3/cmm (0.0-1.2); Lymphocytes 11 %; Macrocytosis 1+; Monocytes Absolute 0.2 10^3/cmm (0.1-0.6); Platelet Estimate Normal (Normal); Segmented Neutrophils 79 %; Total Cells Counted 100 (0-100)
[2019-11-11] MEDS: sodium chloride 0.9% 250 ML 75 ML IV (11:20)
[2019-11-11] MEDS: acetaminophen 325 mg Tablet 650 MG PO (11:25)
--- NOTE | 2019-11-14 14:59 | ONC FU_ITS ---
[facility] Patient Note Patient: Ramya Wilburn Unit #: [id number]: [id number] Dictated By: Beth DossDate of Visit: Nov 11, 2019 Onc MED Follow-Up/Prog Note Chief Complaint: Breast cancer. History of Present Illness: Ms Patel is a 43 year-old woman with grade 2 invasive ductal carcinoma of the left breast, ER/ID positive and HER-2/bambi negative. By clinical evaluation her disease was stage at least IA (T1c, pN1a, M0) at initial diagnosis. She had originally presented a year ago with bloody discharge from the left nipple. An ultrasound of the left breast on 08/06/2018 was BI-RADS Category 1. A few ductal structures were noted in the subareolar region, but there was no evidence for cystic or solid soft tissue abnormality. She apparently then had an abnormal mammogram done elsewhere and further evaluation with a diagnostic bilateral mammogram on 11/18/2018 showed multiple calcifications scattered throughout the left breast. The most concerning were in the upper outer quadrant. The breasts were noted to be extremely dense. A stereotactic biopsy of left breast calcifications on 01/18/2019 showed fibrocystic changes with no malignancy or significant atypia identified. She then had a repeat diagnostic mammogram and left breast ultrasound on 06/24/2019. The mammogram showed a slightly spiculated asymmetric density measuring 1.3 x 0.6 cm in the upper outer quadrant. Multiple punctate calcifications deep to the biopsy marker were noted to have a similar appearance compared to the study from November 2018. Ultrasound showed an irregular hypoechoic lesion at the 2 o'clock position measuring 1.3 x 1.2 x 0.9 cm. It was BI-RADS 5, highly suggestive of malignancy. Ultrasound also showed an abnormal appearing enlarged lymph node in the left axilla measuring 1.9 x 1.4 x 0.8 cm. On 07/12/2019 she underwent ultrasound-guided biopsy of the left breast mass and the left axillary lymph node. Pathology on the breast mass showed moderately differentiated invasive ductal carcinoma, nuclear grade 2. The maximum tumor size is 1.0 cm. The left axillary lymph node biopsy was positive for metastatic ductal carcinoma with tumor size measuring 3.5 mm. The breast prognostic profile showed ER positive at 90% and ID positive at 90%. HER-2/bambi was 2+ by IHC, but negative by FISH with amplification ratio 1.4 and 2.8 HER-2 copies/cell. The KI-67 was elevated at 30%. Dr Beverly had seen her initially on 07/23/2019. With clinically evident axillary lymph node involvement, she was advised to undergo neoadjuvant chemotherapy with Adriamycin/cyclophosphamide followed by paclitaxel. Her other medical illnesses include GERD, migraine headaches, and anxiety/depression. She also has a history of thyroid nodules with hyperthyroidism, for which she underwent total thyroidectomy in 2014. She has only minimal prior smoking history, and she quit smoking in 2007. INTERIM HISTORY: She began cycle 1 of Adriamycin/cyclophosphamide on 08/19/2019. She was given first cycle prophylaxis with Neulasta. She tolerated the treatment well, and she continued with cycle 2 on 09/02/2019, with cycle 3 on 09/16/2019, and with cycle 4 on 09/30/2019. She then began her 1st of 12 planned cycles of weekly paclitaxel on 10/14/2019. Ms Patel is here today for followup. She has now completed 4 weekly infusions of paclitaxel. She was seen last week by Dr. Beverly and she was having moderate neutropenia and fatigue. She states that the third treatment really kicked my butt . She states that she was extremely tired and had difficulty getting out of bed. She was given growth factors prior to her fourth cycle due to the neutropenia and she did have some bone pain was bad. She did come in for IV hydration and felt better after that. Her bowels have been responding well to the senna. She denies any further headache. She denies any pain. She states that she feels pretty good overall. She is still working every day. She has 2 5-year-old twin boys and her daughter and they return to school at this point. She was concerned about any additional precautions she needed to take since they have returned to school. We discussed just general precautions with handwashing monitoring symptoms and she may wear a mask while she is out. She is required to wear one at work. Her ECOG is 0. She states that her numbness and tingling have improved but she notices it more so when she gets cold than any other time. Past Medical History: Anxiety Depression History of thyroid nodule/hyperthyroidism Migraine headeaches Surgical hypothyroidism Past Surgical History: Caesarean section Right Subclavian venous access device-Dr Schmitt in 2019 Ultrasound-guided biopsy of left breast mass and left axillary lymph node in 2019 Stereotactic needle biopsy of the left breast in 2018 Total thyroidectomy in 2014 FNA biopsy of thyroid nodule in 2014 Tubal ligation in 2013 Allergies: No Known Allergies. Medications: clonazePAM 1 Tablet (of 0.5 mg) Oral b.i.d. PRN FLUoxetine HCl 1 Tablet (of 80 mg) Oral daily Ibuprofen 1 Tablet (of 800 mg) Oral t.i.d. PRN Levothyroxine Sodium 1 Tablet (of 125 mcg) Oral daily Multivitamin Adult 1 Tablet Oral daily Pantoprazole Sodium 1 Tablet (of 40 mg) Tablet, enteric coated Oral daily Rizatriptan Benzoate 1 Tablet (of 10 mg) Oral q 2 hours PRN Topiramate 1 Tablet (of 50 mg) Oral daily Family History: Ms. Wilburn's mother is alive. Ms. Wilburn's father is alive. Ms. Wilburn has 1 maternal aunt who is : uterine cancer. Father has diabetes and coronary artery disease and is still living at age 73. Mother is in good health age 68. Two brothers and a fraternal twin sister are in good health. 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 Ms. Wilburn quit smoking 12 years ago but had smoked for 2 years. She has no history of drinking. Ms. Wilburn reports the following support systems: lives with spouse, significant other, family, or friends, lives in own house, supportive family/friends willing to assist with needs, and adequate transportation available for expected visits. Her diet consists of regular meals. She indicates her activity level as: regular exercise. Review Of Symptoms: Constitutional Denies fevers, chills, night sweats, or weight loss. She states she feels good. She is having fatigue but thinks it is some better overall. Allergic/Immunologic No reactions. Eyes Denies significant visual changes. No diplopia. No amaurosis. ENMT Denies changes in hearing, sore throat, mouth sores, difficulty or changes in swallowing ability, and/or sinus drainage. Hematologic/Lymphatic Denies easy bruising or bleeding. The patient denies any tender or palpable lymph nodes. Breasts no new concerns. Respiratory Denies dyspnea on exertion, chest pain, cough or hemoptysis. Denies orthopnea. Cardiovascular Denies anginal chest pain, palpitations or orthopnea. Gastrointestinal Denies nausea, vomiting, diarrhea, GI bleeding, or constipation. Denies change in bowel habits and/or stool color, no heartburn or early satiety. Genitourinary (F) No hematuria, hesitancy, incontinence, vaginal bleeding, discharge or other problems with urination. Musculoskeletal Denies joint swelling or redness. No decreased range of motion. Bone pain from Neulasta has resolved. Integumentary Denies chronic rashes, inflammation, ulcerations or skin changes. Skin dryness and itching-no rash or lesions. Neurologic Denies headache, blurred vision, and no areas of focal weakness or numbness. Normal gait. No sensory problems. Psychiatric Denies insomnia, depression, ro or mood swings. Vital Signs: Performed on Nov 11, 2019 10:46 Height - 63.00 in Weight - 145.0 lbs (HIGH) BSA - 1.69 sq.m BMI - 25.69 Temperature - 97.1 F (LOW) Pulse - 104 /min (HIGH) Respiration - 18 /min BP - 110/77 mm(hg) O2 Sat - 99 % Pain - 0,0 - Fully active, able to carry on all predisease activities without restrictions. (ECOG) Physical Examination: Constitutional Alert, oriented, no acute distress. Skin pink, warm and dry. She is very jovial. Alopecia. Head Normocephalic; atraumatic. Eyes Conjunctivae and sclerae are clear and without icterus. Pupils are reactive and equal. Neck Supple without masses or thyromegaly. No jugular venous distension. Hematologic/Lymphatic No petechiae or purpura. Cardiovascular Regular rate and rhythm of heart without murmurs,clicks, gallops or rubs. Chest RIGHT subclavian venous access device insertion site has healed well. It is unremarkable. Abdomen Non-tender, non-distended, no masses or ascites. Back/Spine Non-tender to palpation. Extremities No visible deformities, no cyanosis, clubbing or edema. Musculoskeletal No tenderness or swelling, normal range of motion without obvious weakness. Integumentary No rashes or lesions. Neurologic No sensory or motor deficits, normal cerebellar function, normal gait. Psychiatric Alert and oriented times three. Coherent speech. Verbalizes understanding of our discussions today. Laboratory:Test performed on Nov 11, 2019 09:15 Sodium 137 mmol/L Potassium 4.2 mmol/L Chloride 104 mmol/L CO2 23 mmol/L Anion Gap 14.2 BUN 17 mg/dL Creatinine 0.6 mg/dL Cr Clearance (Est) 123.8500 mL/min eGFR 109.6 mL/min Glucose 153 mg/dL Calcium 8.5 mg/dL Protein, Total 7.2 g/dL Albumin 4.6 g/dL Globulin 2.6 g/dL Bilirubin, Total 0.2 mg/dL ALT (SGPT) 75 U/L AST (SGOT) 54 U/L Alkaline Phosphatase 88 IU/L WBC 8.3 10 3/uL Manual Bands % 4.0 % RBC 3.17 10 6/uL HGB 10.8 g/dL Manual Lymphs % 11 % HCT 32.7 % Manual Monos % 2.0 % MCV 103.2 fL MCH 34.1 pg MCHC 33.0 g/dL Metamyelocytes % 4.0 % RDW 14.5 % Platelet Count 231 10 3/cmm MPV 10.6 fL Anisocytosis 2+ CBC Slide Review Slide Review Perform Macrocytosis 1+ Manual Bands Abs 0.3 10 3/cmm Manual Neutrophils Abs 6.9 10 3/cmm Manual Monocytes Abs 0.2 10 3/cmm Impression: 1. Patient with grade 2 infiltrating ductal carcinoma of the left breast, by clinical evaluation stage at least 1A (T1c, pN1a, M0), ER/ID positive and HER-2/bambi negative. 2. She underwent ultrasound-guided biopsies of left breast mass and left axillary lymph node on 07/12/2019. Her other medical illnesses include: 3. GERD. 4. Migraine headaches. 5. Anxiety/depression. 6. She has a history of thyroid nodules/hyperthyroidism for which she underwent total thyroidectomy in 2014. With clinically evident axillary lymph node involvement, she was advised to undergo neoadjuvant chemotherapy with Adriamycin/cyclophosphamide followed by paclitaxel. She has now completed 2 cycles of Adriamycin/cyclophosphamide. She was given Neulasta prophylaxis with both cycles. She has had denise granulocyte counts of 400 and 500, with no associated fever. Other side effects were limited to fatigue, mild nausea, and some joint pain with the Neulasta. Overall, she tolerated the treatment well. She continued with cycle 2 of Adriamycin/cyclophosphamide on 09/02/2019, with cycle 3 on 09/16/2019, and with cycle 4 on 09/30/2019. On 10/14/2019 she began her 1st of 12 planned weekly cycles of paclitaxel. She tolerated the first 2 paclitaxel infusions with pretty minimal toxicity. With the 3rd infusion she was given planned G-CSF for 2 days due to moderate neutropenia. With that cycle she experienced pretty severe fatigue and she also had some musculoskeletal pain and mild neuropathy symptoms. The symptoms were felt to be more related to the G-CSF then to the paclitaxel, but that is difficult to know for sure. Her white blood cell count responded well to the growth factor. Plan: 1. Proceed with week 5 paclitaxel. We will dose reduce her by 20%. We actually discussed holding her treatment this week due to mildly elevated LFTs but she requested to pursue treatment so she like to finish on time if possible. 2. Steroid compliance confirmed her steroid dose has been decreased by 1 tablet each time per Dr. Beverly due to her shakiness. 3. Today's labs were reviewed in detail and discussed with Ms. Wilburn and a copy was given to her WBC 8.3 hemoglobin 10.8 platelets 231,000 ANC is 6900. There was 1000 when the growth factor was given. She received 2 doses. 4. We will have her return in 1 week with CBC CMP for consideration of week 6 paclitaxel. She is aware of her LFTs are elevated or more elevated than they are related we will be necessary to hold the week of therapy. She verbalized understanding. 5. We will plan to schedule her for hydration on Friday of next week as it did significantly different for her. 6. She is instructed to contact us in the interim should questions or problems arise. Signed By: Beth Doss-, [facility] CENTERLeann Beverly MD <<Signature on File>>
[2019-11-15] MEDS: sodium chloride 0.9% 1,000 ML 999 ML IV (09:11)
== END 2019-11-15 23:59 | disposition home or self-care (01) ==
LOC: ONCMED 05:34
PROVIDERS: Internal Medicine Medical Oncology; PCP Family Medicine; Visit Provider Nurse Practitioner
DX: Z51.11 Encounter for antineoplastic chemotherapy (principal); C50.412 Malignant neoplasm of upper-outer quadrant of left female breast; C77.3 Secondary and unspecified malignant neoplasm of axilla and upper limb lymph nodes; Z17.0 Estrogen receptor positive status [ER+]; R79.89 Other specified abnormal findings of blood chemistry; K59.00 Constipation, unspecified; B37.3 Candidiasis of vulva and vagina; R53.83 Other fatigue; D70.1 Agranulocytosis secondary to cancer chemotherapy; T45.1X5A Adverse effect of antineoplastic and immunosuppressive drugs, initial encounter; K21.9 Gastro-esophageal reflux disease without esophagitis; G43.709 Chronic migraine without aura, not intractable, without status migrainosus; F41.8 Other specified anxiety disorders; E89.0 Postprocedural hypothyroidism; Z79.899 Other long term (current) drug therapy; Z87.891 Personal history of nicotine dependence; Z79.52 Long term (current) use of systemic steroids
CPT/HCPCS: 80053; 85007; 85025; 96360; 96367; 96372; 96413; 99214; J1100; J1200; J1453; J2405; J3490; J7030; J7050; J9267; Q5101

== ENCOUNTER 2019-12-09 08:00 | Outpatient (RCR) | payer OTHER, BC, SELFPAY ==
[2019-11-18 09:47] LABS: Basophils % 0.7 %; Hematocrit 35.2 % (37.0-47.0); Lymphocytes # 0.7 10^3/uL (0.8-4.8); Lymphocytes % 15.4 %; Mean Corpuscular HGB Conc 34.1 g/dL (30.0-36.0); Mean Corpuscular Hemoglobin 34.4 pg (28.0-34.0); Mean Corpuscular Volume 100.9 fL (81-99); Mean Platelet Volume 10.2 fL (7.4-10.4); Monocytes # 0.1 10^3/uL (0.2-0.9); Monocytes % 1.4 %; Neutrophils # 3.38 10^3/uL (1.8-7.7); Neutrophils % 78.8 %; Nucleated Red Blood Cells % 0 %; Platelet Count 288 10^3/cmm (130-400); Red Blood Count 3.49 10^6/uL (4.1-5.3); Red Cell Distribution Width 13.8 % (12.1-15.1); White Blood Count 4.3 10^3/uL (4.0-10.0)
[2019-11-18 10:02] LABS: Alanine Aminotransferase 74 U/L (0-33); Albumin Level 4.8 g/dL (3.5-5.2); Alkaline Phosphatase 82 IU/L (35-105); Aspartate Amino Transferase 44 U/L (0-32); Blood Urea Nitrogen 12 mg/dL (6-20); Calcium 9.2 mg/dL (8.5-10.5); Carbon Dioxide 24 mmol/L (22-29); Chloride 102 mmol/L (98-107); Glomerular Filtration Rate 91.8 mL/min (90-130); Glucose 149 mg/dL (65-115); Osmolality Calculated 283 mOsm/kg (285-295); Sodium 137 mmol/L (136-145); Total Bilirubin 0.5 mg/dL (0.15-1.2); Total Protein 7.8 g/dL (6.6-8.7)
[2019-11-25 09:12] LABS: Basophils % 0.6 %; Hematocrit 36.4 % (37.0-47.0); Hemoglobin 12.2 g/dL (11.5-15.3); Lymphocytes # 0.5 10^3/uL (0.8-4.8); Lymphocytes % 14.2 %; Mean Corpuscular HGB Conc 33.5 g/dL (30.0-36.0); Mean Corpuscular Hemoglobin 34.2 pg (28.0-34.0); Mean Platelet Volume 10.4 fL (7.4-10.4); Monocytes # 0.1 10^3/uL (0.2-0.9); Monocytes % 1.6 %; Neutrophils # 2.59 10^3/uL (1.8-7.7); Nucleated Red Blood Cells % 0 %; Platelet Count 303 10^3/cmm (130-400); Red Blood Count 3.57 10^6/uL (4.1-5.3); Red Cell Distribution Width 12.6 % (12.1-15.1); White Blood Count 3.2 10^3/uL (4.0-10.0)
[2019-11-25 09:29] LABS: Alanine Aminotransferase 56 U/L (0-33); Albumin Level 4.6 g/dL (3.5-5.2); Alkaline Phosphatase 75 IU/L (35-105); Anion Gap 16.3 (5-19); Aspartate Amino Transferase 40 U/L (0-32); Blood Urea Nitrogen 17 mg/dL (6-20); Calcium 8.7 mg/dL (8.5-10.5); Carbon Dioxide 23 mmol/L (22-29); Chloride 103 mmol/L (98-107); Globulin 2.8 g/dL (1.3-4.6); Glomerular Filtration Rate 78.7 mL/min (90-130); Glucose 176 mg/dL (65-115); Osmolality Calculated 287 mOsm/kg (285-295); Potassium 4.3 mmol/L (3.5-5.1); Sodium 138 mmol/L (136-145); Total Bilirubin 0.7 mg/dL (0.15-1.2); Total Protein 7.4 g/dL (6.6-8.7)
[2019-11-25] MEDS: sodium chloride 0.9% 250 ML 75 ML IV (10:40)
[2019-11-25] MEDS: acetaminophen 325 mg Tablet 650 MG PO (10:43)
--- NOTE | 2019-11-28 11:59 | ONC FU_ITS ---
Dr. Beverly Patient Follow-Up Note Patient: Ramya Wilburn Unit #: [id number]: 1975 Dicatated By: Zia Beverly M.D.Date of Visit:Nov 25, 2019 Onc Med Follow-up/Prog Note Chief Complaint: Breast cancer. History of Present Illness: This is a 43 year-old woman with grade 2 invasive ductal carcinoma of the left breast, ER/NV positive and HER-2/bambi negative. By clinical evaluation her disease was stage at least IA (T1c, pN1a, M0) at initial diagnosis. She had originally presented a year ago with bloody discharge from the left nipple. An ultrasound of the left breast on 08/06/2018 was BI-RADS Category 1. A few ductal structures were noted in the subareolar region, but there was no evidence for cystic or solid soft tissue abnormality. She apparently then had an abnormal mammogram done elsewhere and further evaluation with a diagnostic bilateral mammogram on 11/18/2018 showed multiple calcifications scattered throughout the left breast. The most concerning were in the upper outer quadrant. The breasts were noted to be extremely dense. A stereotactic biopsy of left breast calcifications on 01/18/2019 showed fibrocystic changes with no malignancy or significant atypia identified. She then had a repeat diagnostic mammogram and left breast ultrasound on 06/24/2019. The mammogram showed a slightly spiculated asymmetric density measuring 1.3 x 0.6 cm in the upper outer quadrant. Multiple punctate calcifications deep to the biopsy marker were noted to have a similar appearance compared to the study from November 2018. Ultrasound showed an irregular hypoechoic lesion at the 2 o'clock position measuring 1.3 x 1.2 x 0.9 cm. It was BI-RADS 5, highly suggestive of malignancy. Ultrasound also showed an abnormal appearing enlarged lymph node in the left axilla measuring 1.9 x 1.4 x 0.8 cm. On 07/12/2019 she underwent ultrasound-guided biopsy of the left breast mass and the left axillary lymph node. Pathology on the breast mass showed moderately differentiated invasive ductal carcinoma, nuclear grade 2. The maximum tumor size is 1.0 cm. The left axillary lymph node biopsy was positive for metastatic ductal carcinoma with tumor size measuring 3.5 mm. The breast prognostic profile showed ER positive at 90% and NV positive at 90%. HER-2/bambi was 2+ by IHC, but negative by FISH with amplification ratio 1.4 and 2.8 HER-2 copies/cell. The KI-67 was elevated at 30%. I had seen her initially on 07/23/2019. With clinically evident axillary lymph node involvement, she was advised to undergo neoadjuvant chemotherapy with Adriamycin/cyclophosphamide followed by paclitaxel. Her other medical illnesses include GERD, migraine headaches, and anxiety/depression. She also has a history of thyroid nodules with hyperthyroidism, for which she underwent total thyroidectomy in 2014. She has only minimal prior smoking history, and she quit smoking in 2007. INTERIM HISTORY: She began cycle 1 of Adriamycin/cyclophosphamide on 08/19/2019. She was given first cycle prophylaxis with Neulasta. She tolerated the treatment well, and she continued with cycle 2 on 09/02/2019, with cycle 3 on 09/16/2019, and with cycle 4 on 09/30/2019. She then began her 1st of 12 planned cycles of weekly paclitaxel on 10/14/2019. She had severe fatigue with the paclitaxel and following her third weekly infusion she also became significantly neutropenic, requiring growth factor support with Neupogen. Beginning with her week 5 treatment, she was given a dose reduction, mainly because of the severe fatigue. Her week 6 treatment was deferred due to persistently elevated liver enzymes. She is seen for a scheduled visit. She is feeling pretty good with the treatment break last week. She is still tired, but she was not as severely wiped out with the reduced dosage of paclitaxel at week 5. She is still working. Her appetite is pretty good. She has not had fever. She does report having hot flashes and sweating all the time. She has had no mouth sores. She has no shortness of breath, cough, or chest pain. She is having some constipation. She has no other GI or complaints. She has some generalized body aches. She is taking hydrocodone/APAP, but just occasionally. She has headaches, but not bad. She sometimes is dizzy or lightheaded. She has some slight numbness/tingling in her fingertips. She has been super emotional lately. Medications: Claritin 1 Tablet (of 10 mg) Oral daily, clonazePAM 1 Tablet (of 0.5 mg) Oral b.i.d. PRN, FLUoxetine HCl 1 Tablet (of 80 mg) Oral daily, HYDROcodone-Acetaminophen 1 Tablet (of 5-325 mg) Oral q 4 hours PRN, Ibuprofen 1 Tablet (of 800 mg) Oral t.i.d. PRN, Levothyroxine Sodium 1 Tablet (of 125 mcg) Oral daily, Multivitamin Adult 1 Tablet Oral daily, Pantoprazole Sodium 1 Tablet (of 40 mg) Tablet, enteric coated Oral daily, Rizatriptan Benzoate 1 Tablet (of 10 mg) Oral q 2 hours PRN, Senna S 1 Tablet (of 8.6-50 mg) Oral daily PRN, Topiramate 1 Tablet (of 50 mg) Oral daily Allergies: No Known Allergies. Review of Systems: Constitutional - She still feels tired, but she is working. Her appetite is pretty good and her weight is stable. No fever. She is having persistent hot flashes and sweating. ECOG score is 1, ENMT - No sinus congestion/drainage. No mouth sores. No sore throat or difficulty swallowing, Hematologic/Lymphatic - No abnormal bruising or bleeding, Respiratory - No shortness of breath. No cough. No pleuritic pain or hemoptysis, Cardiovascular - No angina pain. No palpitations, Gastrointestinal - No nausea or vomiting. No heartburn or acid reflux. No diarrhea. She continues to have difficulty with constipation. She is taking Senna-S twice daily. No blood in the stool or black stools, Genitourinary (F) - No dysuria or hematuria. No urinary frequency. No urgency or incontinence, Musculoskeletal - She has generalized body aches. She occasionally takes hydrocodone-APAP 5-325 mg it, Integumentary - No skin complications, Neurologic - She's had a few headaches. She had some lightheadedness. She has some numbness and tingling in her fingertips. No other focal neurologic symptoms, Psychiatric - No anxiety. She feels more depressed and states she has been very emotional. No insomnia. Vital Signs: Performed on Nov 25, 2019 10:08 Height - 63.00 in Weight - 145.8 lbs (HIGH) BSA - 1.69 sq.m BMI - 25.83 Temperature - 97 F (LOW) Pulse - 86 /min Respiration - 17 /min BP - 123/73 mm(hg) O2 Sat - 98 % Pain - 0 Physical Examination: Constitutional - She looks pretty good generally, Eyes - Sclerae nonicteric. Conjunctivae clear, ENMT - No lesions noted in the oral cavity, Hematologic/Lymphatic - No cervical, clavicular, or axillary adenopathy, Respiratory - Lungs are clear with good air movement bilaterally, Cardiovascular - Heart rhythm is regular. There is no murmur, gallop, or rub noted, Abdomen - Soft. Liver and spleen are not enlarged. There is no abdominal mass or ascites noted and there is no inguinal adenopathy, Extremities - No edema, Neurologic - No focal neurologic deficits noted. Lab/Imaging: Test performed on Nov 25, 2019 08:30 Sodium 138 mmol/L Potassium 4.3 mmol/L Chloride 103 mmol/L CO2 23 mmol/L Anion Gap 16.3 BUN 17 mg/dL Creatinine 0.8 mg/dL Cr Clearance (Est) 92.8900 mL/min eGFR 78.7 mL/min Glucose 176 mg/dL Calcium 8.7 mg/dL Protein, Total 7.4 g/dL Albumin 4.6 g/dL Globulin 2.8 g/dL Bilirubin, Total 0.7 mg/dL ALT (SGPT) 56 U/L AST (SGOT) 40 U/L Alkaline Phosphatase 75 IU/L WBC 3.2 10 3/uL RBC 3.57 10 6/uL HGB 12.2 g/dL HCT 36.4 % MCV 102.0 fL MCH 34.2 pg MCHC 33.5 g/dL RDW 12.6 % Platelet Count 303 10 3/cmm MPV 10.4 fL Neutrophils 2.59 10 3/uL Lymphocytes 0.5 10 3/uL Monocytes 0.1 10 3/uL Eosinophils 0.0 10 3/uL Basophils 0.0 10 3/uL Neutrophil % 82.0 % Lymphocyte % 14.2 % Monocyte % 1.6 % Eosinophil % 0.0 % Basophils % 0.6 % NRBC % 0 % Impression: 1. Patient with grade 2 infiltrating ductal carcinoma of the left breast, by clinical evaluation stage at least 1A (T1c, pN1a, M0), ER/NV positive and HER-2/bambi negative. 2. She underwent ultrasound-guided biopsies of left breast mass and left axillary lymph node on 07/12/2019. Her other medical illnesses include: 3. GERD. 4. Migraine headaches. 5. Anxiety/depression. 6. She has a history of thyroid nodules/hyperthyroidism for which she underwent total thyroidectomy in 2014. With clinically evident axillary lymph node involvement, she was advised to undergo neoadjuvant chemotherapy with Adriamycin/cyclophosphamide followed by paclitaxel. She has now completed 2 cycles of Adriamycin/cyclophosphamide. She was given Neulasta prophylaxis with both cycles. She has had denise granulocyte counts of 400 and 500, with no associated fever. Other side effects were limited to fatigue, mild nausea, and some joint pain with the Neulasta. Overall, she tolerated the treatment well. She continued with cycle 2 of Adriamycin/cyclophosphamide on 09/02/2019, with cycle 3 on 09/16/2019, and with cycle 4 on 09/30/2019. On 10/14/2019 she began her 1st of 12 planned weekly cycles of paclitaxel. She tolerated the first 2 paclitaxel infusions with pretty minimal toxicity. With the 3rd infusion she was given planned G-CSF for 2 days due to moderate neutropenia. With the growth factor support, her neutrophil count remained adequate, but she continued to have severe fatigue with the paclitaxel. Beginning with her week 5 treatment, I did opt to give her a dose reduction. With that she did have less severe fatigue, but her week 6 treatment was deferred due to persistently elevated liver enzymes. At this point they are still mildly elevated, but they have come down. Plan: She will proceed now with her 6th weekly infusion of paclitaxel. It will be administered at the reduced dosage. I will recheck her blood count on Friday. She will be seen for a follow-up visit in 1 week. In the meantime, she is to increase her senna/docusate to 2 tablets twice daily. Signed By: Zia Beverly M.D. <<Signature on File>>
[2019-11-29 11:12] LABS: Basophils % 1.2 %; Eosinophils # 0.2 10^3/uL (0.0-0.8); Eosinophils % 5.9 %; Hematocrit 35.6 % (37.0-47.0); Lymphocytes # 1.5 10^3/uL (0.8-4.8); Lymphocytes % 43.2 %; Mean Corpuscular HGB Conc 33.7 g/dL (30.0-36.0); Mean Corpuscular Hemoglobin 33.7 pg (28.0-34.0); Mean Platelet Volume 10.5 fL (7.4-10.4); Monocytes # 0.3 10^3/uL (0.2-0.9); Monocytes % 9.1 %; Neutrophils # 1.36 10^3/uL (1.8-7.7); Nucleated Red Blood Cells % 0 %; Platelet Count 254 10^3/cmm (130-400); Red Blood Count 3.56 10^6/uL (4.1-5.3); Red Cell Distribution Width 11.9 % (12.1-15.1); White Blood Count 3.4 10^3/uL (4.0-10.0)
[2019-11-29 12:39] LABS: Alanine Aminotransferase 32 U/L (0-33); Albumin Level 4.5 g/dL (3.5-5.2); Alkaline Phosphatase 69 IU/L (35-105); Aspartate Amino Transferase 21 U/L (0-32); Globulin 2.6 g/dL (1.3-4.6); Total Bilirubin 0.4 mg/dL (0.15-1.2); Total Protein 7.1 g/dL (6.6-8.7)
[2019-12-02 10:07] LABS: Hematocrit 39.5 % (37.0-47.0); Hemoglobin 12.4 g/dL (11.5-15.3); Mean Corpuscular HGB Conc 31.4 g/dL (30.0-36.0); Mean Corpuscular Volume 108.2 fL (81-99); Mean Platelet Volume 10.7 fL (7.4-10.4); Platelet Count 227 10^3/cmm (130-400); Red Blood Count 3.65 10^6/uL (4.1-5.3); White Blood Count 8.9 10^3/uL (4.0-10.0)
[2019-12-02 10:23] LABS: Slide Review Slide Review Perform
[2019-12-02 10:26] LABS: Alanine Aminotransferase 53 U/L (0-33); Albumin Level 4.8 g/dL (3.5-5.2); Alkaline Phosphatase 85 IU/L (35-105); Anion Gap 15.2 (5-19); Aspartate Amino Transferase 38 U/L (0-32); Blood Urea Nitrogen 11 mg/dL (6-20); Calcium 8.9 mg/dL (8.5-10.5); Carbon Dioxide 22 mmol/L (22-29); Chloride 102 mmol/L (98-107); Globulin 2.8 g/dL (1.3-4.6); Glomerular Filtration Rate 91.8 mL/min (90-130); Glucose 145 mg/dL (65-115); Osmolality Calculated 282 mOsm/kg (285-295); Potassium 4.2 mmol/L (3.5-5.1); Sodium 135 mmol/L (136-145); Total Bilirubin 0.2 mg/dL (0.15-1.2); Total Protein 7.6 g/dL (6.6-8.7)
[2019-12-02 10:31] LABS: Absolute Neutrophil 7.3 10^3/cmm (1.4-6.5); Absolute Segmented Neutrophil 6.9 10/cmm (1.6-7.1); Band Neutrophils Absolute 0.4 10^3/cmm (0.0-1.2); Lymphocytes 11 %; Macrocytosis 2+; Monocytes Absolute 0.2 10^3/cmm (0.1-0.6); Platelet Estimate Normal (Normal); Segmented Neutrophils 78 %; Total Cells Counted 100 (0-100)
[2019-12-02] MEDS: acetaminophen 325 mg Tablet 650 MG PO (11:50)
[2019-12-02] MEDS: sodium chloride 0.9% 250 ML 300 ML IV (12:05)
--- NOTE | 2019-12-09 08:00 | US_ITS ---
WS: [id number] Gallbladder and right upper quadrant ultrasound, 12/09/2019 Clinical Data: ELEVATED LFT'S Comparison: None. Findings: The gallbladder shows no sludge or stone. The wall measures 0.2 cm with no pericholecystic fluid. The common bile duct is 0.4 cm and there are no intrahepatic ductal abnormalities. Liver shows no cysts or dilated intrahepatic ducts. There is a region of increased echogenicity harshil uring 0.84 x 1.04 x 1.29 cm which is probably a liver hemangioma. The pancreas is not obscured by overlying bowel gas and no cyst, pseudocyst, or evidence of pancreati tis is noted. Right kidney measures 9.8 cm and no cyst, masses or hydronephrosis can be seen. The aorta and inferior vena cava show no vascular abnormalities. US/US gall bladder [id number] Impression: Negative gallbladder and right upper quadrant ultrasound.
[2019-12-09 09:25] LABS: Basophils % 0.7 %; Hematocrit 35.9 % (37.0-47.0); Hemoglobin 12.2 g/dL (11.5-15.3); Lymphocytes # 0.6 10^3/uL (0.8-4.8); Lymphocytes % 13.9 %; Mean Corpuscular Hemoglobin 33.8 pg (28.0-34.0); Mean Corpuscular Volume 99.4 fL (81-99); Mean Platelet Volume 10.5 fL (7.4-10.4); Monocytes # 0.1 10^3/uL (0.2-0.9); Monocytes % 1.2 %; Neutrophils # 3.48 10^3/uL (1.8-7.7); Neutrophils % 80.5 %; Nucleated Red Blood Cells % 0 %; Platelet Count 218 10^3/cmm (130-400); Red Blood Count 3.61 10^6/uL (4.1-5.3); Red Cell Distribution Width 11.8 % (12.1-15.1); White Blood Count 4.3 10^3/uL (4.0-10.0)
[2019-12-09 09:49] LABS: Alanine Aminotransferase 54 U/L (0-33); Albumin Level 4.8 g/dL (3.5-5.2); Alkaline Phosphatase 73 IU/L (35-105); Anion Gap 16.1 (5-19); Aspartate Amino Transferase 37 U/L (0-32); Blood Urea Nitrogen 18 mg/dL (6-20); Calcium 9.3 mg/dL (8.5-10.5); Carbon Dioxide 23 mmol/L (22-29); Chloride 101 mmol/L (98-107); Globulin 2.9 g/dL (1.3-4.6); Glomerular Filtration Rate 109.6 mL/min (90-130); Glucose 141 mg/dL (65-115); Osmolality Calculated 286 mOsm/kg (285-295); Potassium 4.1 mmol/L (3.5-5.1); Sodium 136 mmol/L (136-145); Total Bilirubin 0.4 mg/dL (0.15-1.2); Total Protein 7.7 g/dL (6.6-8.7)
--- NOTE | 2019-12-09 09:51 | ONC FU_ITS ---
[facility] Patient Note Patient: Ramya Wilburn Unit #: [id number]: [id number] Dictated By: Beth DossDate of Visit: Dec 02, 2019 Onc MED Follow-Up/Prog Note Chief Complaint: Breast cancer. History of Present Illness: Ms Wilburn is a 43 year-old woman with grade 2 invasive ductal carcinoma of the left breast, ER/WA positive and HER-2/bambi negative. By clinical evaluation her disease was stage at least IA (T1c, pN1a, M0) at initial diagnosis. She had originally presented a year ago with bloody discharge from the left nipple. An ultrasound of the left breast on 08/06/2018 was BI-RADS Category 1. A few ductal structures were noted in the subareolar region, but there was no evidence for cystic or solid soft tissue abnormality. She apparently then had an abnormal mammogram done elsewhere and further evaluation with a diagnostic bilateral mammogram on 11/18/2018 showed multiple calcifications scattered throughout the left breast. The most concerning were in the upper outer quadrant. The breasts were noted to be extremely dense. A stereotactic biopsy of left breast calcifications on 01/18/2019 showed fibrocystic changes with no malignancy or significant atypia identified. She then had a repeat diagnostic mammogram and left breast ultrasound on 06/24/2019. The mammogram showed a slightly spiculated asymmetric density measuring 1.3 x 0.6 cm in the upper outer quadrant. Multiple punctate calcifications deep to the biopsy marker were noted to have a similar appearance compared to the study from November 2018. Ultrasound showed an irregular hypoechoic lesion at the 2 o'clock position measuring 1.3 x 1.2 x 0.9 cm. It was BI-RADS 5, highly suggestive of malignancy. Ultrasound also showed an abnormal appearing enlarged lymph node in the left axilla measuring 1.9 x 1.4 x 0.8 cm. On 07/12/2019 she underwent ultrasound-guided biopsy of the left breast mass and the left axillary lymph node. Pathology on the breast mass showed moderately differentiated invasive ductal carcinoma, nuclear grade 2. The maximum tumor size is 1.0 cm. The left axillary lymph node biopsy was positive for metastatic ductal carcinoma with tumor size measuring 3.5 mm. The breast prognostic profile showed ER positive at 90% and WA positive at 90%. HER-2/bambi was 2+ by IHC, but negative by FISH with amplification ratio 1.4 and 2.8 HER-2 copies/cell. The KI-67 was elevated at 30%. Dr Beverly had seen her initially on 07/23/2019. With clinically evident axillary lymph node involvement, she was advised to undergo neoadjuvant chemotherapy with Adriamycin/cyclophosphamide followed by paclitaxel. Her other medical illnesses include GERD, migraine headaches, and anxiety/depression. She also has a history of thyroid nodules with hyperthyroidism, for which she underwent total thyroidectomy in 2014. She has only minimal prior smoking history, and she quit smoking in 2007. INTERIM HISTORY: She began cycle 1 of Adriamycin/cyclophosphamide on 08/19/2019. She was given first cycle prophylaxis with Neulasta. She tolerated the treatment well, and she continued with cycle 2 on 09/02/2019, with cycle 3 on 09/16/2019, and with cycle 4 on 09/30/2019. She then began her 1st of 12 planned cycles of weekly paclitaxel on 10/14/2019. Ms Patel has now completed 5 weekly infusions of paclitaxel. She was seen on week [address] Beverly and she was having moderate neutropenia and fatigue. She states that the third treatment really kicked my butt . She states that she was extremely tired and had difficulty getting out of bed. She was given growth factors prior to her fourth cycle due to the neutropenia and she did have some bone pain was bad. She did come in for IV hydration and felt better after that. Ms Patel is here today for followup. She states she feels pretty good overall. She does have intermittent mild headaches but has not taken anything for it due to her elevated LFT's. She denies any other new pain. She denies vision changes or nausea/vomiting. Her energy is good but she does tire easily. 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 She states she stays busy. Her bowels are better overall. She denies any neuropathy symptoms. Her ECOG is 1. Past Medical History: Anxiety Depression History of thyroid nodule/hyperthyroidism Migraine headeaches Surgical hypothyroidism Past Surgical History: Caesarean section Right Subclavian venous access device-Dr Schmitt in 2019 Ultrasound-guided biopsy of left breast mass and left axillary lymph node in 2019 Stereotactic needle biopsy of the left breast in 2018 Total thyroidectomy in 2014 FNA biopsy of thyroid nodule in 2014 Tubal ligation in 2013 Allergies: No Known Allergies. Medications: Claritin 1 Tablet (of 10 mg) Oral daily clonazePAM 1 Tablet (of 0.5 mg) Oral b.i.d. PRN FLUoxetine HCl 1 Tablet (of 80 mg) Oral daily HYDROcodone-Acetaminophen 1 Tablet (of 5-325 mg) Oral q 4 hours PRN Ibuprofen 1 Tablet (of 800 mg) Oral t.i.d. PRN Levothyroxine Sodium 1 Tablet (of 125 mcg) Oral daily Multivitamin Adult 1 Tablet Oral daily Pantoprazole Sodium 1 Tablet (of 40 mg) Tablet, enteric coated Oral daily Rizatriptan Benzoate 1 Tablet (of 10 mg) Oral q 2 hours PRN Senna S 1 Tablet (of 8.6-50 mg) Oral daily PRN Topiramate 1 Tablet (of 50 mg) Oral daily Family History: Ms. Wilburn's mother is alive. Ms. Wilburn's father is alive. Ms. Wilburn has 1 maternal aunt who is : uterine cancer. Father has diabetes and coronary artery disease and is still living at age 73. Mother is in good health age 68. Two brothers and a fraternal twin sister are in good health. Social History: Ms. 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 Ms. Wilburn quit smoking 12 years ago but had smoked for 2 years. She has no history of drinking. Ms. Wilburn reports the following support systems: lives with spouse, significant other, family, or friends, lives in own house, supportive family/friends willing to assist with needs, and adequate transportation available for expected visits. Her diet consists of regular meals. She indicates her activity level as: regular exercise. Review Of Symptoms: Constitutional Denies fevers, chills, night sweats, or weight loss. She states she feels good. She is having mild headache but nothing too bad . Allergic/Immunologic No reactions. Eyes Denies significant visual changes. No diplopia. No amaurosis. ENMT Denies changes in hearing, sore throat, mouth sores, difficulty or changes in swallowing ability, and/or sinus drainage. Hematologic/Lymphatic Denies easy bruising or bleeding. The patient denies any tender or palpable lymph nodes. Breasts no new concerns. Respiratory Denies dyspnea on exertion, chest pain, cough or hemoptysis. Denies orthopnea. Cardiovascular Denies anginal chest pain, palpitations or orthopnea. Gastrointestinal Denies nausea, vomiting, diarrhea, GI bleeding, or constipation. Denies change in bowel habits and/or stool color, no heartburn or early satiety. Genitourinary (F) No hematuria, hesitancy, incontinence, vaginal bleeding, discharge or other problems with urination. Musculoskeletal Denies joint swelling or redness. No decreased range of motion. Bone pain from Neulasta has resolved. Integumentary Denies chronic rashes, inflammation, ulcerations or skin changes. Skin dryness and itching-no rash or lesions. Neurologic Denies headache, blurred vision, and no areas of focal weakness or numbness. Normal gait. No sensory problems. Psychiatric Denies insomnia, depression, ro or mood swings. Vital Signs: Performed on Dec 02, 2019 11:13 Height - 63.00 in Weight - 147.2 lbs (HIGH) BSA - 1.70 sq.m BMI - 26.08 Temperature - 98.1 F (LOW) Pulse - 81 /min Respiration - 18 /min BP - 110/77 mm(hg) O2 Sat - 98 % Pain - 0,1 - No physically strenuous activity, but ambulatory and able to carry out light or sedentary work (e.g. office work, light house work). (ECOG) Physical Examination: Constitutional Alert, oriented, no acute distress. Skin pink, warm and dry. She is very jovial. Alopecia. Head Normocephalic; atraumatic. Eyes Conjunctivae and sclerae are clear and without icterus. Pupils are reactive and equal. Neck Supple without masses or thyromegaly. No jugular venous distension. Hematologic/Lymphatic No petechiae or purpura. Respiratory Lungs are clear to auscultation without rhonchi or wheezing. Cardiovascular Regular rate and rhythm of heart without murmurs,clicks, gallops or rubs. Chest RIGHT subclavian venous access device insertion site has healed well. It is unremarkable. Abdomen Non-tender, non-distended, no masses or ascites. Back/Spine Non-tender to palpation. Extremities No visible deformities, no cyanosis, clubbing or edema. Musculoskeletal No tenderness or swelling, normal range of motion without obvious weakness. Integumentary No rashes or lesions. Neurologic No sensory or motor deficits, normal cerebellar function, normal gait. Psychiatric Alert and oriented times three. Coherent speech. Verbalizes understanding of our discussions today. Laboratory:Test performed on Dec 02, 2019 09:35 Sodium 135 mmol/L Potassium 4.2 mmol/L Chloride 102 mmol/L CO2 22 mmol/L Anion Gap 15.2 BUN 11 mg/dL Creatinine 0.7 mg/dL Cr Clearance (Est) 106.1600 mL/min eGFR 91.8 mL/min Glucose 145 mg/dL Osmolality - Calculated 282 mOsm/kg Calcium 8.9 mg/dL Protein, Total 7.6 g/dL Albumin 4.8 g/dL Globulin 2.8 g/dL Bilirubin, Total 0.2 mg/dL ALT (SGPT) 53 U/L AST (SGOT) 38 U/L Alkaline Phosphatase 85 IU/L WBC 8.9 10 3/uL Manual Bands % 4.0 % RBC 3.65 10 6/uL HGB 12.4 g/dL Manual Lymphs % 11 % HCT 39.5 % Manual Monos % 2.0 % MCV 108.2 fL MCH 34.0 pg MCHC 31.4 g/dL Metamyelocytes % 5.0 % RDW 12.0 % Platelet Count 227 10 3/cmm MPV 10.7 fL CBC Slide Review Slide Review Perform Macrocytosis 2+ Manual Bands Abs 0.4 10 3/cmm Manual Neutrophils Abs 7.3 10 3/cmm Manual Monocytes Abs 0.2 10 3/cmm Test performed on Nov 29, 2019 10:45 Bilirubin, Direct 0.20 mg/dL Test performed on Nov 11, 2019 09:15 Anisocytosis 2+ Test performed on Oct 07, 2019 09:27 Neutrophils 0.17 10 3/uL Lymphocytes 0.7 10 3/uL Monocytes 0.2 10 3/uL Eosinophils 0.1 10 3/uL Basophils 0.0 10 3/uL Neutrophil % 14.9 % Lymphocyte % 62.6 % Monocyte % 13.9 % Eosinophil % 4.3 % Basophils % 2.6 % NRBC % 0 % Test performed on Sep 16, 2019 09:15 Myelocytes % 3.0 % Test performed on Sep 02, 2019 09:12 Atypical Lymphs % 29.0 % Poikilocytosis 1+ Manual Lymphocytes Abs 7.3 10 3/cmm Manual Eosinophils Abs 0.1 10 3/cmm Impression: 1. Patient with grade 2 infiltrating ductal carcinoma of the left breast, by clinical evaluation stage at least 1A (T1c, pN1a, M0), ER/WA positive and HER-2/bambi negative. 2. She underwent ultrasound-guided biopsies of left breast mass and left axillary lymph node on 07/12/2019. Her other medical illnesses include: 3. GERD. 4. Migraine headaches. 5. Anxiety/depression. 6. She has a history of thyroid nodules/hyperthyroidism for which she underwent total thyroidectomy in 2014. With clinically evident axillary lymph node involvement, she was advised to undergo neoadjuvant chemotherapy with Adriamycin/cyclophosphamide followed by paclitaxel. She has now completed 2 cycles of Adriamycin/cyclophosphamide. She was given Neulasta prophylaxis with both cycles. She has had denise granulocyte counts of 400 and 500, with no associated fever. Other side effects were limited to fatigue, mild nausea, and some joint pain with the Neulasta. Overall, she tolerated the treatment well. She continued with cycle 2 of Adriamycin/cyclophosphamide on 09/02/2019, with cycle 3 on 09/16/2019, and with cycle 4 on 09/30/2019. On 10/14/2019 she began her 1st of 12 planned weekly cycles of paclitaxel. She tolerated the first 2 paclitaxel infusions with pretty minimal toxicity. With the 3rd infusion she was given planned G-CSF for 2 days due to moderate neutropenia. With that cycle she experienced pretty severe fatigue and she also had some musculoskeletal pain and mild neuropathy symptoms. The symptoms were felt to be more related to the G-CSF then to the paclitaxel, but that is difficult to know for sure. Her white blood cell count responded well to the growth factor. Plan: 1. Proceed with week 09/25 paclitaxel (1 week delayed due to persistently mildly elevated ALT/AST). We did dose reduce her by 20% with week 5. 2. Steroid compliance confirmed her steroid dose has been decreased by 1 tablet each time per Dr. Beverly due to her shakiness. 3. Today's labs were reviewed in detail and discussed with Ms. Wilburn and a copy was given to her WBC 8.9 hemoglobin 12.4 platelets 227,000 ANC is 7300. ALT 53 (0-33) and AST 38 (0-32). 4. We will have her return in 1 week with CBC CMP for consideration of week 8 paclitaxel. She is aware of her elevated LFTs and we will plan to set up her for an abominal/liver ultrasound for folllowup. 5. I did tell her she could do two doses of Tylenol for 2 days to see if she could break her headache symptoms. She may also try the hydrocodone but will need to watch how much she is taking due to the LFTs. She states the hydrocodone usually makes her sleepy and she does not take it often. 6. She is instructed to contact us in the interim should questions or problems arise. Signed By: Beth Doss-, CNP Zia Beverly MD <<Signature on File>>
[2019-12-09] MEDS: sodium chloride 0.9% 250 ML 75 ML IV (11:40)
[2019-12-09] MEDS: acetaminophen 325 mg Tablet 650 MG PO (11:42)
--- NOTE | 2019-12-18 22:08 | ONC FU_ITS ---
[facility] Patient Note Patient: Ramya Wilburn Unit #: [id number]: 1975 Dictated By: Beth DossDate of Visit: Dec 09, 2019 Onc MED Follow-Up/Prog Note Chief Complaint: Breast cancer. History of Present Illness: Ms Wilburn is a 43 year-old woman with grade 2 invasive ductal carcinoma of the left breast, ER/CT positive and HER-2/bambi negative. By clinical evaluation her disease was stage at least IA (T1c, pN1a, M0) at initial diagnosis. She had originally presented a year ago with bloody discharge from the left nipple. An ultrasound of the left breast on 08/06/2018 was BI-RADS Category 1. A few ductal structures were noted in the subareolar region, but there was no evidence for cystic or solid soft tissue abnormality. She apparently then had an abnormal mammogram done elsewhere and further evaluation with a diagnostic bilateral mammogram on 11/18/2018 showed multiple calcifications scattered throughout the left breast. The most concerning were in the upper outer quadrant. The breasts were noted to be extremely dense. A stereotactic biopsy of left breast calcifications on 01/18/2019 showed fibrocystic changes with no malignancy or significant atypia identified. She then had a repeat diagnostic mammogram and left breast ultrasound on 06/24/2019. The mammogram showed a slightly spiculated asymmetric density measuring 1.3 x 0.6 cm in the upper outer quadrant. Multiple punctate calcifications deep to the biopsy marker were noted to have a similar appearance compared to the study from November 2018. Ultrasound showed an irregular hypoechoic lesion at the 2 o'clock position measuring 1.3 x 1.2 x 0.9 cm. It was BI-RADS 5, highly suggestive of malignancy. Ultrasound also showed an abnormal appearing enlarged lymph node in the left axilla measuring 1.9 x 1.4 x 0.8 cm. On 07/12/2019 she underwent ultrasound-guided biopsy of the left breast mass and the left axillary lymph node. Pathology on the breast mass showed moderately differentiated invasive ductal carcinoma, nuclear grade 2. The maximum tumor size is 1.0 cm. The left axillary lymph node biopsy was positive for metastatic ductal carcinoma with tumor size measuring 3.5 mm. The breast prognostic profile showed ER positive at 90% and CT positive at 90%. HER-2/bambi was 2+ by IHC, but negative by FISH with amplification ratio 1.4 and 2.8 HER-2 copies/cell. The KI-67 was elevated at 30%. Dr Beverly had seen her initially on 07/23/2019. With clinically evident axillary lymph node involvement, she was advised to undergo neoadjuvant chemotherapy with Adriamycin/cyclophosphamide followed by paclitaxel. Her other medical illnesses include GERD, migraine headaches, and anxiety/depression. She also has a history of thyroid nodules with hyperthyroidism, for which she underwent total thyroidectomy in 2014. She has only minimal prior smoking history, and she quit smoking in 2007. INTERIM HISTORY: She began cycle 1 of Adriamycin/cyclophosphamide on 08/19/2019. She was given first cycle prophylaxis with Neulasta. She tolerated the treatment well, and she continued with cycle 2 on 09/02/2019, with cycle 3 on 09/16/2019, and with cycle 4 on 09/30/2019. She then began her 1st of 12 planned cycles of weekly paclitaxel on 10/14/2019. Ms Patel has now completed 5 weekly infusions of paclitaxel. She was seen on week [address] Beverly and she was having moderate neutropenia and fatigue. She states that the third treatment really kicked my butt . She states that she was extremely tired and had difficulty getting out of bed. She was given growth factors prior to her fourth cycle due to the neutropenia and she did have some bone pain was bad. She did come in for IV hydration and felt better after that. Ms Patel is here today for followup. She states she feels pretty good overall. She is still having intermittent mild headaches but has not taken anything for it due to her elevated LFT's. She states they are no worse than what they have been and are tolerable without pain medication. She denies any other new pain. She denies vision changes or nausea/vomiting. Her energy is good but she does tire easily. 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 She states she thinks it is stable at this point but did worse just a little after her treatment 3 weeks ago. She denies any fever, chills or signs of infection for at least the last 72 hours. She denies any COVID-19 symptoms. She denies any known exposure. She denies any personal COVID testing at this time. She states 1 of her kids friends family member tested positive and the kids have been playing with the child is not directly exposed to the family member. She is encouraged to monitor them and herself for symptoms and present for testing if any concerns. Her ECOG is 1. Past Medical History: Anxiety Depression History of thyroid nodule/hyperthyroidism Migraine headeaches Surgical hypothyroidism Past Surgical History: Caesarean section Right Subclavian venous access device-Dr Schmitt in 2019 Ultrasound-guided biopsy of left breast mass and left axillary lymph node in 2019 Stereotactic needle biopsy of the left breast in 2018 Total thyroidectomy in 2014 FNA biopsy of thyroid nodule in 2014 Tubal ligation in 2013 Allergies: No Known Allergies. Medications: Claritin 1 Tablet (of 10 mg) Oral daily clonazePAM 1 Tablet (of 0.5 mg) Oral b.i.d. PRN FLUoxetine HCl 1 Tablet (of 80 mg) Oral daily HYDROcodone-Acetaminophen 1 Tablet (of 5-325 mg) Oral q 4 hours PRN Ibuprofen 1 Tablet (of 800 mg) Oral t.i.d. PRN Levothyroxine Sodium 1 Tablet (of 125 mcg) Oral daily Multivitamin Adult 1 Tablet Oral daily Pantoprazole Sodium 1 Tablet (of 40 mg) Tablet, enteric coated Oral daily Rizatriptan Benzoate 1 Tablet (of 10 mg) Oral q 2 hours PRN Senna S 1 Tablet (of 8.6-50 mg) Oral daily PRN Topiramate 1 Tablet (of 50 mg) Oral daily Family History: Ms. Wilburn's mother is alive. Ms. Wilburn's father is alive. Ms. Wilburn has 1 maternal aunt who is : uterine cancer. Father has diabetes and coronary artery disease and is still living at age 73. Mother is in good health age 68. Two brothers and a fraternal twin sister are in good health. Social History: Ms. 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 Ms. Wilburn quit smoking 12 years ago but had smoked for 2 years. She has no history of drinking. Ms. Wilburn reports the following support systems: lives with spouse, significant other, family, or friends, lives in own house, supportive family/friends willing to assist with needs, and adequate transportation available for expected visits. Her diet consists of regular meals. She indicates her activity level as: regular exercise. Review Of Symptoms: Constitutional Denies fevers, chills, night sweats, or weight loss. She states she feels good. Allergic/Immunologic No reactions. Eyes Denies significant visual changes. No diplopia. No amaurosis. ENMT Denies changes in hearing, sore throat, mouth sores, difficulty or changes in swallowing ability, and/or sinus drainage. Hematologic/Lymphatic Denies easy bruising or bleeding. The patient denies any tender or palpable lymph nodes. Breasts no new concerns. Respiratory Denies dyspnea on exertion, chest pain, cough or hemoptysis. Denies orthopnea. Cardiovascular Denies anginal chest pain, palpitations or orthopnea. Gastrointestinal Denies nausea, vomiting, diarrhea, GI bleeding, or constipation. Denies change in bowel habits and/or stool color, no heartburn or early satiety. Genitourinary (F) No hematuria, hesitancy, incontinence, vaginal bleeding, discharge or other problems with urination. Musculoskeletal Denies joint swelling or redness. No decreased range of motion. B Integumentary Denies chronic rashes, inflammation, ulcerations or skin changes. Neurologic Denies headache, blurred vision, and no areas of focal weakness or numbness. Normal gait. No sensory problems. Psychiatric Denies insomnia, depression, ro or mood swings. Vital Signs: Performed on Dec 09, 2019 11:18 Height - 63.00 in Weight - 149.6 lbs (HIGH) BSA - 1.71 sq.m BMI - 26.50 Temperature - 97.1 F (LOW) Pulse - 82 /min Respiration - 18 /min BP - 131/81 mm(hg) O2 Sat - 100 % Pain - 0,0 - Fully active, able to carry on all predisease activities without restrictions. (ECOG) Physical Examination: Constitutional Alert, oriented, no acute distress. Skin pink, warm and dry. She is very jovial. Alopecia. Head Normocephalic; atraumatic. Eyes Conjunctivae and sclerae are clear and without icterus. Pupils are reactive and equal. Neck Supple without masses or thyromegaly. No jugular venous distension. Hematologic/Lymphatic No petechiae or purpura. Respiratory Lungs are clear to auscultation without rhonchi or wheezing. Cardiovascular Regular rate and rhythm of heart without murmurs,clicks, gallops or rubs. Chest RIGHT subclavian venous access device insertion site has healed well. It is unremarkable. Abdomen Non-tender, non-distended, no masses or ascites. Back/Spine Non-tender to palpation. Extremities No visible deformities, no cyanosis, clubbing or edema. Musculoskeletal No tenderness or swelling, normal range of motion without obvious weakness. Integumentary No rashes or lesions. Neurologic No sensory or motor deficits, normal cerebellar function, normal gait. Psychiatric Alert and oriented times three. Coherent speech. Verbalizes understanding of our discussions today. Laboratory:Test performed on Dec 02, 2019 09:35 Sodium 135 mmol/L Potassium 4.2 mmol/L Chloride 102 mmol/L CO2 22 mmol/L Anion Gap 15.2 BUN 11 mg/dL Creatinine 0.7 mg/dL Cr Clearance (Est) 106.1600 mL/min eGFR 91.8 mL/min Glucose 145 mg/dL Osmolality - Calculated 282 mOsm/kg Calcium 8.9 mg/dL Protein, Total 7.6 g/dL Albumin 4.8 g/dL Globulin 2.8 g/dL Bilirubin, Total 0.2 mg/dL ALT (SGPT) 53 U/L AST (SGOT) 38 U/L Alkaline Phosphatase 85 IU/L WBC 8.9 10 3/uL Manual Bands % 4.0 % RBC 3.65 10 6/uL HGB 12.4 g/dL Manual Lymphs % 11 % HCT 39.5 % Manual Monos % 2.0 % MCV 108.2 fL MCH 34.0 pg MCHC 31.4 g/dL Metamyelocytes % 5.0 % RDW 12.0 % Platelet Count 227 10 3/cmm MPV 10.7 fL CBC Slide Review Slide Review Perform Macrocytosis 2+ Manual Bands Abs 0.4 10 3/cmm Manual Neutrophils Abs 7.3 10 3/cmm Manual Monocytes Abs 0.2 10 3/cmm Test performed on Nov 29, 2019 10:59 Neutrophils 1.36 10 3/uL Lymphocytes 1.5 10 3/uL Monocytes 0.3 10 3/uL Eosinophils 0.2 10 3/uL Basophils 0.0 10 3/uL Neutrophil % 40.0 % Lymphocyte % 43.2 % Monocyte % 9.1 % Eosinophil % 5.9 % Basophils % 1.2 % NRBC % 0 % Test performed on Nov 29, 2019 10:45 Bilirubin, Direct 0.20 mg/dL Test performed on Nov 11, 2019 09:15 Anisocytosis 2+ Test performed on Sep 16, 2019 09:15 Myelocytes % 3.0 % Test performed on Sep 02, 2019 09:12 Atypical Lymphs % 29.0 % Poikilocytosis 1+ Manual Lymphocytes Abs 7.3 10 3/cmm Manual Eosinophils Abs 0.1 10 3/cmm Impression: 1. Patient with grade 2 infiltrating ductal carcinoma of the left breast, by clinical evaluation stage at least 1A (T1c, pN1a, M0), ER/CT positive and HER-2/bambi negative. 2. She underwent ultrasound-guided biopsies of left breast mass and left axillary lymph node on 07/12/2019. Her other medical illnesses include: 3. GERD. 4. Migraine headaches. 5. Anxiety/depression. 6. She has a history of thyroid nodules/hyperthyroidism for which she underwent total thyroidectomy in 2014. With clinically evident axillary lymph node involvement, she was advised to undergo neoadjuvant chemotherapy with Adriamycin/cyclophosphamide followed by paclitaxel. She has now completed 2 cycles of Adriamycin/cyclophosphamide. She was given Neulasta prophylaxis with both cycles. She has had denise granulocyte counts of 400 and 500, with no associated fever. Other side effects were limited to fatigue, mild nausea, and some joint pain with the Neulasta. Overall, she tolerated the treatment well. She continued with cycle 2 of Adriamycin/cyclophosphamide on 09/02/2019, with cycle 3 on 09/16/2019, and with cycle 4 on 09/30/2019. On 10/14/2019 she began her 1st of 12 planned weekly cycles of paclitaxel. She tolerated the first 2 paclitaxel infusions with pretty minimal toxicity. With the 3rd infusion she was given planned G-CSF for 2 days due to moderate neutropenia. With that cycle she experienced pretty severe fatigue and she also had some musculoskeletal pain and mild neuropathy symptoms. The symptoms were felt to be more related to the G-CSF then to the paclitaxel, but that is difficult to know for sure. Her white blood cell count responded well to the growth factor. Plan: 1. Proceed with week 8/12 paclitaxel (1 week delayed due to persistently mildly elevated ALT/AST). We did dose reduce her by 20% with week 5. 2. Steroid compliance confirmed her steroid dose has been decreased by 1 tablet each time per Dr. Beverly due to her shakiness. 3. Today's labs were reviewed in detail and discussed with Ms. Wilburn and a copy was given to her WBC 4.3 hemoglobin 12.2 platelets 218,000 ANC is 3500. ALT 54 (0-33) and AST 37 (0-32). 4. We will have her return in 1 week with CBC CMP for consideration of week 9 paclitaxel. She is aware of her abominal/liver ultrasound (for folllowup of elevatqed LFTs) from earlier today- it was reported as normal with a region of increased echogenicity measuring 0.84 x 1.04 x 1.29 cm which is probably a liver hemangioma . 5. Ms. Wilburn has had follow-up with Dr. Godinez in regards to discussion of removal of her ovaries due to ER CT positive breast cancer. Without removal of her ovaries, she will be considered premenopausal and therefore her hormonal therapy recommendation would be tamoxifen. The use of tamoxifen does would put her at higher risk for endometrial cancer. She is also requesting removal of the uterus along with the ovaries. 6. She is instructed to contact us in the interim should questions or problems arise. Signed By: Beth Doss-, [facility] Zia Beverly MD <<Signature on File>>
== END 2019-12-15 23:59 | disposition home or self-care (01) ==
LOC: ONCMED 08:00
PROVIDERS: Internal Medicine Medical Oncology; PCP Family Medicine; Visit Provider Nurse Practitioner
DX: C50.412 Malignant neoplasm of upper-outer quadrant of left female breast (principal); Z17.0 Estrogen receptor positive status [ER+]; D70.1 Agranulocytosis secondary to cancer chemotherapy; T45.1X5A Adverse effect of antineoplastic and immunosuppressive drugs, initial encounter; K21.9 Gastro-esophageal reflux disease without esophagitis; G43.909 Migraine, unspecified, not intractable, without status migrainosus; F41.9 Anxiety disorder, unspecified; F32.9 Major depressive disorder, single episode, unspecified; E89.0 Postprocedural hypothyroidism; Z86.39 Personal history of other endocrine, nutritional and metabolic disease
CPT/HCPCS: 36591; 76705; 80053; 80076; 85007; 85025; 96367; 96372; 96413; 99214; J1100; J1200; J1442; J1453; J2405; J3490; J7050; J9267

== ENCOUNTER 2020-01-13 05:20 | Outpatient (RCR) | payer OTHER, BC, SELFPAY ==
[2019-12-16 10:08] LABS: Basophils % 0.8 %; Hematocrit 37.8 % (37.0-47.0); Hemoglobin 12.6 g/dL (11.5-15.3); Lymphocytes # 0.6 10^3/uL (0.8-4.8); Lymphocytes % 15.4 %; Mean Corpuscular HGB Conc 33.3 g/dL (30.0-36.0); Mean Corpuscular Hemoglobin 33.3 pg (28.0-34.0); Mean Platelet Volume 10.5 fL (7.4-10.4); Monocytes # 0.1 10^3/uL (0.2-0.9); Monocytes % 1.6 %; Neutrophils # 2.95 10^3/uL (1.8-7.7); Nucleated Red Blood Cells % 0 %; Platelet Count 295 10^3/cmm (130-400); Red Blood Count 3.78 10^6/uL (4.1-5.3); Red Cell Distribution Width 11.9 % (12.1-15.1); White Blood Count 3.7 10^3/uL (4.0-10.0)
[2019-12-16 10:27] LABS: Alanine Aminotransferase 38 U/L (0-33); Albumin Level 4.7 g/dL (3.5-5.2); Alkaline Phosphatase 82 IU/L (35-105); Anion Gap 13.9 (5-19); Aspartate Amino Transferase 32 U/L (0-32); Blood Urea Nitrogen 14 mg/dL (6-20); Calcium 9.6 mg/dL (8.5-10.5); Carbon Dioxide 23 mmol/L (22-29); Chloride 102 mmol/L (98-107); Globulin 2.6 g/dL (1.3-4.6); Glomerular Filtration Rate 91.8 mL/min (90-130); Glucose 141 mg/dL (65-115); Osmolality Calculated 283 mOsm/kg (285-295); Potassium 3.9 mmol/L (3.5-5.1); Sodium 135 mmol/L (136-145); Total Bilirubin 0.4 mg/dL (0.15-1.2); Total Protein 7.3 g/dL (6.6-8.7)
[2019-12-16 10:55] LABS: Thyroid Stimulating Hormone 0.36 uIU/mL (0.27-4.20)
[2019-12-16] MEDS: sodium chloride 0.9% 250 ML 75 ML IV (11:45)
[2019-12-16] MEDS: acetaminophen 325 mg Tablet 650 MG PO (11:50)
--- NOTE | 2019-12-19 10:31 | ONC FU_ITS ---
Dr. Beverly Patient Follow-Up Note Patient: Ramya Wilburn Unit #: [id number]: [id number] Dicatated By: Zia Beverly M.D.Date of Visit:Dec 16, 2019 Onc Med Follow-up/Prog Note Chief Complaint: Breast cancer. History of Present Illness: This is a 43 year-old woman with grade 2 invasive ductal carcinoma of the left breast, ER/IN positive and HER-2/bambi negative. By clinical evaluation her disease was stage at least IA (T1c, pN1a, M0) at initial diagnosis. She had originally presented a year ago with bloody discharge from the left nipple. An ultrasound of the left breast on 08/06/2018 was BI-RADS Category 1. A few ductal structures were noted in the subareolar region, but there was no evidence for cystic or solid soft tissue abnormality. She apparently then had an abnormal mammogram done elsewhere and further evaluation with a diagnostic bilateral mammogram on 11/18/2018 showed multiple calcifications scattered throughout the left breast. The most concerning were in the upper outer quadrant. The breasts were noted to be extremely dense. A stereotactic biopsy of left breast calcifications on 01/18/2019 showed fibrocystic changes with no malignancy or significant atypia identified. She then had a repeat diagnostic mammogram and left breast ultrasound on 06/24/2019. The mammogram showed a slightly spiculated asymmetric density measuring 1.3 x 0.6 cm in the upper outer quadrant. Multiple punctate calcifications deep to the biopsy marker were noted to have a similar appearance compared to the study from November 2018. Ultrasound showed an irregular hypoechoic lesion at the 2 o'clock position measuring 1.3 x 1.2 x 0.9 cm. It was BI-RADS 5, highly suggestive of malignancy. Ultrasound also showed an abnormal appearing enlarged lymph node in the left axilla measuring 1.9 x 1.4 x 0.8 cm. On 07/12/2019 she underwent ultrasound-guided biopsy of the left breast mass and the left axillary lymph node. Pathology on the breast mass showed moderately differentiated invasive ductal carcinoma, nuclear grade 2. The maximum tumor size is 1.0 cm. The left axillary lymph node biopsy was positive for metastatic ductal carcinoma with tumor size measuring 3.5 mm. The breast prognostic profile showed ER positive at 90% and IN positive at 90%. HER-2/bambi was 2+ by IHC, but negative by FISH with amplification ratio 1.4 and 2.8 HER-2 copies/cell. The KI-67 was elevated at 30%. I had seen her initially on 07/23/2019. With clinically evident axillary lymph node involvement, she was advised to undergo neoadjuvant chemotherapy with Adriamycin/cyclophosphamide followed by paclitaxel. Her other medical illnesses include GERD, migraine headaches, and anxiety/depression. She also has a history of thyroid nodules with hyperthyroidism, for which she underwent total thyroidectomy in 2014. She has only minimal prior smoking history, and she quit smoking in 2007. INTERIM HISTORY: She began cycle 1 of Adriamycin/cyclophosphamide on 08/19/2019. She was given first cycle prophylaxis with Neulasta. She tolerated the treatment well, and she continued with cycle 2 on 09/02/2019, with cycle 3 on 09/16/2019, and with cycle 4 on 09/30/2019. She then began her 1st of 12 planned cycles of weekly paclitaxel on 10/14/2019. She had severe fatigue with the paclitaxel and following her third weekly infusion she also became significantly neutropenic, requiring growth factor support with Neupogen. Beginning with her week 5 treatment, she was given a dose reduction, mainly because of the severe fatigue. Her week 6 treatment was deferred due to persistently elevated liver enzymes. She was able to restart after 1-week delay and she is then been able to continue her treatment weekly with liver enzymes remaining just slightly elevated. She received her week 8 paclitaxel infusion on 12/09/2019. She is seen for a scheduled visit. She has been feeling good generally. Her energy, though, is just fair. She is still working and taking care of her children. ECOG score is 1. She has good appetite. She has not had fever. She does have hot flashes and sweating, especially in the evening. She has had no mouth sores. She has some cough, attributed to allergies. She has no shortness of breath or chest pain. She is not having nausea. She does have some acid reflux, which comes and goes. Bowel function is somewhat variable, but adequate. She has no complaints. She currently is not having any significant joint or bone pain. She has just a little bit of residual numbness/tingling in her legs. Medications: Claritin 1 Tablet (of 10 mg) Oral daily, clonazePAM 1 Tablet (of 0.5 mg) Oral b.i.d. PRN, FLUoxetine HCl 1 Tablet (of 80 mg) Oral daily, HYDROcodone-Acetaminophen 1 Tablet (of 5-325 mg) Oral q 4 hours PRN, Ibuprofen 1 Tablet (of 800 mg) Oral t.i.d. PRN, Levothyroxine Sodium 1 Tablet (of 125 mcg) Oral daily, Multivitamin Adult 1 Tablet Oral daily, Pantoprazole Sodium 1 Tablet (of 40 mg) Tablet, enteric coated Oral daily, Rizatriptan Benzoate 1 Tablet (of 10 mg) Oral q 2 hours PRN, Senna S 1 Tablet (of 8.6-50 mg) Oral daily PRN, Topiramate 1 Tablet (of 50 mg) Oral daily Allergies: No Known Allergies. Review of Systems: Constitutional - She generally feels good. Her energy is fair, she does feel more fatigued. She is still able to work full-time and take care of her children. Her appetite has improved and weight is stable. No fevers. She is having persistent hot flashes with sweating, this is mostly in the evenings. ECOG score is 1, ENMT - She has seasonal allergies. No mouth sores. No sore throat or difficulty swallowing, Hematologic/Lymphatic - No abnormal bruising or bleeding, Respiratory - No shortness of breath. She has a slight cough from sinus drainage. No pleuritic pain or hemoptysis, Cardiovascular - No angina pain. No palpitations, Gastrointestinal - No nausea or vomiting. No heartburn or acid reflux. No diarrhea. She is having some mild constipation. No blood in the stool or black stools, Genitourinary (F) - No dysuria or hematuria. No urinary frequency. No urgency or incontinence, Musculoskeletal - No joint or bone pain, Integumentary - No skin complications, Neurologic - No headache or dizziness. She has some numbness and tingling in her left leg, but it has improved. No other focal neurologic symptoms, Psychiatric - Her anxiety and depression are adequately managed with her current regimen. She does not sleep well. Vital Signs: Performed on Dec 16, 2019 11:13 Height - 63.00 in Weight - 150.0 lbs (HIGH) BSA - 1.71 sq.m BMI - 26.57 Temperature - 97.9 F (LOW) Pulse - 88 /min Respiration - 18 /min BP - 127/76 mm(hg) O2 Sat - 100 % Pain - 0 Physical Examination: Constitutional - She looks pretty good generally, Eyes - Sclerae nonicteric. Conjunctivae clear, ENMT - No lesions noted in the oral cavity, Hematologic/Lymphatic - No cervical, clavicular, or axillary adenopathy, Respiratory - Lungs are clear with good air movement bilaterally, Cardiovascular - Heart rhythm is regular. There is no murmur, gallop, or rub noted, Abdomen - Soft. Liver and spleen are not enlarged. There is no abdominal mass or ascites noted and there is no inguinal adenopathy, Extremities - No edema, Neurologic - No focal neurologic deficits noted. Lab/Imaging: Test performed on Dec 16, 2019 09:27 Sodium 135 mmol/L TSH 0.36 uIU/mL Potassium 3.9 mmol/L Chloride 102 mmol/L CO2 23 mmol/L Anion Gap 13.9 BUN 14 mg/dL Creatinine 0.7 mg/dL Cr Clearance (Est) 106.1600 mL/min eGFR 91.8 mL/min Glucose 141 mg/dL Osmolality - Calculated 283 mOsm/kg Calcium 9.6 mg/dL Protein, Total 7.3 g/dL Albumin 4.7 g/dL Globulin 2.6 g/dL Bilirubin, Total 0.4 mg/dL ALT (SGPT) 38 U/L AST (SGOT) 32 U/L Alkaline Phosphatase 82 IU/L WBC 3.7 10 3/uL RBC 3.78 10 6/uL HGB 12.6 g/dL HCT 37.8 % MCV 100.0 fL MCH 33.3 pg MCHC 33.3 g/dL RDW 11.9 % Platelet Count 295 10 3/cmm MPV 10.5 fL Neutrophils 2.95 10 3/uL Lymphocytes 0.6 10 3/uL Monocytes 0.1 10 3/uL Eosinophils 0.0 10 3/uL Basophils 0.0 10 3/uL Neutrophil % 80.0 % Lymphocyte % 15.4 % Monocyte % 1.6 % Eosinophil % 0.0 % Basophils % 0.8 % NRBC % 0 % Impression: 1. Patient with grade 2 infiltrating ductal carcinoma of the left breast, by clinical evaluation stage at least 1A (T1c, pN1a, M0), ER/IN positive and HER-2/bambi negative. 2. She underwent ultrasound-guided biopsies of left breast mass and left axillary lymph node on 07/12/2019. Her other medical illnesses include: 3. GERD. 4. Migraine headaches. 5. Anxiety/depression. 6. She has a history of thyroid nodules/hyperthyroidism for which she underwent total thyroidectomy in 2014. With clinically evident axillary lymph node involvement, she was advised to undergo neoadjuvant chemotherapy with Adriamycin/cyclophosphamide followed by paclitaxel. She has now completed 2 cycles of Adriamycin/cyclophosphamide. She was given Neulasta prophylaxis with both cycles. She has had denise granulocyte counts of 400 and 500, with no associated fever. Other side effects were limited to fatigue, mild nausea, and some joint pain with the Neulasta. Overall, she tolerated the treatment well. She continued with cycle 2 of Adriamycin/cyclophosphamide on 09/02/2019, with cycle 3 on 09/16/2019, and with cycle 4 on 09/30/2019. On 10/14/2019 she began her 1st of 12 planned weekly cycles of paclitaxel. She tolerated the first 2 paclitaxel infusions with pretty minimal toxicity. With the 3rd infusion she was given planned G-CSF for 2 days due to moderate neutropenia. With the growth factor support, her neutrophil count remained adequate, but she continued to have severe fatigue with the paclitaxel. Beginning with her week 5 treatment, I did opt to give her a dose reduction. With that she did have less severe fatigue, but her week 6 treatment was deferred due to persistently elevated liver enzymes. She was able to resume with her week 6 paclitaxel after just a 1 week delay. Since then her liver enzymes have remained just slightly elevated. She is still having fatigue, but her neuropathy symptoms appear to be improving. Her blood counts are moderately decreased, but adequate. Overall, she appears to be tolerating treatment pretty well at this point. Plan: She will proceed now with her 9th weekly infusion of paclitaxel. It will be administered at the same (reduced) dosage. As her neutrophil count is borderline low again, her blood count will be rechecked on Friday and she will be given Neupogen prophylactically as indicated. She will be scheduled for a follow-up visit in 1 week. Signed By: Zia Beverly M.D. <<Signature on File>>
[2019-12-20 11:57] LABS: Basophils % 0.6 %; Eosinophils # 0.1 10^3/uL (0.0-0.8); Eosinophils % 1.9 %; Hematocrit 35.5 % (37.0-47.0); Hemoglobin 12.1 g/dL (11.5-15.3); Lymphocytes # 1.3 10^3/uL (0.8-4.8); Lymphocytes % 40.3 %; Mean Corpuscular HGB Conc 34.1 g/dL (30.0-36.0); Mean Corpuscular Hemoglobin 33.5 pg (28.0-34.0); Mean Corpuscular Volume 98.3 fL (81-99); Mean Platelet Volume 10.9 fL (7.4-10.4); Monocytes # 0.2 10^3/uL (0.2-0.9); Monocytes % 5.3 %; Neutrophils # 1.63 10^3/uL (1.8-7.7); Nucleated Red Blood Cells % 0 %; Platelet Count 278 10^3/cmm (130-400); Red Blood Count 3.61 10^6/uL (4.1-5.3); Red Cell Distribution Width 11.9 % (12.1-15.1); White Blood Count 3.2 10^3/uL (4.0-10.0)
[2019-12-23 10:04] LABS: Basophils # 0.1 10^3/uL (0.0-0.1); Eosinophils % 0.2 %; Hematocrit 37.9 % (37.0-47.0); Hemoglobin 12.6 g/dL (11.5-15.3); Lymphocytes # 0.7 10^3/uL (0.8-4.8); Lymphocytes % 11.1 %; Mean Corpuscular HGB Conc 33.2 g/dL (30.0-36.0); Mean Corpuscular Hemoglobin 32.9 pg (28.0-34.0); Mean Platelet Volume 10.6 fL (7.4-10.4); Monocytes # 0.2 10^3/uL (0.2-0.9); Monocytes % 2.7 %; Neutrophils # 4.72 10^3/uL (1.8-7.7); Neutrophils % 75.8 %; Nucleated Red Blood Cells % 0 %; Platelet Count 281 10^3/cmm (130-400); Red Blood Count 3.83 10^6/uL (4.1-5.3); White Blood Count 6.2 10^3/uL (4.0-10.0)
[2019-12-23 10:23] LABS: Alanine Aminotransferase 46 U/L (0-33); Albumin Level 4.9 g/dL (3.5-5.2); Alkaline Phosphatase 97 IU/L (35-105); Anion Gap 17.2 (5-19); Aspartate Amino Transferase 27 U/L (0-32); Blood Urea Nitrogen 18 mg/dL (6-20); Calcium 9.3 mg/dL (8.5-10.5); Carbon Dioxide 23 mmol/L (22-29); Chloride 102 mmol/L (98-107); Globulin 2.6 g/dL (1.3-4.6); Glomerular Filtration Rate 91.8 mL/min (90-130); Glucose 149 mg/dL (65-115); Osmolality Calculated 291 mOsm/kg (285-295); Potassium 4.2 mmol/L (3.5-5.1); Sodium 138 mmol/L (136-145); Total Bilirubin 0.3 mg/dL (0.15-1.2); Total Protein 7.5 g/dL (6.6-8.7)
[2019-12-23 10:45] LABS: Slide Review Slide Review Perform
[2019-12-23] MEDS: sodium chloride 0.9% 250 ML 75 ML IV (11:57)
[2019-12-23] MEDS: acetaminophen 325 mg Tablet 650 MG PO (11:57)
[2019-12-27 10:54] LABS: Basophils % 0.8 %; Eosinophils # 0.1 10^3/uL (0.0-0.8); Eosinophils % 1.7 %; Hematocrit 37.2 % (37.0-47.0); Hemoglobin 12.7 g/dL (11.5-15.3); Lymphocytes # 1.3 10^3/uL (0.8-4.8); Lymphocytes % 28.1 %; Mean Corpuscular HGB Conc 34.1 g/dL (30.0-36.0); Mean Corpuscular Hemoglobin 33.2 pg (28.0-34.0); Mean Corpuscular Volume 97.4 fL (81-99); Mean Platelet Volume 10.8 fL (7.4-10.4); Monocytes # 0.4 10^3/uL (0.2-0.9); Neutrophils # 2.69 10^3/uL (1.8-7.7); Neutrophils % 56.8 %; Nucleated Red Blood Cells % 0 %; Platelet Count 265 10^3/cmm (130-400); Red Blood Count 3.82 10^6/uL (4.1-5.3); Red Cell Distribution Width 11.9 % (12.1-15.1); White Blood Count 4.7 10^3/uL (4.0-10.0)
[2019-12-30 10:01] LABS: Hematocrit 38.5 % (37.0-47.0); Hemoglobin 12.9 g/dL (11.5-15.3); Mean Corpuscular HGB Conc 33.5 g/dL (30.0-36.0); Mean Corpuscular Hemoglobin 32.7 pg (28.0-34.0); Mean Corpuscular Volume 97.7 fL (81-99); Mean Platelet Volume 10.7 fL (7.4-10.4); Platelet Count 306 10^3/cmm (130-400); Red Blood Count 3.94 10^6/uL (4.1-5.3); Red Cell Distribution Width 11.9 % (12.1-15.1); White Blood Count 7.7 10^3/uL (4.0-10.0)
[2019-12-30 10:05] LABS: Alanine Aminotransferase 88 U/L (0-33); Albumin Level 4.6 g/dL (3.5-5.2); Alkaline Phosphatase 101 IU/L (35-105); Anion Gap 17.2 (5-19); Aspartate Amino Transferase 64 U/L (0-32); Blood Urea Nitrogen 17 mg/dL (6-20); Calcium 9.6 mg/dL (8.5-10.5); Carbon Dioxide 24 mmol/L (22-29); Chloride 100 mmol/L (98-107); Globulin 2.9 g/dL (1.3-4.6); Glomerular Filtration Rate 78.3 mL/min (90-130); Glucose 158 mg/dL (65-115); Osmolality Calculated 289 mOsm/kg (285-295); Potassium 4.2 mmol/L (3.5-5.1); Sodium 137 mmol/L (136-145); Total Bilirubin 0.3 mg/dL (0.15-1.2); Total Protein 7.5 g/dL (6.6-8.7)
[2019-12-30 10:54] LABS: Slide Review Slide Review Perform
[2019-12-30 10:57] LABS: Absolute Segmented Neutrophil 3.9 10/cmm (1.6-7.1); Band Neutrophils Absolute 2.3 10^3/cmm (0.0-1.2); Eosinophils 1 %; Lymphocytes 14 %; Monocytes Absolute 0.2 10^3/cmm (0.1-0.6); Segmented Neutrophils 50 %; Total Cells Counted 100 (0-100)
[2019-12-30 10:58] LABS: Absolute Neutrophil 6.2 10^3/cmm (1.4-6.5); Anisocytosis 1+; Platelet Estimate Normal (Normal)
[2019-12-30] MEDS: acetaminophen 325 mg Tablet 650 MG PO (11:45)
[2019-12-30] MEDS: sodium chloride 0.9% 250 ML 75 ML IV (11:50)
--- NOTE | 2019-12-30 13:26 | ONC FU_ITS ---
[facility] Patient Note Patient: Ramya Wilburn Unit #: [id number]: 1975 Dictated By: Beth DossDate of Visit: Dec 23, 2019 Onc MED Follow-Up/Prog Note Chief Complaint: Breast cancer. History of Present Illness: Ms Wilburn is a 43 year-old woman with grade 2 invasive ductal carcinoma of the left breast, ER/MA positive and HER-2/bambi negative. By clinical evaluation her disease was stage at least IA (T1c, pN1a, M0) at initial diagnosis. She had originally presented a year ago with bloody discharge from the left nipple. An ultrasound of the left breast on 08/06/2018 was BI-RADS Category 1. A few ductal structures were noted in the subareolar region, but there was no evidence for cystic or solid soft tissue abnormality. She apparently then had an abnormal mammogram done elsewhere and further evaluation with a diagnostic bilateral mammogram on 11/18/2018 showed multiple calcifications scattered throughout the left breast. The most concerning were in the upper outer quadrant. The breasts were noted to be extremely dense. A stereotactic biopsy of left breast calcifications on 01/18/2019 showed fibrocystic changes with no malignancy or significant atypia identified. She then had a repeat diagnostic mammogram and left breast ultrasound on 06/24/2019. The mammogram showed a slightly spiculated asymmetric density measuring 1.3 x 0.6 cm in the upper outer quadrant. Multiple punctate calcifications deep to the biopsy marker were noted to have a similar appearance compared to the study from November 2018. Ultrasound showed an irregular hypoechoic lesion at the 2 o'clock position measuring 1.3 x 1.2 x 0.9 cm. It was BI-RADS 5, highly suggestive of malignancy. Ultrasound also showed an abnormal appearing enlarged lymph node in the left axilla measuring 1.9 x 1.4 x 0.8 cm. On 07/12/2019 she underwent ultrasound-guided biopsy of the left breast mass and the left axillary lymph node. Pathology on the breast mass showed moderately differentiated invasive ductal carcinoma, nuclear grade 2. The maximum tumor size is 1.0 cm. The left axillary lymph node biopsy was positive for metastatic ductal carcinoma with tumor size measuring 3.5 mm. The breast prognostic profile showed ER positive at 90% and MA positive at 90%. HER-2/bambi was 2+ by IHC, but negative by FISH with amplification ratio 1.4 and 2.8 HER-2 copies/cell. The KI-67 was elevated at 30%. Dr Beverly had seen her initially on 07/23/2019. With clinically evident axillary lymph node involvement, she was advised to undergo neoadjuvant chemotherapy with Adriamycin/cyclophosphamide followed by paclitaxel. Her other medical illnesses include GERD, migraine headaches, and anxiety/depression. She also has a history of thyroid nodules with hyperthyroidism, for which she underwent total thyroidectomy in 2014. She has only minimal prior smoking history, and she quit smoking in 2007. INTERIM HISTORY: She began cycle 1 of Adriamycin/cyclophosphamide on 08/19/2019. She was given first cycle prophylaxis with Neulasta. She tolerated the treatment well, and she continued with cycle 2 on 09/02/2019, with cycle 3 on 09/16/2019, and with cycle 4 on 09/30/2019. She then began her 1st of 12 planned cycles of weekly paclitaxel on 10/14/2019. She had severe fatigue with the paclitaxel and following her third weekly infusion she also became significantly neutropenic, requiring growth factor support with Neupogen. Beginning with her week 5 treatment, she was given a dose reduction, mainly because of the severe fatigue. Her week 6 treatment was deferred due to persistently elevated liver enzymes. She was able to restart after 1-week delay and she is then been able to continue her treatment weekly with liver enzymes remaining just slightly elevated. She received her week 9th paclitaxel infusion on 12/16/2019. Ms. Wilburn is here today for follow-up. She states overall she is doing good. She did have 1 dose of Neupogen on December 19 due to an ANC on December 20, 2019 of 1630. Her ANC today is 4700. She has no new concerns. She has had some intermittent headaches but states overall they have actually been better. She continues to have a little residual neuropathy but states it too is stable and certainly no worse. She is eating good. She remains active although she tires easily. She continues to work full-time. She denies any new diarrhea or constipation. She has had no new pain. Her energy is fair. She is able do all her ADLs without assistance. She denies mouth sores, sore throat or difficulty swallowing. She has had no fever or chills or any signs or symptoms of infection. She denies any known Covid exposure, symptoms or personal testing. Her ECOG is 0. Past Medical History: Anxiety Depression History of thyroid nodule/hyperthyroidism Migraine headeaches Surgical hypothyroidism Past Surgical History: Caesarean section Right Subclavian venous access device-Dr Schmitt in 2019 Ultrasound-guided biopsy of left breast mass and left axillary lymph node in 2019 Stereotactic needle biopsy of the left breast in 2018 Total thyroidectomy in 2014 FNA biopsy of thyroid nodule in 2014 Tubal ligation in 2013 Allergies: No Known Allergies. Medications: Claritin 1 Tablet (of 10 mg) Oral daily clonazePAM 1 Tablet (of 0.5 mg) Oral b.i.d. PRN FLUoxetine HCl 1 Tablet (of 80 mg) Oral daily HYDROcodone-Acetaminophen 1 Tablet (of 5-325 mg) Oral q 4 hours PRN Ibuprofen 1 Tablet (of 800 mg) Oral t.i.d. PRN Levothyroxine Sodium 1 Tablet (of 125 mcg) Oral daily Multivitamin Adult 1 Tablet Oral daily Pantoprazole Sodium 1 Tablet (of 40 mg) Tablet, enteric coated Oral daily Rizatriptan Benzoate 1 Tablet (of 10 mg) Oral q 2 hours PRN Senna S 1 Tablet (of 8.6-50 mg) Oral daily PRN Topiramate 1 Tablet (of 50 mg) Oral daily Family History: Ms. Wilburn's mother is alive. Ms. Wilburn's father is alive. Ms. Wilburn has 1 maternal aunt who is : uterine cancer. Father has diabetes and coronary artery disease and is still living at age 73. Mother is in good health age 68. Two brothers and a fraternal twin sister are in good health. 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 Ms. Wilburn quit smoking 12 years ago but had smoked for 2 years. She has no history of drinking. Ms. Wilburn reports the following support systems: lives with spouse, significant other, family, or friends, lives in own house, supportive family/friends willing to assist with needs, and adequate transportation available for expected visits. Her diet consists of regular meals. She indicates her activity level as: regular exercise. Review Of Symptoms: Constitutional Denies fevers, chills, night sweats, or weight loss. She states she feels good in general today. She has had intermittent headaches but not as bad as they have been. 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 Allergic/Immunologic No reactions. Eyes Denies significant visual changes. No diplopia. No amaurosis. ENMT Denies changes in hearing, sore throat, mouth sores, difficulty or changes in swallowing ability, and/or sinus drainage. Hematologic/Lymphatic Denies easy bruising or bleeding. The patient denies any tender or palpable lymph nodes. Breasts no new concerns. Respiratory Denies dyspnea on exertion, chest pain, cough or hemoptysis. Denies orthopnea. Cardiovascular Denies anginal chest pain, palpitations or orthopnea. Gastrointestinal Denies nausea, vomiting, diarrhea, GI bleeding, or constipation. Denies change in bowel habits and/or stool color, no heartburn or early satiety. Genitourinary (F) No hematuria, hesitancy, incontinence, vaginal bleeding, discharge or other problems with urination. Musculoskeletal Denies joint swelling or redness. No decreased range of motion. B Integumentary Denies chronic rashes, inflammation, ulcerations or skin changes. Neurologic Denies headache, blurred vision, and no areas of focal weakness or numbness. Normal gait. No sensory problems. 1 episode of off balance and ran into a wall at home . No syncope, no TIA symptoms. Psychiatric Denies insomnia, depression, ro or mood swings. Vital Signs: Performed on Dec 23, 2019 11:25 Height - 63.00 in Weight - 150.8 lbs (HIGH) BSA - 1.72 sq.m BMI - 26.71 Temperature - 98.1 F (LOW) Pulse - 95 /min Respiration - 24 /min BP - 122/76 mm(hg) O2 Sat - 99 % Pain - 0,0 - Fully active, able to carry on all predisease activities without restrictions. (ECOG) Physical Examination: Constitutional Alert, oriented, no acute distress. Skin pink, warm and dry. She is very jovial. Alopecia. Head Normocephalic; atraumatic. Eyes Conjunctivae and sclerae are clear and without icterus. Pupils are reactive and equal. Neck Supple without masses or thyromegaly. No jugular venous distension. Hematologic/Lymphatic No petechiae or purpura. Respiratory Lungs are clear to auscultation without rhonchi or wheezing. Cardiovascular Regular rate and rhythm of heart without murmurs,clicks, gallops or rubs. Chest RIGHT subclavian venous access device insertion site has healed well. It is unremarkable. Abdomen Non-tender, non-distended, no masses or ascites. Back/Spine Non-tender to palpation. Extremities No visible deformities, no cyanosis, clubbing or edema. Musculoskeletal No tenderness or swelling, normal range of motion without obvious weakness. Integumentary No rashes or lesions. Neurologic No sensory or motor deficits, normal cerebellar function, normal gait. Psychiatric Alert and oriented times three. Coherent speech. Verbalizes understanding of our discussions today. Laboratory:Test performed on Dec 30, 2019 09:27 Sodium 137 mmol/L Potassium 4.2 mmol/L Chloride 100 mmol/L CO2 24 mmol/L Anion Gap 17.2 BUN 17 mg/dL Creatinine 0.8 mg/dL Cr Clearance (Est) 91.9400 mL/min eGFR 78.3 mL/min Glucose 158 mg/dL Osmolality - Calculated 289 mOsm/kg Calcium 9.6 mg/dL Protein, Total 7.5 g/dL Albumin 4.6 g/dL Globulin 2.9 g/dL Bilirubin, Total 0.3 mg/dL ALT (SGPT) 88 U/L AST (SGOT) 64 U/L Alkaline Phosphatase 101 IU/L WBC 7.7 10 3/uL RBC 3.94 10 6/uL HGB 12.9 g/dL HCT 38.5 % MCV 97.7 fL MCH 32.7 pg MCHC 33.5 g/dL RDW 11.9 % Platelet Count 306 10 3/cmm MPV 10.7 fL CBC Slide Review Slide Review Perform Test performed on Nov 29, 2019 10:45 Bilirubin, Direct 0.20 mg/dL Test performed on Sep 16, 2019 09:15 Manual Bands % 17.0 % Manual Lymphs % 21 % Manual Monos % 5.0 % Metamyelocytes % 14.0 % Myelocytes % 3.0 % Manual Bands Abs 2.9 10 3/cmm Manual Neutrophils Abs 9.7 10 3/cmm Manual Monocytes Abs 0.9 10 3/cmm Test performed on Sep 02, 2019 09:12 Atypical Lymphs % 29.0 % Poikilocytosis 1+ Manual Lymphocytes Abs 7.3 10 3/cmm Manual Eosinophils Abs 0.1 10 3/cmm Impression: 1. Patient with grade 2 infiltrating ductal carcinoma of the left breast, by clinical evaluation stage at least 1A (T1c, pN1a, M0), ER/MA positive and HER-2/bambi negative. 2. She underwent ultrasound-guided biopsies of left breast mass and left axillary lymph node on 07/12/2019. Her other medical illnesses include: 3. GERD. 4. Migraine headaches. 5. Anxiety/depression. 6. She has a history of thyroid nodules/hyperthyroidism for which she underwent total thyroidectomy in 2014. With clinically evident axillary lymph node involvement, she was advised to undergo neoadjuvant chemotherapy with Adriamycin/cyclophosphamide followed by paclitaxel. She has now completed 2 cycles of Adriamycin/cyclophosphamide. She was given Neulasta prophylaxis with both cycles. She has had denise granulocyte counts of 400 and 500, with no associated fever. Other side effects were limited to fatigue, mild nausea, and some joint pain with the Neulasta. Overall, she tolerated the treatment well. She continued with cycle 2 of Adriamycin/cyclophosphamide on 09/02/2019, with cycle 3 on 09/16/2019, and with cycle 4 on 09/30/2019. On 10/14/2019 she began her 1st of 12 planned weekly cycles of paclitaxel. She tolerated the first 2 paclitaxel infusions with pretty minimal toxicity. With the 3rd infusion she was given planned G-CSF for 2 days due to moderate neutropenia. With that cycle she experienced pretty severe fatigue and she also had some musculoskeletal pain and mild neuropathy symptoms. The symptoms were felt to be more related to the G-CSF then to the paclitaxel, but that is difficult to know for sure. Her white blood cell count responded well to the growth factor. Plan: 1. Proceed with week 10/12 paclitaxel (1 week delayed due to persistently mildly elevated ALT/AST). We did dose reduce her by 20% with week 5. 2. Steroid compliance confirmed her steroid dose has been decreased by 1 tablet each time per Dr. Beverly due to her shakiness. 3. Today's labs were reviewed in detail and discussed with Ms. Wilburn and a copy was given to her WBC 6.2 hemoglobin 12.6 platelets 281,000 ANC is 4700. ALT 46 (0-33) and AST 77 (0-32). 4. We will have her return in 1 week with CBC CMP for consideration of week 11 paclitaxel. She is aware of her abominal/liver ultrasound (for folllowup of elevatqed LFTs) from earlier today- it was reported as normal with a region of increased echogenicity measuring 0.84 x 1.04 x 1.29 cm which is probably a liver hemangioma . 5. Ms. Wilburn has had follow-up with Dr. Godinez in regards to discussion of removal of her ovaries due to ER MA positive breast cancer. Without removal of her ovaries, she will be considered premenopausal and therefore her hormonal therapy recommendation would be tamoxifen. The use of tamoxifen does would put her at higher risk for endometrial cancer. She is also requesting removal of the uterus along with the ovaries. 6. She was encouraged to contact us in the interim should questions or problems arise. Signed By: Beth Doss-, AOTHANIAP Zia Beverly MD <<Signature on File>>
--- NOTE | 2020-01-03 00:10 | ONC FU_ITS ---
[facility] Patient Note Patient: Ramya Wilburn Unit #: [id number]: [id number] Dictated By: Beth DossDate of Visit: Dec 30, 2019 Onc MED Follow-Up/Prog Note Chief Complaint: Breast cancer. History of Present Illness: Ms Wilburn is a 44 year-old woman with grade 2 invasive ductal carcinoma of the left breast, ER/VT positive and HER-2/bambi negative. By clinical evaluation her disease was stage at least IA (T1c, pN1a, M0) at initial diagnosis. She had originally presented a year ago with bloody discharge from the left nipple. An ultrasound of the left breast on 08/06/2018 was BI-RADS Category 1. A few ductal structures were noted in the subareolar region, but there was no evidence for cystic or solid soft tissue abnormality. She apparently then had an abnormal mammogram done elsewhere and further evaluation with a diagnostic bilateral mammogram on 11/18/2018 showed multiple calcifications scattered throughout the left breast. The most concerning were in the upper outer quadrant. The breasts were noted to be extremely dense. A stereotactic biopsy of left breast calcifications on 01/18/2019 showed fibrocystic changes with no malignancy or significant atypia identified. She then had a repeat diagnostic mammogram and left breast ultrasound on 06/24/2019. The mammogram showed a slightly spiculated asymmetric density measuring 1.3 x 0.6 cm in the upper outer quadrant. Multiple punctate calcifications deep to the biopsy marker were noted to have a similar appearance compared to the study from November 2018. Ultrasound showed an irregular hypoechoic lesion at the 2 o'clock position measuring 1.3 x 1.2 x 0.9 cm. It was BI-RADS 5, highly suggestive of malignancy. Ultrasound also showed an abnormal appearing enlarged lymph node in the left axilla measuring 1.9 x 1.4 x 0.8 cm. On 07/12/2019 she underwent ultrasound-guided biopsy of the left breast mass and the left axillary lymph node. Pathology on the breast mass showed moderately differentiated invasive ductal carcinoma, nuclear grade 2. The maximum tumor size is 1.0 cm. The left axillary lymph node biopsy was positive for metastatic ductal carcinoma with tumor size measuring 3.5 mm. The breast prognostic profile showed ER positive at 90% and VT positive at 90%. HER-2/bambi was 2+ by IHC, but negative by FISH with amplification ratio 1.4 and 2.8 HER-2 copies/cell. The KI-67 was elevated at 30%. Dr Beverly had seen her initially on 07/23/2019. With clinically evident axillary lymph node involvement, she was advised to undergo neoadjuvant chemotherapy with Adriamycin/cyclophosphamide followed by paclitaxel. Her other medical illnesses include GERD, migraine headaches, and anxiety/depression. She also has a history of thyroid nodules with hyperthyroidism, for which she underwent total thyroidectomy in 2014. She has only minimal prior smoking history, and she quit smoking in 2007. INTERIM HISTORY: She began cycle 1 of Adriamycin/cyclophosphamide on 08/19/2019. She was given first cycle prophylaxis with Neulasta. She tolerated the treatment well, and she continued with cycle 2 on 09/02/2019, with cycle 3 on 09/16/2019, and with cycle 4 on 09/30/2019. She then began her 1st of 12 planned cycles of weekly paclitaxel on 10/14/2019. She had severe fatigue with the paclitaxel and following her third weekly infusion she also became significantly neutropenic, requiring growth factor support with Neupogen. Beginning with her week 5 treatment, she was given a dose reduction, mainly because of the severe fatigue. Her week 6 treatment was deferred due to persistently elevated liver enzymes. She was able to restart after 1-week delay and she is then been able to continue her treatment weekly with liver enzymes remaining just slightly elevated. She received her week 8 paclitaxel infusion on 12/09/2019. Ms. Wilburn is here today for follow-up. She is due for cycle 11 paclitaxel. She states overall she feels pretty good but reports that she did have a 3-day headache in her equilibrium is off . She states she does run into a wall for no reason. She has had some woozy headedness . We did discuss hydration and she may have been a little dehydrated at that time. She been eating drinking well generally but has been kind of busy. But the headache has been persistent. She denies any other pain. She states her breathing is good. She is had some slight neuropathy but states it is certainly no worse than what it was. She states she has had some inner thigh pain but that can have gone away over the last couple of days. She denies any neuropathy in her hands or feet. She denies diarrhea or constipation. She states that she has had no lower extremity edema. She denies fever or chills. She is had no signs of infection for at least the last 72 hours. She continues to work full-time. Her ECOG is 1. Past Medical History: Anxiety Depression History of thyroid nodule/hyperthyroidism Migraine headeaches Surgical hypothyroidism Past Surgical History: Caesarean section Right Subclavian venous access device-Dr Schmitt in 2019 Ultrasound-guided biopsy of left breast mass and left axillary lymph node in 2019 Stereotactic needle biopsy of the left breast in 2018 Total thyroidectomy in 2014 FNA biopsy of thyroid nodule in 2014 Tubal ligation in 2013 Allergies: No Known Allergies. Medications: Claritin 1 Tablet (of 10 mg) Oral daily clonazePAM 1 Tablet (of 0.5 mg) Oral b.i.d. PRN FLUoxetine HCl 1 Tablet (of 80 mg) Oral daily HYDROcodone-Acetaminophen 1 Tablet (of 5-325 mg) Oral q 4 hours PRN Ibuprofen 1 Tablet (of 800 mg) Oral t.i.d. PRN Levothyroxine Sodium 1 Tablet (of 125 mcg) Oral daily Multivitamin Adult 1 Tablet Oral daily Pantoprazole Sodium 1 Tablet (of 40 mg) Tablet, enteric coated Oral daily Rizatriptan Benzoate 1 Tablet (of 10 mg) Oral q 2 hours PRN Senna S 1 Tablet (of 8.6-50 mg) Oral daily PRN Topiramate 1 Tablet (of 50 mg) Oral daily Family History: Ms. Wilburn's mother is alive. Ms. Wilburn's father is alive. Ms. Wilburn has 1 maternal aunt who is : uterine cancer. Father has diabetes and coronary artery disease and is still living at age 73. Mother is in good health age 68. Two brothers and a fraternal twin sister are in good health. Social History: Ms. 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 Ms. Wilburn quit smoking 12 years ago but had smoked for 2 years. She has no history of drinking. Ms. Wilburn reports the following support systems: lives with spouse, significant other, family, or friends, lives in own house, supportive family/friends willing to assist with needs, and adequate transportation available for expected visits. Her diet consists of regular meals. She indicates her activity level as: regular exercise. Review Of Symptoms: Constitutional Denies fevers, chills, night sweats, or weight loss. She states she feels good in general today. She did have a headache for 3 straight days which is new for her. Right side temporal area-no vision changes or nausea/vomiting. Allergic/Immunologic No reactions. Eyes Denies significant visual changes. No diplopia. No amaurosis. ENMT Denies changes in hearing, sore throat, mouth sores, difficulty or changes in swallowing ability, and/or sinus drainage. Hematologic/Lymphatic Denies easy bruising or bleeding. The patient denies any tender or palpable lymph nodes. Breasts no new concerns. Respiratory Denies dyspnea on exertion, chest pain, cough or hemoptysis. Denies orthopnea. Cardiovascular Denies anginal chest pain, palpitations or orthopnea. Gastrointestinal Denies nausea, vomiting, diarrhea, GI bleeding, or constipation. Denies change in bowel habits and/or stool color, no heartburn or early satiety. Genitourinary (F) No hematuria, hesitancy, incontinence, vaginal bleeding, discharge or other problems with urination. Musculoskeletal Denies joint swelling or redness. No decreased range of motion. B Integumentary Denies chronic rashes, inflammation, ulcerations or skin changes. Neurologic Denies headache, blurred vision, and no areas of focal weakness or numbness. Normal gait. No sensory problems. 1 episode of off balance and ran into a wall at home . No syncope, no TIA symptoms. Psychiatric Denies insomnia, depression, ro or mood swings. Vital Signs: Performed on Dec 30, 2019 11:09 Height - 63.00 in Weight - 154.0 lbs (HIGH) BSA - 1.73 sq.m BMI - 27.28 Temperature - 97.7 F (LOW) Pulse - 90 /min Respiration - 18 /min BP - 117/75 mm(hg) O2 Sat - 99 % Pain - 0,1 - No physically strenuous activity, but ambulatory and able to carry out light or sedentary work (e.g. office work, light house work). (ECOG) Physical Examination: Constitutional Alert, oriented, no acute distress. Skin pink, warm and dry. She is very jovial. Alopecia. Head Normocephalic; atraumatic. Eyes Conjunctivae and sclerae are clear and without icterus. Pupils are reactive and equal. Neck Supple without masses or thyromegaly. No jugular venous distension. Hematologic/Lymphatic No petechiae or purpura. Respiratory Lungs are clear to auscultation without rhonchi or wheezing. Cardiovascular Regular rate and rhythm of heart without murmurs,clicks, gallops or rubs. Chest RIGHT subclavian venous access device insertion site has healed well. It is unremarkable. Abdomen Non-tender, non-distended, no masses or ascites. Back/Spine Non-tender to palpation. Extremities No visible deformities, no cyanosis, clubbing or edema. Musculoskeletal No tenderness or swelling, normal range of motion without obvious weakness. Integumentary No rashes or lesions. Neurologic No sensory or motor deficits, normal cerebellar function, normal gait. Psychiatric Alert and oriented times three. Coherent speech. Verbalizes understanding of our discussions today. Laboratory:Test performed on Dec 30, 2019 09:27 Sodium 137 mmol/L Potassium 4.2 mmol/L Chloride 100 mmol/L CO2 24 mmol/L Anion Gap 17.2 BUN 17 mg/dL Creatinine 0.8 mg/dL Cr Clearance (Est) 91.9400 mL/min eGFR 78.3 mL/min Glucose 158 mg/dL Osmolality - Calculated 289 mOsm/kg Calcium 9.6 mg/dL Protein, Total 7.5 g/dL Albumin 4.6 g/dL Globulin 2.9 g/dL Bilirubin, Total 0.3 mg/dL ALT (SGPT) 88 U/L AST (SGOT) 64 U/L Alkaline Phosphatase 101 IU/L WBC 7.7 10 3/uL Manual Segs % 50 % Manual Bands % 30.0 % RBC 3.94 10 6/uL HGB 12.9 g/dL Manual Lymphs % 14 % HCT 38.5 % MCV 97.7 fL Total Cells Counted 100 Manual Monos % 2.0 % MCH 32.7 pg Manual Eos % 1 % MCHC 33.5 g/dL Manual Basos % 0.0 % RDW 11.9 % Metamyelocytes % 1.0 % Platelet Count 306 10 3/cmm MPV 10.7 fL Myelocytes % 2.0 % CBC Slide Review Slide Review Perform Anisocytosis 1+ Platelet Estimate Normal Manual Segs Abs 3.9 10/cmm Manual Bands Abs 2.3 10 3/cmm Manual Neutrophils Abs 6.2 10 3/cmm Manual Monocytes Abs 0.2 10 3/cmm Manual Eosinophils Abs 0.0 10 3/cmm Manual Basophils Abs 0.0 10 3/cmm Impression: 1. Patient with grade 2 infiltrating ductal carcinoma of the left breast, by clinical evaluation stage at least 1A (T1c, pN1a, M0), ER/VT positive and HER-2/bambi negative. 2. She underwent ultrasound-guided biopsies of left breast mass and left axillary lymph node on 07/12/2019. Her other medical illnesses include: 3. GERD. 4. Migraine headaches. 5. Anxiety/depression. 6. She has a history of thyroid nodules/hyperthyroidism for which she underwent total thyroidectomy in 2014. With clinically evident axillary lymph node involvement, she was advised to undergo neoadjuvant chemotherapy with Adriamycin/cyclophosphamide followed by paclitaxel. She has now completed 2 cycles of Adriamycin/cyclophosphamide. She was given Neulasta prophylaxis with both cycles. She has had denise granulocyte counts of 400 and 500, with no associated fever. Other side effects were limited to fatigue, mild nausea, and some joint pain with the Neulasta. Overall, she tolerated the treatment well. She continued with cycle 2 of Adriamycin/cyclophosphamide on 09/02/2019, with cycle 3 on 09/16/2019, and with cycle 4 on 09/30/2019. On 10/14/2019 she began her 1st of 12 planned weekly cycles of paclitaxel. She tolerated the first 2 paclitaxel infusions with pretty minimal toxicity. With the 3rd infusion she was given planned G-CSF for 2 days due to moderate neutropenia. With that cycle she experienced pretty severe fatigue and she also had some musculoskeletal pain and mild neuropathy symptoms. The symptoms were felt to be more related to the G-CSF then to the paclitaxel, but that is difficult to know for sure. Her white blood cell count responded well to the growth factor. Plan: 1. Proceed with week 11/12 paclitaxel (1 week delayed due to persistently mildly elevated ALT/AST). We did dose reduce her by 20% with week 5. 2. Steroid compliance confirmed her steroid dose has been decreased by 1 tablet each time per Dr. Beverly due to her shakiness. 3. Today's labs were reviewed in detail and discussed with Ms. Wilburn and a copy was given to her WBC 7.7 hemoglobin 12.9 platelets 306,000 ANC is 6200. ALT 88 (0-33) and AST 64 (0-32). 4. We will have her return in 1 week with CBC CMP for consideration of week 12 paclitaxel. She is aware of her abominal/liver ultrasound (for folllowup of elevatqed LFTs) from earlier today- it was reported as normal with a region of increased echogenicity measuring 0.84 x 1.04 x 1.29 cm which is probably a liver hemangioma . 5. Ms. Wilburn has had follow-up with Dr. Godinez in regards to discussion of removal of her ovaries due to ER VT positive breast cancer. Without removal of her ovaries, she will be considered premenopausal and therefore her hormonal therapy recommendation would be tamoxifen. The use of tamoxifen does would put her at higher risk for endometrial cancer. She is also requesting removal of the uterus along with the ovaries. 6. I have requested an MRI of the brain due to her persistent headaches and now equilibrium disturbances. She does have a history of migraine headaches but I feel the severity and persistence of the headaches warrant further investigation at this time. 7. We will plan to have her check CBC on Friday just to make sure she does not need Neupogen for the 12th dose of paclitaxel. We would like for her to have it administerd it on time. 8. She was instructed to contact us in the interim should questions or problems arise. Signed By: Beth Doss-, AOTHANIAP Zia Beverly MD <<Signature on File>>
[2020-01-03 09:37] LABS: Basophils % 0.7 %; Eosinophils # 0.1 10^3/uL (0.0-0.8); Eosinophils % 0.9 %; Hematocrit 35.1 % (37.0-47.0); Hemoglobin 11.9 g/dL (11.5-15.3); Lymphocytes # 0.9 10^3/uL (0.8-4.8); Lymphocytes % 15.3 %; Mean Corpuscular HGB Conc 33.9 g/dL (30.0-36.0); Mean Corpuscular Hemoglobin 33.1 pg (28.0-34.0); Mean Corpuscular Volume 97.5 fL (81-99); Mean Platelet Volume 10.2 fL (7.4-10.4); Monocytes # 0.3 10^3/uL (0.2-0.9); Monocytes % 5.2 %; Neutrophils # 4.44 10^3/uL (1.8-7.7); Neutrophils % 76.4 %; Nucleated Red Blood Cells % 0 %; Platelet Count 265 10^3/cmm (130-400); Red Cell Distribution Width 11.9 % (12.1-15.1); White Blood Count 5.8 10^3/uL (4.0-10.0)
[2020-01-03 09:54] LABS: Alanine Aminotransferase 55 U/L (0-33); Albumin Level 4.3 g/dL (3.5-5.2); Alkaline Phosphatase 94 IU/L (35-105); Aspartate Amino Transferase 19 U/L (0-32); Blood Urea Nitrogen 14 mg/dL (6-20); Calcium 9.1 mg/dL (8.5-10.5); Carbon Dioxide 25 mmol/L (22-29); Chloride 105 mmol/L (98-107); Globulin 2.4 g/dL (1.3-4.6); Glomerular Filtration Rate 78.3 mL/min (90-130); Glucose 114 mg/dL (65-115); Osmolality Calculated 291 mOsm/kg (285-295); Sodium 140 mmol/L (136-145); Total Bilirubin 0.4 mg/dL (0.15-1.2); Total Protein 6.7 g/dL (6.6-8.7)
[2020-01-06 10:03] LABS: Basophils % 0.8 %; Hematocrit 35.9 % (37.0-47.0); Lymphocytes # 0.7 10^3/uL (0.8-4.8); Lymphocytes % 13.3 %; Mean Corpuscular HGB Conc 33.4 g/dL (30.0-36.0); Mean Corpuscular Volume 98.6 fL (81-99); Mean Platelet Volume 10.1 fL (7.4-10.4); Monocytes # 0.1 10^3/uL (0.2-0.9); Monocytes % 1.4 %; Neutrophils # 3.89 10^3/uL (1.8-7.7); Neutrophils % 79.6 %; Nucleated Red Blood Cells % 0 %; Platelet Count 306 10^3/cmm (130-400); Red Blood Count 3.64 10^6/uL (4.1-5.3); Red Cell Distribution Width 12.1 % (12.1-15.1); White Blood Count 4.9 10^3/uL (4.0-10.0)
[2020-01-06 10:23] LABS: Alanine Aminotransferase 70 U/L (0-33); Albumin Level 4.5 g/dL (3.5-5.2); Alkaline Phosphatase 110 IU/L (35-105); Anion Gap 14.8 (5-19); Aspartate Amino Transferase 39 U/L (0-32); Blood Urea Nitrogen 17 mg/dL (6-20); Calcium 9.6 mg/dL (8.5-10.5); Carbon Dioxide 23 mmol/L (22-29); Chloride 99 mmol/L (98-107); Globulin 2.9 g/dL (1.3-4.6); Glomerular Filtration Rate 91.3 mL/min (90-130); Glucose 144 mg/dL (65-115); Osmolality Calculated 280 mOsm/kg (285-295); Potassium 3.8 mmol/L (3.5-5.1); Sodium 133 mmol/L (136-145); Total Bilirubin 0.4 mg/dL (0.15-1.2); Total Protein 7.4 g/dL (6.6-8.7)
[2020-01-06] MEDS: sodium chloride 0.9% 250 ML 75 ML IV (12:25)
[2020-01-06] MEDS: acetaminophen 325 mg Tablet 650 MG PO (12:30)
--- NOTE | 2020-01-08 16:08 | ONC FU_ITS ---
[facility] Patient Note Patient: Ramya Wilburn Unit #: [id number]: 1975 Dictated By: Beth DossDate of Visit: Jan 06, 2020 Onc MED Follow-Up/Prog Note Chief Complaint: Breast cancer. History of Present Illness: Ms Wilburn is a 44 year-old woman with grade 2 invasive ductal carcinoma of the left breast, ER/WA positive and HER-2/bambi negative. By clinical evaluation her disease was stage at least IA (T1c, pN1a, M0) at initial diagnosis. She had originally presented a year ago with bloody discharge from the left nipple. An ultrasound of the left breast on 08/06/2018 was BI-RADS Category 1. A few ductal structures were noted in the subareolar region, but there was no evidence for cystic or solid soft tissue abnormality. She apparently then had an abnormal mammogram done elsewhere and further evaluation with a diagnostic bilateral mammogram on 11/18/2018 showed multiple calcifications scattered throughout the left breast. The most concerning were in the upper outer quadrant. The breasts were noted to be extremely dense. A stereotactic biopsy of left breast calcifications on 01/18/2019 showed fibrocystic changes with no malignancy or significant atypia identified. She then had a repeat diagnostic mammogram and left breast ultrasound on 06/24/2019. The mammogram showed a slightly spiculated asymmetric density measuring 1.3 x 0.6 cm in the upper outer quadrant. Multiple punctate calcifications deep to the biopsy marker were noted to have a similar appearance compared to the study from November 2018. Ultrasound showed an irregular hypoechoic lesion at the 2 o'clock position measuring 1.3 x 1.2 x 0.9 cm. It was BI-RADS 5, highly suggestive of malignancy. Ultrasound also showed an abnormal appearing enlarged lymph node in the left axilla measuring 1.9 x 1.4 x 0.8 cm. On 07/12/2019 she underwent ultrasound-guided biopsy of the left breast mass and the left axillary lymph node. Pathology on the breast mass showed moderately differentiated invasive ductal carcinoma, nuclear grade 2. The maximum tumor size is 1.0 cm. The left axillary lymph node biopsy was positive for metastatic ductal carcinoma with tumor size measuring 3.5 mm. The breast prognostic profile showed ER positive at 90% and WA positive at 90%. HER-2/bambi was 2+ by IHC, but negative by FISH with amplification ratio 1.4 and 2.8 HER-2 copies/cell. The KI-67 was elevated at 30%. Dr Beverly had seen her initially on 07/23/2019. With clinically evident axillary lymph node involvement, she was advised to undergo neoadjuvant chemotherapy with Adriamycin/cyclophosphamide followed by paclitaxel. Her other medical illnesses include GERD, migraine headaches, and anxiety/depression. She also has a history of thyroid nodules with hyperthyroidism, for which she underwent total thyroidectomy in 2014. She has only minimal prior smoking history, and she quit smoking in 2007. INTERIM HISTORY: She began cycle 1 of Adriamycin/cyclophosphamide on 08/19/2019. She was given first cycle prophylaxis with Neulasta. She tolerated the treatment well, and she continued with cycle 2 on 09/02/2019, with cycle 3 on 09/16/2019, and with cycle 4 on 09/30/2019. She then began her 1st of 12 planned cycles of weekly paclitaxel on 10/14/2019. She had severe fatigue with the paclitaxel and following her third weekly infusion she also became significantly neutropenic, requiring growth factor support with Neupogen. Beginning with her week 5 treatment, she was given a dose reduction, mainly because of the severe fatigue. Her week 6 treatment was deferred due to persistently elevated liver enzymes. She was able to restart after 1-week delay and she is then been able to continue her treatment weekly with liver enzymes remaining just slightly elevated. She received her week 8 paclitaxel infusion on 12/09/2019. Ms. Wilburn is here today for follow-up. She is due for cycle 12 paclitaxel. She states overall she feels good. She is excited this is her last planned treatment. She states that she has an appointment for an MRI of the breast on January 18, follow-up with Dr. Sandoval on January 25 to discuss surgery then she will return for radiation therapy after that then she plans to see Dr. Godinez for consideration of a hysterectomy. She denies any worsening or new headache. She states she is had some intermittent headache but has not been as bad as it was. She denies any nausea or vomiting. She states she is tired but it is no worse. She states it may be some better because she knows she is getting ready to finish chemotherapy today. She denies mouth sores, sore throat or difficulty swallowing. She denies any neuropathy in her hands or feet. She denies diarrhea or constipation. She states that she has had no lower extremity edema. She denies fever or chills. She is had no signs of infection for at least the last 72 hours. She continues to work full-time. Her ECOG is 1. Past Medical History: Anxiety Depression History of thyroid nodule/hyperthyroidism Migraine headeaches Surgical hypothyroidism Past Surgical History: Caesarean section Right Subclavian venous access device-Dr Schmitt in 2019 Ultrasound-guided biopsy of left breast mass and left axillary lymph node in 2019 Stereotactic needle biopsy of the left breast in 2018 Total thyroidectomy in 2014 FNA biopsy of thyroid nodule in 2014 Tubal ligation in 2013 Allergies: No Known Allergies. Medications: Claritin 1 Tablet (of 10 mg) Oral daily clonazePAM 1 Tablet (of 0.5 mg) Oral b.i.d. PRN FLUoxetine HCl 1 Tablet (of 80 mg) Oral daily HYDROcodone-Acetaminophen 1 Tablet (of 5-325 mg) Oral q 4 hours PRN Ibuprofen 1 Tablet (of 800 mg) Oral t.i.d. PRN Levothyroxine Sodium 1 Tablet (of 125 mcg) Oral daily Multivitamin Adult 1 Tablet Oral daily Pantoprazole Sodium 1 Tablet (of 40 mg) Tablet, enteric coated Oral daily Rizatriptan Benzoate 1 Tablet (of 10 mg) Oral q 2 hours PRN Senna S 1 Tablet (of 8.6-50 mg) Oral daily PRN Topiramate 1 Tablet (of 50 mg) Oral daily Family History: Ms. Wilburn's mother is alive. Ms. Wilburn's father is alive. Ms. Wilburn has 1 maternal aunt who is : uterine cancer. Father has diabetes and coronary artery disease and is still living at age 73. Mother is in good health age 68. Two brothers and a fraternal twin sister are in good health. Social History: Ms. 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 Ms. Wilburn quit smoking 12 years ago but had smoked for 2 years. She has no history of drinking. Ms. Wilburn reports the following support systems: lives with spouse, significant other, family, or friends, lives in own house, supportive family/friends willing to assist with needs, and adequate transportation available for expected visits. Her diet consists of regular meals. She indicates her activity level as: regular exercise. Review Of Symptoms: Constitutional Denies fevers, chills, night sweats, or weight loss. She states she feels good in general today. Allergic/Immunologic No reactions. Eyes Denies significant visual changes. No diplopia. No amaurosis. ENMT Denies changes in hearing, sore throat, mouth sores, difficulty or changes in swallowing ability, and/or sinus drainage. Hematologic/Lymphatic Denies easy bruising or bleeding. The patient denies any tender or palpable lymph nodes. Breasts no new concerns. Respiratory Denies dyspnea on exertion, chest pain, cough or hemoptysis. Denies orthopnea. Cardiovascular Denies anginal chest pain, palpitations or orthopnea. Gastrointestinal Denies nausea, vomiting, diarrhea, GI bleeding, or constipation. Denies change in bowel habits and/or stool color, no heartburn or early satiety. Genitourinary (F) No hematuria, hesitancy, incontinence, vaginal bleeding, discharge or other problems with urination. Musculoskeletal Denies joint swelling or redness. No decreased range of motion. B Integumentary Denies chronic rashes, inflammation, ulcerations or skin changes. Neurologic Denies headache, blurred vision, and no areas of focal weakness or numbness. Normal gait. No sensory problems. Psychiatric Denies insomnia, depression, ro or mood swings. Vital Signs: Performed on Jan 06, 2020 11:57 Height - 63.00 in Weight - 155.0 lbs (HIGH) BSA - 1.74 sq.m BMI - 27.46 Temperature - 97.9 F (LOW) Pulse - 88 /min Respiration - 18 /min BP - 116/80 mm(hg) O2 Sat - 98 % Pain - 0,1 - No physically strenuous activity, but ambulatory and able to carry out light or sedentary work (e.g. office work, light house work). (ECOG) Physical Examination: Constitutional Alert, oriented, no acute distress. Skin pink, warm and dry. She is very jovial. Alopecia. Head Normocephalic; atraumatic. Eyes Conjunctivae and sclerae are clear and without icterus. Pupils are reactive and equal. Neck Supple without masses or thyromegaly. No jugular venous distension. Hematologic/Lymphatic No petechiae or purpura. Respiratory Lungs are clear to auscultation without rhonchi or wheezing. Cardiovascular Regular rate and rhythm of heart without murmurs,clicks, gallops or rubs. Chest RIGHT subclavian venous access device insertion site has healed well. It is unremarkable. Abdomen Non-tender, non-distended, no masses or ascites. Back/Spine Non-tender to palpation. Extremities No visible deformities, no cyanosis, clubbing or edema. Musculoskeletal No tenderness or swelling, normal range of motion without obvious weakness. Integumentary No rashes or lesions. Neurologic No sensory or motor deficits, normal cerebellar function, normal gait. Psychiatric Alert and oriented times three. Coherent speech. Verbalizes understanding of our discussions today. Laboratory:Test performed on Jan 06, 2020 09:47 Sodium 133 mmol/L Potassium 3.8 mmol/L Chloride 99 mmol/L CO2 23 mmol/L Anion Gap 14.8 BUN 17 mg/dL Creatinine 0.7 mg/dL Cr Clearance (Est) 105.0700 mL/min eGFR 91.3 mL/min Glucose 144 mg/dL Osmolality - Calculated 280 mOsm/kg Calcium 9.6 mg/dL Protein, Total 7.4 g/dL Albumin 4.5 g/dL Globulin 2.9 g/dL Bilirubin, Total 0.4 mg/dL ALT (SGPT) 70 U/L AST (SGOT) 39 U/L Alkaline Phosphatase 110 IU/L WBC 4.9 10 3/uL RBC 3.64 10 6/uL HGB 12.0 g/dL HCT 35.9 % MCV 98.6 fL MCH 33.0 pg MCHC 33.4 g/dL RDW 12.1 % Platelet Count 306 10 3/cmm MPV 10.1 fL Neutrophils 3.89 10 3/uL Lymphocytes 0.7 10 3/uL Monocytes 0.1 10 3/uL Eosinophils 0.0 10 3/uL Basophils 0.0 10 3/uL Neutrophil % 79.6 % Lymphocyte % 13.3 % Monocyte % 1.4 % Eosinophil % 0.0 % Basophils % 0.8 % NRBC % 0 % Test performed on Dec 16, 2019 09:27 TSH 0.36 uIU/mL Impression: 1. Patient with grade 2 infiltrating ductal carcinoma of the left breast, by clinical evaluation stage at least 1A (T1c, pN1a, M0), ER/WA positive and HER-2/bambi negative. 2. She underwent ultrasound-guided biopsies of left breast mass and left axillary lymph node on 07/12/2019. Her other medical illnesses include: 3. GERD. 4. Migraine headaches. 5. Anxiety/depression. 6. She has a history of thyroid nodules/hyperthyroidism for which she underwent total thyroidectomy in 2014. With clinically evident axillary lymph node involvement, she was advised to undergo neoadjuvant chemotherapy with Adriamycin/cyclophosphamide followed by paclitaxel. She has now completed 2 cycles of Adriamycin/cyclophosphamide. She was given Neulasta prophylaxis with both cycles. She has had denise granulocyte counts of 400 and 500, with no associated fever. Other side effects were limited to fatigue, mild nausea, and some joint pain with the Neulasta. Overall, she tolerated the treatment well. She continued with cycle 2 of Adriamycin/cyclophosphamide on 09/02/2019, with cycle 3 on 09/16/2019, and with cycle 4 on 09/30/2019. On 10/14/2019 she began her 1st of 12 planned weekly cycles of paclitaxel. She tolerated the first 2 paclitaxel infusions with pretty minimal toxicity. With the 3rd infusion she was given planned G-CSF for 2 days due to moderate neutropenia. With that cycle she experienced pretty severe fatigue and she also had some musculoskeletal pain and mild neuropathy symptoms. The symptoms were felt to be more related to the G-CSF then to the paclitaxel, but that is difficult to know for sure. Her white blood cell count responded well to the growth factor. Plan: 1. Proceed with week 12/12 paclitaxel (1 week delayed due to persistently mildly elevated ALT/AST). We did dose reduce her by 20% with week 5. 2. Steroid compliance confirmed her steroid dose has been decreased by 1 tablet each time per Dr. Beverly due to her shakiness. 3. Today's labs were reviewed in detail and discussed with Ms. Wilburn and a copy was given to her. WBC 4.9, hemoglobin is 12, platelets 306,000 ANC is 3890. Random glucose 144, creatinine 0.7 ALT is 70 AST is 39 alk phos is 110. 4. We will have her return in 1 week with CBC CMP for Interim lab monitoring as well as elevated LFTs . She is aware of her abominal/liver ultrasound (for folllowup of elevatqed LFTs) from earlier today- it was reported as normal with a region of increased echogenicity measuring 0.84 x 1.04 x 1.29 cm which is probably a liver hemangioma . 5. Ms. Wilburn has had follow-up with Dr. Godinez in regards to discussion of removal of her ovaries due to ER WA positive breast cancer. Without removal of her ovaries, she will be considered premenopausal and therefore her hormonal therapy recommendation would be tamoxifen. The use of tamoxifen does would put her at higher risk for endometrial cancer. She is also requesting removal of the uterus along with the ovaries. 6. I have requested an MRI of the brain due to her persistent headaches and now equilibrium disturbances. She does have a history of migraine headaches but I feel the severity and persistence of the headaches warrant further investigation at this time. 7. We will plan to See her back in 4 weeks for follow-up post chemotherapy. We will then need to discuss whether or not to go ahead and start her on hormonal therapy as she is ER/WA positive. 8. She was instructed to contact us in the interim should questions or problems arise. Signed By: Beth Doss-, AOCNP Zia Beverly MD <<Signature on File>>
[2020-01-13 09:33] LABS: Basophils # 0.1 10^3/uL (0.0-0.1); Basophils % 1.3 %; Eosinophils # 0.1 10^3/uL (0.0-0.8); Eosinophils % 1.8 %; Hematocrit 33.7 % (37.0-47.0); Lymphocytes # 1.1 10^3/uL (0.8-4.8); Mean Corpuscular HGB Conc 32.6 g/dL (30.0-36.0); Mean Corpuscular Hemoglobin 32.5 pg (28.0-34.0); Mean Corpuscular Volume 99.7 fL (81-99); Mean Platelet Volume 10.3 fL (7.4-10.4); Monocytes # 0.6 10^3/uL (0.2-0.9); Monocytes % 11.6 %; Neutrophils # 3.16 10^3/uL (1.8-7.7); Nucleated Red Blood Cells % 0 %; Platelet Count 286 10^3/cmm (130-400); Red Blood Count 3.38 10^6/uL (4.1-5.3); Red Cell Distribution Width 12.5 % (12.1-15.1); White Blood Count 5.4 10^3/uL (4.0-10.0)
[2020-01-13 09:57] LABS: Alanine Aminotransferase 57 U/L (0-33); Albumin Level 4.2 g/dL (3.5-5.2); Alkaline Phosphatase 120 IU/L (35-105); Anion Gap 14.1 (5-19); Aspartate Amino Transferase 32 U/L (0-32); Blood Urea Nitrogen 12 mg/dL (6-20); Calcium 8.6 mg/dL (8.5-10.5); Carbon Dioxide 24 mmol/L (22-29); Chloride 105 mmol/L (98-107); Globulin 2.5 g/dL (1.3-4.6); Glomerular Filtration Rate 78.3 mL/min (90-130); Glucose 90 mg/dL (65-115); Osmolality Calculated 287 mOsm/kg (285-295); Potassium 4.1 mmol/L (3.5-5.1); Sodium 139 mmol/L (136-145); Total Bilirubin 0.3 mg/dL (0.15-1.2); Total Protein 6.7 g/dL (6.6-8.7)
[2020-01-13 10:03] LABS: Slide Review Slide Review Perform
== END 2020-01-15 23:59 | disposition home or self-care (01) ==
LOC: ONCMED 05:20
PROVIDERS: Internal Medicine Medical Oncology; PCP Family Medicine; Visit Provider Nurse Practitioner
DX: Z51.11 Encounter for antineoplastic chemotherapy (principal); C50.412 Malignant neoplasm of upper-outer quadrant of left female breast; C77.3 Secondary and unspecified malignant neoplasm of axilla and upper limb lymph nodes; D70.1 Agranulocytosis secondary to cancer chemotherapy; G62.0 Drug-induced polyneuropathy; T45.1X5A Adverse effect of antineoplastic and immunosuppressive drugs, initial encounter; K21.9 Gastro-esophageal reflux disease without esophagitis; F41.8 Other specified anxiety disorders; E89.0 Postprocedural hypothyroidism; Z79.891 Long term (current) use of opiate analgesic; Z87.891 Personal history of nicotine dependence; Z17.0 Estrogen receptor positive status [ER+]
CPT/HCPCS: 36591; 80053; 84443; 85007; 85025; 96367; 96372; 96375; 96413; 99214; J1100; J1200; J1442; J1453; J2405; J3490; J7050; J9267

== ENCOUNTER 2020-02-07 12:20 | Outpatient (RCR) | payer BC, OTHER, SELFPAY ==
--- NOTE | 2020-01-17 08:39 | MR_ITS ---
WS: [id number] MRI HEAD WITH CONTRAST TECHNIQUE: Sagittal T1, T2 axial, T2 axial FLAIR, axial susceptibility weighted imaging, axial diffus ion weighted images, and coronal T2 images were obtained. Pre and post-T1 axial and post T1 coronal i mages. ADC and FSPGR images. CLINICAL INFORMATION: PERSISTENT HEADACHE;DIZZINESS;BREAST CANCER COMPARISON: None. FINDINGS: No evidence of restricted diffusion to suggest acute ischemia. Ventricular system and basal cisterns are patent. No suspicious intracranial signal abnormalities. Normal villavicencio-white differentiation. Aleja l posterior fossa. Normal vascular flow voids at the skull base. No extra-axial fluid collections. Pa ranasal sinuses and mastoid air cells are well aerated. No hemosiderin on the susceptibility weighted images. Normal optic chiasm and pituitary infundibulum. No abnormal gadolinium enhancement. Normal dural venous sinuses. MR/MR head wo/w con [id number] IMPRESSION: 1. No evidence of restricted diffusion to suggest acute ischemia. 2. No suspicious intracranial signal abnormalities. 3. No abnormal gadolinium enhancement. No evidence of enhancing intracranial m etastatic disease. 4. Normal optic chiasm and pituitary infundibulum. 5. No other significant findings.
[2020-01-20 09:33] LABS: Hemoglobin 12.1 g/dL (11.5-15.3); Mean Corpuscular HGB Conc 32.7 g/dL (30.0-36.0); Mean Corpuscular Hemoglobin 31.8 pg (28.0-34.0); Mean Corpuscular Volume 97.1 fL (81-99); Mean Platelet Volume 10.5 fL (7.4-10.4); Platelet Count 284 10^3/cmm (130-400); Red Blood Count 3.81 10^6/uL (4.1-5.3); Red Cell Distribution Width 12.3 % (12.1-15.1); White Blood Count 5.7 10^3/uL (4.0-10.0)
[2020-01-20 09:44] LABS: Alanine Aminotransferase 44 U/L (0-33); Albumin Level 4.1 g/dL (3.5-5.2); Alkaline Phosphatase 105 IU/L (35-105); Aspartate Amino Transferase 35 U/L (0-32); Blood Urea Nitrogen 16 mg/dL (6-20); Calcium 9.2 mg/dL (8.5-10.5); Carbon Dioxide 24 mmol/L (22-29); Chloride 103 mmol/L (98-107); Globulin 2.9 g/dL (1.3-4.6); Glomerular Filtration Rate 91.3 mL/min (90-130); Glucose 97 mg/dL (65-115); Osmolality Calculated 289 mOsm/kg (285-295); Sodium 139 mmol/L (136-145); Total Bilirubin 0.3 mg/dL (0.15-1.2)
[2020-01-20 10:16] LABS: Slide Review Slide Review Perform
[2020-01-20 10:17] LABS: Absolute Segmented Neutrophil 2.2 10/cmm (1.6-7.1); Band Neutrophils Absolute 0.5 10^3/cmm (0.0-1.2); Eosinophils 1 %; Lymphocytes 46 %; Monocytes Absolute 0.2 10^3/cmm (0.1-0.6); Segmented Neutrophils 38 %; Total Cells Counted 100 (0-100)
[2020-01-20 10:18] LABS: Absolute Neutrophil 2.6 10^3/cmm (1.4-6.5); Platelet Estimate Normal (Normal)
--- NOTE | 2020-01-25 16:21 | USCV_ITS ---
Ramya Wilburn Age: 44 Gender: F : 1975 Exam Date: 01/25/2020 16:35 Ordering Phys: Rema Samuel NP Technologist: Natan Weems Exam Location: [facility]_ Indication: RT ARM PAIN AND SWELLING PROCEDURES: Venous duplex imaging was performed in only the right upper extremity. The following venous structures were evaluated: internal jugular vein, subclavian vein, axillary vein, and brachial veins. In addition, the basilic vein, cephalic vein, radial vein, and ulnar vein. FINDINGS: No thrombus visualized within the veins examined today. The PICC like appears free of thrombus at this time as well. CONCLUSIONS No evidence of thrombus of the right upper extremity veins. No thrombus at the PICC tip. Ian Ruelas MD (Electronically Signed) Final Date: 25 January 2020 17:11 S
== END 2020-02-14 23:59 | disposition home or self-care (01) ==
LOC: ONCMED 12:20
PROVIDERS: Nurse Practitioner; PCP Family Medicine; Visit Provider Internal Medicine Medical Oncology
DX: C50.412 Malignant neoplasm of upper-outer quadrant of left female breast (principal); Z17.0 Estrogen receptor positive status [ER+]; D70.1 Agranulocytosis secondary to cancer chemotherapy; T45.1X5A Adverse effect of antineoplastic and immunosuppressive drugs, initial encounter; R51.9 Headache, unspecified; R42 Dizziness and giddiness; M79.601 Pain in right arm; R22.31 Localized swelling, mass and lump, right upper limb
CPT/HCPCS: 36591; 70553; 80053; 85007; 85025; 93971; A9579; J2704; J3490

== ENCOUNTER 2020-03-14 05:23 | Outpatient (RCR) | payer BC, OTHER, SELFPAY ==
--- NOTE | 2020-02-22 10:09 | ONC FU_ITS ---
Dr. Beverly Patient Follow-Up Note Patient: Ramya Wilburn Unit #: [id number]: 1975 Dicatated By: Zia Beverly M.D.Date of Visit:Feb 22, 2020 Onc Med Follow-up/Prog Note Chief Complaint: Breast cancer. History of Present Illness: This is a 43 year-old woman with grade 2 invasive ductal carcinoma of the left breast, ER/AL positive and HER-2/bambi negative. By clinical evaluation her disease was stage at least IA (T1c, pN1a, M0) at initial diagnosis. She had originally presented a year ago with bloody discharge from the left nipple. An ultrasound of the left breast on 08/06/2018 was BI-RADS Category 1. A few ductal structures were noted in the subareolar region, but there was no evidence for cystic or solid soft tissue abnormality. She apparently then had an abnormal mammogram done elsewhere and further evaluation with a diagnostic bilateral mammogram on 11/18/2018 showed multiple calcifications scattered throughout the left breast. The most concerning were in the upper outer quadrant. The breasts were noted to be extremely dense. A stereotactic biopsy of left breast calcifications on 01/18/2019 showed fibrocystic changes with no malignancy or significant atypia identified. She then had a repeat diagnostic mammogram and left breast ultrasound on 06/24/2019. The mammogram showed a slightly spiculated asymmetric density measuring 1.3 x 0.6 cm in the upper outer quadrant. Multiple punctate calcifications deep to the biopsy marker were noted to have a similar appearance compared to the study from November 2018. Ultrasound showed an irregular hypoechoic lesion at the 2 o'clock position measuring 1.3 x 1.2 x 0.9 cm. It was BI-RADS 5, highly suggestive of malignancy. Ultrasound also showed an abnormal appearing enlarged lymph node in the left axilla measuring 1.9 x 1.4 x 0.8 cm. On 07/12/2019 she underwent ultrasound-guided biopsy of the left breast mass and the left axillary lymph node. Pathology on the breast mass showed moderately differentiated invasive ductal carcinoma, nuclear grade 2. The maximum tumor size is 1.0 cm. The left axillary lymph node biopsy was positive for metastatic ductal carcinoma with tumor size measuring 3.5 mm. The breast prognostic profile showed ER positive at 90% and AL positive at 90%. HER-2/bambi was 2+ by IHC, but negative by FISH with amplification ratio 1.4 and 2.8 HER-2 copies/cell. The KI-67 was elevated at 30%. I had seen her initially on 07/23/2019. With clinically evident axillary lymph node involvement, she was advised to undergo neoadjuvant chemotherapy with Adriamycin/cyclophosphamide followed by paclitaxel. Her other medical illnesses include GERD, migraine headaches, and anxiety/depression. She also has a history of thyroid nodules with hyperthyroidism, for which she underwent total thyroidectomy in 2014. She has only minimal prior smoking history, and she quit smoking in 2007. INTERIM HISTORY: She began cycle 1 of Adriamycin/cyclophosphamide on 08/19/2019. She was given first cycle prophylaxis with Neulasta. She tolerated the treatment well, and she continued with cycle 2 on 09/02/2019, with cycle 3 on 09/16/2019, and with cycle 4 on 09/30/2019. She then began her 1st of 12 planned cycles of weekly paclitaxel on 10/14/2019. She had severe fatigue with the paclitaxel and following her third weekly infusion she also became significantly neutropenic, requiring growth factor support with Neupogen. Beginning with her week 5 treatment, she was given a dose reduction, mainly because of the severe fatigue. Her week 6 treatment was deferred due to persistently elevated liver enzymes. She was able to restart after 1-week delay and she was then been able to continue her treatment weekly with liver enzymes remaining just slightly elevated. She received her 12th and final weekly paclitaxel infusion on 01/06/2020. On 02/01/2020 she underwent total mastectomy bilaterally with left axillary sentinel lymph node biopsy. Pathology showed residual grade 2 invasive ductal carcinoma measuring 2.6 x 2.4 x 1.3 cm. 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 The margins were uninvolved. There was involvement into/2 axillary sentinel lymph nodes with the largest metastatic deposit measuring 7 mm. Extranodal extension was present. Pathologic staging was ypT2, ypN1a(sn). With those findings, she underwent left axillary lymph node dissection last week. She is seen today for an unplanned visit, as she has been having severe pain following her left axillary lymph node dissection. The pain is mainly in the left arm, from the shoulder area down to the hand, including the left axillary area and the left elbow. There is numbness in the upper left arm. She is having difficulty with any movement or use of the arm. She also is having persistent hoarseness following the surgery, and she has been having constipation. She has been taking oxycodone 10/APAP 325, but without any significant relief. She gets some relief taking 600 mg of gabapentin, which she started over the weekend. However, that dosage is making her sleepy. Medications: Claritin 1 Tablet (of 10 mg) Oral daily, clonazePAM 1 Tablet (of 0.5 mg) Oral b.i.d. PRN, FLUoxetine HCl 1 Tablet (of 80 mg) Oral daily, Gabapentin 1 Capsule (of 600 mg) Oral t.i.d., HYDROcodone-Acetaminophen 1 Tablet (of 5-325 mg) Oral q 4 hours PRN, Ibuprofen 1 Tablet (of 800 mg) Oral t.i.d. PRN, Levothyroxine Sodium 1 Tablet (of 125 mcg) Oral daily, Multivitamin Adult 1 Tablet Oral daily, Pantoprazole Sodium 1 Tablet (of 40 mg) Tablet, enteric coated Oral daily, Percocet 1 Tablet (of 10-325 mg) Oral q 4 hours PRN, Rizatriptan Benzoate 1 Tablet (of 10 mg) Oral q 2 hours PRN, Senna S 1 Tablet (of 8.6-50 mg) Oral daily PRN, Topiramate 1 Tablet (of 50 mg) Oral daily Allergies: No Known Allergies. Vital Signs: Performed on Feb 22, 2020 09:15 Height - 63.00 in Weight - 163.6 lbs (HIGH) BSA - 1.78 sq.m BMI - 28.98 Temperature - 98.0 F (LOW) Pulse - 88 /min Respiration - 18 /min BP - 125/79 mm(hg) O2 Sat - 98 % Pain - 6 Physical Examination: She does appear to be in some discomfort, but she otherwise does not appear acutely ill. Her mastectomy incisions appear well-healed. There is a more recent incision in the lower left axillary area. Impression: 1. Patient with grade 2 infiltrating ductal carcinoma of the left breast, by clinical evaluation stage at least 1A (T1c, pN1a, M0), ER/AL positive and HER-2/bambi negative. 2. She underwent ultrasound-guided biopsies of left breast mass and left axillary lymph node on 07/12/2019. Her other medical illnesses include: 3. GERD. 4. Migraine headaches. 5. Anxiety/depression. 6. She has a history of thyroid nodules/hyperthyroidism for which she underwent total thyroidectomy in 2014. With clinically evident axillary lymph node involvement, she was advised to undergo neoadjuvant chemotherapy with Adriamycin/cyclophosphamide followed by paclitaxel. She has now completed 2 cycles of Adriamycin/cyclophosphamide. She was given Neulasta prophylaxis with both cycles. She has had denise granulocyte counts of 400 and 500, with no associated fever. Other side effects were limited to fatigue, mild nausea, and some joint pain with the Neulasta. Overall, she tolerated the treatment well. She continued with cycle 2 of Adriamycin/cyclophosphamide on 09/02/2019, with cycle 3 on 09/16/2019, and with cycle 4 on 09/30/2019. On 10/14/2019 she began her 1st of 12 planned weekly cycles of paclitaxel. She tolerated the first 2 paclitaxel infusions with pretty minimal toxicity. With the 3rd infusion she was given planned G-CSF for 2 days due to moderate neutropenia. With the growth factor support, her neutrophil count remained adequate, but she continued to have severe fatigue with the paclitaxel. Beginning with her week 5 treatment, I did opt to give her a dose reduction. With that she did have less severe fatigue, but her week 6 treatment was deferred due to persistently elevated liver enzymes. She was able to resume with her week 6 paclitaxel after just a 1 week delay. She was able to continue the paclitaxel infusions weekly with her liver enzymes remain just slightly elevated. She completed her 12th and final paclitaxel infusion on 01/06/2020. On 02/01/2020 she underwent total mastectomy bilaterally with left axillary sentinel lymph node biopsy. Pathology showed residual grade 2 invasive ductal carcinoma measuring 2.6 x 2.4 x 1.3 cm. 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 The margins were uninvolved. There was involvement into/2 axillary sentinel lymph nodes with the largest metastatic deposit measuring 7 mm. Extranodal extension was present. Pathologic staging was ypT2, ypN1a(sn). With those findings, she then underwent left axillary lymph node dissection. That pathology report is still pending. In the meantime, she has developed severe pain following the left axillary lymph node dissection, and she is having opiate associated constipation. Plan: For the pain I will have her start immediate release oxycodone 15 mg to take 1 or 2 every 4 hours as needed, and she will continue taking gabapentin 600 mg, but just at bedtime. She will start meloxicam 15 mg daily and I will have her increase pantoprazole to 40 mg twice daily. She will be given Magic mouthwash for her throat symptoms. She will increase senna/docusate to 3 tablets twice daily and she also will start Relistor as needed for constipation. When she has recovered adequately, she will be seen by the radiation oncologist for postoperative chest wall radiation, and I also will plan to have her see the physical therapist for lymphedema management. In addition, she will be given adjuvant hormonal therapy, but I also will plan a staging PET/CT prior to starting radiation. Signed By: Zia Beverly M.D. <<Signature on File>>
[2020-03-13 08:42] LABS: Basophils % 1.1 %; Eosinophils # 0.1 10^3/uL (0.0-0.8); Eosinophils % 4.4 %; Hematocrit 39.5 % (37.0-47.0); Hemoglobin 13.1 g/dL (11.5-15.3); Lymphocytes # 1.2 10^3/uL (0.8-4.8); Lymphocytes % 42.9 %; Mean Corpuscular HGB Conc 33.2 g/dL (30.0-36.0); Mean Corpuscular Volume 90.6 fL (81-99); Mean Platelet Volume 11.1 fL (7.4-10.4); Monocytes # 0.6 10^3/uL (0.2-0.9); Monocytes % 20.9 %; Nucleated Red Blood Cells % 0 %; Platelet Count 201 10^3/cmm (130-400); Red Blood Count 4.36 10^6/uL (4.1-5.3); Red Cell Distribution Width 11.3 % (12.1-15.1); White Blood Count 2.7 10^3/uL (4.0-10.0)
[2020-03-13 09:05] LABS: Alanine Aminotransferase 34 U/L (0-33); Albumin Level 4.4 g/dL (3.5-5.2); Alkaline Phosphatase 81 IU/L (35-105); Anion Gap 15.8 (5-19); Aspartate Amino Transferase 26 U/L (0-32); Blood Urea Nitrogen 18 mg/dL (6-20); Calcium 9.1 mg/dL (8.5-10.5); Carbon Dioxide 25 mmol/L (22-29); Chloride 105 mmol/L (98-107); Globulin 2.5 g/dL (1.3-4.6); Glomerular Filtration Rate 68.3 mL/min (90-130); Glucose 95 mg/dL (65-115); Osmolality Calculated 296 mOsm/kg (285-295); Potassium 3.8 mmol/L (3.5-5.1); Sodium 142 mmol/L (136-145); Total Bilirubin 0.4 mg/dL (0.15-1.2); Total Protein 6.9 g/dL (6.6-8.7)
[2020-03-13 09:38] LABS: Neutrophils # 0.82 10^3/uL (1.8-7.7)
--- NOTE | 2020-03-14 15:45 | ONC FU_ITS ---
Dr. Beverly Patient Follow-Up Note Patient: Ramya Wilburn Unit #: [id number]: 1975 Dicatated By: Zia Beverly M.D.Date of Visit:Mar 14, 2020 Onc Med Follow-up/Prog Note Chief Complaint: Breast cancer. History of Present Illness: This is a 43 year-old woman with grade 2 invasive ductal carcinoma of the left breast, ER/CA positive and HER-2/bambi negative. By clinical evaluation her disease was stage at least IA (T1c, pN1a, M0) at initial diagnosis. She had originally presented a year ago with bloody discharge from the left nipple. An ultrasound of the left breast on 08/06/2018 was BI-RADS Category 1. A few ductal structures were noted in the subareolar region, but there was no evidence for cystic or solid soft tissue abnormality. She apparently then had an abnormal mammogram done elsewhere and further evaluation with a diagnostic bilateral mammogram on 11/18/2018 showed multiple calcifications scattered throughout the left breast. The most concerning were in the upper outer quadrant. The breasts were noted to be extremely dense. A stereotactic biopsy of left breast calcifications on 01/18/2019 showed fibrocystic changes with no malignancy or significant atypia identified. She then had a repeat diagnostic mammogram and left breast ultrasound on 06/24/2019. The mammogram showed a slightly spiculated asymmetric density measuring 1.3 x 0.6 cm in the upper outer quadrant. Multiple punctate calcifications deep to the biopsy marker were noted to have a similar appearance compared to the study from November 2018. Ultrasound showed an irregular hypoechoic lesion at the 2 o'clock position measuring 1.3 x 1.2 x 0.9 cm. It was BI-RADS 5, highly suggestive of malignancy. Ultrasound also showed an abnormal appearing enlarged lymph node in the left axilla measuring 1.9 x 1.4 x 0.8 cm. On 07/12/2019 she underwent ultrasound-guided biopsy of the left breast mass and the left axillary lymph node. Pathology on the breast mass showed moderately differentiated invasive ductal carcinoma, nuclear grade 2. The maximum tumor size is 1.0 cm. The left axillary lymph node biopsy was positive for metastatic ductal carcinoma with tumor size measuring 3.5 mm. The breast prognostic profile showed ER positive at 90% and CA positive at 90%. HER-2/bambi was 2+ by IHC, but negative by FISH with amplification ratio 1.4 and 2.8 HER-2 copies/cell. The KI-67 was elevated at 30%. I had seen her initially on 07/23/2019. With clinically evident axillary lymph node involvement, she was advised to undergo neoadjuvant chemotherapy with Adriamycin/cyclophosphamide followed by paclitaxel. Her other medical illnesses include GERD, migraine headaches, and anxiety/depression. She also has a history of thyroid nodules with hyperthyroidism, for which she underwent total thyroidectomy in 2014. She has only minimal prior smoking history, and she quit smoking in 2007. INTERIM HISTORY: She began cycle 1 of Adriamycin/cyclophosphamide on 08/19/2019. She was given first cycle prophylaxis with Neulasta. She tolerated the treatment well, and she continued with cycle 2 on 09/02/2019, with cycle 3 on 09/16/2019, and with cycle 4 on 09/30/2019. She then began her 1st of 12 planned cycles of weekly paclitaxel on 10/14/2019. She had severe fatigue with the paclitaxel and following her third weekly infusion she also became significantly neutropenic, requiring growth factor support with Neupogen. Beginning with her week 5 treatment, she was given a dose reduction, mainly because of the severe fatigue. Her week 6 treatment was deferred due to persistently elevated liver enzymes. She was able to restart after 1-week delay and she was then been able to continue her treatment weekly with liver enzymes remaining just slightly elevated. She received her 12th and final weekly paclitaxel infusion on 01/06/2020. On 02/01/2020 she underwent total mastectomy bilaterally with left axillary sentinel lymph node biopsy. Pathology showed residual grade 2 invasive ductal carcinoma measuring 2.6 x 2.4 x 1.3 cm. 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 The margins were uninvolved. There was involvement into/2 axillary sentinel lymph nodes with the largest metastatic deposit measuring 7 mm. Extranodal extension was present. Pathologic staging was ypT2, ypN1a(sn). With those findings, she underwent left axillary lymph node dissection on 02/17/2020. Pathology showed additional involvement in 1/9 lymph nodes measuring approximately 6 mm in greatest dimension. There was no extracapsular extension identified. She is seen for a follow-up visit. She has been having significant pain in her left shoulder/axillary area and left arm following her surgeries. She has been able to manage the pain adequately taking gabapentin and immediate release oxycodone, but she takes them only at bedtime to avoid sedation during the daytime. She is still trying to work some, but she does feel tired a lot. ECOG score is 1. Her appetite comes and goes. She has not had fever. She does have hot flashes and sweating. She has had no menstruation since she started chemotherapy. She has just a little bit of cough, attributable to sinus drainage. She does not complain of shortness of breath or chest pain. She has had some acid reflux and her bowels are still irregular. Bladder function has been okay. She has no other joint or bone pain. 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 She has having significant anxiety, though she has been taking fluoxetine 80 mg daily. Medications: Claritin 1 Tablet (of 10 mg) Oral daily, clonazePAM 1 Tablet (of 0.5 mg) Oral b.i.d. PRN, FLUoxetine HCl 1 Tablet (of 80 mg) Oral daily, Gabapentin 1 Capsule (of 600 mg) Oral at bedtime, Ibuprofen 1 Tablet (of 800 mg) Oral t.i.d. PRN, Levothyroxine Sodium 1 Tablet (of 125 mcg) Oral daily, Meloxicam 1 Tablet (of 15 mg) Oral daily, oxyCODONE HCl 1 Tablet (of 15 mg) Oral at bedtime PRN, Pantoprazole Sodium 1 Tablet (of 40 mg) Tablet, enteric coated Oral daily, Rizatriptan Benzoate 1 Tablet (of 10 mg) Oral q 2 hours PRN, Senna S 1 Tablet (of 8.6-50 mg) Oral daily PRN, Topiramate 1 Tablet (of 50 mg) Oral daily Allergies: No Known Allergies. Review of Systems: Constitutional - She has been feeling tired. She is trying to work. Appetite is variable. She has lost weight. No fever. She is having hot flashes and sweating. Her ECOG score is 1, ENMT - She has sinus congestion/drainage. No mouth sores. No sore throat or difficulty swallowing, Hematologic/Lymphatic - No abnormal bruising or bleeding, Respiratory - No shortness of breath. She has some cough with the sinus drainage. No pleuritic pain or hemoptysis, Cardiovascular - No angina pain. No palpitations, Gastrointestinal - No nausea or vomiting. She still has some heartburn. Bowel function is still irregular. No blood in the stool or black stools, Genitourinary (F) - No dysuria or hematuria. No urinary frequency. No urgency or incontinence. She has had no menstrual period since she started chemotherapy, Musculoskeletal - She is having significant pain in the left shoulder and left arm and the left arm does have limited range of motion, Integumentary - No skin rash, Neurologic - She has very few headaches and she has dizziness just occasionally. She still has some pain and numbness in her fingertips. No other focal neurologic symptoms, Psychiatric - She is having significant anxiety. She has some difficulty sleeping due to her arm pain. Vital Signs: Performed on Mar 14, 2020 08:21 Height - 63.00 in Weight - 155.8 lbs (LOW) BSA - 1.74 sq.m BMI - 27.60 Temperature - 98.0 F (LOW) Pulse - 91 /min Respiration - 18 /min BP - 118/74 mm(hg) O2 Sat - 98 % Pain - 0 Physical Examination: Constitutional - She looks pretty good generally, Eyes - Sclerae nonicteric. Conjunctivae clear, ENMT - No lesions noted in the oral cavity, Hematologic/Lymphatic - No cervical or clavicular adenopathy, Respiratory - Lungs are clear with good air movement bilaterally, Cardiovascular - Heart rhythm is regular. There is no murmur, gallop, or rub noted, Breasts - There are no lesions noted in the chest wall bilaterally. It appears well-healed. There is no axillary adenopathy, Abdomen - Soft. Liver and spleen are not enlarged. There is no abdominal mass or ascites noted and there is no inguinal adenopathy, Extremities - There is no lower extremity edema. There is slight swelling in the left arm, Neurologic - No focal neurologic deficits noted. Lab/Imaging: Test performed on Mar 13, 2020 08:15 Sodium 142 mmol/L Potassium 3.8 mmol/L Chloride 105 mmol/L CO2 25 mmol/L Anion Gap 15.8 BUN 18 mg/dL Creatinine 0.9 mg/dL Cr Clearance (Est) 94.4200 mL/min eGFR 68.3 mL/min Glucose 95 mg/dL Osmolality - Calculated 296 mOsm/kg Calcium 9.1 mg/dL Protein, Total 6.9 g/dL Albumin 4.4 g/dL Globulin 2.5 g/dL Bilirubin, Total 0.4 mg/dL ALT (SGPT) 34 U/L AST (SGOT) 26 U/L Alkaline Phosphatase 81 IU/L WBC 2.7 10 3/uL RBC 4.36 10 6/uL HGB 13.1 g/dL HCT 39.5 % MCV 90.6 fL MCH 30.0 pg MCHC 33.2 g/dL RDW 11.3 % Platelet Count 201 10 3/cmm MPV 11.1 fL Neutrophils 0.82 10 3/uL Lymphocytes 1.2 10 3/uL Monocytes 0.6 10 3/uL Eosinophils 0.1 10 3/uL Basophils 0.0 10 3/uL Neutrophil % 30.0 % Lymphocyte % 42.9 % Monocyte % 20.9 % Eosinophil % 4.4 % Basophils % 1.1 % NRBC % 0 % Impression: 1. Patient with grade 2 infiltrating ductal carcinoma of the left breast, by clinical evaluation stage at least 1A (T1c, pN1a, M0), ER/CA positive and HER-2/bambi negative. 2. She underwent ultrasound-guided biopsies of left breast mass and left axillary lymph node on 07/12/2019. Her other medical illnesses include: 3. GERD. 4. Migraine headaches. 5. Anxiety/depression. 6. She has a history of thyroid nodules/hyperthyroidism for which she underwent total thyroidectomy in 2014. With clinically evident axillary lymph node involvement, she was advised to undergo neoadjuvant chemotherapy with Adriamycin/cyclophosphamide followed by paclitaxel. She has now completed 2 cycles of Adriamycin/cyclophosphamide. She was given Neulasta prophylaxis with both cycles. She has had denise granulocyte counts of 400 and 500, with no associated fever. Other side effects were limited to fatigue, mild nausea, and some joint pain with the Neulasta. Overall, she tolerated the treatment well. She continued with cycle 2 of Adriamycin/cyclophosphamide on 09/02/2019, with cycle 3 on 09/16/2019, and with cycle 4 on 09/30/2019. On 10/14/2019 she began her 1st of 12 planned weekly cycles of paclitaxel. She tolerated the first 2 paclitaxel infusions with pretty minimal toxicity. With the 3rd infusion she was given planned G-CSF for 2 days due to moderate neutropenia. With the growth factor support, her neutrophil count remained adequate, but she continued to have severe fatigue with the paclitaxel. Beginning with her week 5 treatment, I did opt to give her a dose reduction. With that she did have less severe fatigue, but her week 6 treatment was deferred due to persistently elevated liver enzymes. She was able to resume with her week 6 paclitaxel after just a 1 week delay. She was able to continue the paclitaxel infusions weekly with her liver enzymes remain just slightly elevated. She completed her 12th and final paclitaxel infusion on 01/06/2020. On 02/01/2020 she underwent total mastectomy bilaterally with left axillary sentinel lymph node biopsy. Pathology showed residual grade 2 invasive ductal carcinoma measuring 2.6 x 2.4 x 1.3 cm. 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 The margins were uninvolved. There was involvement into/2 axillary sentinel lymph nodes with the largest metastatic deposit measuring 7 mm. Extranodal extension was present. Pathologic staging was ypT2, ypN1a(sn). With those findings, she then underwent left axillary lymph node dissection on 02/17/2020. Pathology showed involvement in additional 1/9 lymph nodes measuring approximately 6 mm. There was no extracapsular extension identified. Plan: She will be referred to radiation oncology for postop chest wall radiation, but I will first have her see the physical therapist for postmastectomy lymphedema management. She also will need to start adjuvant hormonal therapy. Given the extent of her disease and her relatively high risk of recurrence, I will plan to use an aromatase inhibitor in combination with goserelin. I did review her bowel regimen with her and she will increase senna/docusate to 2 or 3 tablets twice a day as needed. She is to let us know if that is not effective. Her medications otherwise remain the same. Signed By: Zia Beverly M.D. <<Signature on File>>
== END 2020-03-16 23:59 | disposition home or self-care (01) ==
LOC: ONCMED 05:23
PROVIDERS: PCP Family Medicine; Visit Provider Internal Medicine Medical Oncology
DX: C50.412 Malignant neoplasm of upper-outer quadrant of left female breast (principal); Z17.0 Estrogen receptor positive status [ER+]; D70.1 Agranulocytosis secondary to cancer chemotherapy; T45.1X5A Adverse effect of antineoplastic and immunosuppressive drugs, initial encounter; K21.9 Gastro-esophageal reflux disease without esophagitis; G43.909 Migraine, unspecified, not intractable, without status migrainosus; F41.9 Anxiety disorder, unspecified; F32.9 Major depressive disorder, single episode, unspecified; Z86.39 Personal history of other endocrine, nutritional and metabolic disease; Z79.899 Other long term (current) drug therapy
CPT/HCPCS: 36415; 80053; 85025; 99214; G0463

== ENCOUNTER 2020-03-22 06:00 | Outpatient (RCR) | payer OTHER, SELFPAY | END 2020-04-16 23:59 | disposition home or self-care (01) | LOC: SPT 06:00 | PROVIDERS: PCP Family Medicine; Referring Provider Internal Medicine Medical Oncology; Visit Provider Internal Medicine Medical Oncology | DX: C50.919 Malignant neoplasm of unspecified site of unspecified female breast (principal) | CPT/HCPCS: 97140; 97161 ==

== ENCOUNTER 2020-04-14 05:35 | Outpatient (RCR) | payer OTHER, SELFPAY ==
--- NOTE | 2020-03-28 | CT_ITS ---
Radiation Therapy Planning CT images; total exam DLP: 445.89 mGy-cm MTDD
[2020-04-03 09:12] LABS: Basophils # 0.1 10^3/uL (0.0-0.1); Basophils % 1.3 %; Eosinophils # 0.2 10^3/uL (0.0-0.8); Eosinophils % 3.3 %; Hematocrit 40.5 % (37.0-47.0); Hemoglobin 13.4 g/dL (11.5-15.3); Lymphocytes # 1.6 10^3/uL (0.8-4.8); Lymphocytes % 35.9 %; Mean Corpuscular HGB Conc 33.1 g/dL (30.0-36.0); Mean Corpuscular Hemoglobin 29.5 pg (28.0-34.0); Mean Platelet Volume 10.6 fL (7.4-10.4); Monocytes # 0.5 10^3/uL (0.2-0.9); Monocytes % 9.8 %; Neutrophils # 2.24 10^3/uL (1.8-7.7); Nucleated Red Blood Cells % 0 %; Platelet Count 257 10^3/cmm (130-400); Red Blood Count 4.55 10^6/uL (4.1-5.3); Red Cell Distribution Width 11.6 % (12.1-15.1); White Blood Count 4.6 10^3/uL (4.0-10.0)
[2020-04-03 10:11] LABS: Alanine Aminotransferase 33 U/L (0-33); Albumin Level 4.4 g/dL (3.5-5.2); Alkaline Phosphatase 99 IU/L (35-105); Aspartate Amino Transferase 24 U/L (0-32); Blood Urea Nitrogen 18 mg/dL (6-20); Calcium 9.2 mg/dL (8.5-10.5); Carbon Dioxide 28 mmol/L (22-29); Chloride 104 mmol/L (98-107); Globulin 2.9 g/dL (1.3-4.6); Glomerular Filtration Rate 78.3 mL/min (90-130); Glucose 84 mg/dL (65-115); Osmolality Calculated 291 mOsm/kg (285-295); Sodium 140 mmol/L (136-145); Total Bilirubin 0.5 mg/dL (0.15-1.2); Total Protein 7.3 g/dL (6.6-8.7)
[2020-04-03] MEDS: goserelin acetate 3.6 mg Implant SUBCUT (11:24)
--- NOTE | 2020-04-04 14:45 | ONC FU_ITS ---
[facility] Patient Note Patient: Ramya Wilburn Unit #: [id number]: 1975 Dictated By: Beth DossDate of Visit: Apr 03, 2020 Onc MED Follow-Up/Prog Note Chief Complaint: Breast cancer. History of Present Illness: Ms Wilburn is a 43 year-old woman with grade 2 invasive ductal carcinoma of the left breast, ER/VA positive and HER-2/bambi negative. By clinical evaluation her disease was stage at least IA (T1c, pN1a, M0) at initial diagnosis. She had originally presented a year ago with bloody discharge from the left nipple. An ultrasound of the left breast on 08/06/2018 was BI-RADS Category 1. A few ductal structures were noted in the subareolar region, but there was no evidence for cystic or solid soft tissue abnormality. She apparently then had an abnormal mammogram done elsewhere and further evaluation with a diagnostic bilateral mammogram on 11/18/2018 showed multiple calcifications scattered throughout the left breast. The most concerning were in the upper outer quadrant. The breasts were noted to be extremely dense. A stereotactic biopsy of left breast calcifications on 01/18/2019 showed fibrocystic changes with no malignancy or significant atypia identified. She then had a repeat diagnostic mammogram and left breast ultrasound on 06/24/2019. The mammogram showed a slightly spiculated asymmetric density measuring 1.3 x 0.6 cm in the upper outer quadrant. Multiple punctate calcifications deep to the biopsy marker were noted to have a similar appearance compared to the study from November 2018. Ultrasound showed an irregular hypoechoic lesion at the 2 o'clock position measuring 1.3 x 1.2 x 0.9 cm. It was BI-RADS 5, highly suggestive of malignancy. Ultrasound also showed an abnormal appearing enlarged lymph node in the left axilla measuring 1.9 x 1.4 x 0.8 cm. On 07/12/2019 she underwent ultrasound-guided biopsy of the left breast mass and the left axillary lymph node. Pathology on the breast mass showed moderately differentiated invasive ductal carcinoma, nuclear grade 2. The maximum tumor size is 1.0 cm. The left axillary lymph node biopsy was positive for metastatic ductal carcinoma with tumor size measuring 3.5 mm. The breast prognostic profile showed ER positive at 90% and VA positive at 90%. HER-2/bambi was 2+ by IHC, but negative by FISH with amplification ratio 1.4 and 2.8 HER-2 copies/cell. The KI-67 was elevated at 30%. I had seen her initially on 07/23/2019. With clinically evident axillary lymph node involvement, she was advised to undergo neoadjuvant chemotherapy with Adriamycin/cyclophosphamide followed by paclitaxel. Her other medical illnesses include GERD, migraine headaches, and anxiety/depression. She also has a history of thyroid nodules with hyperthyroidism, for which she underwent total thyroidectomy in 2014. She has only minimal prior smoking history, and she quit smoking in 2007. INTERIM HISTORY: She began cycle 1 of Adriamycin/cyclophosphamide on 08/19/2019. She was given first cycle prophylaxis with Neulasta. She tolerated the treatment well, and she continued with cycle 2 on 09/02/2019, with cycle 3 on 09/16/2019, and with cycle 4 on 09/30/2019. She then began her 1st of 12 planned cycles of weekly paclitaxel on 10/14/2019. She had severe fatigue with the paclitaxel and following her third weekly infusion she also became significantly neutropenic, requiring growth factor support with Neupogen. Beginning with her week 5 treatment, she was given a dose reduction, mainly because of the severe fatigue. Her week 6 treatment was deferred due to persistently elevated liver enzymes. She was able to restart after 1-week delay and she was then been able to continue her treatment weekly with liver enzymes remaining just slightly elevated. She received her 12th and final weekly paclitaxel infusion on 01/06/2020. On 02/01/2020 she underwent total mastectomy bilaterally with left axillary sentinel lymph node biopsy. Pathology showed residual grade 2 invasive ductal carcinoma measuring 2.6 x 2.4 x 1.3 cm. 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 The margins were uninvolved. There was involvement into/2 axillary sentinel lymph nodes with the largest metastatic deposit measuring 7 mm. Extranodal extension was present. Pathologic staging was ypT2, ypN1a(sn). With those findings, she underwent left axillary lymph node dissection on 02/17/2020. Pathology showed additional involvement in 1/9 lymph nodes measuring approximately 6 mm in greatest dimension. There was no extracapsular extension identified. Ms. Wilburn was referred to Dr. Fletcher at [facility] radiation oncology. She will be starting radiation to the chest wall due to the axillary lymph node involvement within the next few days. She is here today for follow-up. She is also due to start monthly Zoladex at 3.6 mg and then anastrozole 1 mg daily. She states overall she is doing pretty good. She continues to work. She states her surgery sites have recovered she has some tenderness here and there but states overall it has healed well. She states she has had quite a bit of hot flashes but states they are about the same as what they have been may be a little worse. She also has intermittent chills associated with a hot flashes. She states that they have been there since chemotherapy and have not gotten any worse or more frequent. She denies any actual fever. She denies any shortness of breath orthopnea. She denies any palpitations, or arrhythmias. She states overall her breathing is good. She said no productive cough or hemoptysis. She denies diarrhea or constipation. She had no nausea or vomiting. Her ECOG is 0. Past Medical History: Anxiety Depression History of thyroid nodule/hyperthyroidism Migraine headeaches Surgical hypothyroidism Past Surgical History: Caesarean section Right Subclavian venous access device-Dr Schmitt in 2019 Ultrasound-guided biopsy of left breast mass and left axillary lymph node in 2019 Stereotactic needle biopsy of the left breast in 2019 Total thyroidectomy in 2014 FNA biopsy of thyroid nodule in 2014 Tubal ligation in 2013 Allergies: No Known Allergies. Medications: Claritin 1 Tablet (of 10 mg) Tablet Oral daily clonazePAM 1 Tablet (of 0.5 mg) Oral b.i.d. PRN FLUoxetine HCl 1 Tablet (of 80 mg) Oral daily Gabapentin 1 Capsule (of 600 mg) Oral at bedtime Ibuprofen 1 Tablet (of 800 mg) Oral t.i.d. PRN Levothyroxine Sodium 1 Tablet (of 125 mcg) Oral daily Meloxicam 1 Tablet (of 15 mg) Oral daily oxyCODONE HCl 1 Tablet (of 15 mg) Oral at bedtime PRN Pantoprazole Sodium 1 Tablet (of 40 mg) Tablet, enteric coated Oral daily Rizatriptan Benzoate 1 Tablet (of 10 mg) Oral q 2 hours PRN Senna S 1 Tablet (of 8.6-50 mg) Oral daily PRN Topiramate 1 Tablet (of 50 mg) Oral daily Family History: Ms. Wilburn's mother is alive. Ms. Wilburn's father is alive. Ms. Wilburn has 1 maternal aunt who is : uterine cancer. Father has diabetes and coronary artery disease and is still living at age 73. Mother is in good health age 68. Two brothers and a fraternal twin sister are in good health. Social History: Ms. 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 Ms. Wilburn quit smoking 13 years ago but had smoked for 2 years. She drinks occasionally. Ms. Wilburn reports the following support systems: lives with spouse, significant other, family, or friends, lives in own house, supportive family/friends willing to assist with needs, and adequate transportation available for expected visits. Her diet consists of regular meals. She indicates her activity level as: regular exercise. Review Of Symptoms: Constitutional Denies fevers, chills, night sweats, or weight loss. She states she feels good in general today. Hot flashes Allergic/Immunologic No reactions. Eyes Denies significant visual changes. No diplopia. No amaurosis. ENMT Denies changes in hearing, sore throat, mouth sores, difficulty or changes in swallowing ability, and/or sinus drainage. Hematologic/Lymphatic Denies easy bruising or bleeding. The patient denies any tender or palpable lymph nodes. Breasts no new concerns. Respiratory Denies dyspnea on exertion, chest pain, cough or hemoptysis. Denies orthopnea. Cardiovascular Denies anginal chest pain, palpitations or orthopnea. Gastrointestinal Denies nausea, vomiting, diarrhea, GI bleeding, or constipation. Denies change in bowel habits and/or stool color, no heartburn or early satiety. Genitourinary (F) No hematuria, hesitancy, incontinence, vaginal bleeding, discharge or other problems with urination. Musculoskeletal Denies joint swelling or redness. No decreased range of motion. B Integumentary Denies chronic rashes, inflammation, ulcerations or skin changes. Neurologic Denies headache, blurred vision, and no areas of focal weakness or numbness. Normal gait. No sensory problems. Psychiatric Denies insomnia, depression, ro or mood swings. Vital Signs: Performed on Apr 03, 2020 10:43 Height - 63.00 in Weight - 159.8 lbs (HIGH) BSA - 1.76 sq.m BMI - 28.31 Temperature - 97.4 F (LOW) Pulse - 86 /min Respiration - 18 /min BP - 135/79 mm(hg) O2 Sat - 98 % Pain - 0,0 - Fully active, able to carry on all predisease activities without restrictions. (ECOG) Physical Examination: Constitutional Alert, oriented, no acute distress. Skin pink, warm and dry. Head Normocephalic; atraumatic. Eyes Conjunctivae and sclerae are clear and without icterus. Pupils are reactive and equal. Hematologic/Lymphatic No petechiae or purpura. Respiratory Lungs are clear to auscultation without rhonchi or wheezing. Cardiovascular Regular rate and rhythm of heart without murmurs,clicks, gallops or rubs. Back/Spine Non-tender to palpation. Musculoskeletal No tenderness or swelling, normal range of motion without obvious weakness. Integumentary No rashes or lesions. Neurologic No sensory or motor deficits, normal cerebellar function, normal gait. Psychiatric Alert and oriented times three. Coherent speech. Verbalizes understanding of our discussions today. Laboratory:Test performed on Apr 03, 2020 08:55 Sodium 140 mmol/L Potassium 4.0 mmol/L Chloride 104 mmol/L CO2 28 mmol/L Anion Gap 12.0 BUN 18 mg/dL Creatinine 0.8 mg/dL Cr Clearance (Est) 103.76 mL/min eGFR 78.3 mL/min Glucose 84 mg/dL Osmolality - Calculated 291 mOsm/kg Calcium 9.2 mg/dL Protein, Total 7.3 g/dL Albumin 4.4 g/dL Globulin 2.9 g/dL Bilirubin, Total 0.5 mg/dL ALT (SGPT) 33 U/L AST (SGOT) 24 U/L Alkaline Phosphatase 99 IU/L WBC 4.6 10 3/uL RBC 4.55 10 6/uL HGB 13.4 g/dL HCT 40.5 % MCV 89.0 fL MCH 29.5 pg MCHC 33.1 g/dL RDW 11.6 % Platelet Count 257 10 3/cmm MPV 10.6 fL Neutrophils 2.24 10 3/uL Lymphocytes 1.6 10 3/uL Monocytes 0.5 10 3/uL Eosinophils 0.2 10 3/uL Basophils 0.1 10 3/uL Neutrophil % 49.0 % Lymphocyte % 35.9 % Monocyte % 9.8 % Eosinophil % 3.3 % Basophils % 1.3 % NRBC % 0 % Test performed on Mar 13, 2020 00:00 Manual Diff Cancelled via OM: Cancelled in Connected System Test performed on Jan 20, 2020 09:07 Manual Segs % 38 % Manual Bands % 8.0 % Manual Lymphs % 46 % Atypical Lymphs % 0.0 % Total Cells Counted 100 Manual Monos % 4.0 % Manual Eos % 1 % Manual Basos % 0.0 % Metamyelocytes % 3.0 % CBC Slide Review Slide Review Perform Platelet Estimate Normal Manual Segs Abs 2.2 10/cmm Manual Bands Abs 0.5 10 3/cmm Manual Neutrophils Abs 2.6 10 3/cmm Manual Monocytes Abs 0.2 10 3/cmm Manual Eosinophils Abs 0.0 10 3/cmm Manual Basophils Abs 0.0 10 3/cmm Test performed on Dec 30, 2019 09:27 Myelocytes % 2.0 % Anisocytosis 1+ Test performed on Dec 16, 2019 09:27 TSH 0.36 uIU/mL Test performed on Dec 02, 2019 09:35 Macrocytosis 2+ Test performed on Nov 29, 2019 10:45 Bilirubin, Direct 0.20 mg/dL Impression: PROBLEM LIST: 1. Patient with grade 2 infiltrating ductal carcinoma of the left breast, by clinical evaluation stage at least 1A (T1c, pN1a, M0), ER/VA positive and HER-2/bambi negative. 2. She underwent ultrasound-guided biopsies of left breast mass and left axillary lymph node on 07/12/2019. Her other medical illnesses include: 3. GERD. 4. Migraine headaches. 5. Anxiety/depression. 6. She has a history of thyroid nodules/hyperthyroidism for which she underwent total thyroidectomy in 2014. With clinically evident axillary lymph node involvement, she was advised to undergo neoadjuvant chemotherapy with Adriamycin/cyclophosphamide followed by paclitaxel. She has now completed 2 cycles of Adriamycin/cyclophosphamide. She was given Neulasta prophylaxis with both cycles. She has had denise granulocyte counts of 400 and 500, with no associated fever. Other side effects were limited to fatigue, mild nausea, and some joint pain with the Neulasta. Overall, she tolerated the treatment well. She continued with cycle 2 of Adriamycin/cyclophosphamide on 09/02/2019, with cycle 3 on 09/16/2019, and with cycle 4 on 09/30/2019. On 10/14/2019 she began her 1st of 12 planned weekly cycles of paclitaxel. She tolerated the first 2 paclitaxel infusions with pretty minimal toxicity. With the 3rd infusion she was given planned G-CSF for 2 days due to moderate neutropenia. With the growth factor support, her neutrophil count remained adequate, but she continued to have severe fatigue with the paclitaxel. Beginning with her week 5 treatment, I did opt to give her a dose reduction. With that she did have less severe fatigue, but her week 6 treatment was deferred due to persistently elevated liver enzymes. She was able to resume with her week 6 paclitaxel after just a 1 week delay. She was able to continue the paclitaxel infusions weekly with her liver enzymes remain just slightly elevated. She completed her 12th and final paclitaxel infusion on 01/06/2020. On 02/01/2020 she underwent total mastectomy bilaterally with left axillary sentinel lymph node biopsy. Pathology showed residual grade 2 invasive ductal carcinoma measuring 2.6 x 2.4 x 1.3 cm. 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 The margins were uninvolved. There was involvement into/2 axillary sentinel lymph nodes with the largest metastatic deposit measuring 7 mm. Extranodal extension was present. Pathologic staging was ypT2, ypN1a(sn). With those findings, she then underwent left axillary lymph node dissection on 02/17/2020. Pathology showed involvement in additional 1/9 lymph nodes measuring approximately 6 mm. There was no extracapsular extension identified. She was referred to [facility]iation [facility]-Dr Fletcher for radiation to the chest wall due to the lymph node involvement. She will begain treatment with radiation therapy tentaively laterr this week. Plan: PROBLEMS ADDRESSED TODAY: 1. Infiltrating ductal carcinoma of the left breast: A. Proceed with cycle 1 groselin 3.6 mg subcutaneous B. May begin anastrazole 1 mg in 14 days from start of groselin. C. Today's labs reviewed in detail and discussed with Ms. Wilburn and a copy was given to her. WBC 4.6, hemoglobin 13.4, platelets 257,000 ANC is 2240 creatinine 0.8 random glucose 84 LFTs are normal. D. She is scheduled to begin radiation therapy to the chest wall this week. E. She is recovered well from her surgery. F. She is a chronic constipation which is improved with the recent increase in senna/Dukas 8 to 2 to 3 tablets as needed up to 3 times a day. She may also use Relistor as needed if covered by her insurance. 2. Hot flashes: A. She is aware that this is most likely from the chemotherapy putting her into menopause and will most likely worsen with starting the groselin and anastrozole. We discussed at length options for assisting with the hot flashes and she is advised that we can try Effexor if needed. For now we will see how the hot flashes go and decide from there. She is encouraged to call us before her next visit if she feels she wants to try something for them. 3. Follow-up plan: A. We will plan to see her back in 1 month with CBC CMP for follow-up and she will be due for cycle 2 groselin at that time. B. She may start the anastrozole 1 mg daily in 14 days after the Zoladex/groselin injection. C. Ms. Wilburn was instructed to contact us in interim if questions or problems arise. D We discussed potential side effects of hormone deprivation therapy including but not limited to hot flashes, increased risk of osteoporosis (by at least 11%), mood swings, vaginal/mucous membrane dryness, nausea, alopecia (15%), headache, fatigue, HTN, ischemia (2%), depression, constipation, anorexia (6%), rash, and bone/joint pain amongst others. The majority of this visit was spent in face to face communication with this patient in regards to plan of care, side effect identification and management. E. We will request baseline bone density study due to the hormone deprivation therapy as well as as her history of total thyroidectomy in 2014. Signed By: Gladys DossNWillian-, AOCNP Zia Beverly MD <<Signature on File>>
--- NOTE | 2020-04-05 11:17 | ONCRAD TMN_ITS ---
Radiation Oncology Treatment Management Note Patient Name: Ramya Wilburn Date of : 1975 Date of Service: 04/05/2020 Attending Physician: Harry Fletcher M.D. Ramya Wilburn is a 44 year-old white female diagnosed with a pathological stage yIIB (T2N1a) grade 2 ductal carcinoma of the upper-outer quadrant of the left breast. Immunohistochemical stains were positive for estrogen receptor and negative for progesterone receptor and HER???2. Neoadjuvant chemotherapy (Adriamycin and cyclophosphamide followed by paclitaxel) were administered by Zia Beverly M.D. She has received 2 Gy of a prescribed 50 Gy delivered with a 3D conformal radiotherapy plan utilizing opposed tangential portal hernandez matched to supraclavicular fossa and PAB ports. Upon review of systems, she denied any chest wall complaints to radiotherapy. On physical examination, the patient weighed 157 lbs. Her temperature was 97.5 ???F with a blood pressure of 121/77 mmHg. Her pulse was 101 bpm and her respiratory rate was 16. There was no erythema within the treatment hernandez of the right breast. Continue left chest wall and regional lymph node irradiation as prescribed. Signed by: Dr. Harry Fletcher 04/05/2020 11:16:18 AM
--- NOTE | 2020-04-10 11:28 | ONCRAD TMN_ITS ---
Radiation Oncology Treatment Management Note Patient Name: Ramya Wilburn Date of : 1975 Date of Service: 04/10/2020 Attending Physician: Harry Fletcher M.D. Ramya Wilburn is a 44 year-old white female diagnosed with a pathological stage yIIB (T2N1a) grade 2 ductal carcinoma of the upper-outer quadrant of the left breast. Immunohistochemical stains were positive for estrogen receptor and negative for progesterone receptor and HER???2. Neoadjuvant chemotherapy (Adriamycin and cyclophosphamide followed by paclitaxel) were administered by Zia Beverly M.D. She has received 10 Gy of a prescribed 50 Gy delivered with a 3D conformal radiotherapy plan utilizing opposed tangential portal hernandez matched to supraclavicular fossa and PAB ports. Upon review of systems, she denied any chest wall complaints to radiotherapy. On physical examination, the patient weighed 158 lbs. Her temperature was 98.9 ???F with a blood pressure of 113/71 mmHg. Her pulse was 82 bpm and her respiratory rate was 16. There was no erythema within the treatment hernandez of the left chest wall. Continue left chest wall and regional lymph node irradiation as planned. Signed by: Dr. Harry Fletcher 04/17/2020 11:12:26 AM
== END 2020-04-16 23:59 | disposition home or self-care (01) ==
LOC: ONCMED 05:35
PROVIDERS: Nurse Practitioner; PCP Family Medicine; Visit Provider Radiology Radiation Oncology
DX: Z51.0 Encounter for antineoplastic radiation therapy (principal); C50.412 Malignant neoplasm of upper-outer quadrant of left female breast; C77.3 Secondary and unspecified malignant neoplasm of axilla and upper limb lymph nodes; Z17.0 Estrogen receptor positive status [ER+]; Z90.13 Acquired absence of bilateral breasts and nipples; Z87.891 Personal history of nicotine dependence; K21.9 Gastro-esophageal reflux disease without esophagitis; G43.909 Migraine, unspecified, not intractable, without status migrainosus; F41.8 Other specified anxiety disorders; E89.0 Postprocedural hypothyroidism; K59.09 Other constipation; Z79.818 Long term (current) use of other agents affecting estrogen receptors and estrogen levels
CPT/HCPCS: 36415; 77290; 77295; 77300; 77334; 77336; 77387; 77412; 80053; 85025; 96372; 96402; 99215; J9202; Q9967

== ENCOUNTER 2020-04-17 06:00 | Outpatient (RCR) | payer OTHER, SELFPAY | END 2020-05-14 23:59 | disposition home or self-care (01) | LOC: SPT 06:00 | PROVIDERS: PCP Family Medicine; Referring Provider Internal Medicine Medical Oncology; Visit Provider Internal Medicine Medical Oncology | DX: C50.919 Malignant neoplasm of unspecified site of unspecified female breast (principal) | CPT/HCPCS: 97140 ==

== ENCOUNTER 2020-04-19 13:54 | Outpatient (CLI) | payer OTHER, SELFPAY ==
--- NOTE | 2020-04-19 14:21 | XR_ITS ---
WS: [id number] SCREENING DEXA SCAN [employer] CLINICAL INFORMATION: PREMATURE MENOPAUSE, HORMONE SUPPRESSION THERAPY, THYROID DI COMPARISON: None. FINDINGS: The L1-L4 bone mineral density measures 1.058 g/cm2. This corresponds to a T score score of -1.0 and Z score of -1.2. Left femoral neck bone mineral density measures 0.935 g/cm2. This corresponds to a T score of -0.6 an d Z score of -0.5. Right femoral neck bone mineral density measures 0.937 g/cm2. This corresponds to a T score -0.6of an d Z score of -0.4. Mean femoral neck bone mineral density measures 0.936 g/cm2. This corresponds to a T score of -0.6 an d Z score of -0.5. XR/XR DEXA axial skeleton* 27041 IMPRESSION: Osteopenia lumbar spine at the lower end of the range. Normal bone mineralizati on femoral necks Patient's FRAX calculated 10 year probability for major osteoporotic fracture i s 2.3 % and osteoporotic hip fracture is 0.1%.
== END 2020-04-19 13:55 | disposition home or self-care (01) ==
LOC: RADWPI 13:56
PROVIDERS: PCP Family Medicine; Visit Provider Nurse Practitioner
DX: E28.319 Asymptomatic premature menopause (principal); E07.9 Disorder of thyroid, unspecified; M85.88 Other specified disorders of bone density and structure, other site
CPT/HCPCS: 77080

== ENCOUNTER 2020-05-11 05:36 | Outpatient (RCR) | payer OTHER, SELFPAY ==
--- NOTE | 2020-04-17 11:12 | ONCRAD TMN_ITS ---
Radiation Oncology Treatment Management Note Patient Name: Ramya Wilburn Date of : 1975 Date of Service: 04/17/2020 Attending Physician: Harry Fletcher M.D. Ramya Wilburn is a 44 year-old white female diagnosed with a pathological stage yIIB (T2N1a) grade 2 ductal carcinoma of the upper-outer quadrant of the left breast. Immunohistochemical stains were positive for estrogen receptor and negative for progesterone receptor and HER???2. Neoadjuvant chemotherapy (Adriamycin and cyclophosphamide followed by paclitaxel) were administered by Zia Beverly M.D. She has received 20 Gy of a prescribed 50 Gy delivered with a 3D conformal radiotherapy plan utilizing opposed tangential portal hernandez matched to supraclavicular fossa and PAB ports. Upon review of systems, she denied any chest wall complaints to radiotherapy. On physical examination, the patient weighed 158 lbs. Her temperature was 97.8 ???F with a blood pressure of 120/84 mmHg. Her pulse was 77 bpm and her respiratory rate was 18. There was no erythema within the treatment hernandez of the left chest wall. Continue left chest wall and regional lymph node irradiation as prescribed. Signed by: Dr. Harry Fletcher 04/17/2020 11:11:57 AM
--- NOTE | 2020-04-24 11:04 | ONCRAD TMN_ITS ---
Radiation Oncology Treatment Management Note Patient Name: Ramya Wilburn Date of : 1975 Date of Service: 04/24/2020 Attending Physician: Harry Fletcher M.D. Ramya Wilburn is a 44 year-old white female diagnosed with a pathological stage yIIB (T2N1a) grade 2 ductal carcinoma of the upper-outer quadrant of the left breast. Immunohistochemical stains were positive for estrogen receptor and negative for progesterone receptor and HER???2. Neoadjuvant chemotherapy (Adriamycin and cyclophosphamide followed by paclitaxel) were administered by Zia Beverly M.D. She has received 30 Gy of a prescribed 50 Gy delivered with a 3D conformal radiotherapy plan utilizing opposed tangential portal hernandez matched to supraclavicular fossa and PAB ports. Upon review of systems, she denied any chest wall complaints to radiotherapy. On physical examination, the patient weighed 157 lbs. Her temperature was 98.1 ???F with a blood pressure of 114/74 mmHg. Her pulse was 72 bpm and her respiratory rate was 18. There was slight erythema within the treatment hernandez of the left chest wall. Continue left chest wall and regional lymph node irradiation as planned. Signed by: Dr. Harry Fletcher 04/24/2020 11:03:09 AM
[2020-04-28 11:36] LABS: Basophils # 0.1 10^3/uL (0.0-0.1); Basophils % 1.3 %; Eosinophils # 0.1 10^3/uL (0.0-0.8); Eosinophils % 3.2 %; Hematocrit 38.9 % (37.0-47.0); Lymphocytes % 26.9 %; Mean Corpuscular HGB Conc 33.4 g/dL (30.0-36.0); Mean Corpuscular Volume 86.6 fL (81-99); Mean Platelet Volume 10.4 fL (7.4-10.4); Monocytes # 0.5 10^3/uL (0.2-0.9); Monocytes % 12.8 %; Neutrophils # 2.07 10^3/uL (1.8-7.7); Nucleated Red Blood Cells % 0 %; Platelet Count 229 10^3/cmm (130-400); Red Blood Count 4.49 10^6/uL (4.1-5.3); White Blood Count 3.8 10^3/uL (4.0-10.0)
[2020-04-28 12:35] LABS: Alanine Aminotransferase 62 U/L (0-33); Albumin Level 4.4 g/dL (3.5-5.2); Alkaline Phosphatase 90 IU/L (35-105); Anion Gap 14.1 (5-19); Aspartate Amino Transferase 34 U/L (0-32); Blood Urea Nitrogen 16 mg/dL (6-20); Calcium 8.8 mg/dL (8.5-10.5); Carbon Dioxide 26 mmol/L (22-29); Chloride 103 mmol/L (98-107); Globulin 2.9 g/dL (1.3-4.6); Glomerular Filtration Rate 91.3 mL/min (90-130); Glucose 81 mg/dL (65-115); Osmolality Calculated 288 mOsm/kg (285-295); Potassium 4.1 mmol/L (3.5-5.1); Sodium 139 mmol/L (136-145); Thyroid Stimulating Hormone 0.13 uIU/mL (0.27-4.20); Total Bilirubin 0.6 mg/dL (0.15-1.2); Total Protein 7.3 g/dL (6.6-8.7)
[2020-04-28 20:46] LABS: 25 Hydroxy Vitamin D 18 ng/mL (30-100)
--- NOTE | 2020-05-04 10:31 | ONCRAD TMN_ITS ---
Radiation Oncology Treatment Management Note Patient Name: Ramya Wilburn Date of : 1975 Date of Service: 05/04/2020 Attending Physician: Harry Fletcher M.D. Ramya Wilburn is a 44 year-old white female diagnosed with a pathological stage yIIB (T2N1a) grade 2 ductal carcinoma of the upper-outer quadrant of the left breast. Immunohistochemical stains were positive for estrogen receptor and negative for progesterone receptor and HER???2. Neoadjuvant chemotherapy (Adriamycin and cyclophosphamide followed by paclitaxel) were administered by Zia Beverly M.D. She has received 40 Gy of a prescribed 50 Gy delivered with a 3D conformal radiotherapy plan utilizing opposed tangential portal hernandez matched to supraclavicular fossa and PAB ports. Upon review of systems, she described itching of the sternum. On physical examination, the patient weighed 161 lbs. Her temperature was 99 ???F with a blood pressure of 115/77 mmHg. Her pulse was 85 bpm and her respiratory rate was 18. There was mild erythema (grade I) within the treatment hernandez of the left chest wall. Continue left chest wall and regional lymph node irradiation as prescribed. I will recommend hydrocortisone lotion for itching. Signed by: Dr. Harry Fletcher 05/04/2020 10:30:02 AM
[2020-05-04] MEDS: lidocaine 1% INJ 20 mL SUBCUT (11:58)
[2020-05-04] MEDS: goserelin acetate 3.6 mg Implant SUBCUT (12:10)
--- NOTE | 2020-05-07 22:02 | ONC FU_ITS ---
[facility] Patient Note Patient: Ramya Wilburn Unit #: [id number]: 1975 Dictated By: Beth DossDate of Visit: May 04, 2020 Onc MED Follow-Up/Prog Note Chief Complaint: Breast cancer. History of Present Illness: Ms Wilburn is a 44 year-old woman with grade 2 invasive ductal carcinoma of the left breast, ER/KY positive and HER-2/bambi negative. By clinical evaluation her disease was stage at least IA (T1c, pN1a, M0) at initial diagnosis. She had originally presented a year ago with bloody discharge from the left nipple. An ultrasound of the left breast on 08/06/2018 was BI-RADS Category 1. A few ductal structures were noted in the subareolar region, but there was no evidence for cystic or solid soft tissue abnormality. She apparently then had an abnormal mammogram done elsewhere and further evaluation with a diagnostic bilateral mammogram on 11/18/2018 showed multiple calcifications scattered throughout the left breast. The most concerning were in the upper outer quadrant. The breasts were noted to be extremely dense. A stereotactic biopsy of left breast calcifications on 01/18/2019 showed fibrocystic changes with no malignancy or significant atypia identified. She then had a repeat diagnostic mammogram and left breast ultrasound on 06/24/2019. The mammogram showed a slightly spiculated asymmetric density measuring 1.3 x 0.6 cm in the upper outer quadrant. Multiple punctate calcifications deep to the biopsy marker were noted to have a similar appearance compared to the study from November 2018. Ultrasound showed an irregular hypoechoic lesion at the 2 o'clock position measuring 1.3 x 1.2 x 0.9 cm. It was BI-RADS 5, highly suggestive of malignancy. Ultrasound also showed an abnormal appearing enlarged lymph node in the left axilla measuring 1.9 x 1.4 x 0.8 cm. On 07/12/2019 she underwent ultrasound-guided biopsy of the left breast mass and the left axillary lymph node. Pathology on the breast mass showed moderately differentiated invasive ductal carcinoma, nuclear grade 2. The maximum tumor size is 1.0 cm. The left axillary lymph node biopsy was positive for metastatic ductal carcinoma with tumor size measuring 3.5 mm. The breast prognostic profile showed ER positive at 90% and KY positive at 90%. HER-2/bambi was 2+ by IHC, but negative by FISH with amplification ratio 1.4 and 2.8 HER-2 copies/cell. The KI-67 was elevated at 30%. Dr Beverly had seen her initially on 07/23/2019. With clinically evident axillary lymph node involvement, she was advised to undergo neoadjuvant chemotherapy with Adriamycin/cyclophosphamide followed by paclitaxel. Her other medical illnesses include GERD, migraine headaches, and anxiety/depression. She also has a history of thyroid nodules with hyperthyroidism, for which she underwent total thyroidectomy in 2014. She has only minimal prior smoking history, and she quit smoking in 2007. INTERIM HISTORY: She began cycle 1 of Adriamycin/cyclophosphamide on 08/19/2019. She was given first cycle prophylaxis with Neulasta. She tolerated the treatment well, and she continued with cycle 2 on 09/02/2019, with cycle 3 on 09/16/2019, and with cycle 4 on 09/30/2019. She then began her 1st of 12 planned cycles of weekly paclitaxel on 10/14/2019. She had severe fatigue with the paclitaxel and following her third weekly infusion she also became significantly neutropenic, requiring growth factor support with Neupogen. Beginning with her week 5 treatment, she was given a dose reduction, mainly because of the severe fatigue. Her week 6 treatment was deferred due to persistently elevated liver enzymes. She was able to restart after 1-week delay and she was then been able to continue her treatment weekly with liver enzymes remaining just slightly elevated. She received her 12th and final weekly paclitaxel infusion on 01/06/2020. On 02/01/2020 she underwent total mastectomy bilaterally with left axillary sentinel lymph node biopsy. Pathology showed residual grade 2 invasive ductal carcinoma measuring 2.6 x 2.4 x 1.3 cm. 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 The margins were uninvolved. There was involvement in 2/2 axillary sentinel lymph nodes with the largest metastatic deposit measuring 7 mm. Extranodal extension was present. Pathologic staging was ypT2, ypN1a(sn). With those findings, she underwent left axillary lymph node dissection on 02/17/2020. Pathology showed additional involvement in 1/9 lymph nodes measuring approximately 6 mm in greatest dimension. There was no extracapsular extension identified. Ms. Wilbrun was referred to Dr. Fletcher at [facility] radiation oncology. She started radiation to the chest wall (due to the axillary lymph node involvement) on 04/04/2020. She is here today for follow-up. She is also due for monthly Zoladex at 3.6 mg and assessment of her tolerance of anastrozole 1 mg daily. She states overall she is doing pretty good. 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 She states she tolerated the last Zoladex injection well, although she did have some bruising at the administration site. She did start the anastrazole on 04/20/2020 and states she is tolerating it well thus far. She denies any shortness of breath orthopnea. She states overall her breathing is good. She has had no productive cough or hemoptysis. She denies any palpitations, or arrhythmias. She denies diarrhea or constipation. She had no nausea or vomiting. She states she is been having persistent headaches. States that they are always on the right side. She states that they have gotten worse over the last 4 to 6 weeks. She denies any nausea or vomiting with them or any vision changes. She has had some intermittent dizziness and thinks it may be associated with the headaches. She states that she does have migraine medication that she takes for her history of migraines but it is not working well for these headaches and they do seem to be a little different than what she has had as migraines in the past. She states she has not had any imaging of the brain for years . She denies any other neurological changes. She denies any one-sided weakness or numbness. She states that she forgets things easily but contributes that to chemo brain . She states she is tolerating radiation well other than fatigue but states that it is no worse than what has been for her since she began treatment. She is still able to do all her ADLs without any assistance. Her ECOG is 1. Past Medical History: Anxiety Depression History of thyroid nodule/hyperthyroidism Migraine headeaches Surgical hypothyroidism Past Surgical History: Caesarean section Right Subclavian venous access device-Dr Schmitt in 2019 Ultrasound-guided biopsy of left breast mass and left axillary lymph node in 2019 Stereotactic needle biopsy of the left breast in 2019 Total thyroidectomy in 2014 FNA biopsy of thyroid nodule in 2014 Tubal ligation in 2013 Allergies: No Known Allergies. Medications: Claritin 1 Tablet (of 10 mg) Tablet Oral daily clonazePAM 1 Tablet (of 0.5 mg) Oral b.i.d. PRN FLUoxetine HCl 1 Tablet (of 80 mg) Oral daily Gabapentin 1 Capsule (of 600 mg) Oral at bedtime Ibuprofen 1 Tablet (of 800 mg) Oral t.i.d. PRN Levothyroxine Sodium 1 Tablet (of 125 mcg) Oral daily Meloxicam 1 Tablet (of 15 mg) Oral daily oxyCODONE HCl 1 Tablet (of 15 mg) Oral at bedtime PRN Pantoprazole Sodium 1 Tablet (of 40 mg) Tablet, enteric coated Oral daily Rizatriptan Benzoate 1 Tablet (of 10 mg) Oral q 2 hours PRN Senna S 1 Tablet (of 8.6-50 mg) Oral daily PRN Topiramate 1 Tablet (of 50 mg) Oral daily Family History: Ms. Wilburn's mother is alive. Ms. Wilburn's father is alive. Ms. Wilburn has 1 maternal aunt who is : uterine cancer. Father has diabetes and coronary artery disease and is still living at age 73. Mother is in good health age 68. Two brothers and a fraternal twin sister are in good health. Social History: Ms. 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 Ms. Wilburn quit smoking 13 years ago but had smoked for 2 years. She drinks occasionally. Ms. Wilburn reports the following support systems: lives with spouse, significant other, family, or friends, lives in own house, supportive family/friends willing to assist with needs, and adequate transportation available for expected visits. Her diet consists of regular meals. She indicates her activity level as: regular exercise. Review Of Symptoms: Constitutional Denies fevers, chills, night sweats, or weight loss. She states she feels good in general today. Hot flashes are stable. Allergic/Immunologic No reactions. Eyes Denies significant visual changes. No diplopia. No amaurosis. ENMT Denies changes in hearing, sore throat, mouth sores, difficulty or changes in swallowing ability, and/or sinus drainage. Hematologic/Lymphatic Denies easy bruising or bleeding. The patient denies any tender or palpable lymph nodes. Breasts no new concerns. Respiratory Denies dyspnea on exertion, chest pain, cough or hemoptysis. Denies orthopnea. Cardiovascular Denies anginal chest pain, palpitations or orthopnea. Gastrointestinal Denies nausea, vomiting, diarrhea, GI bleeding, or constipation. Denies change in bowel habits and/or stool color, no heartburn or early satiety. Genitourinary (F) No hematuria, hesitancy, incontinence, vaginal bleeding, discharge or other problems with urination. Musculoskeletal Denies joint swelling or redness. No decreased range of motion. Integumentary Denies chronic rashes, inflammation, ulcerations or skin changes. Neurologic Denies headache, blurred vision, and no areas of focal weakness or numbness. Normal gait. No sensory problems. Psychiatric Denies insomnia, depression, ro or mood swings. Vital Signs: Performed on May 04, 2020 10:57 Height - 63.00 in Weight - 163 lbs (HIGH) BSA - 1.77 sq.m BMI - 28.87 Temperature - 98.7 F Pulse - 89 /min Respiration - 18 /min BP - 128/71 mm(hg) O2 Sat - 99 % Pain - 0 Fatigue - 5 Performed on May 04, 2020 10:14 Height - 63.00 in Weight - 161.0 lbs Temperature - 99.0 F Pulse - 85 Respiration - 18 BP - 115/77 mm(hg) O2 Sat - 98 % Pain - 0 Performed on May 04, 2020 10:14 BMI - 28.52 kg/m2 (HIGH),1 - No physically strenuous activity, but ambulatory and able to carry out light or sedentary work (e.g. office work, light house work). (ECOG) Physical Examination: Constitutional Alert, oriented, no acute distress. Skin pink, warm and dry. Head Normocephalic; atraumatic. Eyes Conjunctivae and sclerae are clear and without icterus. Pupils are reactive and equal. Neck Supple without masses or thyromegaly. No jugular venous distension. Hematologic/Lymphatic No petechiae or purpura. Respiratory Lungs are clear to auscultation without rhonchi or wheezing. Cardiovascular Regular rate and rhythm of heart without murmurs,clicks, gallops or rubs. Chest RIGHT subclavian venous access device insertion site has healed well. It is unremarkable. Abdomen Non-tender, non-distended, no masses or ascites. Back/Spine Non-tender to palpation. Extremities No visible deformities, no cyanosis, clubbing or edema. Musculoskeletal No tenderness or swelling, normal range of motion without obvious weakness. Integumentary No rashes or lesions. Neurologic No sensory or motor deficits, normal cerebellar function, normal gait. Psychiatric Alert and oriented times three. Coherent speech. Verbalizes understanding of our discussions today. Laboratory:Test performed on Apr 03, 2020 08:55 Sodium 140 mmol/L Potassium 4.0 mmol/L Chloride 104 mmol/L CO2 28 mmol/L Anion Gap 12.0 BUN 18 mg/dL Creatinine 0.8 mg/dL Cr Clearance (Est) 103.76 mL/min eGFR 78.3 mL/min Glucose 84 mg/dL Osmolality - Calculated 291 mOsm/kg Calcium 9.2 mg/dL Protein, Total 7.3 g/dL Albumin 4.4 g/dL Globulin 2.9 g/dL Bilirubin, Total 0.5 mg/dL ALT (SGPT) 33 U/L AST (SGOT) 24 U/L Alkaline Phosphatase 99 IU/L WBC 4.6 10 3/uL RBC 4.55 10 6/uL HGB 13.4 g/dL HCT 40.5 % MCV 89.0 fL MCH 29.5 pg MCHC 33.1 g/dL RDW 11.6 % Platelet Count 257 10 3/cmm MPV 10.6 fL Neutrophils 2.24 10 3/uL Lymphocytes 1.6 10 3/uL Monocytes 0.5 10 3/uL Eosinophils 0.2 10 3/uL Basophils 0.1 10 3/uL Neutrophil % 49.0 % Lymphocyte % 35.9 % Monocyte % 9.8 % Eosinophil % 3.3 % Basophils % 1.3 % NRBC % 0 % Test performed on Mar 13, 2020 00:00 Manual Diff Cancelled via OM: Cancelled in Connected System Test performed on Jan 20, 2020 09:07 Manual Segs % 38 % Manual Bands % 8.0 % Manual Lymphs % 46 % Atypical Lymphs % 0.0 % Total Cells Counted 100 Manual Monos % 4.0 % Manual Eos % 1 % Manual Basos % 0.0 % Metamyelocytes % 3.0 % CBC Slide Review Slide Review Perform Platelet Estimate Normal Manual Segs Abs 2.2 10/cmm Manual Bands Abs 0.5 10 3/cmm Manual Neutrophils Abs 2.6 10 3/cmm Manual Monocytes Abs 0.2 10 3/cmm Manual Eosinophils Abs 0.0 10 3/cmm Manual Basophils Abs 0.0 10 3/cmm Test performed on Dec 30, 2019 09:27 Myelocytes % 2.0 % Anisocytosis 1+ Test performed on Dec 16, 2019 09:27 TSH 0.36 uIU/mL Test performed on Dec 02, 2019 09:35 Macrocytosis 2+ Test performed on Nov 29, 2019 10:45 Bilirubin, Direct 0.20 mg/dL Impression: PROBLEM LIST: 1. Patient with grade 2 infiltrating ductal carcinoma of the left breast, by clinical evaluation stage at least 1A (T1c, pN1a, M0), ER/KY positive and HER-2/bambi negative. 2. She underwent ultrasound-guided biopsies of left breast mass and left axillary lymph node on 07/12/2019. Her other medical illnesses include: 3. GERD. 4. Migraine headaches. 5. Anxiety/depression. 6. She has a history of thyroid nodules/hyperthyroidism for which she underwent total thyroidectomy in 2014. With clinically evident axillary lymph node involvement, she was advised to undergo neoadjuvant chemotherapy with Adriamycin/cyclophosphamide followed by paclitaxel. She completed 4 cycles of Adriamycin/cyclophosphamide. She was given Neulasta prophylaxis. She has had denise granulocyte counts of 400 and 500, with no associated fever with cycle 1 & 2. Other side effects were limited to fatigue, mild nausea, and some joint pain with the Neulasta. Overall, she tolerated the treatment well. She continued with cycle 2 of Adriamycin/cyclophosphamide on 09/02/2019, with cycle 3 on 09/16/2019, and with cycle 4 on 09/30/2019. On 10/14/2019 she began her 1st of 12 planned weekly cycles of paclitaxel. She tolerated the first 2 paclitaxel infusions with pretty minimal toxicity. With the 3rd infusion she was given planned G-CSF for 2 days due to moderate neutropenia. With the growth factor support, her neutrophil count remained adequate, but she continued to have severe fatigue with the paclitaxel. Beginning with her week 5 treatment, Dr Beverly did opt to give her a dose reduction. With that she did have less severe fatigue, but her week 6 treatment was deferred due to persistently elevated liver enzymes. She was able to resume with her week 6 paclitaxel after just a 1 week delay. She was able to continue the paclitaxel infusions weekly with her liver enzymes remain just slightly elevated. She completed her 12th and final paclitaxel infusion on 01/06/2020. On 02/01/2020 she underwent total mastectomy bilaterally with left axillary sentinel lymph node biopsy. Pathology showed residual grade 2 invasive ductal carcinoma measuring 2.6 x 2.4 x 1.3 cm. 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 The margins were uninvolved. There was involvement in 2/2 axillary sentinel lymph nodes with the largest metastatic deposit measuring 7 mm. Extranodal extension was present. Pathologic staging was ypT2, ypN1a(sn). With those findings, she then underwent left axillary lymph node dissection on 02/17/2020. Pathology showed involvement in additional 1/9 lymph nodes measuring approximately 6 mm. There was no extracapsular extension identified. She was referred to [facility] Radiation Oncology-Dr Fletcher for radiation to the chest wall due to the lymph node involvement. She began treatment with radiation therapy on 04/04/2020. She received her first dose of groselin 3.6 mg (Zoladex) on 04/03/2020 and began anastrazole 1 mg daily on 04/20/2020. Plan: PROBLEMS ADDRESSED TODAY: 1. Infiltrating ductal carcinoma of the left breast: A. Proceed with cycle 2 groselin 3.6 mg subcutaneous B. She began anastrazole 1 mg about 2 weeks ago (04/20/2020). C. Today's labs reviewed in detail and discussed with Ms. Wilburn and a copy was given to her. WBC 3.8, hemoglobin 13.0, platelets 229,000 ANC is 2070 creatinine 0.7 random glucose 81 LFTs are slightly elevated wtih ALT @ 62 and AST @34, TOTAL bilirubin is normal at 0.6. Her vitamin D level is low at 18 (30-100 normal range) and her TSH is 0.13 (0.27-4.20). Her thyroid supplementation is managed by Dr Cornelius and a copy of the labs were sent to him. D. She is undergoing radiation therapy to the chest wall. E. She has recovered well from her surgery. F. She has chronic constipation which is improved with the recent increase in senna/Dukas 8 to 2 to 3 tablets as needed up to 3 times a day. She may also use Relistor as needed if covered by her insurance. 2. Hot flashes: A. She is aware that this is most likely from the chemotherapy putting her into menopause and will most likely worsen with starting the groselin and anastrozole. We discussed at length options for assisting with the hot flashes and she is advised that we can try Effexor if needed. She states they are not a problem right now and she is tolerating them well. 3. Persistent headhaches: A. She is having persistent and worsening right sided headaches. She states they were a problem before she started the anastrazole. They had been present prior to the groselin but is unsure if they have worsened since starting it. B. MRI with and without contrast requested for persisent headaches. She does have a history of migraines but states these headaches feel different and are not responding to her migraine medication as well as they have in the past. 4. Vitamin D deficiency A. She states she has started vitamin D and Calcium gummies as of 04/19/2020. She will check the dose of the vitamin D and let us know at her next visit. 5. Screening DEXA scan for aromatase inhibitor therapy from 04/19/2020. A. We reviewed the DEXA scan from 04/19/2020. It reports a mean femoral neck bone mineral density T-score of -0.6 and L1-L4 bone mineral density T-score of -1.0. B. She was encouraged to continue with the vitamin D and Calcium gummies. She will double check the dose and let us know what she is taking. C. She will be due for followup DEXA 04/19/2022. 5. Follow-up plan: A. We will plan to see her back in 1 month with CBC CMP for follow-up and she will be due for cycle 3 groselin at that time. B. Ms. Wilburn was instructed to contact us in interim if questions or problems arise. D We discussed potential side effects of hormone deprivation therapy including but not limited to hot flashes, increased risk of osteoporosis (by at least 11%), mood swings, vaginal/mucous membrane dryness, nausea, alopecia (15%), headache, fatigue, HTN, ischemia (2%), depression, constipation, anorexia (6%), rash, and bone/joint pain amongst others. The majority of this visit was spent in face to face communication with this patient in regards to plan of care, side effect identification and management. Signed By: Beth Doss-, AOCNP Zia Beveryl MD <<Signature on File>>
--- NOTE | 2020-05-08 11:19 | ONCRAD TMN_ITS ---
Radiation Oncology Treatment Management Note Patient Name: Ramya Wilburn Date of : 1975 Date of Service: 05/08/2020 Attending Physician: Harry Fletcher M.D. Ramya Wilburn is a 44 year-old white female diagnosed with a pathological stage yIIB (T2N1a) grade 2 ductal carcinoma of the upper-outer quadrant of the left breast. Immunohistochemical stains were positive for estrogen receptor and negative for progesterone receptor and HER???2. Neoadjuvant chemotherapy (Adriamycin and cyclophosphamide followed by paclitaxel) were administered by Zia Beverly M.D. She has received 44 Gy of a prescribed 50 Gy delivered with a 3D conformal radiotherapy plan utilizing opposed tangential portal hernandez matched to supraclavicular fossa and PAB ports. Upon review of systems, she described itching. On physical examination, the patient weighed 161 lbs. Her temperature was 98 ???F with a blood pressure of 119/81 mmHg. Her pulse was 75 bpm and her respiratory rate was 18. There was erythema (grade II) within the treatment hernandez of the left chest wall. Continue left chest wall and regional lymph node irradiation as planned. She will begin Class 7 steroid cream (OTC hydrocortisone). Signed by: Dr. Harry Fletcher 05/08/2020 11:17:08 AM
== END 2020-05-14 23:59 | disposition home or self-care (01) ==
LOC: ONCMED 05:36
PROVIDERS: Internal Medicine Medical Oncology; PCP Family Medicine; Visit Provider Radiology Radiation Oncology
DX: Z51.0 Encounter for antineoplastic radiation therapy (principal); C50.412 Malignant neoplasm of upper-outer quadrant of left female breast; C77.3 Secondary and unspecified malignant neoplasm of axilla and upper limb lymph nodes; L58.0 Acute radiodermatitis; Y84.2 Radiological procedure and radiotherapy as the cause of abnormal reaction of the patient, or of later complication, without mention of misadventure at the time of the procedure; Z17.0 Estrogen receptor positive status [ER+]; Z79.818 Long term (current) use of other agents affecting estrogen receptors and estrogen levels; Z87.891 Personal history of nicotine dependence
CPT/HCPCS: 36415; 77336; 77387; 77412; 80053; 82306; 84443; 85025; 96372; 96402; 99215; J9202

== ENCOUNTER 2020-05-15 06:00 | Outpatient (RCR) | payer OTHER, SELFPAY | END 2020-06-14 23:59 | disposition home or self-care (01) | LOC: SPT 06:00 | PROVIDERS: PCP Family Medicine; Referring Provider Internal Medicine Medical Oncology; Visit Provider Internal Medicine Medical Oncology | DX: C50.919 Malignant neoplasm of unspecified site of unspecified female breast (principal) | CPT/HCPCS: 97140 ==

== ENCOUNTER 2020-06-07 05:47 | Outpatient (RCR) | payer OTHER, SELFPAY ==
[2020-06-07 08:54] LABS: Basophils % 1.2 %; Eosinophils # 0.1 10^3/uL (0.0-0.8); Eosinophils % 4.2 %; Hematocrit 37.3 % (37.0-47.0); Hemoglobin 12.8 g/dL (11.5-15.3); Lymphocytes # 0.7 10^3/uL (0.8-4.8); Lymphocytes % 20.4 %; Mean Corpuscular HGB Conc 34.3 g/dL (30.0-36.0); Mean Corpuscular Hemoglobin 30.4 pg (28.0-34.0); Mean Corpuscular Volume 88.6 fL (81-99); Mean Platelet Volume 10.7 fL (7.4-10.4); Monocytes # 0.4 10^3/uL (0.2-0.9); Monocytes % 12.9 %; Neutrophils % 60.1 %; Nucleated Red Blood Cells % 0 %; Platelet Count 238 10^3/cmm (130-400); Red Blood Count 4.21 10^6/uL (4.1-5.3); Red Cell Distribution Width 12.9 % (12.1-15.1); White Blood Count 3.3 10^3/uL (4.0-10.0)
[2020-06-07 09:22] LABS: Alanine Aminotransferase 28 U/L (0-33); Albumin Level 4.5 g/dL (3.5-5.2); Alkaline Phosphatase 84 IU/L (35-105); Aspartate Amino Transferase 23 U/L (0-32); Blood Urea Nitrogen 17 mg/dL (6-20); Calcium 9.3 mg/dL (8.5-10.5); Carbon Dioxide 26 mmol/L (22-29); Chloride 106 mmol/L (98-107); Globulin 2.7 g/dL (1.3-4.6); Glomerular Filtration Rate 78.3 mL/min (90-130); Glucose 96 mg/dL (65-115); Osmolality Calculated 295 mOsm/kg (285-295); Sodium 142 mmol/L (136-145); Thyroid Stimulating Hormone 0.13 uIU/mL (0.27-4.20); Total Bilirubin 0.7 mg/dL (0.15-1.2); Total Protein 7.2 g/dL (6.6-8.7)
[2020-06-07] MEDS: lidocaine 1% INJ 20 mL INJECTION (10:10)
[2020-06-07] MEDS: goserelin acetate 3.6 mg Implant SUBCUT (10:16)
--- NOTE | 2020-06-07 10:55 | ONCRAD EPV_ITS ---
Radiation Oncology Follow-Up Note Patient Name: Ramya Wilburn Date of : 1975 Date of Service: 06/07/2020 Attending Physician: Harry Fletcher M.D. Ramya Wilburn returned to my office this morning for a routinely scheduled follow-up appointment. She completed adjuvant left chest wall and axillary radiotherapy in April for the post-operative management of her pathological stage yIIB (T2N1a) grade 2 ductal carcinoma of the upper-outer quadrant of the left breast. Immunohistochemical stains were positive for estrogen receptor and negative for progesterone receptor and HER???2. The patient's initial clinical stage was IIA (T1bN1). Neoadjuvant chemotherapy (Adriamycin and cyclophosphamide followed by paclitaxel) were administered by Zia Beverly M.D. Radiotherapy was administered between the dates of April 04, 2020 through May 11, 2020. A prescribed dose of 50 Gy was delivered in 25 fractions over 38 elapsed days. On review of systems, she denied skin complaints of the left chest wall. On physical examination, she weighed 163 lbs and her temperature was 97.8???F. Her blood pressure was 115/78 mmHg. The pulse was 92 bpm and her respiratory rate was 18 breaths per minute. The left chest wall demonstrated minimal hyperpigmentation without any areas of ulceration. In summary, the patient returned for a routine post radiotherapy follow-up. She was prescribed Anastrozole and will continue follow-up with her medical oncologist. Signed by: Dr. Harry Fletcher 06/07/2020 10:54:07 AM
--- NOTE | 2020-06-11 08:57 | ONC FU_ITS ---
Dr. Beverly Patient Follow-Up Note Patient: Ramya Wilburn Unit #: [id number]: [id number] Dicatated By: Zia Beverly M.D.Date of Visit:Jun 07, 2020 Onc Med Follow-up/Prog Note Chief Complaint: Breast cancer. History of Present Illness: This is a 44 year-old woman with grade 2 invasive ductal carcinoma of the left breast, ER/KY positive and HER-2/bambi negative. By clinical evaluation her disease was stage at least IA (T1c, pN1a, M0) at initial diagnosis. She had originally presented a year ago with bloody discharge from the left nipple. An ultrasound of the left breast on 08/06/2018 was BI-RADS Category 1. A few ductal structures were noted in the subareolar region, but there was no evidence for cystic or solid soft tissue abnormality. She apparently then had an abnormal mammogram done elsewhere and further evaluation with a diagnostic bilateral mammogram on 11/18/2018 showed multiple calcifications scattered throughout the left breast. The most concerning were in the upper outer quadrant. The breasts were noted to be extremely dense. A stereotactic biopsy of left breast calcifications on 01/18/2019 showed fibrocystic changes with no malignancy or significant atypia identified. She then had a repeat diagnostic mammogram and left breast ultrasound on 06/24/2019. The mammogram showed a slightly spiculated asymmetric density measuring 1.3 x 0.6 cm in the upper outer quadrant. Multiple punctate calcifications deep to the biopsy marker were noted to have a similar appearance compared to the study from November 2018. Ultrasound showed an irregular hypoechoic lesion at the 2 o'clock position measuring 1.3 x 1.2 x 0.9 cm. It was BI-RADS 5, highly suggestive of malignancy. Ultrasound also showed an abnormal appearing enlarged lymph node in the left axilla measuring 1.9 x 1.4 x 0.8 cm. On 07/12/2019 she underwent ultrasound-guided biopsy of the left breast mass and the left axillary lymph node. Pathology on the breast mass showed moderately differentiated invasive ductal carcinoma, nuclear grade 2. The maximum tumor size is 1.0 cm. The left axillary lymph node biopsy was positive for metastatic ductal carcinoma with tumor size measuring 3.5 mm. The breast prognostic profile showed ER positive at 90% and KY positive at 90%. HER-2/bambi was 2+ by IHC, but negative by FISH with amplification ratio 1.4 and 2.8 HER-2 copies/cell. The KI-67 was elevated at 30%. With clinically evident axillary lymph node involvement, she was advised to undergo neoadjuvant chemotherapy with Adriamycin/cyclophosphamide followed by paclitaxel. She began cycle 1 of Adriamycin/cyclophosphamide on 08/19/2019. She was given first cycle prophylaxis with Neulasta. She tolerated the treatment well, and she continued with cycle 2 on 09/02/2019, with cycle 3 on 09/16/2019, and with cycle 4 on 09/30/2019. She then began her 1st of 12 planned cycles of weekly paclitaxel on 10/14/2019. She had severe fatigue with the paclitaxel and following her third weekly infusion she also became significantly neutropenic, requiring growth factor support with Neupogen. Beginning with her week 5 treatment, she was given a dose reduction, mainly because of the severe fatigue. Her week 6 treatment was deferred due to persistently elevated liver enzymes. She was able to restart after 1-week delay and she was then been able to continue her treatment weekly with liver enzymes remaining just slightly elevated. She received her 12th and final weekly paclitaxel infusion on 01/06/2020. On 02/01/2020 she underwent total mastectomy bilaterally with left axillary sentinel lymph node biopsy. Pathology showed residual grade 2 invasive ductal carcinoma measuring 2.6 x 2.4 x 1.3 cm. 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 The margins were uninvolved. There was involvement into/2 axillary sentinel lymph nodes with the largest metastatic deposit measuring 7 mm. Extranodal extension was present. Pathologic staging was ypT2, ypN1a(sn). With those findings, she underwent left axillary lymph node dissection on 02/17/2020. Pathology showed additional involvement in 1/9 lymph nodes measuring approximately 6 mm in greatest dimension. There was no extracapsular extension identified. On 04/03/2020 when she began adjuvant endocrine therapy with Zoladex 3.6 mg by subcutaneous injection monthly and 14 days later she started anastrozole 1 mg daily. On 04/04/2020 she began postoperative radiation to the left chest wall/axilla. She completed treatment on 05/11/2020 to a total dose of 5000 cGy administered in 25 fractions. She tolerated it well. Her other medical illnesses include GERD, migraine headaches, and anxiety/depression. She also has a history of thyroid nodules with hyperthyroidism, for which she underwent total thyroidectomy in 2014. She has only minimal prior smoking history, and she quit smoking in 2007. INTERIM HISTORY: She has been feeling pretty good generally, though she has been more fatigued after starting her endocrine therapy and completing her chest wall radiation. She is still working and taking care of her kids, but she is more tired and she is having excessive somnolence. Her ECOG score is 1. Her appetite has been good. She does not have fever, but she has been having hot flashes and sweating. She has developed mild lymphedema in her left arm. She does not complain of shortness of breath or cough. She has occasional pain in the left chest area. She has no GI/ complaints other than some constipation, which she is managing with senna. She currently is not having any other joint or bone pain. She has headaches, but not too bad. She sometimes has dizziness. She has no numbness/paresthesia or other neuropathy symptoms. Medications: Claritin 1 Tablet (of 10 mg) Tablet Oral daily, clonazePAM 1 Tablet (of 0.5 mg) Oral b.i.d. PRN, FLUoxetine HCl 1 Tablet (of 80 mg) Oral daily, Gabapentin (300 mg) Capsule Oral Take as Directed, Ibuprofen 1 Tablet (of 800 mg) Oral t.i.d. PRN, Levothyroxine Sodium 1 Tablet (of 75 mcg) Oral daily, Meloxicam 1 Tablet (of 15 mg) Oral daily, Multivitamin Gummies Womens 1 Tablet, chewable Oral daily, oxyCODONE HCl 1 - 2 Tablet (of 15 mg) Oral q 4 hours PRN, Pantoprazole Sodium 1 Tablet (of 40 mg) Tablet, enteric coated Oral daily, Rizatriptan Benzoate 1 Tablet (of 10 mg) Oral q 2 hours PRN, Senna S 1 Tablet (of 8.6-50 mg) Oral daily PRN, Topiramate 1 Tablet (of 50 mg) Oral daily Allergies: No Known Allergies. Vital Signs: Performed on Jun 07, 2020 10:26 Height - 63.00 in Weight - 163.0 lbs Temperature - 97.8 F Pulse - 92 Respiration - 18 BP - 115/78 mm(hg) O2 Sat - 99 % Pain - 0 Fatigue - 6 Performed on Jun 07, 2020 10:26 BMI - 28.874 kg/m2 (HIGH) Performed on Jun 07, 2020 09:40 Height - 63.00 in Weight - 163 lbs (HIGH) BSA - 1.77 sq.m BMI - 28.87 Temperature - 97.8 F (LOW) Pulse - 92 /min Respiration - 18 /min BP - 115/78 mm(hg) O2 Sat - 99 % Pain - 0 Fatigue - 6 Physical Examination: Constitutional - She looks pretty good generally, Eyes - Sclerae nonicteric. Conjunctivae clear, ENMT - No lesions noted in the oral cavity, Hematologic/Lymphatic - No cervical or clavicular adenopathy, Respiratory - Lungs are clear with good air movement bilaterally, Cardiovascular - Heart rhythm is regular. There is no murmur, gallop, or rub noted, Breasts - There are no chest wall lesions noted. There is no axillary adenopathy, Abdomen - Soft. Liver and spleen are not enlarged. There is no abdominal mass or ascites noted and there is no inguinal adenopathy, Extremities - There is no lower extremity edema. There is mild lymphedema of the left arm, Neurologic - No focal neurologic deficits noted. Lab/Imaging: Test performed on Jun 07, 2020 08:15 Sodium 142 mmol/L TSH 0.13 uIU/mL Potassium 4.0 mmol/L Chloride 106 mmol/L CO2 26 mmol/L Anion Gap 14.0 BUN 17 mg/dL Creatinine 0.8 mg/dL Cr Clearance (Est) 105.83 mL/min eGFR 78.3 mL/min Glucose 96 mg/dL Osmolality - Calculated 295 mOsm/kg Calcium 9.3 mg/dL Protein, Total 7.2 g/dL Albumin 4.5 g/dL Globulin 2.7 g/dL Bilirubin, Total 0.7 mg/dL ALT (SGPT) 28 U/L AST (SGOT) 23 U/L Alkaline Phosphatase 84 IU/L WBC 3.3 10 3/uL RBC 4.21 10 6/uL HGB 12.8 g/dL HCT 37.3 % MCV 88.6 fL MCH 30.4 pg MCHC 34.3 g/dL RDW 12.9 % Platelet Count 238 10 3/cmm MPV 10.7 fL Neutrophils 2.00 10 3/uL Lymphocytes 0.7 10 3/uL Monocytes 0.4 10 3/uL Eosinophils 0.1 10 3/uL Basophils 0.0 10 3/uL Neutrophil % 60.1 % Lymphocyte % 20.4 % Monocyte % 12.9 % Eosinophil % 4.2 % Basophils % 1.2 % NRBC % 0 % Problem List: 1. Grade 2 infiltrating ductal carcinoma of the left breast, by clinical evaluation stage at least 1A (T1c, pN1a, M0), ER/KY positive and HER-2/bambi negative. She underwent ultrasound-guided biopsies of left breast mass and left axillary lymph node on 07/12/2019. 2. GERD. 3. Migraine headaches. 4. Anxiety/depression. 5. She has a history of thyroid nodules/hyperthyroidism for which she underwent total thyroidectomy in 2014. Problems Addressed with this Encounter and Plan: 1. Patient with grade 2 infiltrating ductal carcinoma of the left breast, by clinical evaluation stage at least 1A (T1c, pN1a, M0), ER/KY positive and HER-2/bambi negative. She underwent ultrasound-guided biopsies of left breast mass and left axillary lymph node on 07/12/2019. With clinically evident axillary lymph node involvement she underwent neoadjuvant chemotherapy with Adriamycin/cyclophosphamide followed by weekly paclitaxel. She completed 4 cycles of Adriamycin/cyclophosphamide from 08/19/2019 thru 09/30/2019. On 10/14/2019 she began her 1st of 12 planned weekly cycles of paclitaxel. She completed her 12th and final paclitaxel infusion on 01/06/2020. Side effects included fatigue, neutropenia, and mild transaminitis. Overall, she tolerated the chemotherapy well. On 02/01/2020 she underwent total mastectomy bilaterally with left axillary sentinel lymph node biopsy. Pathology showed residual grade 2 invasive ductal carcinoma measuring 2.6 x 2.4 x 1.3 cm. 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 The margins were uninvolved. There was involvement into/2 axillary sentinel lymph nodes with the largest metastatic deposit measuring 7 mm. Extranodal extension was present. Pathologic staging was ypT2, ypN1a(sn). With those findings, she then underwent left axillary lymph node dissection on 02/17/2020. Pathology showed involvement in additional 1/9 lymph nodes measuring approximately 6 mm. There was no extracapsular extension identified. On 04/03/2020 when she began adjuvant endocrine therapy with Zoladex 3.6 mg by subcutaneous injection monthly and 14 days later she started anastrozole 1 mg daily. On 04/04/2020 she began postoperative radiation to the left chest wall/axilla. She completed treatment on 05/11/2020 to a total dose of 5000 cGy administered in 25 fractions. She tolerated it well. At this point she complains of increased fatigue and somnolence. She has developed mild lymphedema of the left arm. She is having hot flashes with the endocrine therapy, as expected. Overall, though, she appears to be doing well clinically. She will continue her adjuvant hormonal therapy with anastrozole 1 mg daily. She was scheduled for a follow-up visit in 3 months. In the meantime, with her reports of increased fatigue and somnolence, I see if I can get insurance coverage for a trial of therapy with modafinil. 2. She has been on thyroid replacement for hypothyroidism. Her TSH level is low, and her levothyroxine dosage has been adjusted. The TSH will be rechecked in 3 months. Signed By: Zia Beverly M.D. <<Signature on File>>
== END 2020-06-14 23:59 | disposition home or self-care (01) ==
LOC: ONCMED 05:47
PROVIDERS: PCP Family Medicine; Visit Provider Internal Medicine Medical Oncology
DX: C50.412 Malignant neoplasm of upper-outer quadrant of left female breast (principal); Z17.0 Estrogen receptor positive status [ER+]; K21.9 Gastro-esophageal reflux disease without esophagitis; G43.919 Migraine, unspecified, intractable, without status migrainosus; F41.9 Anxiety disorder, unspecified; F32.9 Major depressive disorder, single episode, unspecified; E03.9 Hypothyroidism, unspecified; Z79.811 Long term (current) use of aromatase inhibitors; Z79.899 Other long term (current) drug therapy
CPT/HCPCS: 36415; 80053; 84443; 85025; 96372; 96402; 99024; 99214; J9202

== ENCOUNTER 2020-07-11 06:19 | Outpatient (RCR) | payer OTHER, SELFPAY ==
[2020-07-11] MEDS: lidocaine 1% INJ 20 mL INJECTION (09:41)
[2020-07-11] MEDS: goserelin acetate 3.6 mg Implant SUBCUT (09:50)
== END 2020-07-14 23:59 | disposition home or self-care (01) ==
LOC: ONCMED 06:19
PROVIDERS: PCP Family Medicine; Visit Provider Internal Medicine Medical Oncology
DX: C50.412 Malignant neoplasm of upper-outer quadrant of left female breast (principal); Z17.0 Estrogen receptor positive status [ER+]; D70.1 Agranulocytosis secondary to cancer chemotherapy; T45.1X5A Adverse effect of antineoplastic and immunosuppressive drugs, initial encounter
CPT/HCPCS: 96372; 96402; J9202

== ENCOUNTER 2020-08-10 06:26 | Outpatient (RCR) | payer OTHER, SELFPAY ==
[2020-08-10] MEDS: lidocaine 1% INJ 20 mL INJECTION (09:20)
[2020-08-10] MEDS: goserelin acetate 3.6 mg Implant SUBCUT (09:29)
== END 2020-08-14 23:59 | disposition home or self-care (01) ==
LOC: ONCMED 06:26
PROVIDERS: PCP Family Medicine; Visit Provider Internal Medicine Medical Oncology
DX: C50.412 Malignant neoplasm of upper-outer quadrant of left female breast (principal); Z17.0 Estrogen receptor positive status [ER+]; Z79.811 Long term (current) use of aromatase inhibitors
CPT/HCPCS: 96372; 96402; J9202

== ENCOUNTER 2020-09-12 07:45 | Outpatient (CLI) | payer OTHER, SELFPAY ==
[2020-09-12 09:03] LABS: Basophils # 0.1 10^3/uL (0.0-0.1); Basophils % 1.3 %; Eosinophils # 0.2 10^3/uL (0.0-0.8); Eosinophils % 4.5 %; Hematocrit 39.4 % (37.0-47.0); Hemoglobin 13.4 g/dL (11.5-15.3); Lymphocytes # 0.9 10^3/uL (0.8-4.8); Lymphocytes % 23.4 %; Mean Corpuscular Hemoglobin 31.2 pg (28.0-34.0); Mean Corpuscular Volume 91.6 fL (81-99); Mean Platelet Volume 10.5 fL (7.4-10.4); Monocytes # 0.5 10^3/uL (0.2-0.9); Monocytes % 11.3 %; Neutrophils # 2.29 10^3/uL (1.8-7.7); Neutrophils % 57.5 %; Nucleated Red Blood Cells % 0 %; Platelet Count 231 10^3/cmm (130-400)
[2020-09-12 09:24] LABS: Alanine Aminotransferase 43 U/L (0-33); Albumin Level 4.4 g/dL (3.5-5.2); Alkaline Phosphatase 106 IU/L (35-105); Anion Gap 18.2 (5-19); Aspartate Amino Transferase 38 U/L (0-32); Blood Urea Nitrogen 18 mg/dL (6-20); Calcium 8.7 mg/dL (8.5-10.5); Carbon Dioxide 23 mmol/L (22-29); Chloride 103 mmol/L (98-107); Globulin 2.5 g/dL (1.3-4.6); Glomerular Filtration Rate 78.3 mL/min (90-130); Glucose 98 mg/dL (65-115); Osmolality Calculated 292 mOsm/kg (285-295); Potassium 4.2 mmol/L (3.5-5.1); Sodium 140 mmol/L (136-145); Thyroid Stimulating Hormone 2.91 uIU/mL (0.27-4.20); Total Bilirubin 0.4 mg/dL (0.15-1.2); Total Protein 6.9 g/dL (6.6-8.7)
[2020-09-12] MEDS: lidocaine 1% INJ 20 mL SUBCUT (10:15)
[2020-09-12] MEDS: goserelin acetate 3.6 mg Implant SUBCUT (10:30)
--- NOTE | 2020-09-20 07:54 | ONC FU_ITS ---
Dr. Beverly Patient Follow-Up Note Patient: Ramya Wilburn Unit #: [id number]: 1975 Dicatated By: Zia Beverly M.D.Date of Visit:Sep 12, 2020 Onc Med Follow-up/Prog Note Chief Complaint: Breast cancer. History of Present Illness: This is a 44 year-old woman with grade 2 invasive ductal carcinoma of the left breast, ER/MN positive and HER-2/bambi negative. By clinical evaluation her disease was stage at least IA (T1c, pN1a, M0) at initial diagnosis. Her disease was posttreatment stage IB (ypT2, ypN1a, M0). She had originally presented a year ago with bloody discharge from the left nipple. An ultrasound of the left breast on 08/06/2018 was BI-RADS Category 1. A few ductal structures were noted in the subareolar region, but there was no evidence for cystic or solid soft tissue abnormality. She apparently then had an abnormal mammogram done elsewhere and further evaluation with a diagnostic bilateral mammogram on 11/18/2018 showed multiple calcifications scattered throughout the left breast. The most concerning were in the upper outer quadrant. The breasts were noted to be extremely dense. A stereotactic biopsy of left breast calcifications on 01/18/2019 showed fibrocystic changes with no malignancy or significant atypia identified. She then had a repeat diagnostic mammogram and left breast ultrasound on 06/24/2019. The mammogram showed a slightly spiculated asymmetric density measuring 1.3 x 0.6 cm in the upper outer quadrant. Multiple punctate calcifications deep to the biopsy marker were noted to have a similar appearance compared to the study from November 2018. Ultrasound showed an irregular hypoechoic lesion at the 2 o'clock position measuring 1.3 x 1.2 x 0.9 cm. It was BI-RADS 5, highly suggestive of malignancy. Ultrasound also showed an abnormal appearing enlarged lymph node in the left axilla measuring 1.9 x 1.4 x 0.8 cm. On 07/12/2019 she underwent ultrasound-guided biopsy of the left breast mass and the left axillary lymph node. Pathology on the breast mass showed moderately differentiated invasive ductal carcinoma, nuclear grade 2. The maximum tumor size was 1.0 cm. The left axillary lymph node biopsy was positive for metastatic ductal carcinoma with tumor size measuring 3.5 mm. The breast prognostic profile showed ER positive at 90% and MN positive at 90%. HER-2/bambi was 2+ by IHC, but negative by FISH with amplification ratio 1.4 and 2.8 HER-2 copies/cell. The KI-67 was elevated at 30%. With clinically evident axillary lymph node involvement, she was advised to undergo neoadjuvant chemotherapy with Adriamycin/cyclophosphamide followed by paclitaxel. She began cycle 1 of Adriamycin/cyclophosphamide on 08/19/2019. She was given first cycle prophylaxis with Neulasta. She tolerated the treatment well, and she continued with cycle 2 on 09/02/2019, with cycle 3 on 09/16/2019, and with cycle 4 on 09/30/2019. She then began her 1st of 12 planned cycles of weekly paclitaxel on 10/14/2019. She had severe fatigue with the paclitaxel and following her third weekly infusion she also became significantly neutropenic, requiring growth factor support with Neupogen. Beginning with her week 5 treatment, she was given a dose reduction, mainly because of the severe fatigue. Her week 6 treatment was deferred due to persistently elevated liver enzymes. She was able to restart after 1-week delay and she was then been able to continue her treatment weekly with liver enzymes remaining just slightly elevated. She received her 12th and final weekly paclitaxel infusion on 01/06/2020. On 02/01/2020 she underwent total mastectomy bilaterally with left axillary sentinel lymph node biopsy. Pathology showed residual grade 2 invasive ductal carcinoma measuring 2.6 x 2.4 x 1.3 cm. 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 The margins were uninvolved. There was involvement in 2/2 axillary sentinel lymph nodes with the largest metastatic deposit measuring 7 mm. Extranodal extension was present. Pathologic staging was ypT2, ypN1a(sn). With those findings, she underwent left axillary lymph node dissection on 02/17/2020. Pathology showed additional involvement in 1/9 lymph nodes measuring approximately 6 mm in greatest dimension. There was no extracapsular extension identified. On 04/03/2020 when she began adjuvant endocrine therapy with Zoladex 3.6 mg by subcutaneous injection monthly and 14 days later she started anastrozole 1 mg daily. On 04/04/2020 she began postoperative radiation to the left chest wall/axilla. She completed treatment on 05/11/2020 to a total dose of 5000 cGy administered in 25 fractions. She tolerated it well. Her other medical illnesses include GERD, migraine headaches, and anxiety/depression. She also has a history of thyroid nodules with hyperthyroidism, for which she underwent total thyroidectomy in 2014. She has only minimal prior smoking history, and she quit smoking in 2007. INTERIM HISTORY: She has not been feeling is good generally. During follow-up she has had some ongoing issues with lymphedema and cellulitis in the left arm. She also has complained of having a lot of fatigue and excessive somnolence. Following her visit with me in May she did begin a trial of therapy with modafinil. She thinks it has helped somewhat, at least to the extent that some days her energy seems okay. At other times she is still significantly fatigued and she just does not feel like doing anything. She is still working, though. Her ECOG score is 1. Her appetite is okay. She has had significant weight gain during her entire course of treatment, in the range of 35 to 40 pounds. She has not had fever. She has hot flashes, which come and go, mainly in the afternoon and evening. She has had some cough, attributable to allergies. She does not complain of shortness of breath or chest pain. She says she feels swollen in her abdominal area, and she has been having some tenderness in the upper abdomen. She does not complain of nausea. She does report having terrible constipation despite taking senna/docusate twice daily. She has some achiness in her joints, but not bad. She does not complain of headache. She has just occasional dizziness. Her neuropathy symptoms have mostly resolved. She does not feel that she is having significant depression. She does have some difficulty with concentration. Medications: Anastrozole 1 (1 mg) Tablet Oral daily, Claritin 1 Tablet (of 10 mg) Tablet Oral daily, clonazePAM 1 Tablet (of 0.5 mg) Oral b.i.d. PRN, FLUoxetine HCl 1 Tablet (of 80 mg) Oral daily, Gabapentin (300 mg) Capsule Oral Take as Directed, Ibuprofen 1 Tablet (of 800 mg) Oral t.i.d. PRN, Levothyroxine Sodium 1 Tablet (of 75 mcg) Oral daily, Meloxicam 1 Tablet (of 15 mg) Oral daily, Multivitamin Gummies Womens 1 Tablet, chewable Oral daily, oxyCODONE HCl 1 - 2 Tablet (of 15 mg) Oral q 4 hours PRN, Pantoprazole Sodium 1 Tablet (of 40 mg) Tablet, enteric coated Oral daily, Provigil 1 (100 mg) Tablet Oral daily, Rizatriptan Benzoate 1 Tablet (of 10 mg) Oral q 2 hours PRN, Senna S 1 Tablet (of 8.6-50 mg) Oral daily PRN, Topiramate 1 Tablet (of 50 mg) Oral daily Allergies: No Known Allergies. Vital Signs: Performed on Sep 12, 2020 09:42 Height - 63.00 in Weight - 169.0 lbs (HIGH) BSA - 1.80 sq.m BMI - 29.94 Temperature - 97.9 F (LOW) Pulse - 79 /min Respiration - 17 /min BP - 119/80 mm(hg) O2 Sat - 97 % Pain - 0 Physical Examination: Constitutional - She looks pretty good generally, Eyes - Sclerae nonicteric. Conjunctivae clear, ENMT - No lesions noted in the oral cavity, Hematologic/Lymphatic - No cervical or clavicular adenopathy, Respiratory - Lungs are clear with good air movement bilaterally, Cardiovascular - Heart rhythm is regular. There is no murmur, gallop, or rub noted, Breasts - There are no chest wall lesions noted. There is tenderness in the area of the left axilla. There is no axillary adenopathy noted, Abdomen - Soft. Liver and spleen are not enlarged. There is no abdominal mass or ascites noted and there is no inguinal adenopathy, Extremities - There is no lower extremity edema. There is mild lymphedema of the left arm, Integumentary - There is a skin eruption on the left chest wall, mainly along the inferior margin of the radiation field, but to a lesser extent also in the upper chest wall/supraclavicular area. Along the inferior chest wall it has an eczematous appearance with erythema and a rough texture, Neurologic - No focal neurologic deficits noted. Lab/Imaging: Test performed on Sep 12, 2020 08:30 Sodium 140 mmol/L TSH 2.91 uIU/mL Potassium 4.2 mmol/L Chloride 103 mmol/L CO2 23 mmol/L Anion Gap 18.2 BUN 18 mg/dL Creatinine 0.8 mg/dL Cr Clearance (Est) 109.73 mL/min eGFR 78.3 mL/min Glucose 98 mg/dL Osmolality - Calculated 292 mOsm/kg Calcium 8.7 mg/dL Protein, Total 6.9 g/dL Albumin 4.4 g/dL Globulin 2.5 g/dL Bilirubin, Total 0.4 mg/dL ALT (SGPT) 43 U/L AST (SGOT) 38 U/L Alkaline Phosphatase 106 IU/L WBC 4.0 10 3/uL RBC 4.30 10 6/uL HGB 13.4 g/dL HCT 39.4 % MCV 91.6 fL MCH 31.2 pg MCHC 34.0 g/dL RDW 12.0 % Platelet Count 231 10 3/cmm MPV 10.5 fL Neutrophils 2.29 10 3/uL Lymphocytes 0.9 10 3/uL Monocytes 0.5 10 3/uL Eosinophils 0.2 10 3/uL Basophils 0.1 10 3/uL Neutrophil % 57.5 % Lymphocyte % 23.4 % Monocyte % 11.3 % Eosinophil % 4.5 % Basophils % 1.3 % NRBC % 0 % Test performed on Apr 28, 2020 11:19 Vitamin D (25-Hydroxy), Total 18 ng/mL Problem List: 1. Grade 2 infiltrating ductal carcinoma of the left breast, ER/MN positive and HER-2/bambi negative. By clinical evaluation her disease was stage at least 1A (T1c, pN1a, M0) at initial diagnosis. Her disease was post treatment stage IB (ypT2, ypN1a, M0). 2. GERD. 3. Migraine headaches. 4. Anxiety/depression. 5. She has a history of thyroid nodules/hyperthyroidism for which she underwent total thyroidectomy in 2014. 6. Vitamin D deficiency. Problems Addressed with this Encounter and Plan: 1. Patient with grade 2 infiltrating ductal carcinoma of the left breast, ER/MN positive and HER-2/bambi negative. She underwent ultrasound-guided biopsies of left breast mass and left axillary lymph node on 07/12/2019. By clinical evaluation her disease was stage at least 1A (T1c, pN1a, M0) at initial diagnosis. With clinically evident axillary lymph node involvement she underwent neoadjuvant chemotherapy with Adriamycin/cyclophosphamide followed by weekly paclitaxel. She completed 4 cycles of Adriamycin/cyclophosphamide from 08/19/2019 thru 09/30/2019. On 10/14/2019 she began her 1st of 12 planned weekly cycles of paclitaxel. She completed her 12th and final paclitaxel infusion on 01/06/2020. Side effects included fatigue, neutropenia, and mild transaminitis. Overall, she tolerated the chemotherapy well. On 02/01/2020 she underwent total mastectomy bilaterally with left axillary sentinel lymph node biopsy. Pathology showed residual grade 2 invasive ductal carcinoma measuring 2.6 x 2.4 x 1.3 cm. 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 The margins were uninvolved. There was involvement into/2 axillary sentinel lymph nodes with the largest metastatic deposit measuring 7 mm. Extranodal extension was present. Pathologic staging was ypT2, ypN1a(sn). With those findings, she then underwent left axillary lymph node dissection on 02/17/2020. Pathology showed involvement in additional 1/9 lymph nodes measuring approximately 6 mm. There was no extracapsular extension identified. As such, her disease was post treatment stage IB (ypT2, ypN1a, M0). On 04/03/2020 when she began adjuvant endocrine therapy with Zoladex 3.6 mg by subcutaneous injection monthly and 14 days later she started anastrozole 1 mg daily. On 04/04/2020 she began postoperative radiation to the left chest wall/axilla. She completed treatment on 05/11/2020 to a total dose of 5000 cGy administered in 25 fractions. She tolerated it well. During follow-up she has had ongoing issues with lymphedema and cellulitis in the left arm. She has continued to complain of significant fatigue and excessive somnolence. It is uncertain to what extent this may still be chemotherapy related, to her endocrine therapy, or to other factors. She has had some benefit taking modafinil 200 mg daily, though some days she is still significantly fatigued. At this point I will have her scheduled for a sleep study and I will give her the option of taking the modafinil twice daily as needed. For now she will continue her endocrine therapy with monthly Zoladex injections together with anastrozole 1 mg daily. She will be scheduled for a follow-up visit in 3 months. 2. Vitamin D deficiency. Her laboratory studies in April included a significantly decreased 25-hydroxy vitamin D level at 18 ng/mL. She will start replacement therapy with vitamin D3 1000 units daily and vitamin D2 50,000 units weekly for 4 weeks then monthly. 3. She has been on thyroid replacement for hypothyroidism. Her TSH level is in normal range. Signed By: Zia Beverly M.D. <<Signature on File>>
== END 2020-09-12 07:46 | disposition home or self-care (01) ==
LOC: ONCMED 07:47
PROVIDERS: PCP Family Medicine; Visit Provider Internal Medicine Medical Oncology
DX: C50.812 Malignant neoplasm of overlapping sites of left female breast (principal); Z17.0 Estrogen receptor positive status [ER+]; K21.9 Gastro-esophageal reflux disease without esophagitis; G43.919 Migraine, unspecified, intractable, without status migrainosus; F41.9 Anxiety disorder, unspecified; F32.9 Major depressive disorder, single episode, unspecified; E05.00 Thyrotoxicosis with diffuse goiter without thyrotoxic crisis or storm; E55.9 Vitamin D deficiency, unspecified; Z79.811 Long term (current) use of aromatase inhibitors; Z79.899 Other long term (current) drug therapy; Z92.21 Personal history of antineoplastic chemotherapy; Z92.3 Personal history of irradiation
CPT/HCPCS: 36415; 80053; 84443; 85025; 96372; 96402; 99214; J9202

== ENCOUNTER 2020-10-10 11:57 | Outpatient (CLI) | payer OTHER, SELFPAY ==
[2020-10-10 13:26] LABS: Eosinophils # 0.2 10^3/uL (0.0-0.8); Eosinophils % 4.1 %; Hematocrit 37.2 % (37.0-47.0); Hemoglobin 12.6 g/dL (11.5-15.3); Lymphocytes # 1.1 10^3/uL (0.8-4.8); Lymphocytes % 28.1 %; Mean Corpuscular HGB Conc 33.9 g/dL (30.0-36.0); Mean Corpuscular Hemoglobin 31.3 pg (28.0-34.0); Mean Corpuscular Volume 92.3 fL (81-99); Mean Platelet Volume 10.6 fL (7.4-10.4); Monocytes # 0.4 10^3/uL (0.2-0.9); Monocytes % 10.1 %; Neutrophils # 2.19 10^3/uL (1.8-7.7); Neutrophils % 55.4 %; Nucleated Red Blood Cells % 0 %; Platelet Count 240 10^3/cmm (130-400); Red Blood Count 4.03 10^6/uL (4.1-5.3); Red Cell Distribution Width 11.9 % (12.1-15.1)
[2020-10-10 13:56] LABS: Alanine Aminotransferase 31 U/L (0-33); Albumin Level 4.4 g/dL (3.5-5.2); Alkaline Phosphatase 97 IU/L (35-105); Anion Gap 15.9 (5-19); Aspartate Amino Transferase 23 U/L (0-32); Blood Urea Nitrogen 17 mg/dL (6-20); Calcium 8.9 mg/dL (8.5-10.5); Carbon Dioxide 25 mmol/L (22-29); Chloride 104 mmol/L (98-107); Globulin 2.4 g/dL (1.3-4.6); Glomerular Filtration Rate 78.3 mL/min (90-130); Glucose 99 mg/dL (65-115); Osmolality Calculated 294 mOsm/kg (285-295); Potassium 3.9 mmol/L (3.5-5.1); Sodium 141 mmol/L (136-145); Total Bilirubin 0.5 mg/dL (0.15-1.2); Total Protein 6.8 g/dL (6.6-8.7)
== END 2020-10-10 11:58 | disposition home or self-care (01) ==
PROVIDERS: Internal Medicine Hematology & Oncology; PCP Family Medicine; Visit Provider Internal Medicine Medical Oncology
DX: C50.812 Malignant neoplasm of overlapping sites of left female breast (principal); Z17.0 Estrogen receptor positive status [ER+]; Z79.899 Other long term (current) drug therapy
CPT/HCPCS: 36415; 80053; 85025

== ENCOUNTER 2020-10-11 07:01 | Outpatient (CLI) | payer OTHER, SELFPAY ==
--- NOTE | 2020-10-11 07:10 | US_ITS ---
WS: [id number] ULTRASOUND ABDOMEN LIMITED CLINICAL INFORMATION: RUQ PAIN COMPARISON: None. FINDINGS: Liver Size: Normal. Craniocaudal length: 12.0 cm. Echogenicity: Normal. Surface nodularity: None. Mass (size and location): None. Bile ducts Intrahepatic ducts: Normal. Common bile duct diameter: 0.2 cm. Gallbladder Normal. Gallstones: None. Gallbladder sludge: None. Gallbladder wall thickening: None. Pericholecystic fluid: None. Sonographic Skelton sign: Absent. Pancreas Normal as visualized. Right kidney: Normal. Hydronephrosis: None. Size: 9.3 cm x 4.6 cm x 4.3 cm. Abdominal aorta and IVC Visualized portions are normal. Ascites: None. US/US gall bladder [id number] IMPRESSION: Normal right upper quadrant ultrasound
== END 2020-10-11 07:02 | disposition home or self-care (01) ==
PROVIDERS: PCP Family Medicine; Visit Provider Internal Medicine Hematology & Oncology
DX: R10.11 Right upper quadrant pain (principal)
CPT/HCPCS: 76705

== ENCOUNTER 2020-10-23 06:30 | Outpatient (CLI) | payer OTHER, SELFPAY ==
[2020-10-23] MEDS: lidocaine 1% INJ 20 mL INJECTION (12:11)
[2020-10-23] MEDS: goserelin acetate 3.6 mg Implant SUBCUT (12:20)
== END 2020-10-23 06:31 | disposition home or self-care (01) ==
PROVIDERS: PCP Family Medicine; Visit Provider Internal Medicine Medical Oncology
DX: Z51.11 Encounter for antineoplastic chemotherapy (principal); C50.812 Malignant neoplasm of overlapping sites of left female breast; Z17.0 Estrogen receptor positive status [ER+]
CPT/HCPCS: 96372; 96402; J9202

== ENCOUNTER 2020-11-24 09:48 | Outpatient (CLI) | payer OTHER, SELFPAY ==
[2020-11-24] MEDS: lidocaine 1% INJ 20 mL INJECTION (10:20)
[2020-11-24] MEDS: goserelin acetate 3.6 mg Implant SUBCUT (10:35)
== END 2020-11-24 09:49 | disposition home or self-care (01) ==
LOC: ONCMED 09:51
PROVIDERS: PCP Family Medicine; Visit Provider Internal Medicine Medical Oncology
DX: C50.412 Malignant neoplasm of upper-outer quadrant of left female breast (principal); Z17.0 Estrogen receptor positive status [ER+]; Z79.818 Long term (current) use of other agents affecting estrogen receptors and estrogen levels
CPT/HCPCS: 96372; 96402; J9202

== ENCOUNTER 2020-12-14 11:58 | Outpatient (CLI) | payer OTHER, SELFPAY ==
[2020-12-14 13:44] LABS: Eosinophils # 0.1 10^3/uL (0.0-0.8); Hematocrit 38.9 % (37.0-47.0); Hemoglobin 13.2 g/dL (11.5-15.3); Lymphocytes # 1.2 10^3/uL (0.8-4.8); Lymphocytes % 31.1 %; Mean Corpuscular HGB Conc 33.9 g/dL (30.0-36.0); Mean Corpuscular Hemoglobin 31.4 pg (28.0-34.0); Mean Corpuscular Volume 92.4 fl (81-99); Mean Platelet Volume 10.7 fL (7.4-10.4); Monocytes # 0.5 10^3/uL (0.2-0.9); Monocytes % 12.4 %; Neutrophils # 2.06 10^3/uL (1.8-7.7); Nucleated Red Blood Cells % 0 %; Platelet Count 233 10^3/cmm (130-400); Red Blood Count 4.21 10^6/uL (4.1-5.3); Red Cell Distribution Width 11.6 % (12.1-15.1)
[2020-12-14 14:14] LABS: Alanine Aminotransferase 28 U/L (0-33); Albumin Level 4.4 g/dL (3.5-5.2); Alkaline Phosphatase 95 IU/L (35-105); Anion Gap 13.7 (5-19); Aspartate Amino Transferase 23 U/L (0-32); Blood Urea Nitrogen 17 mg/dL (6-20); Calcium 9.3 mg/dL (8.5-10.5); Carbon Dioxide 25 mmol/L (22-29); Chloride 101 mmol/L (98-107); Globulin 2.9 g/dL (1.3-4.6); Glomerular Filtration Rate 91.3 mL/min (90-130); Glucose 80 mg/dL (65-115); Osmolality Calculated 283 mOsm/kg (285-295); Potassium 3.7 mmol/L (3.5-5.1); Sodium 136 mmol/L (136-145); Total Bilirubin 0.5 mg/dL (0.15-1.2); Total Protein 7.3 g/dL (6.6-8.7)
[2020-12-14 15:16] LABS: Thyroid Stimulating Hormone 0.03 uIU/mL (0.27-4.20)
[2020-12-14 16:12] LABS: 25 Hydroxy Vitamin D 49 ng/mL (30-100)
--- NOTE | 2020-12-15 07:22 | ONC FU_ITS ---
Dr. Beverly Patient Follow-Up Note Patient: Ramya Wilburn Unit #: [id number]: 1975 Dicatated By: Zia Beverly M.D.Date of Visit:Dec 14, 2020 Onc Med Follow-up/Prog Note Chief Complaint: Breast cancer. History of Present Illness: This is a 44 year-old woman with grade 2 invasive ductal carcinoma of the left breast, ER/IL positive and HER-2/bambi negative. By clinical evaluation her disease was stage at least IA (T1c, pN1a, M0) at initial diagnosis. Her disease was posttreatment stage IB (ypT2, ypN1a, M0). She had originally presented a year ago with bloody discharge from the left nipple. An ultrasound of the left breast on 08/06/2018 was BI-RADS Category 1. A few ductal structures were noted in the subareolar region, but there was no evidence for cystic or solid soft tissue abnormality. She apparently then had an abnormal mammogram done elsewhere and further evaluation with a diagnostic bilateral mammogram on 11/18/2018 showed multiple calcifications scattered throughout the left breast. The most concerning were in the upper outer quadrant. The breasts were noted to be extremely dense. A stereotactic biopsy of left breast calcifications on 01/18/2019 showed fibrocystic changes with no malignancy or significant atypia identified. She then had a repeat diagnostic mammogram and left breast ultrasound on 06/24/2019. The mammogram showed a slightly spiculated asymmetric density measuring 1.3 x 0.6 cm in the upper outer quadrant. Multiple punctate calcifications deep to the biopsy marker were noted to have a similar appearance compared to the study from November 2018. Ultrasound showed an irregular hypoechoic lesion at the 2 o'clock position measuring 1.3 x 1.2 x 0.9 cm. It was BI-RADS 5, highly suggestive of malignancy. Ultrasound also showed an abnormal appearing enlarged lymph node in the left axilla measuring 1.9 x 1.4 x 0.8 cm. On 07/12/2019 she underwent ultrasound-guided biopsy of the left breast mass and the left axillary lymph node. Pathology on the breast mass showed moderately differentiated invasive ductal carcinoma, nuclear grade 2. The maximum tumor size was 1.0 cm. The left axillary lymph node biopsy was positive for metastatic ductal carcinoma with tumor size measuring 3.5 mm. The breast prognostic profile showed ER positive at 90% and IL positive at 90%. HER-2/bambi was 2+ by IHC, but negative by FISH with amplification ratio 1.4 and 2.8 HER-2 copies/cell. The KI-67 was elevated at 30%. With clinically evident axillary lymph node involvement, she was advised to undergo neoadjuvant chemotherapy with Adriamycin/cyclophosphamide followed by paclitaxel. She began cycle 1 of Adriamycin/cyclophosphamide on 08/19/2019. She was given first cycle prophylaxis with Neulasta. She tolerated the treatment well, and she continued with cycle 2 on 09/02/2019, with cycle 3 on 09/16/2019, and with cycle 4 on 09/30/2019. She then began her 1st of 12 planned cycles of weekly paclitaxel on 10/14/2019. She had severe fatigue with the paclitaxel and following her third weekly infusion she also became significantly neutropenic, requiring growth factor support with Neupogen. Beginning with her week 5 treatment, she was given a dose reduction, mainly because of the severe fatigue. Her week 6 treatment was deferred due to persistently elevated liver enzymes. She was able to restart after 1-week delay and she was then been able to continue her treatment weekly with liver enzymes remaining just slightly elevated. She received her 12th and final weekly paclitaxel infusion on 01/06/2020. On 02/01/2020 she underwent total mastectomy bilaterally with left axillary sentinel lymph node biopsy. Pathology showed residual grade 2 invasive ductal carcinoma measuring 2.6 x 2.4 x 1.3 cm. 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 The margins were uninvolved. There was involvement in 2/2 axillary sentinel lymph nodes with the largest metastatic deposit measuring 7 mm. Extranodal extension was present. Pathologic staging was ypT2, ypN1a(sn). With those findings, she underwent left axillary lymph node dissection on 02/17/2020. Pathology showed additional involvement in 1/9 lymph nodes measuring approximately 6 mm in greatest dimension. There was no extracapsular extension identified. On 04/03/2020 when she began adjuvant endocrine therapy with goserelin 3.6 mg by subcutaneous injection monthly and 14 days later she started anastrozole 1 mg daily. On 04/04/2020 she began postoperative radiation to the left chest wall/axilla. She completed treatment on 05/11/2020 to a total dose of 5000 cGy administered in 25 fractions. She tolerated it well. Her other medical illnesses include GERD, migraine headaches, and anxiety/depression. She also has a history of thyroid nodules with hyperthyroidism, for which she underwent total thyroidectomy in 2014. She has only minimal prior smoking history, and she quit smoking in 2007. INTERIM HISTORY: She has been feeling pretty good generally, though she does complain that she feels exhausted. She is working and doing all of her other normal activities. She has had some benefit taking Provigil, though it has not been consistent. Her ECOG score is 0. She has good appetite. She is trying to watch her diet. She has not had fever or night sweats. She is having some hot flashes, but they are general ophthalmologist and less frequent now. She has not had sore mouth or throat. She has no shortness of breath, cough, or chest pain. She has no GI/ complaints other than some constipation, which she manages adequately with a stool softener. She says her joints are a little achy. She is still taking meloxicam. She also has been having muscle cramps in her legs at night. She has occasional headache. She does get dizzy/lightheaded pretty often, mainly when she moves too fast her bends over. She has no numbness/paresthesia or other neuropathy symptoms. Her depression is being managed adequately with medication. Medications: Anastrozole 1 (1 mg) Tablet Oral daily, Claritin 1 Tablet (of 10 mg) Tablet Oral daily, clonazePAM 1 Tablet (of 0.5 mg) Oral b.i.d. PRN, D-1000 1 (1000 Units) Tablet Oral daily, Ergocalciferol 1 (50,000 Units) Tablet Oral q 7 hours, FLUoxetine HCl 1 Tablet (of 80 mg) Oral daily, Gabapentin (300 mg) Capsule Oral Take as Directed, Ibuprofen 1 Tablet (of 800 mg) Oral t.i.d. PRN, Levothyroxine Sodium 1 Tablet (of 75 mcg) Oral daily, Meloxicam 1 Tablet (of 15 mg) Oral daily, Multivitamin Gummies Womens 1 Tablet, chewable Oral daily, oxyCODONE HCl 1 - 2 Tablet (of 15 mg) Oral q 4 hours PRN, Pantoprazole Sodium 1 Tablet (of 40 mg) Tablet, enteric coated Oral daily, Provigil 1 (200 mg) Tablet Oral daily, Rizatriptan Benzoate 1 Tablet (of 10 mg) Oral q 2 hours PRN, Senna S 1 Tablet (of 8.6-50 mg) Oral daily PRN, Topiramate 1 Tablet (of 50 mg) Oral daily Allergies: No Known Allergies. Vital Signs: Performed on Dec 14, 2020 14:33 Height - 63.00 in Weight - 153.8 lbs (LOW) BSA - 1.73 sq.m BMI - 27.24 Temperature - 97.8 F (LOW) Pulse - 92 /min Respiration - 18 /min BP - 118/85 mm(hg) O2 Sat - 99 % Pain - 0 Fatigue - 5 Physical Examination: Constitutional - She looks good generally, Eyes - Sclerae nonicteric. Conjunctivae clear, ENMT - No lesions noted in the oral cavity, Hematologic/Lymphatic - No cervical or clavicular adenopathy, Respiratory - Lungs are clear with good air movement bilaterally, Cardiovascular - Heart rhythm is regular. There is no murmur, gallop, or rub noted, Breasts - There are no chest wall lesions noted. There is no axillary adenopathy noted, Abdomen - Soft. Liver and spleen are not enlarged. There is no abdominal mass or ascites noted and there is no inguinal adenopathy, Extremities - There is slight lymphedema in the left arm. There is no lower extremity edema, Neurologic - No focal neurologic deficits noted. Lab/Imaging: Test performed on Dec 14, 2020 12:43 Sodium 136 mmol/L TSH 0.03 uIU/mL Vitamin D (25-Hydroxy), Total 49 ng/mL Potassium 3.7 mmol/L Chloride 101 mmol/L CO2 25 mmol/L Anion Gap 13.7 BUN 17 mg/dL Creatinine 0.7 mg/dL Cr Clearance (Est) 114.13 mL/min eGFR 91.3 mL/min Glucose 80 mg/dL Osmolality - Calculated 283 mOsm/kg Calcium 9.3 mg/dL Protein, Total 7.3 g/dL Albumin 4.4 g/dL Globulin 2.9 g/dL Bilirubin, Total 0.5 mg/dL ALT (SGPT) 28 U/L AST (SGOT) 23 U/L Alkaline Phosphatase 95 IU/L WBC 4.0 10 3/uL RBC 4.21 10 6/uL HGB 13.2 g/dL HCT 38.9 % MCV 92.4 fl MCH 31.4 pg MCHC 33.9 g/dL RDW 11.6 % Platelet Count 233 10 3/cmm MPV 10.7 fL Neutrophils 2.06 10 3/uL Lymphocytes 1.2 10 3/uL Monocytes 0.5 10 3/uL Eosinophils 0.1 10 3/uL Basophils 0.0 10 3/uL Neutrophil % 52.0 % Lymphocyte % 31.1 % Monocyte % 12.4 % Eosinophil % 3.0 % Basophils % 1.0 % NRBC % 0 % Problem List: 1. Grade 2 infiltrating ductal carcinoma of the left breast, ER/IL positive and HER-2/bambi negative. By clinical evaluation her disease was stage at least 1A (T1c, pN1a, M0) at initial diagnosis. Her disease was post treatment stage IB (ypT2, ypN1a, M0). 2. GERD. 3. Migraine headaches. 4. Anxiety/depression. 5. She has a history of thyroid nodules/hyperthyroidism for which she underwent total thyroidectomy in 2014. 6. Vitamin D deficiency. Problems Addressed with this Encounter and Plan: 1. Patient with grade 2 infiltrating ductal carcinoma of the left breast, ER/IL positive and HER-2/bambi negative. She underwent ultrasound-guided biopsies of left breast mass and left axillary lymph node on 07/12/2019. By clinical evaluation her disease was stage at least 1A (T1c, pN1a, M0) at initial diagnosis. With clinically evident axillary lymph node involvement she underwent neoadjuvant chemotherapy with Adriamycin/cyclophosphamide followed by weekly paclitaxel. She completed 4 cycles of Adriamycin/cyclophosphamide from 08/19/2019 thru 09/30/2019. On 10/14/2019 she began her 1st of 12 planned weekly cycles of paclitaxel. She completed her 12th and final paclitaxel infusion on 01/06/2020. Side effects included fatigue, neutropenia, and mild transaminitis. Overall, she tolerated the chemotherapy well. On 02/01/2020 she underwent total mastectomy bilaterally with left axillary sentinel lymph node biopsy. Pathology showed residual grade 2 invasive ductal carcinoma measuring 2.6 x 2.4 x 1.3 cm. 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 The margins were uninvolved. There was involvement into/2 axillary sentinel lymph nodes with the largest metastatic deposit measuring 7 mm. Extranodal extension was present. Pathologic staging was ypT2, ypN1a(sn). With those findings, she then underwent left axillary lymph node dissection on 02/17/2020. Pathology showed involvement in additional 1/9 lymph nodes measuring approximately 6 mm. There was no extracapsular extension identified. As such, her disease was post treatment stage IB (ypT2, ypN1a, M0). On 04/03/2020 when she began adjuvant endocrine therapy with Zoladex 3.6 mg by subcutaneous injection monthly and 14 days later she started anastrozole 1 mg daily. On 04/04/2020 she began postoperative radiation to the left chest wall/axilla. She completed treatment on 05/11/2020 to a total dose of 5000 cGy administered in 25 fractions. She tolerated it well. During follow-up she has had mild lymphedema in the left arm and she has had significant fatigue with excessive somnolence. She has has some benefit with modafinil, though not consistently. Overall, she appears to be doing pretty well clinically. Thus far there has been no evidence of recurrence of the breast cancer. She continues endocrine therapy with monthly goserelin injections together with anastrozole 1 mg daily. She will be scheduled for a follow-up visit in 3 months. 2. Vitamin D deficiency. Her laboratory studies in April included a significantly decreased 25-hydroxy vitamin D level at 18 ng/mL. She has been on replacement with vitamin D3 1000 units daily and vitamin D2 50,000 units weekly. The D2 will now be reduced to monthly. 3. She has been on thyroid replacement for hypothyroidism. As her TSH level is slightly low now, her levothyroxine dosage will be reduced to 50 mcg daily. Signed By: Zia Beverly M.D. <<Signature on File>>
== END 2020-12-14 11:59 | disposition home or self-care (01) ==
LOC: ONCMED 12:00
PROVIDERS: PCP Family Medicine; Visit Provider Internal Medicine Medical Oncology
DX: C50.412 Malignant neoplasm of upper-outer quadrant of left female breast (principal); C77.3 Secondary and unspecified malignant neoplasm of axilla and upper limb lymph nodes; Z17.0 Estrogen receptor positive status [ER+]; R59.0 Localized enlarged lymph nodes; E55.9 Vitamin D deficiency, unspecified; E03.9 Hypothyroidism, unspecified; K21.9 Gastro-esophageal reflux disease without esophagitis; F41.8 Other specified anxiety disorders; Z79.811 Long term (current) use of aromatase inhibitors; Z79.899 Other long term (current) drug therapy; Z90.12 Acquired absence of left breast and nipple
CPT/HCPCS: 36415; 80053; 82306; 84443; 85025; 99214

== ENCOUNTER 2020-12-26 15:31 | Outpatient (CLI) | payer OTHER, SELFPAY ==
[2020-12-26] MEDS: lidocaine 1% INJ 20 mL INJECTION (15:31)
[2020-12-26] MEDS: goserelin acetate 3.6 mg Implant SUBCUT (15:31)
== END 2020-12-26 15:32 | disposition home or self-care (01) ==
LOC: ONCMED 15:34
PROVIDERS: PCP Family Medicine; Visit Provider Internal Medicine Medical Oncology
DX: C50.912 Malignant neoplasm of unspecified site of left female breast (principal); Z17.0 Estrogen receptor positive status [ER+]; K21.9 Gastro-esophageal reflux disease without esophagitis; E05.90 Thyrotoxicosis, unspecified without thyrotoxic crisis or storm; E55.9 Vitamin D deficiency, unspecified; I89.0 Lymphedema, not elsewhere classified; Z79.818 Long term (current) use of other agents affecting estrogen receptors and estrogen levels; Z79.899 Other long term (current) drug therapy; Z87.891 Personal history of nicotine dependence
CPT/HCPCS: 96372; 96402; J9202

== ENCOUNTER 2021-01-23 13:53 | Outpatient (CLI) | payer OTHER, SELFPAY ==
[2021-01-23] MEDS: lidocaine 1% INJ 20 mL INJECTION (14:05)
[2021-01-23] MEDS: goserelin acetate 3.6 mg Implant SUBCUT (14:15)
== END 2021-01-23 13:54 | disposition home or self-care (01) ==
LOC: ONCMED 13:55
PROVIDERS: PCP Family Medicine; Visit Provider Internal Medicine Medical Oncology
DX: C50.412 Malignant neoplasm of upper-outer quadrant of left female breast (principal); Z17.0 Estrogen receptor positive status [ER+]; Z79.818 Long term (current) use of other agents affecting estrogen receptors and estrogen levels
CPT/HCPCS: 96372; 96402; J9202

== ENCOUNTER 2021-02-12 16:38 | Outpatient (RCR) | payer OTHER, SELFPAY | END 2021-02-13 23:59 | disposition home or self-care (01) | LOC: SPT 16:38 | PROVIDERS: PCP Family Medicine; Referring Provider Physician Assistant Medical; Visit Provider Physician Assistant Medical | DX: C50.412 Malignant neoplasm of upper-outer quadrant of left female breast (principal) | CPT/HCPCS: 97140; 97161 ==

== ENCOUNTER 2021-02-14 06:00 | Outpatient (RCR) | payer OTHER, SELFPAY | END 2021-03-16 23:59 | disposition home or self-care (01) | LOC: SPT 06:00 | PROVIDERS: PCP Family Medicine; Referring Provider Physician Assistant Medical; Visit Provider Physician Assistant Medical | DX: C50.412 Malignant neoplasm of upper-outer quadrant of left female breast (principal) | CPT/HCPCS: 97140 ==

== ENCOUNTER 2021-02-20 10:14 | Outpatient (CLI) | payer OTHER, MEDICAID, SELFPAY ==
[2021-02-20] MEDS: lidocaine 1% INJ 20 mL INJECTION (10:35)
[2021-02-20] MEDS: goserelin acetate 3.6 mg Implant SUBCUT (10:50)
== END 2021-02-20 10:15 | disposition home or self-care (01) ==
PROVIDERS: PCP Family Medicine; Visit Provider Internal Medicine Medical Oncology
DX: C50.412 Malignant neoplasm of upper-outer quadrant of left female breast (principal); Z17.0 Estrogen receptor positive status [ER+]; D70.1 Agranulocytosis secondary to cancer chemotherapy; T45.1X5A Adverse effect of antineoplastic and immunosuppressive drugs, initial encounter; Z79.818 Long term (current) use of other agents affecting estrogen receptors and estrogen levels
CPT/HCPCS: 96372; 96402; J9202

== ENCOUNTER 2021-03-17 06:00 | Outpatient (RCR) | payer OTHER, SELFPAY | END 2021-04-16 23:59 | disposition home or self-care (01) | LOC: SPT 06:00 | PROVIDERS: PCP Family Medicine; Referring Provider Physician Assistant Medical; Visit Provider Physician Assistant Medical | DX: C50.412 Malignant neoplasm of upper-outer quadrant of left female breast (principal) | CPT/HCPCS: 97140 ==

== ENCOUNTER 2021-03-20 16:10 | Outpatient (CLI) | payer OTHER, MEDICAID, SELFPAY ==
--- NOTE | 2021-03-20 19:17 | ONC FU_ITS ---
Dr. Beverly Patient Follow-Up Note Patient: Ramya Wilburn Unit #: [id number]: 1975 Dicatated By: Zia Beverly M.D.Date of Visit:Mar 20, 2021 Onc Med Follow-up/Prog Note Chief Complaint: Breast cancer. History of Present Illness: This is a 45 year-old woman with grade 2 invasive ductal carcinoma of the left breast, ER/OR positive and HER-2/bambi negative. By clinical evaluation her disease was stage at least IA (T1c, pN1a, M0) at initial diagnosis. Her disease was posttreatment stage IB (ypT2, ypN1a, M0). She had originally presented a year ago with bloody discharge from the left nipple. An ultrasound of the left breast on 08/06/2018 was BI-RADS Category 1. A few ductal structures were noted in the subareolar region, but there was no evidence for cystic or solid soft tissue abnormality. She apparently then had an abnormal mammogram done elsewhere and further evaluation with a diagnostic bilateral mammogram on 11/18/2018 showed multiple calcifications scattered throughout the left breast. The most concerning were in the upper outer quadrant. The breasts were noted to be extremely dense. A stereotactic biopsy of left breast calcifications on 01/18/2019 showed fibrocystic changes with no malignancy or significant atypia identified. She then had a repeat diagnostic mammogram and left breast ultrasound on 06/24/2019. The mammogram showed a slightly spiculated asymmetric density measuring 1.3 x 0.6 cm in the upper outer quadrant. Multiple punctate calcifications deep to the biopsy marker were noted to have a similar appearance compared to the study from November 2018. Ultrasound showed an irregular hypoechoic lesion at the 2 o'clock position measuring 1.3 x 1.2 x 0.9 cm. It was BI-RADS 5, highly suggestive of malignancy. Ultrasound also showed an abnormal appearing enlarged lymph node in the left axilla measuring 1.9 x 1.4 x 0.8 cm. On 07/12/2019 she underwent ultrasound-guided biopsy of the left breast mass and the left axillary lymph node. Pathology on the breast mass showed moderately differentiated invasive ductal carcinoma, nuclear grade 2. The maximum tumor size was 1.0 cm. The left axillary lymph node biopsy was positive for metastatic ductal carcinoma with tumor size measuring 3.5 mm. The breast prognostic profile showed ER positive at 90% and OR positive at 90%. HER-2/bambi was 2+ by IHC, but negative by FISH with amplification ratio 1.4 and 2.8 HER-2 copies/cell. The KI-67 was elevated at 30%. With clinically evident axillary lymph node involvement, she was advised to undergo neoadjuvant chemotherapy with Adriamycin/cyclophosphamide followed by paclitaxel. She began cycle 1 of Adriamycin/cyclophosphamide on 08/19/2019. She was given first cycle prophylaxis with Neulasta. She tolerated the treatment well, and she continued with cycle 2 on 09/02/2019, with cycle 3 on 09/16/2019, and with cycle 4 on 09/30/2019. She then began her 1st of 12 planned cycles of weekly paclitaxel on 10/14/2019. She had severe fatigue with the paclitaxel and following her third weekly infusion she also became significantly neutropenic, requiring growth factor support with Neupogen. Beginning with her week 5 treatment, she was given a dose reduction, mainly because of the severe fatigue. Her week 6 treatment was deferred due to persistently elevated liver enzymes. She was able to restart after 1-week delay and she was then been able to continue her treatment weekly with liver enzymes remaining just slightly elevated. She received her 12th and final weekly paclitaxel infusion on 01/06/2020. On 02/01/2020 she underwent total mastectomy bilaterally with left axillary sentinel lymph node biopsy. Pathology showed residual grade 2 invasive ductal carcinoma measuring 2.6 x 2.4 x 1.3 cm. 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 The margins were uninvolved. There was involvement in 2/2 axillary sentinel lymph nodes with the largest metastatic deposit measuring 7 mm. Extranodal extension was present. Pathologic staging was ypT2, ypN1a(sn). With those findings, she underwent left axillary lymph node dissection on 02/17/2020. Pathology showed additional involvement in 1/9 lymph nodes measuring approximately 6 mm in greatest dimension. There was no extracapsular extension identified. On 04/03/2020 when she began adjuvant endocrine therapy with goserelin 3.6 mg by subcutaneous injection monthly and 14 days later she started anastrozole 1 mg daily. On 04/04/2020 she began postoperative radiation to the left chest wall/axilla. She completed treatment on 05/11/2020 to a total dose of 5000 cGy administered in 25 fractions. She tolerated it well. Her other medical illnesses include GERD, migraine headaches, and anxiety/depression. She also has a history of thyroid nodules with hyperthyroidism, for which she underwent total thyroidectomy in 2014. She has only minimal prior smoking history, and she quit smoking in 2007. INTERIM HISTORY: She is seen for a follow-up visit. She has been feeling pretty good generally. She had recently required an increase in her levothyroxine dosage to 100 mcg daily. It is being monitored by Dr. Cornelius. Her energy has been gradually improving. She is working and she has been able to get back to normal activity. She is now taking the modafinil just occasionally. She has good appetite. She has not had fever. She is having hot flashes, but she says they are not real bad now. She has had no menstruation. She has not had sore mouth or throat. She does not complain of cough, and she has not been having shortness of breath or chest pain. She has no GI complaints other than constipation, which she is managing with senna/docusate. She has no complaints. She has joint pain, mainly in her hands, but it is being managed pretty well with meloxicam. She also still has some neuropathy pain, but she is having to take her pain medication just occasionally now. Medications: Anastrozole 1 (1 mg) Tablet Oral daily, Claritin 1 Tablet (of 10 mg) Tablet Oral daily, clonazePAM 1 Tablet (of 0.5 mg) Oral b.i.d. PRN, D-1000 1 (1000 Unit(s)) Tablet Oral q 30 days, Ergocalciferol 1 (50,000 Units) Tablet Oral q 7 hours, FLUoxetine HCl 1 Tablet (of 80 mg) Oral daily, Ibuprofen 1 Tablet (of 800 mg) Oral t.i.d. PRN, Levothyroxine Sodium 1 Tablet (of 100 mcg) Oral daily, Meloxicam 1 Tablet (of 15 mg) Oral daily, Multivitamin Gummies Womens 1 Tablet, chewable Oral daily, oxyCODONE HCl 1 - 2 Tablet (of 15 mg) Oral q 4 hours PRN, Pantoprazole Sodium 1 Tablet (of 40 mg) Tablet, enteric coated Oral daily, Provigil 1 (200 mg) Tablet Oral daily, Rizatriptan Benzoate 1 Tablet (of 10 mg) Oral q 2 hours PRN, Senna S 1 Tablet (of 8.6-50 mg) Oral daily PRN, Topiramate 1 Tablet (of 50 mg) Oral daily Allergies: No Known Allergies. Vital Signs: Performed on Mar 20, 2021 16:30 Height - 63.00 in Weight - 160.8 lbs (HIGH) BSA - 1.76 sq.m BMI - 28.48 Temperature - 98.2 F (LOW) Pulse - 78 /min Respiration - 18 /min BP - 120/79 mm(hg) O2 Sat - 99 % Pain - 0 Fatigue - 0 Physical Examination: Constitutional - She looks good generally, Eyes - Sclerae nonicteric. Conjunctivae clear, ENMT - No lesions noted in the oral cavity, Hematologic/Lymphatic - No cervical or clavicular adenopathy, Respiratory - Lungs are clear with good air movement bilaterally, Cardiovascular - Heart rhythm is regular. There is no murmur, gallop, or rub noted, Breasts - There are no lesions noted in the chest wall bilaterally. There is no axillary adenopathy noted, Abdomen - Soft. Liver and spleen are not enlarged. There is no abdominal mass or ascites noted and there is no inguinal adenopathy, Extremities - No edema, Neurologic - No focal neurologic deficits noted. Lab/Imaging: Test performed on Dec 14, 2020 12:43 Sodium 136 mmol/L TSH 0.03 uIU/mL Vitamin D (25-Hydroxy), Total 49 ng/mL Potassium 3.7 mmol/L Chloride 101 mmol/L CO2 25 mmol/L Anion Gap 13.7 BUN 17 mg/dL Creatinine 0.7 mg/dL Cr Clearance (Est) 114.13 mL/min eGFR 91.3 mL/min Glucose 80 mg/dL Osmolality - Calculated 283 mOsm/kg Calcium 9.3 mg/dL Protein, Total 7.3 g/dL Albumin 4.4 g/dL Globulin 2.9 g/dL Bilirubin, Total 0.5 mg/dL ALT (SGPT) 28 U/L AST (SGOT) 23 U/L Alkaline Phosphatase 95 IU/L WBC 4.0 10 3/uL RBC 4.21 10 6/uL HGB 13.2 g/dL HCT 38.9 % MCV 92.4 fl MCH 31.4 pg MCHC 33.9 g/dL RDW 11.6 % Platelet Count 233 10 3/cmm MPV 10.7 fL Neutrophils 2.06 10 3/uL Lymphocytes 1.2 10 3/uL Monocytes 0.5 10 3/uL Eosinophils 0.1 10 3/uL Basophils 0.0 10 3/uL Neutrophil % 52.0 % Lymphocyte % 31.1 % Monocyte % 12.4 % Eosinophil % 3.0 % Basophils % 1.0 % NRBC % 0 % Problem List: 1. Grade 2 infiltrating ductal carcinoma of the left breast, ER/OR positive and HER-2/bambi negative. By clinical evaluation her disease was stage at least 1A (T1c, pN1a, M0) at initial diagnosis. Her disease was post treatment stage IB (ypT2, ypN1a, M0). 2. GERD. 3. Migraine headaches. 4. Anxiety/depression. 5. She has a history of thyroid nodules/hyperthyroidism for which she underwent total thyroidectomy in 2014. 6. Vitamin D deficiency. Problems Addressed with this Encounter and Plan: 1. Patient with grade 2 infiltrating ductal carcinoma of the left breast, ER/OR positive and HER-2/bambi negative. She underwent ultrasound-guided biopsies of left breast mass and left axillary lymph node on 07/12/2019. By clinical evaluation her disease was stage at least 1A (T1c, pN1a, M0) at initial diagnosis. With clinically evident axillary lymph node involvement she underwent neoadjuvant chemotherapy with Adriamycin/cyclophosphamide followed by weekly paclitaxel. She completed 4 cycles of Adriamycin/cyclophosphamide from 08/19/2019 thru 09/30/2019. On 10/14/2019 she began her 1st of 12 planned weekly cycles of paclitaxel. She completed her 12th and final paclitaxel infusion on 01/06/2020. Side effects included fatigue, neutropenia, and mild transaminitis. Overall, she tolerated the chemotherapy well. On 02/01/2020 she underwent total mastectomy bilaterally with left axillary sentinel lymph node biopsy. Pathology showed residual grade 2 invasive ductal carcinoma measuring 2.6 x 2.4 x 1.3 cm. 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 The margins were uninvolved. There was involvement into/2 axillary sentinel lymph nodes with the largest metastatic deposit measuring 7 mm. Extranodal extension was present. Pathologic staging was ypT2, ypN1a(sn). With those findings, she then underwent left axillary lymph node dissection on 02/17/2020. Pathology showed involvement in additional 1/9 lymph nodes measuring approximately 6 mm. There was no extracapsular extension identified. As such, her disease was post treatment stage IB (ypT2, ypN1a, M0). On 04/03/2020 when she began adjuvant endocrine therapy with Zoladex 3.6 mg by subcutaneous injection monthly and 14 days later she started anastrozole 1 mg daily. On 04/04/2020 she began postoperative radiation to the left chest wall/axilla. She completed treatment on 05/11/2020 to a total dose of 5000 cGy administered in 25 fractions. She tolerated it well. Following the chemotherapy she had ongoing problems with fatigue, joint pain, and neuropathy pain. During follow-up though symptoms have been showing gradual improvement. At this point she appears to be doing well clinically, thus far with no evidence of recurrence of the breast cancer. She continues endocrine therapy with goserelin together with anastrozole. At this point I will see if I can get the goserelin transitioned to the 3-month dosing schedule. Anastrozole will be continued at 1 mg daily. I will coordinate her laboratory studies with Dr. Cornelius. She will be scheduled for a follow-up visit in 3 months. 2. Vitamin D deficiency. Her laboratory studies in April included a significantly decreased 25-hydroxy vitamin D level at 18 ng/mL. She has been on replacement with vitamin D3 1000 units daily and vitamin D2 50,000 units monthly. Signed By: Zia Beverly M.D. <<Signature on File>>
== END 2021-03-20 16:11 | disposition home or self-care (01) ==
PROVIDERS: PCP Family Medicine; Visit Provider Internal Medicine Medical Oncology
DX: C50.812 Malignant neoplasm of overlapping sites of left female breast (principal); Z17.0 Estrogen receptor positive status [ER+]; K21.9 Gastro-esophageal reflux disease without esophagitis; G43.909 Migraine, unspecified, not intractable, without status migrainosus; F41.9 Anxiety disorder, unspecified; F32.9 Major depressive disorder, single episode, unspecified; E05.90 Thyrotoxicosis, unspecified without thyrotoxic crisis or storm; E55.9 Vitamin D deficiency, unspecified; Z79.899 Other long term (current) drug therapy; Z79.818 Long term (current) use of other agents affecting estrogen receptors and estrogen levels; Z90.13 Acquired absence of bilateral breasts and nipples
CPT/HCPCS: 99214

== ENCOUNTER 2021-03-29 06:41 | Outpatient (CLI) | payer OTHER, MEDICAID, SELFPAY ==
[2021-03-29] MEDS: lidocaine 1% INJ 20 mL INJECTION (12:27)
[2021-03-29] MEDS: goserelin acetate 3.6 mg Implant SUBCUT (12:40)
== END 2021-03-29 06:42 | disposition home or self-care (01) ==
PROVIDERS: PCP Family Medicine; Visit Provider Internal Medicine Medical Oncology
DX: C50.412 Malignant neoplasm of upper-outer quadrant of left female breast (principal); Z17.0 Estrogen receptor positive status [ER+]; Z79.818 Long term (current) use of other agents affecting estrogen receptors and estrogen levels
CPT/HCPCS: 96372; 96402; J9202

== ENCOUNTER 2021-04-26 12:25 | Outpatient (CLI) | payer OTHER, MEDICAID, SELFPAY ==
[2021-04-26] MEDS: lidocaine 1% INJ 20 mL INJECTION (12:40)
[2021-04-26] MEDS: goserelin acetate 3.6 mg Implant SUBCUT (12:50)
== END 2021-04-26 12:26 | disposition home or self-care (01) ==
PROVIDERS: PCP Family Medicine; Visit Provider Internal Medicine Medical Oncology
DX: C50.412 Malignant neoplasm of upper-outer quadrant of left female breast (principal); Z17.0 Estrogen receptor positive status [ER+]; D70.1 Agranulocytosis secondary to cancer chemotherapy; T45.1X5A Adverse effect of antineoplastic and immunosuppressive drugs, initial encounter; Z79.818 Long term (current) use of other agents affecting estrogen receptors and estrogen levels
CPT/HCPCS: 96372; 96402; J9202

== ENCOUNTER 2021-05-04 18:45 | Emergency (ER) | payer OTHER, MEDICAID, SELFPAY ==
[2021-05-04 18:59] VITALS: BP 121/86; PULSE 94; RESP 16; TEMP 36.8; O2SAT 98; BMI 28.1
--- NOTE | 2021-05-04 19:11 | CTR_ITS ---
PROCEDURE INFORMATION: Exam: CT Abdomen And Pelvis With Contrast Exam date and time: 05/04/2021 7:11 PM Age: 45 years old Clinical indication: Abdominal pain; Localized; Right lower quadrant (rlq); Patient HX: Rlq pain with nausea starting today. History of breast cancer. On chemotherapy pills. ; Additional info: Rlq abdominal pain with nausea TECHNIQUE: Imaging protocol: Computed tomography of the abdomen and pelvis with contrast. Radiation optimization: All CT scans at this facility use at least one of these dose optimization techniques: automated exposure control; mA and/or kV adjustment per patient size (includes targeted exams where dose is matched to clinical indication); or iterative reconstruction. Contrast material: OMNI 300; Contrast volume: 95 ml; Contrast route: INTRAVENOUS (IV); COMPARISON: US abdomen complete* [id number] 04/03/2019 8:08 PM RADIATION DOSE METRICS: Total DLP (mGy-cm): 1690.33 FINDINGS: Liver: 1 cm cyst noted in the right hepatic dome. Gallbladder and bile ducts: Normal. No calcified stones. No ductal dilation. Pancreas: Normal. No ductal dilation. Spleen: Normal. No splenomegaly. Adrenal glands: Normal. No mass. Kidneys and ureters: Normal. No hydronephrosis. Stomach and bowel: Unremarkable. No obstruction. No mucosal thickening. Appendix: No evidence of appendicitis. Intraperitoneal space: Unremarkable. No free air. No significant fluid collection. Vasculature: Unremarkable. No abdominal aortic aneurysm. Lymph nodes: Unremarkable. No enlarged lymph nodes. Urinary bladder: Unremarkable as visualized. Reproductive: Unremarkable as visualized. Bones/joints: No acute fracture. Soft tissues: Unremarkable. CT/CT abdomen pelvis w con* [id number] IMPRESSION: No acute findings.
--- NOTE | 2021-05-04 19:12 | W.ED.ABDPA2 ---
HPI - Abdominal Pain General: Chief Complaint: Abdominal Pain Stated Complaint: ABD Pain Time Seen by Provider: 05/04/21 19:03 History of Present Illness: Patient is a 45-year-old female comes to the ED with abdominal pain. Past surgical history of but no other abdominal surgery history. Abdominal pain started earlier today. She says she woke up from a nap and started having sharp pain in the right lower quadrant of her abdomen. Pain has stayed in the right lower quadrant and does not radiate anywhere else. She rates the pain currently a 7 out of 10. At constant and any pressure on right lower quadrant causes pain. Endorses nausea currently and states that she has been nauseous all week even before the abdominal pain started. Denies any fever, chills, dysuria, hematuria, diarrhea, constipation or blood in stool. Denies any vaginal bleeding or vaginal discharge. Associated Symptoms: Reports nausea; Denies chills, constipation, diarrhea, dysuria, fever(s), hematochezia, hematuria and vomiting Related Data: Date of Last Menstrual Period: 07/02/19 Review of Systems Const: Denies: fever(s), chills or fatigue Eyes: Denies: change in vision or eye discomfort ENMT: Denies: throat pain, odynophagia, nasal discharge or nasal congestion Card: Denies: chest pain, palpitations, edema, swelling of feet/ankles, dyspnea on exertion or orthopnea Resp: Denies: dyspnea, productive cough or non-productive cough GI: Reports: abdominal pain and nausea; Denies: vomiting, diarrhea, constipation or hematochezia : Denies: flank pain, dysuria or hematuria Musc: Denies: neck pain, back pain or extremity swelling Skin/Breast: Denies: rash or new lesions Neuro: Denies: headache(s), numbness in extremities or weakness in extremities PFSH ED PFSH: Medical History Biliary colic Breast cancer, left grade 2 infiltrating ductal carcinoma of the left breast, by clinical evaluation stage at least 1A (T1c, pN1a, M0), ER/SD positive and HER-2/bambi negative. Depression with anxiety GERD (gastroesophageal reflux disease) EGD showed GERD and patient will be placed on PPI therapy,. Hoarseness of voice Hypothyroidism, postsurgical Migraine headache Surgical History History of esophagogastroduodenoscopy (EGD) (~04/2019) History of thyroidectomy (~10/2014) Hx of eye surgery (Unknown) Hx of tonsillectomy (Unknown) Hx of tubal ligation (11/27/13) Family History Father Diabetes Heart disease Hyperlipidemia Hypertension Brother Hypertension Grandmother Stroke Paternal Family/Other Uterine cancer Paternal aunt Social History Smoking and tobacco status: former smoker Alcohol intake: never Female Reproductive History: Date of last menstrual period: 07/02/19 Physical Exam Const: COMMON NORMALS: no acute distress, patient oriented x3 and alert GENERAL APPEARANCE: cooperative and comfortable HENMT: COMMON NORMALS: normocephalic HEAD & SCALP: normocephalic MOUTH: Normal oral and palatal mucosa present THROAT: posterior oropharynx normal and uvula midline Eye: COMMON NORMALS: Equal, round and reactive pupils present and conjunctivae normal CONJUNCTIVA: Yes conjunctivae normal PUPIL: Yes Equal, round and reactive pupils present Neck/C-Spine: COMMON NORMALS: supple GENERAL: Yes normal visual inspection Resp: COMMON NORMALS: normal respiratory effort, No retractions, No use of accessory muscles and clear to auscultation bilaterally AUSCULTATION: clear to auscultation bilaterally Cardio: COMMON NORMALS: regular rate, regular rhythm, S1 normal heart sound present, S2 normal heart sound present, No gallops present (Cardio), No clicks present (Cardio), No murmurs present (Cardio) and Peripheral pulses 2+ throughout RATE: regular rate RHYTHM: regular rhythm HEART SOUNDS: S1 normal heart sound present and S2 normal heart sound present PERIPHERAL PULSES: Peripheral pulses 2+ throughout GI: COMMON NORMALS: Normal to inspection, nondistended, normoactive bowel sounds present, Soft to palpation and no masses PALPATION: Yes Soft to palpation and Yes Tenderness to palpation present (GI) Details: RLQ OTHER: No rebound tenderness, negative peritoneal signs. : COMMON NORMALS: Yes no CVA tenderness BLADDER/KIDNEY EXAM: Yes no CVA tenderness Back/Pelvis: COMMON NORMALS: no CVA tenderness Extremity: COMMON NORMALS: normal to inspection Neuro: COMMON NORMALS: patient oriented x3 SENSORIUM/ORIENTATION: Yes alert GAIT: Yes Normal gait present Skin: GENERAL SKIN EXAM: dry skin Course Vital Signs: Vital signs: Vital Signs Temperature 98.3 F 05/04/21 18:59 Pulse Rate 85 05/04/21 21:37 Respiratory Rate 14 05/04/21 21:37 Blood Pressure 133/87 05/04/21 20:19 Pulse Oximetry 94 05/04/21 21:37 MDM - Abdominal Pain Medical Decision Making Patient is a 45 female comes to the ED with abdominal pain. Pain started today and is in the right lower quadrant. She has some nausea but no other symptoms. Vitals are stable. Exam shows a healthy nontoxic-appearing 45-year-old female. She has some right lower quadrant abdominal tenderness. No peritoneal signs. Labs were all unremarkable including UA. CT of abdomen pelvis showed no acute findings. Patient was diagnosed with abdominal pain and discharged home with a prescription for Zofran for nausea. Follow-up with PCP in 5 to 7 days for reevaluation. Return to ED precautions given. Patient understood and agree with plan. Lab Data I reviewed the patient's lab results. : 05/04/21 19:40 05/04/21 20:12 Labs/Radiology: Radiology Impressions Abdomen/Pelvis CT 05/04/21 19:11 IMPRESSION: No acute findings. Laboratory Results WBC 4.7 10^3/uL (4.0-10.0) 05/04/21 19:40 RBC 3.98 10^6/uL (4.1-5.3) L 05/04/21 19:40 Hgb 12.5 g/dL (11.5-15.3) 05/04/21 19:40 Hct 36.9 % (37.0-47.0) L 05/04/21 19:40 MCV 92.7 fl (81-99) 05/04/21 19:40 MCH 31.4 pg (28.0-34.0) 05/04/21 19:40 MCHC 33.9 g/dL (30.0-36.0) 05/04/21 19:40 RDW 12.2 % (12.1-15.1) 05/04/21 19:40 Plt Count 217 10^3/cmm (130-400) 05/04/21 19:40 MPV 11.2 fL (7.4-10.4) H 05/04/21 19:40 Neut % (Auto) 53.6 % 05/04/21 19:40 Lymph % (Auto) 31.1 % 05/04/21 19:40 [place] % (Auto) 10.7 % 05/04/21 19:40 Eos % (Auto) 2.6 % 05/04/21 19:40 Baso % (Auto) 1.1 % 05/04/21 19:40 Neut # (Auto) 2.52 10^3/uL (1.8-7.7) 05/04/21 19:40 Lymph # (Auto) 1.5 10^3/uL (0.8-4.8) 05/04/21 19:40 [place] # (Auto) 0.5 10^3/uL (0.2-0.9) 05/04/21 19:40 Eos # (Auto) 0.1 10^3/uL (0.0-0.8) 05/04/21 19:40 Baso # (Auto) 0.1 10^3/uL (0.0-0.1) 05/04/21 19:40 Nucleated RBC % (auto) 0 % 05/04/21 19:40 Nucleated RBCs # 0.0 /100WBC 05/04/21 19:40 Sodium 138 mmol/L (136-145) 05/04/21 20:12 Potassium 3.6 mmol/L (3.5-5.1) 05/04/21 20:12 Chloride 105 mmol/L (98-107) 05/04/21 20:12 Carbon Dioxide 24 mmol/L (22-29) 05/04/21 20:12 Anion Gap 12.6 (5-19) 05/04/21 20:12 BUN 17 mg/dL (6-20) 05/04/21 20:12 Creatinine 0.8 mg/dL (0.5-0.9) 05/04/21 20:12 GFR Calculation 77.9 mL/min (90-130) L 05/04/21 20:12 Glucose 71 mg/dL (65-115) 05/04/21 20:12 Calculated Osmolality 286 mOsm/kg (285-295) 05/04/21 20:12 Calcium 8.6 mg/dL (8.5-10.5) 05/04/21 20:12 Total Bilirubin 0.3 mg/dL (0.15-1.2) 05/04/21 20:12 AST 18 U/L (0-32) 05/04/21 20:12 ALT 23 U/L (0-33) 05/04/21 20:12 Alkaline Phosphatase 97 IU/L (35-105) 05/04/21 20:12 Total Protein 6.4 g/dL (6.6-8.7) L 05/04/21 20:12 Albumin 4.2 g/dL (3.5-5.2) 05/04/21 20:12 Globulin 2.2 g/dL (1.3-4.6) 05/04/21 20:12 Lipase 28 U/L (13-60) 05/04/21 20:12 HCG, Qual Negative (Negative) 05/04/21 20:12 Ser , Semi-Qnt Cancelled 05/04/21 20:12 Urine Color Yellow (Yellow) 05/04/21 20:20 Urine Appearance Sl hazy (CLEAR) 05/04/21 20:20 Urine pH 7 (5-7) 05/04/21 20:20 Ur Specific [place] 1.005 (1.005-1.030) 05/04/21 20:20 Urine Protein Neg (Negative) 05/04/21 20:20 Urine Glucose (UA) Norm (Normal) 05/04/21 20:20 Urine Ketones Negative (Negative) 05/04/21 20:20 Urine Blood Neg (Negative) 05/04/21 20:20 Urine Nitrate Negative (Negative) 05/04/21 20:20 Urine Bilirubin Neg (Negative) 05/04/21 20:20 Urine Urobilinogen Norm mg/dL (Negative) 05/04/21 20:20 Ur Leukocyte Esterase 1+ (Negative) H 05/04/21 20:20 Urine RBC 0-4 /hpf (0-2) H 05/04/21 20:20 Urine WBC 5-10 /hpf (0-5) H 05/04/21 20:20 Ur Squamous Epith Cells 0-4 /hpf (0-5) H 05/04/21 20:20 Amorphous Sediment 2+ /hpf 05/04/21 20:20 Urine Bacteria Trace /hpf (NONE) 05/04/21 20:20 Discharge Plan Discharge Patient Disposition: Home Clinical Impression: Abdominal pain Qualifiers: Abdominal location: right lower quadrant Qualified Code(s): R10.31 - Right lower quadrant pain Condition: Stable Prescriptions: New Zofran 4 mg tablet 4 mg PO Q8H PRN (Reason: nausea and vomiting) Qty: 15 0RF No Action anastrozole 1 mg tablet 1 mg PO DAILY 0RF meloxicam 15 mg tablet 15 mg PO DAILY 0RF loratadine [Claritin] 10 mg tablet 10 mg PO DAILY 0RF cholecalciferol (vitamin D3) [Vitamin D3] 125 mcg (5,000 unit) tablet 125 mcg PO .monthly 0RF senna 8.6 mg capsule 8.6 mg PO DAILY PRN0RF Complete Multivitamin Tablet 1 tab PO QDAY 0RF pantoprazole 40 mg tablet,delayed release (DR/EC) 40 mg PO DAILY 0RF clonazepam 0.5 mg tablet 0.5 mg PO BID PRN0RF fluoxetine 60 mg tablet 60 mg PO DAILY 0RF rizatriptan 10 mg Tablet 10 mg PO Q2H PRN (Reason: Migraine Headache) 0RF ibuprofen 800 mg Tablet 800 mg PO TID PRN (Reason: Pain) 0RF hydrocodone-acetaminophen 5-325 mg tablet 1 - 2 tab PO Q5H PRN (Reason: pain) Qty: 25 0RF topiramate 50 mg Capsule,Extended Release 24hr 50 mg PO DAILY 0RF levothyroxine 88 mcg tablet 112 mcg PO DAILY 0RF Discharge Orders: Discharge ED (Routine); Ordered 05/04/21 Ordered By: Rinku Desir Referrals: Yogesh Cornelius MD [Primary Care Provider] - Discharge Diet: Advance as tolerated Discharge Activity: Increase activity as tolerated Patient Instructions: Abdominal Pain (ED) Activity Restrictions/Additional Instructions: Follow-up with medical provider as directed in 5 to 7 days for reevaluation. Take medications as prescribed. Take [id number] Tylenol or Motrin for pain. Return to the ER or your medical provider if condition worsens. Please read and understand discharge instructions. Thank you for choosing [facility] for your healthcare needs today. Please realize this is an emergency room and that we are providing you with a medical screening exam and this may not be complete and all inclusive of all the testing and or work up that you may need to determine your ailment or severity of your illness. It is very important that you follow up as instructed or that you return to the Emergency Department should you have concerns or if your condition changes or worsens in any way. Coding Level of Care Code ED Change Management for Jeremy Whitten Exam Comprehensive
[2021-05-04 19:53] LABS: Basophils # 0.1 10^3/uL (0.0-0.1); Basophils % 1.1 %; Eosinophils # 0.1 10^3/uL (0.0-0.8); Eosinophils % 2.6 %; Hematocrit 36.9 % (37.0-47.0); Hemoglobin 12.5 g/dL (11.5-15.3); Lymphocytes # 1.5 10^3/uL (0.8-4.8); Lymphocytes % 31.1 %; Mean Corpuscular HGB Conc 33.9 g/dL (30.0-36.0); Mean Corpuscular Hemoglobin 31.4 pg (28.0-34.0); Mean Corpuscular Volume 92.7 fl (81-99); Mean Platelet Volume 11.2 fL (7.4-10.4); Monocytes # 0.5 10^3/uL (0.2-0.9); Monocytes % 10.7 %; Neutrophils # 2.52 10^3/uL (1.8-7.7); Neutrophils % 53.6 %; Nucleated Red Blood Cells % 0 %; Platelet Count 217 10^3/cmm (130-400); Red Blood Count 3.98 10^6/uL (4.1-5.3); Red Cell Distribution Width 12.2 % (12.1-15.1); White Blood Count 4.7 10^3/uL (4.0-10.0)
[2021-05-04] MEDS: iohexol 300 mg/mL 100 mL Btl IV (19:58)
[2021-05-04 20:12] VITALS: RESP 18; O2SAT 98
[2021-05-04] MEDS: ondansetron 2 mg/ML SDV 2 mL 4 MG IVP (20:12)
[2021-05-04] MEDS: sodium chloride 0.9% 1,000 ML 999 ML IV (20:12)
[2021-05-04] MEDS: morphine 4 mg/mL SDV 1 mL IVP (20:12)
[2021-05-04 20:19] VITALS: BP 133/87; PULSE 86; RESP 14; O2SAT 95
[2021-05-04 20:38] LABS: Alanine Aminotransferase 23 U/L (0-33); Albumin Level 4.2 g/dL (3.5-5.2); Alkaline Phosphatase 97 IU/L (35-105); Anion Gap 12.6 (5-19); Aspartate Amino Transferase 18 U/L (0-32); Blood Urea Nitrogen 17 mg/dL (6-20); Calcium 8.6 mg/dL (8.5-10.5); Carbon Dioxide 24 mmol/L (22-29); Chloride 105 mmol/L (98-107); Creatinine Clr Calc Pharmacy 85.4086; Globulin 2.2 g/dL (1.3-4.6); Glomerular Filtration Rate 77.9 mL/min (90-130); Glucose 71 mg/dL (65-115); HCG, Serum Qual Negative (Negative); Lipase 28 U/L (13-60); Osmolality Calculated 286 mOsm/kg (285-295); Potassium 3.6 mmol/L (3.5-5.1); Sodium 138 mmol/L (136-145); Total Bilirubin 0.3 mg/dL (0.15-1.2); Total Protein 6.4 g/dL (6.6-8.7)
[2021-05-04 20:55] LABS: Add Urine Microscopic? YES; Bilirubin Urine Neg (Negative); Blood Urine Neg (Negative); Glucose Urine UA Norm (Normal); Ketones Urine Negative (Negative); Leukocyte Esterase Urine 1+ (Negative); Nitrate Urine Negative (Negative); Protein Urine Neg (Negative); Specific Gravity, Urine 1.005 (1.005-1.030); Urine Appearance SL Hazy (CLEAR); Urine Color Yellow (Yellow); Urobilinogen Urine Norm (Negative); pH Urine 7 (5-7)
[2021-05-04 20:56] LABS: Add Urine Culture? No; Amorphous Sediment Urine 2+ /hpf; Bacteria Urine TRACE /hpf; RBC Urine 0-4 /hpf (0-2); Squamous Epithelial Cell Urine 0-4 /hpf (0-5)
[2021-05-04 21:37] VITALS: PULSE 85; RESP 14; O2SAT 94
== END 2021-05-04 21:39 | disposition home or self-care (01) ==
PROVIDERS: Emergency Medicine; Emergency Provider Physician Assistant; PCP Family Medicine
DX: R10.31 Right lower quadrant pain (principal); Z85.3 Personal history of malignant neoplasm of breast; Z87.891 Personal history of nicotine dependence
CPT/HCPCS: 36415; 74177; 80053; 81001; 83690; 84703; 85025; 96361; 96374; 96375; 99284; J2270; J2405; J7030; Q9967

== ENCOUNTER 2021-05-24 12:26 | Outpatient (CLI) | payer OTHER, MEDICAID, SELFPAY ==
[2021-05-24] MEDS: lidocaine 1% INJ 20 mL INJECTION (12:45)
[2021-05-24] MEDS: goserelin acetate 3.6 mg Implant SUBCUT (12:50)
== END 2021-05-24 12:27 | disposition home or self-care (01) ==
PROVIDERS: PCP Family Medicine; Visit Provider Internal Medicine Medical Oncology
DX: C50.412 Malignant neoplasm of upper-outer quadrant of left female breast (principal); Z17.0 Estrogen receptor positive status [ER+]; Z79.818 Long term (current) use of other agents affecting estrogen receptors and estrogen levels
CPT/HCPCS: 96372; 96402; J9202

== ENCOUNTER 2021-06-25 09:56 | Outpatient (CLI) | payer OTHER, MEDICAID, SELFPAY ==
[2021-06-25 10:34] LABS: Basophils % 0.9 %; Eosinophils # 0.1 10^3/uL (0.0-0.8); Eosinophils % 1.9 %; Hematocrit 40.1 % (37.0-47.0); Hemoglobin 13.4 g/dL (11.5-15.3); Lymphocytes # 1.4 10^3/uL (0.8-4.8); Lymphocytes % 28.8 %; Mean Corpuscular HGB Conc 33.4 g/dL (30.0-36.0); Mean Corpuscular Hemoglobin 30.8 pg (28.0-34.0); Mean Corpuscular Volume 92.2 fl (81-99); Mean Platelet Volume 10.7 fL (7.4-10.4); Monocytes # 0.3 10^3/uL (0.2-0.9); Monocytes % 7.3 %; Neutrophils # 2.81 10^3/uL (1.8-7.7); Nucleated Red Blood Cells % 0 %; Platelet Count 228 10^3/cmm (130-400); Red Blood Count 4.35 10^6/uL (4.1-5.3); Red Cell Distribution Width 11.7 % (12.1-15.1); White Blood Count 4.7 10^3/uL (4.0-10.0)
[2021-06-25 11:07] LABS: Alanine Aminotransferase 38 U/L (0-33); Albumin Level 4.6 g/dL (3.5-5.2); Alkaline Phosphatase 124 IU/L (35-105); Anion Gap 14.1 (5-19); Aspartate Amino Transferase 28 U/L (0-32); Blood Urea Nitrogen 16 mg/dL (6-20); Calcium 9.3 mg/dL (8.5-10.5); Carbon Dioxide 23 mmol/L (22-29); Chloride 103 mmol/L (98-107); Globulin 2.3 g/dL (1.3-4.6); Glucose 103 mg/dL (65-115); Osmolality Calculated 283 mOsm/kg (285-295); Potassium 4.1 mmol/L (3.5-5.1); Sodium 136 mmol/L (136-145); Total Bilirubin 0.3 mg/dL (0.15-1.2); Total Protein 6.9 g/dL (6.6-8.7)
[2021-06-25 11:40] LABS: 25 Hydroxy Vitamin D 42 ng/mL (30-100)
[2021-06-25] MEDS: lidocaine 1% INJ 20 mL INJECTION (11:58)
[2021-06-25] MEDS: goserelin acetate 3.6 mg Implant SUBCUT (12:10)
--- NOTE | 2021-06-25 15:33 | ONC FU_ITS ---
Darshana Ríos Progress Note Patient: Ramya Wilburn Unit #: [id number]: [id number] Dicatated By: Darshana Ríos N.P.Date of Visit:Jun 25, 2021 Onc MED Follow-up/Prog Note Chief Complaint: Breast cancer. History of Present Illness: This is a 45 year-old woman with grade 2 invasive ductal carcinoma of the left breast, ER/MA positive and HER-2/bambi negative. By clinical evaluation her disease was stage at least IA (T1c, pN1a, M0) at initial diagnosis. Her disease was posttreatment stage IB (ypT2, ypN1a, M0). She had originally presented a year ago with bloody discharge from the left nipple. An ultrasound of the left breast on 08/06/2018 was BI-RADS Category 1. A few ductal structures were noted in the subareolar region, but there was no evidence for cystic or solid soft tissue abnormality. She apparently then had an abnormal mammogram done elsewhere and further evaluation with a diagnostic bilateral mammogram on 11/18/2018 showed multiple calcifications scattered throughout the left breast. The most concerning were in the upper outer quadrant. The breasts were noted to be extremely dense. A stereotactic biopsy of left breast calcifications on 01/18/2019 showed fibrocystic changes with no malignancy or significant atypia identified. She then had a repeat diagnostic mammogram and left breast ultrasound on 06/24/2019. The mammogram showed a slightly spiculated asymmetric density measuring 1.3 x 0.6 cm in the upper outer quadrant. Multiple punctate calcifications deep to the biopsy marker were noted to have a similar appearance compared to the study from November 2018. Ultrasound showed an irregular hypoechoic lesion at the 2 o'clock position measuring 1.3 x 1.2 x 0.9 cm. It was BI-RADS 5, highly suggestive of malignancy. Ultrasound also showed an abnormal appearing enlarged lymph node in the left axilla measuring 1.9 x 1.4 x 0.8 cm. On 07/12/2019 she underwent ultrasound-guided biopsy of the left breast mass and the left axillary lymph node. Pathology on the breast mass showed moderately differentiated invasive ductal carcinoma, nuclear grade 2. The maximum tumor size was 1.0 cm. The left axillary lymph node biopsy was positive for metastatic ductal carcinoma with tumor size measuring 3.5 mm. The breast prognostic profile showed ER positive at 90% and MA positive at 90%. HER-2/bambi was 2+ by IHC, but negative by FISH with amplification ratio 1.4 and 2.8 HER-2 copies/cell. The KI-67 was elevated at 30%. With clinically evident axillary lymph node involvement, she was advised to undergo neoadjuvant chemotherapy with Adriamycin/cyclophosphamide followed by paclitaxel. She began cycle 1 of Adriamycin/cyclophosphamide on 08/19/2019. She was given first cycle prophylaxis with Neulasta. She tolerated the treatment well, and she continued with cycle 2 on 09/02/2019, with cycle 3 on 09/16/2019, and with cycle 4 on 09/30/2019. She then began her 1st of 12 planned cycles of weekly paclitaxel on 10/14/2019. She had severe fatigue with the paclitaxel and following her third weekly infusion she also became significantly neutropenic, requiring growth factor support with Neupogen. Beginning with her week 5 treatment, she was given a dose reduction, mainly because of the severe fatigue. Her week 6 treatment was deferred due to persistently elevated liver enzymes. She was able to restart after 1-week delay and she was then been able to continue her treatment weekly with liver enzymes remaining just slightly elevated. She received her 12th and final weekly paclitaxel infusion on 01/06/2020. On 02/01/2020 she underwent total mastectomy bilaterally with left axillary sentinel lymph node biopsy. Pathology showed residual grade 2 invasive ductal carcinoma measuring 2.6 x 2.4 x 1.3 cm. 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 The margins were uninvolved. There was involvement in 2/2 axillary sentinel lymph nodes with the largest metastatic deposit measuring 7 mm. Extranodal extension was present. Pathologic staging was ypT2, ypN1a(sn). With those findings, she underwent left axillary lymph node dissection on 02/17/2020. Pathology showed additional involvement in 1/9 lymph nodes measuring approximately 6 mm in greatest dimension. There was no extracapsular extension identified. On 04/03/2020 when she began adjuvant endocrine therapy with goserelin 3.6 mg by subcutaneous injection monthly and 14 days later she started anastrozole 1 mg daily. On 04/04/2020 she began postoperative radiation to the left chest wall/axilla. She completed treatment on 05/11/2020 to a total dose of 5000 cGy administered in 25 fractions. She tolerated it well. Her other medical illnesses include GERD, migraine headaches, and anxiety/depression. She also has a history of thyroid nodules with hyperthyroidism, for which she underwent total thyroidectomy in 2014. She has only minimal prior smoking history, and she quit smoking in 2007. INTERIM HISTORY: Patient presents today for follow-up visit. She is complaining of fatigue today but states she is not usually quite as tired. Her appetite has been good. She denies fever, chills, night sweats. No sinus drainage or sore throat. No shortness of breath, cough, chest pain. No GI problems. She is having right lower quadrant abdominal pain that occurs on and off. It has been bad enough that she has had to go to the emergency room for. She has had CT scans performed to rule out appendicitis. She has not had any type of ultrasound to evaluate her ovaries. She would also like a referral to gynecology to discuss hysterectomy due to her breast cancer. She denies joint or bone pain. No headaches or dizziness. Review Of Symptoms: See above. Past Medical History: Anxiety Depression History of thyroid nodule/hyperthyroidism Migraine headeaches Surgical hypothyroidism Past Surgical History: Caesarean section Covid 19 moderna in 2020 Right Subclavian venous access device-Dr Schmitt in 2019 Ultrasound-guided biopsy of left breast mass and left axillary lymph node in 2019 Stereotactic needle biopsy of the left breast in 2019 Total thyroidectomy in 2014 FNA biopsy of thyroid nodule in 2014 Tubal ligation in 2013 Allergies: No Known Allergies. Medications: Anastrozole 1 (1 mg) Tablet Oral daily Claritin 1 Tablet (of 10 mg) Tablet Oral daily clonazePAM 1 Tablet (of 0.5 mg) Oral b.i.d. PRN D-1000 1 (1000 Unit(s)) Tablet Oral q 30 days Ergocalciferol 1 (50,000 Units) Tablet Oral q 7 hours FLUoxetine HCl 1 Tablet (of 80 mg) Oral daily Ibuprofen 1 Tablet (of 800 mg) Oral t.i.d. PRN Levothyroxine Sodium 1 Tablet (of 100 mcg) Oral daily Meloxicam 1 Tablet (of 15 mg) Oral daily Multivitamin Gummies Womens 1 Tablet, chewable Oral daily oxyCODONE HCl 1 - 2 Tablet (of 15 mg) Oral q 4 hours PRN Pantoprazole Sodium 1 Tablet (of 40 mg) Tablet, enteric coated Oral daily Rizatriptan Benzoate 1 Tablet (of 10 mg) Oral q 2 hours PRN Senna S 1 Tablet (of 8.6-50 mg) Oral daily Topiramate 1 Tablet (of 50 mg) Oral daily Family History: Ms. Wilburn's mother is alive. Ms. Wilburn's father is alive. Ms. Wilburn has 1 maternal aunt who is : uterine cancer. Father has diabetes and coronary artery disease and is still living at age 73. Mother is in good health age 68. Two brothers and a fraternal twin sister are in good health. 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 Ms. Wilburn quit smoking 14 years ago but had smoked for 2 years. She drinks occasionally. Ms. Wilburn reports the following support systems: lives with spouse, significant other, family, or friends, lives in own house, supportive family/friends willing to assist with needs, and adequate transportation available for expected visits. Her diet consists of regular meals. She indicates her activity level as: regular exercise. Physical Examination: Performed on Jun 25, 2021 11:17: Height - 63.00 in, Weight - 163.6 lbs (HIGH), BSA - 1.78 sq.m, BMI - 28.98, Temperature - 97.9 F (LOW), Pulse - 79 /min, Respiration - 16 /min, BP - 137/83 mm(hg), O2 Sat - 97 %, Pain - 0, and Fatigue - 8. Performance Status: 0 - Fully active, able to carry on all predisease activities without restrictions. (ECOG) Constitutional Alert, cooperative, oriented. Mood and affect appropriate. Appears close to chronological age. Well nourished. Well developed. Head Normocephalic; no scars. Eyes Conjunctivae and sclerae are clear and without icterus. Pupils are reactive and equal. Respiratory Lungs are clear to auscultation without rhonchi or wheezing. Cardiovascular Regular rate and rhythm of heart without murmurs, gallops or rubs. Abdomen Non-tender, non-distended, no masses, ascites or hepatosplenomegaly. Good bowel sounds. No guarding or rebound tenderness. Musculoskeletal No tenderness or swelling, normal range of motion without obvious weakness. Psychiatric Alert and oriented times three. Coherent speech. Verbalizes understanding of our discussions today. Laboratory: Test performed on Jun 25, 2021 10:15 Sodium 136 mmol/L Vitamin D (25-Hydroxy), Total 42 ng/mL Potassium 4.1 mmol/L Chloride 103 mmol/L CO2 23 mmol/L Anion Gap 14.1 BUN 16 mg/dL Creatinine 0.9 mg/dL Cr Clearance (Est) 93.45 mL/min eGFR 68.0 mL/min Glucose 103 mg/dL Osmolality - Calculated 283 mOsm/kg Calcium 9.3 mg/dL Protein, Total 6.9 g/dL Albumin 4.6 g/dL Globulin 2.3 g/dL Bilirubin, Total 0.3 mg/dL ALT (SGPT) 38 U/L AST (SGOT) 28 U/L Alkaline Phosphatase 124 IU/L WBC 4.7 10 3/uL RBC 4.35 10 6/uL HGB 13.4 g/dL HCT 40.1 % MCV 92.2 fl MCH 30.8 pg MCHC 33.4 g/dL RDW 11.7 % Platelet Count 228 10 3/cmm MPV 10.7 fL Neutrophils 2.81 10 3/uL Lymphocytes 1.4 10 3/uL Monocytes 0.3 10 3/uL Eosinophils 0.1 10 3/uL Basophils 0.0 10 3/uL Neutrophil % 60.0 % Lymphocyte % 28.8 % Monocyte % 7.3 % Eosinophil % 1.9 % Basophils % 0.9 % NRBC % 0 % Impression: 1. Grade 2 infiltrating ductal carcinoma of the left breast, ER/MA positive and HER-2/bambi negative. By clinical evaluation her disease was stage at least 1A (T1c, pN1a, M0) at initial diagnosis. Her disease was post treatment stage IB (ypT2, ypN1a, M0). 2. GERD. 3. Migraine headaches. 4. Anxiety/depression. 5. She has a history of thyroid nodules/hyperthyroidism for which she underwent total thyroidectomy in 2014. 6. Vitamin D deficiency. Plan: 1. Patient with grade 2 infiltrating ductal carcinoma of the left breast, ER/MA positive and HER-2/bambi negative. She underwent ultrasound-guided biopsies of left breast mass and left axillary lymph node on 07/12/2019. By clinical evaluation her disease was stage at least 1A (T1c, pN1a, M0) at initial diagnosis. With clinically evident axillary lymph node involvement she underwent neoadjuvant chemotherapy with Adriamycin/cyclophosphamide followed by weekly paclitaxel. She completed 4 cycles of Adriamycin/cyclophosphamide from 08/19/2019 thru 09/30/2019. On 10/14/2019 she began her 1st of 12 planned weekly cycles of paclitaxel. She completed her 12th and final paclitaxel infusion on 01/06/2020. Side effects included fatigue, neutropenia, and mild transaminitis. Overall, she tolerated the chemotherapy well. On 02/01/2020 she underwent total mastectomy bilaterally with left axillary sentinel lymph node biopsy. Pathology showed residual grade 2 invasive ductal carcinoma measuring 2.6 x 2.4 x 1.3 cm. 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 The margins were uninvolved. There was involvement into/2 axillary sentinel lymph nodes with the largest metastatic deposit measuring 7 mm. Extranodal extension was present. Pathologic staging was ypT2, ypN1a(sn). With those findings, she then underwent left axillary lymph node dissection on 02/17/2020. Pathology showed involvement in additional 1/9 lymph nodes measuring approximately 6 mm. There was no extracapsular extension identified. As such, her disease was post treatment stage IB (ypT2, ypN1a, M0). On 04/03/2020 when she began adjuvant endocrine therapy with Zoladex 3.6 mg by subcutaneous injection monthly and 14 days later she started anastrozole 1 mg daily. On 04/04/2020 she began postoperative radiation to the left chest wall/axilla. She completed treatment on 05/11/2020 to a total dose of 5000 cGy administered in 25 fractions. She tolerated it well. Patient presents today for follow-up. She is tolerating anastrozole well. She is also receiving goserelin monthly. We are unable to transition her to a 3-month dosing schedule of the goserelin due to insurance not willing to pay for 3-month dosing. Patient continues to have right lower quadrant abdominal pain and appendicitis has been ruled out. We will obtain a pelvic ultrasound to evaluate ovaries. A referral will be placed for gynecology for further evaluation. The patient is requesting to see Dr. Minor. She will continue her monthly goserelin injections and anastrozole 1 mg p.o. daily. She will return to the clinic in 3 months with CBC and CMP. 2. Vitamin D deficiency. Her laboratory studies in April included a significantly decreased 25-hydroxy vitamin D level at 18 ng/mL. She has been on replacement with vitamin D3 1000 units daily and vitamin D2 50,000 units monthly. Signed By: Darshana Ríos NWillian <<Signature on File>>
== END 2021-06-25 09:57 | disposition home or self-care (01) ==
LOC: ONCMED 10:00
PROVIDERS: PCP Family Medicine; Visit Provider Nurse Practitioner Family
DX: C50.412 Malignant neoplasm of upper-outer quadrant of left female breast (principal); Z17.0 Estrogen receptor positive status [ER+]; C77.3 Secondary and unspecified malignant neoplasm of axilla and upper limb lymph nodes; Z90.12 Acquired absence of left breast and nipple; Z79.811 Long term (current) use of aromatase inhibitors; R10.31 Right lower quadrant pain; E55.9 Vitamin D deficiency, unspecified
CPT/HCPCS: 36415; 80053; 82306; 85025; 96372; 96402; 99215; J9202

== ENCOUNTER → 2021-07-12 14:27 | Outpatient (BNVA) | payer MEDICAID, SELFPAY | PROVIDERS: PCP Family Medicine; Visit Provider Obstetrics & Gynecology | DX: R10.31 Right lower quadrant pain (principal) | CPT/HCPCS: 76830 ==

== ENCOUNTER 2021-07-23 14:33 | Oncology outpatient (recurring) (ONCR) | payer MEDICAID, SELFPAY ==
[2021-07-23 14:50] VITALS: BP 106/70; PULSE 82; RESP 18; TEMP 36.7; O2SAT 96
[2021-07-23] MEDS: lidocaine 1% INJ 20 mL SUBCUT (14:51)
[2021-07-23] MEDS: goserelin acetate 3.6 mg Implant SUBCUT (15:01)
== END 2021-08-14 23:59 | disposition home or self-care (01) ==
LOC: ONCMED 14:34
PROVIDERS: PCP Family Medicine; Visit Provider Internal Medicine Medical Oncology
DX: C50.412 Malignant neoplasm of upper-outer quadrant of left female breast (principal); Z17.0 Estrogen receptor positive status [ER+]; D70.1 Agranulocytosis secondary to cancer chemotherapy; T45.1X5A Adverse effect of antineoplastic and immunosuppressive drugs, initial encounter; Z79.818 Long term (current) use of other agents affecting estrogen receptors and estrogen levels; Z79.899 Other long term (current) drug therapy
CPT/HCPCS: 96372; 96402; J9202

== ENCOUNTER 2021-08-27 09:30 | Oncology outpatient (recurring) (ONCR) | payer MEDICAID, SELFPAY ==
[2021-08-27 09:38] VITALS: BP 102/71; PULSE 80; RESP 16; TEMP 36.1; O2SAT 98
[2021-08-27] MEDS: lidocaine 1% INJ 20 mL SUBCUT (09:41)
[2021-08-27] MEDS: goserelin acetate 3.6 mg Implant SUBCUT (09:58)
== END 2021-09-13 23:59 | disposition home or self-care (01) ==
PROVIDERS: PCP Family Medicine; Visit Provider Internal Medicine Medical Oncology
DX: Z51.11 Encounter for antineoplastic chemotherapy (principal); C50.412 Malignant neoplasm of upper-outer quadrant of left female breast
CPT/HCPCS: 96372; 96402; J9202

== ENCOUNTER 2021-09-04 10:23 | Inpatient (IN) | payer MEDICAID, SELFPAY ==
[2021-09-03 09:58] VITALS: BMI 27.6
--- NOTE | 2021-09-03 20:26 | P.ANESASSM_ITS ---
Pre-Anesthetic Assessment Height/Weight: Height 1.6 m Weight 70.76 kg Preop Diagnosis: Left breast cancer. Operation Date: 09/04/21 07:00 Proposed Procedures p Total abdominal hysterectomy, bilateral salpingo-oophorectomy 66389, mid urethral sling 47829/N93.9/N39.3(Not Applicable) - Kalie Minor MD s Bilateral Salpingo Oophorectomy (Open)(Not Applicable) - Kalie Minor MD s Mid Urethral sling(Not Applicable) - Kalie Minor MD Familial anesthetic complications: none Was Beta Ceci taken within 24 hours: N/A Was Clonidine taken within 24 hours: N/A Last intake: 09/03/21 Social No alcohol and No tobacco Exam alert, oriented x 3, clear to auscultation bilaterally and regular rate & rhythm Airway Submandibular: within normal limits Mallampati: Class II Comments: Comments: Braces Pulmonary None reported CV/HEM None reported TTE 2020 ?CONCLUSIONS ?The examination is two-dimensional only.? No M-mode or Doppler ?exam.? Normal left ventricular size, systolic function and wall ?thickness, with no regional wall motion abnormalities. Left ?ventricular ejection fraction is estimated at 65 %. ?There are no prior echocardiogram studies to compare. Stress incontinence, AUB Hepatic None reported GI Gastroesophageal Reflux Disease (well controlled) Biliary colic Metabolic Thyroid Disease (Hypothyroid) [facility] Breast cancer Neuropsych Anxiety, Depression and Headache Anesthetic Plan ASA status: 3 Anesthesia: Anesthesia Evaluation and General Other: We discussed risk and benefits of general anesthesia including PONV, sore throat (sometimes severe), corneal abrasion, positioning and peripheral nerve injuries, life threatening allergic reaction, post operative ICU admission requiring prolonged intubation, aspiration, stroke, heart attack, , and rare incidences of recall. Patient consents to proceed with general anesthesia. Risk of > 500 ml blood loss (7ml/kg in children): No Medications/Allergies Home Medications Medication Instructions Recorded Confirmed Last Taken Type topiramate 50 mg capsule,extended 50 mg PO DAILY 04/03/19 09/04/21 09/03/21 History release 24 hr multivitamin,[id number] 1 tab PO QDAY 04/07/19 09/04/21 09/03/21 History (Complete Multivitamin) fluoxetine 60 mg tablet 80 mg PO DAILY 04/13/19 09/04/21 09/04/21 History rizatriptan 10 mg tablet (Maxalt) 10 mg PO Q2H PRN 04/14/19 09/04/21 09/03/21 History clonazepam 0.5 mg tablet 0.5 mg PO BID PRN 11/19/19 09/04/21 09/03/21 History levothyroxine 88 mcg tablet 112 mcg PO DAILY tab 03/14/21 09/04/21 09/03/21 H istory loratadine 10 mg tablet (Claritin) 10 mg PO DAILY 03/14/21 09/04/21 09/03/21 History sennosides 8.6 mg capsule (senna) 8.6 mg PO DAILY PRN 03/14/21 09/04/21 09/03/21 History anastrozole 1 mg tablet See Rx Instructions .ROUTE 08/14/21 09/04/21 09/03/21 Rx .COMPLEX #90 tablet meloxicam 15 mg tablet See Rx Instructions .ROUTE 08/14/21 09/04/21 09/03/21 Rx .COMPLEX #90 tablet pantoprazole 40 mg tablet,delayed See Rx Instructions .ROUTE 08/14/21 09/04/21 09/04/21 Rx release .COMPLEX #60 tablet cholecalciferol (vitamin D3) 10 10 mcg PO DAILY 08/29/21 09/04/21 09/03/21 History mcg (400 unit) capsule ferrous sulfate 325 mg (65 mg 325 mg PO DAILY 08/29/21 09/04/21 09/03/21 History iron) tablet Allergies Allergy/AdvReac Type Severity Reaction Status Date / Time No Known Allergies Allergy Verified 09/04/21 06:03 [facility] Anesthesia Medical History Biliary colic Breast cancer, left grade 2 infiltrating ductal carcinoma of the left breast, by clinical evaluation stage at least 1A (T1c, pN1a, M0), ER/MO positive and HER-2/abmbi negative. Depression with anxiety GERD (gastroesophageal reflux disease) EGD showed GERD and patient will be placed on PPI therapy,. Hoarseness of voice Hypothyroidism, postsurgical Migraine headache Surgical History History of esophagogastroduodenoscopy (EGD) (~04/2019) History of mastectomy 2019, double History of thyroidectomy (~10/2014) Hx of eye surgery (Unknown) Hx of tonsillectomy (Unknown) Hx of tubal ligation (11/27/13) Family History Father Diabetes Heart disease Hyperlipidemia Hypertension Brother Hypertension Grandmother Stroke Paternal Family/Other Uterine cancer Paternal aunt Ovarian cancer maternal aunt Denies family history of Colon cancer Bleeding disorder Thyroid disease Female Reproductive History Date of last menstrual period: 07/02/19 Data Anesthesia : 09/04/21 06:20 09/04/21 06:20 Cardiac Studies: Echocardiogram Limited Views 08/18/19
[2021-09-04] VITALS (28 sets, daily range): BP systolic 97–149; BP diastolic 62–83; PULSE 60–87; RESP 15–22; TEMP 35.9–36.8; O2SAT 90–100; BMI 27.6
[2021-09-04] MEDS: phenazopyridine 100 mg Tablet 200 MG PO ×3 (06:33→21:56)
[2021-09-04] MEDS: CELEcoxib 200 mg Capsule 400 MG PO (06:33)
[2021-09-04] MEDS: gabapentin 300 mg Capsule PO (06:33)
[2021-09-04] MEDS: scopolamine 1.5 Patch 1 PATCH TRANSDERMA (06:34)
[2021-09-04] MEDS: acetaminophen 1,000 MG/100 ML PIGGYBACK 400 MG IV (06:34)
[2021-09-04] MEDS: sodium chloride 0.9% 1,000 ML 30 ML IV (06:34)
[2021-09-04] MEDS: ketorolac 30 mg/mL INJ IVP ×4 (06:35→23:16)
[2021-09-04 06:41] LABS: Basophils % 1.2 %; Eosinophils # 0.1 10^3/uL (0.0-0.8); Eosinophils % 2.9 %; Hemoglobin 12.7 g/dL (11.5-15.3); Lymphocytes # 1.2 10^3/uL (0.8-4.8); Lymphocytes % 35.1 %; Mean Corpuscular HGB Conc 35.3 g/dL (30.0-36.0); Mean Corpuscular Hemoglobin 31.1 pg (28.0-34.0); Mean Corpuscular Volume 88.2 fl (81-99); Monocytes # 0.4 10^3/uL (0.2-0.9); Monocytes % 11.5 %; Neutrophils # 1.65 10^3/uL (1.8-7.7); Neutrophils % 48.7 %; Nucleated Red Blood Cells % 0 %; Platelet Count 220 10^3/cmm (130-400); Red Blood Count 4.08 10^6/uL (4.1-5.3); Red Cell Distribution Width 11.9 % (12.1-15.1); White Blood Count 3.4 10^3/uL (4.0-10.0)
[2021-09-04 06:48] LABS: Anion Gap 14.7 (5-19); Blood Urea Nitrogen 17 mg/dL (6-20); Calcium 8.9 mg/dL (8.5-10.5); Carbon Dioxide 23 mmol/L (22-29); Chloride 106 mmol/L (98-107); Glomerular Filtration Rate 60.2 mL/min (90-130); Glucose 99 mg/dL (65-115); Osmolality Calculated 292 mOsm/kg (285-295); Potassium 3.7 mmol/L (3.5-5.1); Sodium 140 mmol/L (136-145)
--- NOTE | 2021-09-04 07:10 | P.HPUD_ITS ---
Surgery/Procedure H&P Update DATE OF PROCEDURE: September 04, 2021 DATE H&P PERFORMED: 08/22/21 H&P UPDATE INFORMATION: I have reviewed H&P completed within last 30 days, I have examined patient prior to procedure and No changes to prior documentation PREOP DIAGNOSIS: AUB, pelvic pain, stress incontinence, breast cancer PLANNED PROCEDURE: Operation Date: 09/04/21 07:00 Proposed Procedures p Total abdominal hysterectomy, bilateral salpingo-oophorectomy 72444, mid urethral sling 62530/N93.9/N39.3(Not Applicable) - Kalie Minor MD s Bilateral Salpingo Oophorectomy (Open)(Not Applicable) - Kalie Minor MD s Mid Urethral sling(Not Applicable) - Kalie Minor MD Related Problem List Diagnoses (1) Stress incontinence: (2) Abnormal uterine bleeding (AUB): (3) Pelvic pain: (4) Breast cancer, left: Qualifiers: Breast location: unspecified site of breast Estrogen receptor status: positive Patient sex: female Qualified Code(s): C50.912 - Malignant neoplasm o f unspecified site of left female breast; Z17.0 - Estrogen receptor positive status [ER+]
--- NOTE | 2021-09-04 08:09 | SUR.OPER ---
family updated of surgical status
--- NOTE | 2021-09-04 09:56 | P.OP_ITS ---
Operative Report Date of procedure: September 04, 2021 Pre-op diagnosis: Preop Diagnosis AUB, pelvic pain, stress incontinence, breast cancer Post-op diagnosis: same Post-op findings: small uterus. normal appearing tubes and ovaries Procedure done: DAVID, BSO, mid-urethral sling placement, cystoscopy Implants: midurethral sling Specimens removed/disposition: uterus, bilateral tubes and ovaries to pathology Surgeon: Kalie Minor Anesthesia: General Estimated blood loss (mL): 100 IV fluids (mL): 1,800 Urine output (mL): 400 Complications: none Condition: stable Disposition: PACU Procedure: The patient was taken to the operating room where general anesthesia was administered and found to be adequate. She was prepped and draped in the normal sterile fashion in the dorsal lithotomy position. A rubio catheter was placed. A Pfannenstiel skin incision was made and carried down to the underlying layer of fascia. The fascia was nicked in the midline and extended laterally with the Holm scissors. The fascia was then tented up and the rectus muscles dissected off sharply. The rectus muscles were in the midline and the abdomen entered bluntly with the digit. This peritoneal incision was extended superiorly and inferiorly with good visualization of the bladder. The O'Rubin- O'Alvares retractor was placed and the bowel packed away. The round ligament was suture-ligated and opened. This was performed bilaterally. A window was made medial to the infundibulopelvic ligament and inferior to the fallopian tube and ovary. The infundibulopelvic ligament was clamped cut and suture-ligated bilaterally. The bladder flap was created sharply with the metzenbaum scissors and the bladder reflected caudally. The uterine arteries and cardinal ligaments were then clamped cut and suture-ligated down to the angle of the vagina. The vaginal cuff was clamped and cut and the specimen was removed. The vaginal cuff was closed with 0 Vicryl incorporating the uterosacral ligaments into the lateral aspects of the vaginal cuff. There was excellent hemostasis. The pelvis was irrigated. The O'Rubin-O'Alvares retractor as well as the packing was removed. The peritoneum was closed with 3-0 Monocryl in a running fashion. The rectus muscles were friable and SERGIO was placed on them for hemostasis. The fascia was closed with 0 Vicryl in a running fashion with 2 separate sutures overlapping in the midline. The skin was closed with absorbable yumiko. Attention was then turned to the sling portion of the procedure A weighted speculum was placed into the vagina and an Allis clamp was placed approximately 2 cm below the urethra and another placed approximately 3 cm distal from that. An incision was made between the 2. The tissue was sharply and bluntly dissected along the pubic ramus bilaterally. The sling was placed on the left first by going through the incision and attaching the sling to the obturator foramen membrane . The right side was performed in a similar fashion, placing the applicator through the incision and attaching to the obturator foramen membrane. The Rubio catheter was removed and the cystoscope advanced into the bladder. Pyridium was given preoperatively and bilateral spill of orange fluid was noted from both ureteral orifices. There was no mesh noted to be in the bladder. The sling was tightened until there was no leakage with valsalva. The tag of suture was trimmed. The incision was repaired with 2-0 Vicryl in a running locked fashion. Vaginal packing was placed. The incision was dressed with silver dressing with pressure dressing. The patient tolerated the procedure well. Sponge lap and needle counts were correct x3. She was taken to the recovery room in stable condition.
[2021-09-04] MEDS: fentaNYL 50 mcg/mL INJ 2mL IVP (10:30)
--- NOTE | 2021-09-04 11:04 | PC.NURSE ---
Pt received from PACU into extended care. Pt denies pain, reports feeling fullness in rectum r/t vag. packing. No bleeding noted at this time. Nur in place and draining. Bilat SCDs on and functioning. VSS. Drink and crackers provided. at bedside. No BP or sticks to L arm r/t hx of lymph node removed on L arm with mastectomy.
[2021-09-04] MEDS: HYDROmorphone 1 mg/mL INJ 1 mL 1.5 MG IVP ×2 (11:48→20:32)
--- NOTE | 2021-09-04 14:16 | ANE.PACU2 ---
Inpatient post-anesthesia follow up: Airway intact: Yes Vital signs: Temperature 97.6 F Pulse Rate 87 Respiratory Rate 18 Blood Pressure 100/66 Pulse Oximetry 100 Oxygen Delivery Me thod Room Air Oxygen Flow Rate 2 Fraction of Inspir ed Oxygen 2 Hydration adequate: Yes Nausea and vomiting: No Pain level: 5 Mental status: Baseline
[2021-09-04] MEDS: HYDROcodone-acetaminophen 5-325 mg Tablet PO (16:40)
[2021-09-04] MEDS: docusate sodium 100 mg Capsule PO (16:40)
[2021-09-04] MEDS: dextrose 5%-lactated ringers 1,000 ML 125 ML IV (21:05)
[2021-09-05] MEDS: HYDROcodone-acetaminophen 5-325 mg Tablet PO ×4 (04:27→23:57)
[2021-09-05 04:35] VITALS: BP 100/64; PULSE 70; O2SAT 96
[2021-09-05 06:31] LABS: Hematocrit 30.1 % (37.0-47.0); Hemoglobin 10.6 g/dL (11.5-15.3); Mean Corpuscular HGB Conc 35.2 g/dL (30.0-36.0); Mean Platelet Volume 11.4 fL (7.4-10.4); Platelet Count 205 10^3/cmm (130-400); Red Blood Count 3.42 10^6/uL (4.1-5.3); Red Cell Distribution Width 12.2 % (12.1-15.1); White Blood Count 6.8 10^3/uL (4.0-10.0)
[2021-09-05] MEDS: fluoxetine 20 mg Capsule 80 MG PO (09:24)
[2021-09-05] MEDS: phenazopyridine 100 mg Tablet 200 MG PO ×3 (09:24→21:18)
[2021-09-05] MEDS: docusate sodium 100 mg Capsule PO ×2 (09:25→18:14)
[2021-09-05] MEDS: ibuprofen 800 mg tablet PO ×3 (09:25→22:49)
[2021-09-05] MEDS: levothyroxine 112 mcg Tablet PO (09:26)
--- NOTE | 2021-09-05 09:30 | P.PN_ITS ---
Subjective Subjective: The patient is doing well this morning. She is appropriately sore. Vitals/I&O/Wt Last Vital Signs Temp 98.2 F 09/04/21 22:08 Pulse 70 09/05/21 04:35 Resp 15 09/04/21 20:32 BP 100/64 09/05/21 04:35 Pulse Ox 96 09/05/21 04:35 09/04/21 09/05/21 09/05/21 22:59 06:59 14:59 Intake Total 350 / 2400 Output Total 250 / 1850 2300 / 4150 800 / 800 Balance 100 / 550 -2300 / -1750 -800 / -800 Weight last 48 hrs Weight 156 lb Weight 156 lb Physical Exam Const: COMMON NORMALS: no acute distress, average body habitus, patient oriented x3, no limitations, healthy appearing, alert and well nourished GENERAL APPEARANCE: cooperative, comfortable, well kempt and well developed ORIENTATION/CONSCIOUSNESS: Yes awake, Yes oriented to person, Yes oriented to place and Yes oriented to time Resp: COMMON NORMALS: normal respiratory effort EFFORT & INSPECTION: Yes able to speak in complete sentences GI: COMMON NORMALS: Soft to palpation and non-tender PALPATION: Yes Soft to palpation Extremity: COMMON NORMALS: no calf tenderness Neuro: COMMON NORMALS: patient oriented x3 SENSORIUM/ORIENTATION: Yes alert, Yes oriented to person, Yes oriented to place and Yes oriented to time Psych: APPEARANCE: Yes well kempt Urinary Catheter Management: Nur Latex: Cath Placed During This Visit: yes, but has since been removed by the nurse Reason for Continuing Indwelling Catheter: Decision to DC Catheter Urinary Catheter Date of Insertion: 09/04/21 Urinary Catheter Time of Insertion: 07:42 Date Urinary Catheter Removed: 09/05/21 Time Urinary Catheter Discontinued: 09:05 Data : 09/05/21 06:04 09/04/21 06:20 Attestations Medical Necessity Statement*: The patient had an abdominal hysterectomy. She will be here two midnights. Coding Level of Care Code Acute Lasting Room Machine Operator for Jeremy Whitten
[2021-09-05] MEDS: anastrozole 1 mg Tablet PO (10:52)
[2021-09-05 15:56] VITALS: BP 121/77; PULSE 80; RESP 16; TEMP 36.5
[2021-09-05 22:45] VITALS: BP 106/67; PULSE 94; TEMP 36.8; O2SAT 94
[2021-09-06 04:00] VITALS: BP 118/71; PULSE 84; TEMP 36.8; O2SAT 93
[2021-09-06] MEDS: HYDROcodone-acetaminophen 5-325 mg Tablet PO ×2 (06:30→09:17)
--- NOTE | 2021-09-06 08:16 | PM.DCS ---
Discharge Providers Date of Admission: 09/04/21 10:23 Date of Discharge: September 06, 2021 Attending Provider at Admission: Kalie Minor MD Attending Provider at Discharge: Kalie Minor MD Primary Care Provider: Yogesh Cornelius MD Diagnoses at Discharge Discharge Diagnosis (1) Stress incontinence: Status: Acute (2) Abnormal uterine bleeding (AUB): Status: Acute (3) Pelvic pain: Status: Acute (4) Breast cancer, left: Status: Acute Qualifiers: Breast location: unspecified site of breast Estrogen receptor status: positive Patient sex: female Qualified Code(s): C50.912 - Malignant neoplasm of unspecified site of left female breast; Z17.0 - Estrogen receptor positive status [ER+] Permanent problem details: grade 2 infiltrating ductal carcinoma of the left breast, by clinical evaluation stage at least 1A (T1c, pN1a, M0), ER/CT positive and HER-2/bambi negative. Hospital Course Hospital Course The patient was admitted for surgery. She did well postoperatively and was ready for discharge on day #2 Physical Exam Narrative: Her only complaint this morning is leakage of urine worse that before surgery. Const: COMMON NORMALS: no acute distress, average body habitus, patient oriented x3, no limitations, healthy appearing, alert and well nourished GENERAL APPEARANCE: cooperative, comfortable, well kempt and well developed ORIENTATION/CONSCIOUSNESS: Yes awake, Yes oriented to person, Yes oriented to place and Yes oriented to time Resp: COMMON NORMALS: normal respiratory effort EFFORT & INSPECTION: Yes able to speak in complete sentences GI: COMMON NORMALS: Soft to palpation and non-tender PALPATION: Yes Soft to palpation Extremity: COMMON NORMALS: no calf tenderness Neuro: COMMON NORMALS: patient oriented x3 SENSORIUM/ORIENTATION: Yes alert, Yes oriented to person, Yes oriented to place and Yes oriented to time Psych: APPEARANCE: Yes well kempt Skin: WOUNDS: Yes surgical site (clean/dry/intact) Urinary Catheter Management: Nur Latex: Cath Placed During This Visit: yes, but has since been removed by the nurse Reason for Continuing Indwelling Catheter: Decision to DC Catheter Urinary Catheter Date of Insertion: 09/04/21 Urinary Catheter Time of Insertion: 07:42 Date Urinary Catheter Removed: 09/05/21 Time Urinary Catheter Discontinued: 09:05 Discharge Data Studies Completed and Pending Pending at discharge Category Date Time Status Urine Culture Routine Lab 09/04/21 07:43 Results Pathology: Surgical [PTH] Routine Pth 09/04/21 09:21 Received Laboratory Results WBC 6.8 10^3/uL (4.0-10.0) 09/05/21 06:04 RBC 3.42 10^6/uL (4.1-5.3) L 09/05/21 06:04 Hgb 10.6 g/dL (11.5-15.3) L 09/05/21 06:04 Hct 30.1 % (37.0-47.0) L 09/05/21 06:04 MCV 88.0 fl (81-99) 09/05/21 06:04 MCH 31.0 pg (28.0-34.0) 09/05/21 06:04 MCHC 35.2 g/dL (30.0-36.0) 09/05/21 06:04 RDW 12.2 % (12.1-15.1) 09/05/21 06:04 Plt Count 205 10^3/cmm (130-400) 09/05/21 06:04 MPV 11.4 fL (7.4-10.4) H 09/05/21 06:04 Neut % (Auto) 48.7 % 09/04/21 06:20 Lymph % (Auto) 35.1 % 09/04/21 06:20 Cloud % (Auto) 11.5 % 09/04/21 06:20 Eos % (Auto) 2.9 % 09/04/21 06:20 Baso % (Auto) 1.2 % 09/04/21 06:20 Neut # (Auto) 1.65 10^3/uL (1.8-7.7) L 09/04/21 06:20 Lymph # (Auto) 1.2 10^3/uL (0.8-4.8) 09/04/21 06:20 Cloud # (Auto) 0.4 10^3/uL (0.2-0.9) 09/04/21 06:20 Eos # (Auto) 0.1 10^3/uL (0.0-0.8) 09/04/21 06:20 Baso # (Auto) 0.0 10^3/uL (0.0-0.1) 09/04/21 06:20 Nucleated RBC % (auto) 0 % 09/04/21 06:20 Nucleated RBCs # 0.0 /100WBC 09/04/21 06:20 Sodium 140 mmol/L (136-145) 09/04/21 06:20 Potassium 3.7 mmol/L (3.5-5.1) 09/04/21 06:20 Chloride 106 mmol/L (98-107) 09/04/21 06:20 Carbon Dioxide 23 mmol/L (22-29) 09/04/21 06:20 Anion Gap 14.7 (5-19) 09/04/21 06:20 BUN 17 mg/dL (6-20) 09/04/21 06:20 Creatinine 1.0 mg/dL (0.5-0.9) H 09/04/21 06:20 GFR Calculation 60.2 mL/min (90-130) L 09/04/21 06:20 Glucose 99 mg/dL (65-115) 09/04/21 06:20 Calculated Osmolality 292 mOsm/kg (285-295) 09/04/21 06:20 Calcium 8.9 mg/dL (8.5-10.5) 09/04/21 06:20 Blood Type O Positive 09/04/21 06:20 Rho(D) Type Positive 09/04/21 06:20 Antibody Screen Negative 09/04/21 06:20 Vitals Last Vital Signs Temp 98.2 F 09/06/21 04:00 Pulse 84 09/06/21 04:00 Resp 16 09/05/21 15:56 BP 118/71 09/06/21 04:00 Pulse Ox 93 09/06/21 04:00 Discharge Plan Discharge Patient Disposition: Home Condition: Stable Prescriptions: New ibuprofen 800 mg Tablet 800 mg PO Q8H Qty: 30 0RF hydrocodone-acetaminophen 5-325 mg Tablet 1 tab PO Q4H PRN (Reason: Moderate To Severe Pain) Qty: 30 0RF docusate sodium 100 mg Capsule 100 mg PO BID Qty: 60 0RF Continued loratadine [Claritin] 10 mg tablet 10 mg PO DAILY 0RF senna 8.6 mg capsule 8.6 mg PO DAILY PRN (Reason: Constipation) 0RF Complete Multivitamin Tablet 1 tab PO QDAY 0RF clonazepam 0.5 mg tablet 0.5 mg PO BID PRN (Reason: Anxiety) 0RF cholecalciferol (vitamin D3) 10 mcg (400 unit) capsule 10 mcg PO DAILY 0RF ferrous sulfate 325 mg (65 mg iron) tablet 325 mg PO DAILY 0RF pantoprazole 40 mg tablet,delayed release (DR/EC) See Rx Instructions .ROUTE .COMPLEX Qty: 60 3RF Dose Instruction: Take 1 tablet by mouth twice daily Rx Instructions: Take 1 tablet by mouth twice daily meloxicam 15 mg tablet See Rx Instructions .ROUTE .COMPLEX Qty: 90 3RF Dose Instruction: Take 1 tablet by mouth once daily Rx Instructions: Take 1 tablet by mouth once daily anastrozole 1 mg tablet See Rx Instructions .ROUTE .COMPLEX Qty: 90 3RF Dose Instruction: Take 1 tablet by mouth once daily for 90 days Rx Instructions: Take 1 tablet by mouth once daily for 90 days fluoxetine 60 mg tablet 80 mg PO DAILY 0RF rizatriptan [Maxalt] 10 mg Tablet 10 mg PO Q2H PRN (Reason: Migraine Headache) 0RF topiramate 50 mg Capsule,Extended Release 24hr 50 mg PO DAILY 0RF levothyroxine 88 mcg tablet 112 mcg PO DAILY 0RF Discharge Orders: Discharge Order (Routine); Ordered 09/06/21 Ordered By: Kalie Minor Referrals: Kalie Minor MD [Physician] - 09/10/21 2:15 pm (1 week incision check- 09/10/21 @2:15. 6 week post-op: 10/15/21 @8:30. ) Patient Instructions: Salpingo-Oophorectomy (DC), Hysterectomy (DC), OB Abdominal Surgery - [facility], OB Discharge Report, OB Food/Drug Interaction Guide, Opioid Safety Discharge Attestations Time Spent in Discharge Care*: less than 30 min Quality Metrics Clinical Quality Measures [ No reported AMI, CVA or VTE this stay] Coding Level of Care Code Acute Chg FW DC note Diagnoses Stress incontinence N39.3 Abnormal uterine bleeding (AUB) N93.9 Pelvic pain R10.2 Breast cancer, left C50.912; Z17.0 Breast location: unspecified site of breast Estrogen receptor status: positive Patient sex: female
[2021-09-06 09:15] VITALS: BP 125/89; PULSE 89; RESP 16; TEMP 36.7; O2SAT 97
[2021-09-06] MEDS: ibuprofen 800 mg tablet PO (09:17)
[2021-09-06] MEDS: docusate sodium 100 mg Capsule PO (09:17)
== END 2021-09-06 09:25 | disposition home or self-care (01) | DRG 743 ==
LOC: OBGYN 10:29
PROVIDERS: Admitting Provider Obstetrics & Gynecology; PCP Family Medicine; Visit Provider Obstetrics & Gynecology
PROC: 0UT90ZZ Resection of Uterus, Open Approach (ICD-10-PCS; CPT 58150; principal; 2021-09-04 07:00)
PROC: 0UT90ZZ Resection of Uterus, Open Approach (ICD-10-PCS; CPT 58720; 2021-09-04 07:00)
PROC: 0UT90ZZ Resection of Uterus, Open Approach (ICD-10-PCS; CPT 57288; 2021-09-04 07:00)
PROC: 0TJB8ZZ Inspection of Bladder, Via Natural or Artificial Opening Endoscopic (ICD-10-PCS; CPT 52000; 2021-09-04 07:00)
DX: N93.9 Abnormal uterine and vaginal bleeding, unspecified (principal); C50.912 Malignant neoplasm of unspecified site of left female breast; Z17.0 Estrogen receptor positive status [ER+]; F41.8 Other specified anxiety disorders; K21.9 Gastro-esophageal reflux disease without esophagitis; E89.0 Postprocedural hypothyroidism; Z90.13 Acquired absence of bilateral breasts and nipples; N39.3 Stress incontinence (female) (male); Z79.811 Long term (current) use of aromatase inhibitors
CPT/HCPCS: 36415; 51798; 80048; 85025; 85027; 86850; 86900; 87086; 88307; C1713; J0330; J0690; J1100; J1170; J1200; J1885; J2704; J2710; J3010; J3490; J7030; J8999

== ENCOUNTER → 2021-09-24 13:33 | Outpatient (BNVA) | payer MEDICAID, SELFPAY | PROVIDERS: PCP Family Medicine; Visit Provider Obstetrics & Gynecology | DX: R10.9 Unspecified abdominal pain (principal) | CPT/HCPCS: 81000; 87086 ==

== ENCOUNTER 2021-09-27 08:11 | Oncology outpatient (recurring) (ONCR) | payer MEDICAID, SELFPAY ==
[2021-09-27 08:49] LABS: Basophils % 1.3 %; Eosinophils # 0.1 10^3/uL (0.0-0.8); Eosinophils % 3.9 %; Hematocrit 38.3 % (37.0-47.0); Hemoglobin 12.5 g/dL (11.5-15.3); Lymphocytes % 32.7 %; Mean Corpuscular HGB Conc 32.6 g/dL (30.0-36.0); Mean Corpuscular Hemoglobin 30.9 pg (28.0-34.0); Mean Corpuscular Volume 94.8 fl (81-99); Mean Platelet Volume 10.5 fL (7.4-10.4); Monocytes # 0.3 10^3/uL (0.2-0.9); Monocytes % 10.7 %; Neutrophils # 1.57 10^3/uL (1.8-7.7); Neutrophils % 50.8 %; Nucleated Red Blood Cells % 0 %; Platelet Count 241 10^3/cmm (130-400); Red Blood Count 4.04 10^6/uL (4.1-5.3); Red Cell Distribution Width 12.2 % (12.1-15.1); White Blood Count 3.1 10^3/uL (4.0-10.0)
[2021-09-27 09:12] LABS: Alanine Aminotransferase 26 U/L (0-33); Albumin Level 4.6 g/dL (3.5-5.2); Alkaline Phosphatase 103 IU/L (35-105); Anion Gap 15.9 (5-19); Aspartate Amino Transferase 24 U/L (0-32); Blood Urea Nitrogen 14 mg/dL (6-20); Calcium 9.1 mg/dL (8.5-10.5); Carbon Dioxide 21 mmol/L (22-29); Chloride 104 mmol/L (98-107); Globulin 2.8 g/dL (1.3-4.6); Glucose 100 mg/dL (65-115); Osmolality Calculated 285 mOsm/kg (285-295); Potassium 3.9 mmol/L (3.5-5.1); Sodium 137 mmol/L (136-145); Total Bilirubin 0.7 mg/dL (0.15-1.2); Total Protein 7.4 g/dL (6.6-8.7)
== END 2021-10-14 23:59 | disposition home or self-care (01) ==
PROVIDERS: Nurse Practitioner Family; PCP Family Medicine; Visit Provider Internal Medicine Medical Oncology
DX: C50.412 Malignant neoplasm of upper-outer quadrant of left female breast (principal); Z17.0 Estrogen receptor positive status [ER+]; Z79.818 Long term (current) use of other agents affecting estrogen receptors and estrogen levels; Z79.899 Other long term (current) drug therapy; Z92.3 Personal history of irradiation; Z90.13 Acquired absence of bilateral breasts and nipples
CPT/HCPCS: 36415; 80053; 85025; 99214

== ENCOUNTER 2022-05-08 14:53 | Oncology outpatient (recurring) (ONCR) | payer MEDICAID, SELFPAY ==
[2022-05-08 16:19] LABS: Basophils # 0.1 10^3/uL (0.0-0.1); Eosinophils # 0.1 10^3/uL (0.0-0.8); Eosinophils % 2.7 %; Hematocrit 36.4 % (37.0-47.0); Hemoglobin 11.8 g/dL (11.5-15.3); Lymphocytes # 1.4 10^3/uL (0.8-4.8); Lymphocytes % 29.9 %; Mean Corpuscular HGB Conc 32.4 g/dL (30.0-36.0); Mean Corpuscular Hemoglobin 29.3 pg (28.0-34.0); Mean Corpuscular Volume 90.3 fl (81-99); Monocytes # 0.5 10^3/uL (0.2-0.9); Monocytes % 10.8 %; Neutrophils # 2.63 10^3/uL (1.8-7.7); Neutrophils % 54.8 %; Nucleated Red Blood Cells % 0 %; Platelet Count 273 10^3/cmm (130-400); Red Blood Count 4.03 10^6/uL (4.1-5.3); Red Cell Distribution Width 12.1 % (12.1-15.1); White Blood Count 4.8 10^3/uL (4.0-10.0)
[2022-05-08 16:46] LABS: Alanine Aminotransferase 27 U/L (0-33); Albumin Level 4.3 g/dL (3.5-5.2); Alkaline Phosphatase 127 U/L (35-105); Anion Gap 13.5 (5-19); Aspartate Amino Transferase 28 U/L (0-32); Blood Urea Nitrogen 17 mg/dL (6-20); Carbon Dioxide 24 mmol/L (22-29); Chloride 100 mmol/L (98-107); Globulin 3.1 g/dL (1.3-4.6); Glomerular Filtration Rate 67.7 mL/min (90-130); Glucose 93 mg/dL (65-115); Osmolality Calculated 279 mOsm/kg (285-295); Potassium 3.5 mmol/L (3.5-5.1); Sodium 134 mmol/L (136-145); Total Bilirubin 0.3 mg/dL (0.15-1.2); Total Protein 7.4 g/dL (6.6-8.7)
[2022-05-08 17:17] LABS: Free T4 Free Thyroxine 1.07 ng/dL (0.82-1.77); Thyroid Stimulating Hormone 12.45 uIU/mL (0.27-4.20)
== END 2022-05-14 23:59 | disposition home or self-care (01) ==
LOC: ONCMED 14:54
PROVIDERS: PCP Family Medicine; Visit Provider Internal Medicine Medical Oncology
DX: C50.412 Malignant neoplasm of upper-outer quadrant of left female breast (principal); Z17.0 Estrogen receptor positive status [ER+]; Z90.13 Acquired absence of bilateral breasts and nipples; E89.0 Postprocedural hypothyroidism; Z79.818 Long term (current) use of other agents affecting estrogen receptors and estrogen levels; Z79.899 Other long term (current) drug therapy
CPT/HCPCS: 36415; 80053; 84439; 84443; 85025

== ENCOUNTER 2022-06-20 12:53 | Outpatient (CLI) | payer MEDICAID, SELFPAY ==
--- NOTE | 2022-06-20 13:03 | XR_ITS ---
WS: [id number] DEXA (DUAL ENERGY X-RAY ABSORPTIOMETRY) Bone mineral density was performed using a [employer] machine. HISTORY: HX OF BREAST CANCER COMPARISON: 04/19/2020 Lumbar spine BMD (L1-L4): 0.940 g/cm2 T score: -2.0 Z score: -2.3 Total hip BMD: Left: 0.931 g/cm2. T score: -0.6 Z score: -0.5 Right: 0.879 g/cm2. T score: -1.0 Z score: -0.9 10 year probability of a major osteoporotic fracture is 2.9%. Compared to the prior study from 04/19/2020. Lumbar spine bone mineral density has decreased by 11.2%. Bilateral hips bone mineral density has decreased by 3.3%. XR/XR DEXA axial skeleton* 11333 IMPRESSION: OSTEOPENIA based upon the WHO classification for females. Significant decrease in bone mineral density within the lumbar spine and hips s chente the prior study.
== END 2022-06-20 12:54 | disposition home or self-care (01) ==
LOC: RAD 12:57
PROVIDERS: PCP Family Medicine; Visit Provider Family Medicine
DX: Z85.3 Personal history of malignant neoplasm of breast (principal); M85.89 Other specified disorders of bone density and structure, multiple sites
CPT/HCPCS: 77080

== ENCOUNTER 2022-11-06 07:42 | Oncology outpatient (recurring) (ONCR) | payer MEDICAID, SELFPAY | END 2022-11-14 23:59 | disposition home or self-care (01) | PROVIDERS: PCP Family Medicine; Visit Provider Internal Medicine Medical Oncology | DX: Z53.9 Procedure and treatment not carried out, unspecified reason (principal) ==

== ENCOUNTER 2023-01-21 14:56 | Outpatient (CLI) | payer MEDICAID, SELFPAY ==
--- NOTE | 2023-01-21 08:00 | PETR_ITS ---
PROCEDURE INFORMATION: Exam: PET/CT Skull Base to Mid-thigh Exam date and time: 01/21/2023 1:00 PM Age: 47 years old Clinical indication: Condition or disease; Primary cancer: Breast CA; Additional info: Breast cancer LABS AND CLINICAL REPORTS: Glucose: 95 mg/dl Treatment strategy for malignancy (PET staging): Initial Staging (PI) TECHNIQUE: Imaging protocol: Following at least four-hour fasting and following the injection of radiopharmaceutical, low dose CT images were obtained. Then, PET images were obtained. Attenuation corrected images were constructed using the CT scan. Fused images of PET and CT were reviewed. The standardized uptake values (SUV) reported below are maximum values within a region of interest, expressed in gm/ml. Exam includes orbital meatal line to mid-thigh. Radiopharmaceutical: 10.47 mCi F-18 FDG (Fluorodeoxyglucose), IV. Time of imaging post radiopharmaceutical administration: 1 hour Injection site: Not specified COMPARISON: CT abdomen pelvis w con* [id number] 05/04/2021 7:58 PM FINDINGS: Brain: Visualized brain has normal physiologic uptake. Pharynx: No abnormal uptake. Larynx: No abnormal uptake. Thyroid: There are surgical clips in the region of the thyroid gland with probable resection of the left thyroid lobe. No abnormal uptake. Lungs, pleura and trachea: No abnormal uptake. Heart: Normal physiologic uptake. Mediastinal space: No abnormal uptake. Liver: No abnormal uptake. Diffuse hypodensity of the liver is noted consistent with fatty infiltration. Gallbladder and bile ducts: No abnormal uptake. Pancreas: No abnormal uptake. Spleen: Diffuse mild uptake in the spleen demonstrates an SUV max 3.9 without evidence of a discrete lesion, slightly greater than liver uptake. Adrenal glands: No abnormal uptake. Kidneys and ureters: Normal physiologic uptake. Stomach and bowel: There is subtle fat stranding surrounding the right colon and transverse colon. The segments of the bowel are decompressed. Elevated uptake in the right colon is noted diffusely, SUV max 7.3. Vasculature: No abnormal uptake. Lymph nodes: No abnormal uptake. No lymphadenopathy in the head, neck, chest, abdomen, pelvis, and extremities. Bones/joints: No abnormal uptake in the visualized axial and appendicular skeleton. There is mild diffuse vertebral body spondylosis. Relative straightening of the lumbar lordosis and thoracic kyphosis is incidentally noted. Soft tissues: No abnormal uptake in the visualized head, neck, chest, abdomen, pelvis, and extremities. Postoperative changes within both breasts are noted with low-level uptake within areas of linear soft tissue density compatible with scarring, for example SUV max 1.8 on PET series 12, image 71. Surgical clips are identified along the posterior proximal bilateral inguinal canals. METRICS: Mediastinal blood pool: SUV max 2.4 Liver uptake: SUV max 3.7 [facility] INIT[facility] [id number] IMPRESSION: 1. Postoperative changes in both breasts are noted with low-level uptake likely representing inflammatory changes within postoperative scarring. No evidence of radiotracer avid malignancy in the operative beds. 2. New mild fat stranding adjacent to the right colon and transverse colon, with elevated uptake in the right colon (SUV max 7.3). Assessment of the wall the colon is limited without intraluminal contrast. This uptake may be physiologic or related to colitis. A malignant etiology cannot be entirely excluded. Correlation with clinical findings is recommended. 3. Diffuse mild elevated uptake in the spleen is noted compared with liver uptake. This may be normal and physiologic or related to a chemotherapy regimen. Correlation with clinical history is recommended. A neoplastic etiology such as lymphoma are less likely but cannot be entirely excluded. 4. Hepatic steatosis. 5. Additional nonurgent findings as detailed above.
== END 2023-01-21 14:57 | disposition home or self-care (01) ==
LOC: RAD 14:56
PROVIDERS: PCP Family Medicine; Visit Provider Internal Medicine Medical Oncology
DX: C50.412 Malignant neoplasm of upper-outer quadrant of left female breast (principal)
CPT/HCPCS: 78815; A9552

== ENCOUNTER 2023-06-05 11:48 | Oncology outpatient (recurring) (ONCR) | payer MEDICAID, SELFPAY ==
[2023-06-05 13:03] LABS: Basophils # 0.1 10^3/uL (0.0-0.1); Basophils % 1.3 %; Eosinophils # 0.1 10^3/uL (0.0-0.8); Eosinophils % 1.5 %; Hematocrit 38.4 % (36-47); Lymphocytes # 1.8 10^3/uL (0.8-4.8); Lymphocytes % 38.6 %; Mean Corpuscular HGB Conc 31.5 g/dL (30-55); Mean Corpuscular Hemoglobin 28.5 pg (27-33); Mean Corpuscular Volume 90.4 fl (85-98); Mean Platelet Volume 10.9 fL (7.4-10.4); Monocytes # 0.5 10^3/uL (0.2-0.9); Monocytes % 9.5 %; Neutrophils # 2.28 10^3/uL (1.8-7.7); Neutrophils % 48.3 %; Nucleated Red Blood Cells % 0 %; Platelet Count 216 10^3/cmm (157-399); Red Blood Count 4.25 10^6/uL (3.85-5.65); Red Cell Distribution Width 13.2 % (12.1-15.1); White Blood Count 4.72 10^3/uL (3.29-11.43)
[2023-06-05 13:34] LABS: Alanine Aminotransferase 42 U/L (0-33); Albumin Level 4.2 g/dL (3.5-5.2); Alkaline Phosphatase 103 U/L (35-105); Anion Gap 12.1 (5-19); Aspartate Amino Transferase 33 U/L (0-32); Blood Urea Nitrogen 19 mg/dL (6-20); Calcium 8.5 mg/dL (8.5-10.5); Carbon Dioxide 25 mmol/L (22-29); Chloride 107 mmol/L (98-107); Globulin 2.8 g/dL (1.3-4.6); Glomerular Filtration Rate 77.2 mL/min (90-130); Glucose 80 mg/dL (65-115); Magnesium 2.1 mg/dL (1.7-2.3); Osmolality Calculated 291 mOsm/kg (285-295); Potassium 4.1 mmol/L (3.5-5.1); Sodium 140 mmol/L (136-145); Thyroid Stimulating Hormone 4.74 uIU/mL (0.27-4.20); Total Bilirubin 0.6 mg/dL (0.15-1.2)
== END 2023-06-15 23:59 | disposition home or self-care (01) ==
PROVIDERS: PCP Family Medicine; Visit Provider Internal Medicine Medical Oncology
DX: C50.412 Malignant neoplasm of upper-outer quadrant of left female breast (principal); R25.2 Cramp and spasm; R53.83 Other fatigue
CPT/HCPCS: 36415; 80053; 83735; 84443; 85025; 86300

== ENCOUNTER 2023-07-08 07:26 | Outpatient (CLI) | payer MEDICAID, SELFPAY ==
[2023-07-08] MEDS: iohexol 350 mg/mL 500 mL Btl (per mL) PO (08:16)
[2023-07-08] MEDS: iohexol 350 mg/mL 500 mL Btl (per mL) IV (08:29)
--- NOTE | 2023-07-08 08:30 | CT_ITS ---
WS: [id number] CT CHEST, ABDOMEN AND PELVIS WITH CONTRAST HISTORY: chest wall pain, history of breast cancer with bilateral mastectomy. TECHNIQUE: Contiguous 5 mm axial imaging performed through the chest, abdomen and pelvis with IV cont rast, oral contrast has not been provided. Coronal and sagittal reformats chest. Coronal and sagittal reformats through the abdomen and pelvis. All CT scans at [facility] use at least one of the se dose optimization techniques: automated exposure control; mA and/or kV adjustment per patient size (includes targeted exams where dose is matched to clinical indication); or iterative reconstruction. CONTRAST: Omnipaque 350; 100 mL IV. DLP: 824.31 mGy.cm COMPARISON: 05/04/2021, PET/CT 01/21/[address]: Very mild interstitial thickening is probably related to smoking history. There is no mass or nodule. No pneumonia. No pericardial or pleural effusions. No mediastinal or hilar adenopathy. Nor mal size aorta and pulmonary artery. As per history bilateral mastectomies. There is no recurrent mas s or soft tissue abnormality at the mastectomy sites. No chest wall abnormality. No destructive bone lesions. Abdomen CT: Hepatic steatosis. No hepatic mass. Previously identified low-attenuation nodule in the s uperior liver is not identified today. Normal portal vein and normal gallbladder. Normal spleen. No a drenal mass. Normal pancreas and kidneys. Normal aorta. Stomach is well distended with oral contrast. There is a small hiatal hernia. No small bowel obstruct ion. Mild diffuse constipation. Normal appendix. Small umbilical hernia contains fat only. No ascites or adenopathy. Pelvic CT: Prior hysterectomy. Urinary bladder is negative. No destructive bone lesions. IMPRESSION: 1. No metastatic disease within the chest, abdomen or pelvis is identified. 2. Status post bilateral mastectomies. No abnormality noted along the chest wall. 3. Hepatic steatosis. 4. No adrenal mass. 5. Hepatic steatosis. 6. Prior hysterectomy.
== END 2023-07-08 07:27 | disposition home or self-care (01) ==
LOC: RAD 07:26
PROVIDERS: PCP Family Medicine; Visit Provider Nurse Practitioner Family
DX: C50.412 Malignant neoplasm of upper-outer quadrant of left female breast (principal); R10.31 Right lower quadrant pain; K76.0 Fatty (change of) liver, not elsewhere classified
CPT/HCPCS: 71260; 74177; Q9967

== ENCOUNTER 2023-12-03 10:28 | Oncology outpatient (recurring) (ONCR) | payer MEDICAID, SELFPAY ==
[2023-12-03 11:00] LABS: Basophils % 0.9 %; Eosinophils # 0.1 10^3/uL (0.0-0.8); Eosinophils % 2.1 %; Hematocrit 38.9 % (36-47); Lymphocytes # 1.7 10^3/uL (0.8-4.8); Lymphocytes % 39.5 %; Mean Corpuscular HGB Conc 32.9 g/dL (30-55); Mean Corpuscular Hemoglobin 29.3 pg (27-33); Mean Platelet Volume 10.8 fL (7.4-10.4); Monocytes # 0.5 10^3/uL (0.2-0.9); Monocytes % 11.8 %; Neutrophils # 1.91 10^3/uL (1.8-7.7); Neutrophils % 45.2 %; Nucleated Red Blood Cells % 0 %; Platelet Count 231 10^3/cmm (157-399); Red Blood Count 4.37 10^6/uL (3.85-5.65); White Blood Count 4.23 10^3/uL (3.29-11.43)
[2023-12-03 11:18] LABS: Alanine Aminotransferase 69 U/L (0-33); Albumin Level 4.6 g/dL (3.5-5.2); Alkaline Phosphatase 121 U/L (35-105); Anion Gap 14.3 (5-19); Aspartate Amino Transferase 53 U/L (0-32); Blood Urea Nitrogen 18 mg/dL (6-20); Calcium 9.1 mg/dL (8.5-10.5); Carbon Dioxide 26 mmol/L (22-29); Chloride 105 mmol/L (98-107); Globulin 2.8 g/dL (1.3-4.6); Glomerular Filtration Rate 59.7 mL/min (90-130); Glucose 98 mg/dL (65-115); Osmolality Calculated 294 mOsm/kg (285-295); Potassium 4.3 mmol/L (3.5-5.1); Sodium 141 mmol/L (136-145); Total Bilirubin 0.9 mg/dL (0.15-1.2); Total Protein 7.4 g/dL (6.6-8.7)
== END 2023-12-15 23:59 | disposition home or self-care (01) ==
PROVIDERS: Nurse Practitioner Family; PCP Family Medicine; Visit Provider Internal Medicine Medical Oncology
DX: C50.412 Malignant neoplasm of upper-outer quadrant of left female breast (principal); R25.2 Cramp and spasm; R53.83 Other fatigue; Z17.0 Estrogen receptor positive status [ER+]; Z79.818 Long term (current) use of other agents affecting estrogen receptors and estrogen levels; Z79.899 Other long term (current) drug therapy; Z92.3 Personal history of irradiation; Z90.13 Acquired absence of bilateral breasts and nipples
CPT/HCPCS: 36415; 80053; 85025

== ENCOUNTER 2023-12-23 08:16 | Outpatient (CLI) | payer MEDICAID, SELFPAY ==
--- NOTE | 2023-12-23 09:15 | CTR_ITS ---
PROCEDURE INFORMATION: Exam: CT Chest With Contrast; Diagnostic Exam date and time: 12/23/2023 9:40 AM Age: 47 years old Clinical indication: Generalized; Prior surgery; Surgery date: 6+ months; Surgery type: Thyroidectomy, d flap; Patient HX: Sharp pains in breast area, right abdominal pain, malignant noeplasm of left breast; Additional info: Pain in the breast area, abdominal pain TECHNIQUE: Imaging protocol: Diagnostic computed tomography of the chest with contrast. Radiation optimization: All CT scans at this facility use at least one of these dose optimization techniques: automated exposure control; mA and/or kV adjustment per patient size (includes targeted exams where dose is matched to clinical indication); or iterative reconstruction. Contrast material: OMNI 350; Contrast volume: 100 ml; Contrast route: INTRAVENOUS (IV); COMPARISON: CT chest eydpel w/*[id number] 07/08/2023 8:21 AM RADIATION DOSE METRICS: Total DLP (mGy-cm): 821.81 FINDINGS: Lungs: Unchanged small amount of scarring in the lingula. Tiny amounts of bilateral dependent subsegmental atelectasis. This is not significantly changed. Otherwise, unremarkable. Pleural spaces: Unremarkable. No pneumothorax. No pleural effusion. Heart: Unremarkable. No cardiomegaly. No pericardial effusion. Coronary arteries: No calcification in the visualized coronary arteries. Lymph nodes: Unremarkable. No enlarged lymph nodes. 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 This is probably unchanged, but this cannot be determined with certainty given that today's CT is done with a contrast injection through the left arm and the previous CT is done with a contrast injection in the right arm. Otherwise, unremarkable systemic thoracic vasculature. Bones/joints: Unchanged mild multilevel thoracic spondylosis. Otherwise, unremarkable. Soft tissues: Surgical clips chest wall. Otherwise, unremarkable visualized chest wall. Otherwise, unremarkable soft tissues. PROCEDURE INFORMATION: Exam: CT Abdomen And Pelvis With Contrast Exam date and time: 12/23/2023 9:40 AM Age: 47 years old Clinical indication: Generalized; Prior surgery; Surgery date: 6+ months; Surgery type: Thyroidectomy, d flap; Patient HX: Sharp pains in breast area, right abdominal pain, malignant noeplasm of left breast; Additional info: Pain in the breast area, abdominal pain TECHNIQUE: Imaging protocol: Computed tomography of the abdomen and pelvis with contrast. Radiation optimization: All CT scans at this facility use at least one of these dose optimization techniques: automated exposure control; mA and/or kV adjustment per patient size (includes targeted exams where dose is matched to clinical indication); or iterative reconstruction. Contrast material: OMNI 350; Contrast volume: 100 ml; Contrast route: INTRAVENOUS (IV); COMPARISON: CT chest abdpel w/*[id number] 07/08/2023 8:21 AM RADIATION DOSE METRICS: Total DLP (mGy-cm): 821.81 FINDINGS: Lungs: See separate report. Liver: Increased diffuse fatty infiltration of the liver. Unchanged mild hepatomegaly. Otherwise, unremarkable. Gallbladder and biliary ducts: Normal. No calcified stones. No ductal dilation. Pancreas: Normal. No ductal dilation. Spleen: Normal. No splenomegaly. Adrenal glands: Normal. No mass. Kidneys and ureters: Tiny nonobstructing calculus lower right kidney. Tiny nonobstructing calculus lower left kidney. These appear new. Otherwise, unremarkable. Stomach and bowel: Unremarkable. No obstruction. No mucosal thickening. Appendix: No evidence of appendicitis. Intraperitoneal space: Unremarkable. No free air. No significant fluid collection. Vasculature: Unremarkable. No abdominal aortic aneurysm. Lymph nodes: Unremarkable. No enlarged lymph nodes. Urinary bladder: Unremarkable as visualized. Reproductive: Unchanged hysterectomy. Otherwise, unremarkable. Bones/joints: Unchanged minimal lumbar spondylosis. Otherwise, unremarkable. Soft tissues: Small fat containing benign-appearing umbilical hernia. Unchanged. Otherwise, unremarkable visualized body wall. Otherwise, unremarkable soft tissues. CT/CT chest abdpel w/*[id number] IMPRESSION: 1. Unchanged tiny amounts of bilateral dependent subsegmental atelectasis. 2. 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 This is probably unchanged, but this cannot be determined with certainty given that today's CT is done with a contrast injection through the left arm and the previous CT is done with a contrast injection in the right arm. 3. No other acute thoracic findings. 4. Additional details as above. IMPRESSION: 1. Increased diffuse fatty infiltration of the liver. Unchanged hepatomegaly. 2. Single tiny new nonobstructing calculi in both lower kidneys. 3. No other acute abdominal or pelvic findings. 4. Additional details as above.
[2023-12-23] MEDS: iohexol 350 mg/mL 500 mL Btl (per mL) PO (09:30)
[2023-12-23] MEDS: iohexol 350 mg/mL 500 mL Btl (per mL) IV (09:51)
== END 2023-12-23 08:17 | disposition home or self-care (01) ==
LOC: RAD 08:17
PROVIDERS: PCP Family Medicine; Visit Provider Nurse Practitioner Family
DX: C50.912 Malignant neoplasm of unspecified site of left female breast (principal); Z17.0 Estrogen receptor positive status [ER+]; R10.9 Unspecified abdominal pain; Z98.890 Other specified postprocedural states; K76.0 Fatty (change of) liver, not elsewhere classified; Z90.710 Acquired absence of both cervix and uterus; I82.290 Acute embolism and thrombosis of other thoracic veins
CPT/HCPCS: 71260; 74177

== ENCOUNTER 2023-12-31 08:52 | Oncology outpatient (recurring) (ONCR) | payer MEDICAID, SELFPAY ==
[2023-12-31 09:13] LABS: Basophils # 0.1 10^3/uL (0.0-0.1); Basophils % 1.4 %; Eosinophils # 0.1 10^3/uL (0.0-0.8); Lymphocytes # 1.2 10^3/uL (0.8-4.8); Lymphocytes % 31.9 %; Mean Corpuscular HGB Conc 32.6 g/dL (30-55); Mean Corpuscular Hemoglobin 28.9 pg (27-33); Mean Corpuscular Volume 88.8 fl (85-98); Mean Platelet Volume 11.1 fL (7.4-10.4); Monocytes # 0.4 10^3/uL (0.2-0.9); Monocytes % 11.4 %; Neutrophils % 51.8 %; Nucleated Red Blood Cells % 0 %; Platelet Count 226 10^3/cmm (157-399); Red Blood Count 4.39 10^6/uL (3.85-5.65); Red Cell Distribution Width 13.1 % (12.1-15.1); White Blood Count 3.67 10^3/uL (3.29-11.43)
[2023-12-31 09:44] LABS: Alanine Aminotransferase 49 U/L (0-33); Albumin Level 4.6 g/dL (3.5-5.2); Alkaline Phosphatase 114 U/L (35-105); Anion Gap 12.2 (5-19); Aspartate Amino Transferase 33 U/L (0-32); Blood Urea Nitrogen 24 mg/dL (6-20); Calcium 8.8 mg/dL (8.5-10.5); Carbon Dioxide 24 mmol/L (22-29); Chloride 107 mmol/L (98-107); Creatinine Clr Calc Pharmacy 76.4238; Glomerular Filtration Rate 67.1 mL/min (90-130); Glucose 102 mg/dL (65-115); Osmolality Calculated 292 mOsm/kg (285-295); Potassium 4.2 mmol/L (3.5-5.1); Sodium 139 mmol/L (136-145); Total Bilirubin 0.6 mg/dL (0.15-1.2); Total Protein 7.6 g/dL (6.6-8.7)
== END 2024-01-15 23:59 | disposition home or self-care (01) ==
PROVIDERS: Nurse Practitioner Family; PCP Family Medicine; Visit Provider Internal Medicine Medical Oncology
DX: C50.412 Malignant neoplasm of upper-outer quadrant of left female breast (principal); R25.2 Cramp and spasm; R53.83 Other fatigue; Z17.0 Estrogen receptor positive status [ER+]; Z79.818 Long term (current) use of other agents affecting estrogen receptors and estrogen levels; Z79.899 Other long term (current) drug therapy; Z92.3 Personal history of irradiation; Z90.13 Acquired absence of bilateral breasts and nipples
CPT/HCPCS: 36415; 80053; 85025

== ENCOUNTER 2024-01-28 11:25 | Oncology outpatient (recurring) (ONCR) | payer MEDICAID, SELFPAY ==
[2024-01-28 12:07] LABS: Basophils # 0.1 10^3/uL (0.0-0.1); Basophils % 1.3 %; Eosinophils # 0.1 10^3/uL (0.0-0.8); Eosinophils % 1.9 %; Hematocrit 45.5 % (36-47); Lymphocytes # 1.8 10^3/uL (0.8-4.8); Lymphocytes % 34.6 %; Mean Corpuscular Hemoglobin 29.1 pg (27-33); Mean Corpuscular Volume 88.2 fl (85-98); Mean Platelet Volume 11.2 fL (7.4-10.4); Monocytes # 0.5 10^3/uL (0.2-0.9); Monocytes % 10.3 %; Neutrophils # 2.71 10^3/uL (1.8-7.7); Neutrophils % 51.5 %; Nucleated Red Blood Cells % 0 %; Platelet Count 254 10^3/cmm (157-399); Red Blood Count 5.16 10^6/uL (3.85-5.65); Red Cell Distribution Width 12.7 % (12.1-15.1); White Blood Count 5.26 10^3/uL (3.29-11.43)
[2024-01-28 12:26] LABS: Alanine Aminotransferase 61 U/L (0-33); Albumin Level 4.9 g/dL (3.5-5.2); Alkaline Phosphatase 124 U/L (35-105); Aspartate Amino Transferase 51 U/L (0-32); Blood Urea Nitrogen 18 mg/dL (6-20); Calcium 9.4 mg/dL (8.5-10.5); Carbon Dioxide 24 mmol/L (22-29); Chloride 102 mmol/L (98-107); Creatinine Clr Calc Pharmacy 67.9848; Globulin 3.2 g/dL (1.3-4.6); Glomerular Filtration Rate 59.4 mL/min (90-130); Glucose 99 mg/dL (65-115); Lactate Dehydrogenase 216 U/L (135-214); Osmolality Calculated 288 mOsm/kg (285-295); Sodium 138 mmol/L (136-145); Total Bilirubin 1.1 mg/dL (0.15-1.2); Total Protein 8.1 g/dL (6.6-8.7)
[2024-01-28 14:16] LABS: CA 15-3 11.8 U/mL (0-25)
== END 2024-02-14 23:59 | disposition home or self-care (01) ==
PROVIDERS: Internal Medicine Hematology & Oncology; PCP Family Medicine; Visit Provider Internal Medicine Medical Oncology
DX: C50.412 Malignant neoplasm of upper-outer quadrant of left female breast (principal); Z17.0 Estrogen receptor positive status [ER+]; Z53.9 Procedure and treatment not carried out, unspecified reason
CPT/HCPCS: 36415; 80053; 83615; 85025; 86300

== ENCOUNTER 2024-03-01 09:25 | Outpatient (CLI) | payer MEDICAID, SELFPAY ==
--- NOTE | 2024-03-01 10:00 | NM_ITS ---
WS: [id number] NUCLEAR MEDICINE HIDA SCAN CLINICAL INFORMATION: persistant nausea and vomiting TECHNIQUE: Following intravenous administration of 7.4 mCi of technetium 99m mebrofenin, images of th e abdomen were obtained over the course of 60 minutes. Next, gallbladder ejection fraction was determ ined by obtaining preprandial and one-hour postprandial images of the gallbladder following oral fabiola stion of Ensure. COMPARISON: Ultrasound 10/06/2023 FINDINGS: Normal hepatic uptake at 5 minutes. Normal hepatic excretion. Gallbladder is visualized by 15 minutes . No evidence of acute cholecystitis. Normal common bile duct and small bowel activity. Gallbladder ejection fraction 42% within normal limits. No evidence of chronic cholecystitis. NM/NM hepatobiliary w phar* [id number] IMPRESSION: 1. No evidence of acute or chronic cholecystitis. 2. Gallbladder ejection fraction at the lower end of the range but within norm al limits.
== END 2024-03-01 09:26 | disposition home or self-care (01) ==
PROVIDERS: PCP Family Medicine; Visit Provider Nurse Practitioner
DX: K21.9 Gastro-esophageal reflux disease without esophagitis (principal); K80.50 Calculus of bile duct without cholangitis or cholecystitis without obstruction; R79.89 Other specified abnormal findings of blood chemistry
CPT/HCPCS: 78227; A9537

== ENCOUNTER 2024-03-03 08:04 | Oncology outpatient (recurring) (ONCR) | payer MEDICAID, SELFPAY ==
[2024-03-03 08:56] LABS: Alanine Aminotransferase 59 U/L (0-33); Albumin Level 4.6 g/dL (3.5-5.2); Alkaline Phosphatase 110 U/L (35-105); Anion Gap 13.9 (5-19); Aspartate Amino Transferase 43 U/L (0-32); Blood Urea Nitrogen 20 mg/dL (6-20); Calcium 9.2 mg/dL (8.5-10.5); Carbon Dioxide 24 mmol/L (22-29); Chloride 106 mmol/L (98-107); Globulin 3.2 g/dL (1.3-4.6); Glomerular Filtration Rate 67.1 mL/min (90-130); Glucose 105 mg/dL (65-115); Osmolality Calculated 293 mOsm/kg (285-295); Potassium 3.9 mmol/L (3.5-5.1); Sodium 140 mmol/L (136-145); Total Bilirubin 0.8 mg/dL (0.15-1.2); Total Protein 7.8 g/dL (6.6-8.7)
== END 2024-03-16 23:59 | disposition home or self-care (01) ==
PROVIDERS: Nurse Practitioner; PCP Family Medicine; Visit Provider Internal Medicine Medical Oncology
DX: C50.912 Malignant neoplasm of unspecified site of left female breast (principal)
CPT/HCPCS: 36415; 80053

== ENCOUNTER 2024-04-05 08:59 | Oncology outpatient (recurring) (ONCR) | payer MEDICAID, SELFPAY ==
[2024-04-05 09:30] LABS: Basophils # 0.1 10^3/uL (0.0-0.1); Basophils % 1.2 %; Eosinophils # 0.1 10^3/uL (0.0-0.8); Eosinophils % 2.6 %; Hematocrit 41.3 % (36-47); Lymphocytes # 1.3 10^3/uL (0.8-4.8); Lymphocytes % 30.5 %; Mean Corpuscular HGB Conc 32.4 g/dL (30-55); Mean Corpuscular Hemoglobin 29.5 pg (27-33); Mean Platelet Volume 11.1 fL (7.4-10.4); Monocytes # 0.4 10^3/uL (0.2-0.9); Monocytes % 8.2 %; Neutrophils # 2.45 10^3/uL (1.8-7.7); Nucleated Red Blood Cells % 0 %; Platelet Count 231 10^3/cmm (157-399); Red Blood Count 4.54 10^6/uL (3.85-5.65); Red Cell Distribution Width 12.7 % (12.1-15.1); White Blood Count 4.29 10^3/uL (3.29-11.43)
[2024-04-05 09:41] LABS: Alanine Aminotransferase 54 U/L (0-33); Albumin Level 4.6 g/dL (3.5-5.2); Alkaline Phosphatase 153 U/L (35-105); Anion Gap 17.6 (5-19); Aspartate Amino Transferase 40 U/L (0-32); Blood Urea Nitrogen 17 mg/dL (6-20); Calcium 9.2 mg/dL (8.5-10.5); Carbon Dioxide 23 mmol/L (22-29); Chloride 102 mmol/L (98-107); Globulin 3.2 g/dL (1.3-4.6); Glomerular Filtration Rate 59.4 mL/min (90-130); Glucose 80 mg/dL (65-115); Osmolality Calculated 289 mOsm/kg (285-295); Potassium 3.6 mmol/L (3.5-5.1); Sodium 139 mmol/L (136-145); Total Bilirubin 0.4 mg/dL (0.15-1.2); Total Protein 7.8 g/dL (6.6-8.7)
== END 2024-04-16 23:59 | disposition home or self-care (01) ==
PROVIDERS: Internal Medicine Medical Oncology; PCP Family Medicine; Visit Provider Internal Medicine Medical Oncology
DX: Z53.9 Procedure and treatment not carried out, unspecified reason; C50.412 Malignant neoplasm of upper-outer quadrant of left female breast; Z17.0 Estrogen receptor positive status [ER+]
CPT/HCPCS: 36415; 80053; 85025

== ENCOUNTER 2024-07-06 08:00 | Oncology outpatient (recurring) (ONCR) | payer MEDICAID, SELFPAY ==
--- NOTE | 2024-06-21 13:00 | XR_ITS ---
WS: [id number] SCREENING DEXA SCAN [facility] CLINICAL INFORMATION: breast cancer COMPARISON: 2022 FINDINGS: The L1-L4 bone mineral density measures 0.941 g/cm2. This corresponds to a T score score of -2.0 and Z score of -2.3. Left femoral neck bone mineral density measures 0.926 g/cm2. This corresponds to a T score of -0.6 and Z score of -0.6. Right femoral neck bone mineral density measures 0.882 g/cm2. This corresponds to a T score -1.0of and Z score of -1.0. Mean femoral neck bone mineral density measures 0.904 g/cm2. This corresponds to a T score of -0.8 and Z score of -0.8. XR/XR DEXA axial skeleton* [id number] IMPRESSION: Osteopenia lumbar spine. Normal bone mineralization of femoral necks. Patient's FRAX calculated 10 year probability for major osteoporotic fracture i s 3.3% and osteoporotic hip fracture is 0.2%. Bone mineral density lumbar spine increased 0.1% Femoral density femoral neck to decrease -0.1%
[2024-07-06 08:27] LABS: Basophils # 0.1 10^3/uL (0.0-0.1); Basophils % 1.2 %; Eosinophils # 0.1 10^3/uL (0.0-0.8); Eosinophils % 2.4 %; Hematocrit 42.6 % (36-47); Lymphocytes # 1.5 10^3/uL (0.8-4.8); Lymphocytes % 35.8 %; Mean Corpuscular HGB Conc 32.9 g/dL (30-55); Mean Corpuscular Hemoglobin 29.2 pg (27-33); Mean Corpuscular Volume 88.9 fl (85-98); Mean Platelet Volume 11.4 fL (7.4-10.4); Monocytes # 0.4 10^3/uL (0.2-0.9); Monocytes % 10.1 %; Neutrophils # 2.11 10^3/uL (1.8-7.7); Neutrophils % 49.6 %; Nucleated Red Blood Cells % 0 %; Platelet Count 243 10^3/cmm (157-399); Red Blood Count 4.79 10^6/uL (3.85-5.65); White Blood Count 4.25 10^3/uL (3.29-11.43)
[2024-07-06 08:45] LABS: Alanine Aminotransferase 81 U/L (0-33); Albumin Level 4.5 g/dL (3.5-5.2); Alkaline Phosphatase 142 U/L (35-105); Anion Gap 14.7 (5-19); Aspartate Amino Transferase 52 U/L (0-32); Blood Urea Nitrogen 14 mg/dL (6-20); Carbon Dioxide 24 mmol/L (22-29); Chloride 104 mmol/L (98-107); Creatinine Clr Calc Pharmacy 77.3089; Globulin 3.1 g/dL (1.3-4.6); Glomerular Filtration Rate 67.1 mL/min (90-130); Glucose 97 mg/dL (65-115); Osmolality Calculated 288 mOsm/kg (285-295); Potassium 3.7 mmol/L (3.5-5.1); Sodium 139 mmol/L (136-145); Total Bilirubin 0.6 mg/dL (0.15-1.2); Total Protein 7.6 g/dL (6.6-8.7)
[2024-07-06 09:01] LABS: 25 Hydroxy Vitamin D 33 ng/mL (30-100)
[2024-07-06 09:07] LABS: Slide Review Slide Review Perform
[2024-07-06 09:13] LABS: Hepatitis C Virus Antibody Non-Reactive (Nonreactive)
[2024-07-06 09:19] LABS: Hepatitis B Core AB, Total Non-Reactive (Nonreactive); Hepatitis B Surface AB 16.5 (11.5-1000); Hepatitis B Surface Antigen Non-Reactive (Nonreactive)
== END 2024-07-14 23:59 | disposition home or self-care (01) ==
PROVIDERS: PCP Family Medicine; Visit Provider Internal Medicine Medical Oncology
DX: Z53.9 Procedure and treatment not carried out, unspecified reason; C50.412 Malignant neoplasm of upper-outer quadrant of left female breast; Z17.0 Estrogen receptor positive status [ER+]
CPT/HCPCS: 36415; 77080; 80053; 82306; 85025; 86704; 86706; 86803; 87340

== ENCOUNTER 2024-07-26 08:58 | Outpatient (CLI) | payer MEDICAID, SELFPAY ==
--- NOTE | 2024-07-26 09:03 | US_ITS ---
WS: [id number] RIGHT UPPER QUADRANT ULTRASOUND HISTORY: INCREASED LIVER ENZYMES COMPARISON: 10/06/2023 Liver: 14.3 cm in length. Normal size liver with mild hepatic steatosis. No mass. Portal Vein: Normal hepatopetal flow with monophasic waveform. Gallbladder: Cholecystectomy. CBD: 0.4 cm Pancreas: Normal size and echogenicity. Right kidney: 9.2 cm in length. Normal size and echogenicity. No hydronephrosis or mass. Aorta and IVC: Unremarkable abdominal aorta and IVC. No ascites. US/US abdomen limited [id number] IMPRESSION: 1. Prior cholecystectomy. 2. Mild hepatic steatosis. 3. No hepatobiliary dilatation.
== END 2024-07-26 08:59 | disposition home or self-care (01) ==
LOC: RAD 08:59
PROVIDERS: PCP Family Medicine; Visit Provider Internal Medicine
DX: R74.8 Abnormal levels of other serum enzymes (principal); Z90.49 Acquired absence of other specified parts of digestive tract; K76.0 Fatty (change of) liver, not elsewhere classified
CPT/HCPCS: 76705

== ENCOUNTER 2024-08-25 13:59 | Outpatient (CLI) | payer MEDICAID, SELFPAY | END 2024-08-25 14:00 | disposition home or self-care (01) | LOC: SLEEP 14:00 | PROVIDERS: PCP Family Medicine; Referring Provider Nurse Practitioner Family; Visit Provider Internal Medicine Pulmonary Disease | DX: G47.33 Obstructive sleep apnea (adult) (pediatric) (principal) | CPT/HCPCS: G0399 ==

== ENCOUNTER 2024-09-07 07:42 | Oncology outpatient (recurring) (ONCR) | payer MEDICAID, SELFPAY ==
[2024-09-07 08:13] LABS: Basophils # 0.1 10^3/uL (0.0-0.1); Basophils % 1.2 %; Eosinophils # 0.1 10^3/uL (0.0-0.8); Eosinophils % 1.9 %; Hematocrit 39.3 % (36-47); Lymphocytes # 1.7 10^3/uL (0.8-4.8); Mean Corpuscular HGB Conc 33.1 g/dL (30-55); Mean Corpuscular Volume 87.7 fl (85-98); Mean Platelet Volume 11.3 fL (7.4-10.4); Monocytes # 0.4 10^3/uL (0.2-0.9); Monocytes % 9.6 %; Neutrophils # 2.03 10^3/uL (1.8-7.7); Neutrophils % 47.6 %; Nucleated Red Blood Cells % 0 %; Platelet Count 216 10^3/cmm (157-399); Red Blood Count 4.48 10^6/uL (3.85-5.65); Red Cell Distribution Width 12.6 % (12.1-15.1); White Blood Count 4.26 10^3/uL (3.29-11.43)
[2024-09-07 08:33] LABS: Alanine Aminotransferase 49 U/L (0-33); Albumin Level 4.3 g/dL (3.5-5.2); Alkaline Phosphatase 115 U/L (35-105); Anion Gap 16.8 (5-19); Aspartate Amino Transferase 35 U/L (0-32); Blood Urea Nitrogen 29 mg/dL (6-20); Calcium 8.7 mg/dL (8.5-10.5); Carbon Dioxide 20 mmol/L (22-29); Chloride 105 mmol/L (98-107); Creatinine Clr Calc Pharmacy 69.1797; Globulin 3.1 g/dL (1.3-4.6); Glomerular Filtration Rate 59.4 mL/min (90-130); Glucose 106 mg/dL (65-115); Osmolality Calculated 292 mOsm/kg (285-295); Potassium 3.8 mmol/L (3.5-5.1); Sodium 138 mmol/L (136-145); Total Bilirubin 0.8 mg/dL (0.15-1.2); Total Protein 7.4 g/dL (6.6-8.7)
[2024-09-07 16:56] LABS: Magnesium 2.2 mg/dL (1.7-2.3)
== END 2024-09-13 23:59 | disposition home or self-care (01) ==
PROVIDERS: Nurse Practitioner Family; PCP Family Medicine; Visit Provider Internal Medicine Medical Oncology
DX: C50.412 Malignant neoplasm of upper-outer quadrant of left female breast (principal); Z17.0 Estrogen receptor positive status [ER+]
CPT/HCPCS: 36415; 80053; 83735; 85025

== ENCOUNTER 2024-11-23 07:54 | Oncology outpatient (recurring) (ONCR) | payer MEDICAID, SELFPAY ==
[2024-11-23 08:20] LABS: Hematocrit 40.0 % (36-47); Hemoglobin 13.10 g/dL (11.27-16.99); Mean Corpuscular HGB Conc 32.8 g/dL (30-55); Mean Corpuscular Hemoglobin 29.6 pg (27-33); Mean Corpuscular Volume 90.5 fl (85-98); Nucleated Red Blood Cells % 0 %; Platelet Count 199 10^3/cmm (157-399); Red Blood Count 4.42 10^6/uL (3.85-5.65); White Blood Count 3.68 10^3/uL (3.29-11.43)
[2024-11-23 08:37] LABS: Alanine Aminotransferase 40 U/L (0-33); Albumin Level 4.4 g/dL (3.5-5.2); Alkaline Phosphatase 91 U/L (35-105); Anion Gap 12.9 (5-19); Aspartate Amino Transferase 33 U/L (0-32); Blood Urea Nitrogen 15 mg/dL (6-20); Calcium 8.9 mg/dL (8.5-10.5); Carbon Dioxide 23 mmol/L (22-29); Chloride 108 mmol/L (98-107); Globulin 2.8 g/dL (1.3-4.6); Glucose 92 mg/dL (65-115); Osmolality Calculated 290 mOsm/kg (285-295); Potassium 3.9 mmol/L (3.5-5.1); Sodium 140 mmol/L (136-145); Total Protein 7.2 g/dL (6.6-8.7)
== END 2024-12-14 23:59 | disposition home or self-care (01) ==
PROVIDERS: Nurse Practitioner Family; PCP Family Medicine; Visit Provider Internal Medicine Medical Oncology
DX: C50.412 Malignant neoplasm of upper-outer quadrant of left female breast (principal); Z17.0 Estrogen receptor positive status [ER+]
CPT/HCPCS: 36415; 80053; 85025

== ENCOUNTER 2025-02-22 07:02 | Oncology outpatient (recurring) (ONCR) | payer MEDICAID, SELFPAY ==
[2025-02-22 07:18] LABS: Hematocrit 38.1 % (36-47); Hemoglobin 12.60 g/dL (11.27-16.99); Mean Corpuscular HGB Conc 33.1 g/dL (30-55); Mean Corpuscular Hemoglobin 30.7 pg (27-33); Mean Corpuscular Volume 92.7 fl (85-98); Nucleated Red Blood Cells % 0 %; Platelet Count 239 10^3/cmm (157-399); Red Blood Count 4.11 10^6/uL (3.85-5.65); White Blood Count 4.83 10^3/uL (3.29-11.43)
[2025-02-22 07:40] LABS: Alanine Aminotransferase 37 U/L (0-33); Albumin Level 4.4 g/dL (3.5-5.2); Alkaline Phosphatase 106 U/L (35-105); Anion Gap 13.3 (5-19); Aspartate Amino Transferase 32 U/L (0-32); Blood Urea Nitrogen 18 mg/dL (6-20); Calcium 9.0 mg/dL (8.5-10.5); Carbon Dioxide 29 mmol/L (22-29); Chloride 106 mmol/L (98-107); Globulin 2.7 g/dL (1.3-4.6); Glucose 119 mg/dL (65-115); Osmolality Calculated 301 mOsm/kg (285-295); Potassium 4.3 mmol/L (3.5-5.1); Sodium 144 mmol/L (136-145); Total Protein 7.1 g/dL (6.6-8.7)
== END 2025-03-16 23:59 | disposition home or self-care (01) ==
PROVIDERS: Nurse Practitioner Family; PCP Family Medicine; Visit Provider Nurse Practitioner
DX: C50.912 Malignant neoplasm of unspecified site of left female breast (principal); Z17.0 Estrogen receptor positive status [ER+]
CPT/HCPCS: 36415; 80053; 85025